=== PATIENT | female | born 1935 | race Caucasian/White ===

== ENCOUNTER 2019-06-03 15:02 | Outpatient (CLI) | payer MEDICARE, SELFPAY ==
--- NOTE | 2019-06-03 15:11 | USCV_ITS ---
Colleen Benitez Age: 84 Gender: F : 1935 Exam Date: 06/03/2019 15:32 Ordering Phys: Sanjana Lopez Technologist: Dinesh Abdullahi Exam Location: [facility] [place]_ Indication: LLE swelling HISTORY: Left lower extremity swelling PROCEDURES: Venous duplex imaging was performed in only the left lower extremity. On the left side, the common femoral, superficial femoral, profunda femoral, popliteal, posterior tibial, greater saphenous veins, and the peroneal trunk were identified and interrogated in the standard fashion. These veins were found to be easily compressible with spontaneous blood flow. FINDINGS: No DVT or superficial thrombus seen in LLE. CONCLUSIONS No evidence of DVT in the above-mentioned identifiable veins. Dr Jonathan Toribio MD [facility] (Electronically Signed) Final Date: 04 June 2019 18:48 S
== END 2019-06-03 15:03 | disposition home or self-care (01) ==
LOC: RAD 15:06
PROVIDERS: Family Provider Registered Nurse; PCP Registered Nurse; Visit Provider Nurse Practitioner Family
DX: M79.89 Other specified soft tissue disorders (principal); M79.605 Pain in left leg
CPT/HCPCS: 93971

== ENCOUNTER 2019-08-29 21:10 | Inpatient (IN) | payer MEDICARE, SELFPAY ==
--- NOTE | 2019-08-29 21:15 | XR_ITS ---
WS: [id number] HIP WITH PELVIS LEFT TECHNIQUE: 3 views of the left hip with pelvis CLINICAL INFORMATION: FALL/INJURY COMPARISON: None. FINDINGS: Left femoral neck fracture with varus angulation. Right hip is normal in appearance. Osteopenia. Norm al visualized pubic rami. Vascular calcification. XR/XR hip LT 2-3V wo/w pel* [id number] IMPRESSION: Transcervical left femoral neck fracture with varus angulation.
--- NOTE | 2019-08-29 21:18 | W.ED.FALL ---
HPI - Fall General: Chief Complaint: Fall Stated Complaint: Hip pain post fall Time Seen by Provider: 08/29/19 21:13 History of Present Illness: HPI Narrative: Ms. Benitez is a nice 84-year-old female who comes in complaining of left hip pain/left groin pain after she fell at home. She stumbled and fell did not hit her head or neck. Her only complaint is that to her left groin and hip area. She was not able to ambulate after the fall but had to call EMS who brought her here. 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 Family History Daughter Pacemaker Father Tetanus from tetanus Denies family history of Anesthesia complication Bleeding disorder Social History Smoking and tobacco status: never smoked Alcohol intake: never Caregiver/support person: No Lives independently: Yes Housing: Apartment Physical Exam Const: COMMON NORMALS: no apparent distress, oriented x3, no limitations, healthy appearing and well nourished EXAM LIMITATIONS: no altered mental status GENERAL APPEARANCE: cooperative, well kempt and well developed ORIENTATION/CONSCIOUSNESS: Yes awake HENMT: COMMON NORMALS: normocephalic, head/scalp atraumatic, hearing grossly normal bilaterally, external ears normal, EAC's normal, external nose normal and moist oral mucous membranes HEAD & SCALP: normal to inspection, normocephalic and atraumatic FACE & SINUS: normal facial exam and face symmetric NOSE: external nose normal and nares normal EXTERNAL EAR: Yes external ears normal EXTERNAL AUDITORY CANAL: EAC's normal MOUTH: oral and palatal mucosa normal and tongue normal Eye: COMMON NORMALS: PERRL, EOMs intact bilaterally, conjunctivae normal and no scleral icterus GENERAL EYE: normal appearance of both eyes and normal light reflex CONJUNCTIVA: Yes conjunctivae normal SCLERA: sclerae normal CORNEA: Yes corneas normal PUPIL: Yes PERRL DIRECT OPHTHALMOSCOPY: Yes normal light reflex Neck/C-Spine: COMMON NORMALS: full ROM, no lymphadenopathy, supple, no meningeal signs and no JVD GENERAL: Yes normal visual inspection and Yes trachea midline CERVICAL SPINE: Yes cervical ROM normal Chest: COMMONS NORMALS: inspection of chest normal and palpation of chest normal Resp: COMMON NORMALS: normal respiratory effort, no retractions, no use of accessory muscles and clear to auscultation bilaterally EFFORT & INSPECTION: Yes able to speak in complete sentences AUSCULTATION: clear to auscultation bilaterally Cardio: COMMON NORMALS: no JVD, regular rate, regular rhythm, S1 normal heart sound, S2 normal heart sound, no gallops, no clicks, no murmurs and no rub JUGULAR VENOUS DISTENTION: no JVD RATE: regular rate RHYTHM: regular rhythm HEART SOUNDS: S1 normal and S2 normal GI: COMMON NORMALS: soft to palpation, non-tender, no hepatosplenomegaly and no masses INSPECTION: Yes normal to inspection PALPATION: Yes soft and Yes no hepatosplenomegaly : COMMON NORMALS: Yes no CVA tenderness BLADDER/KIDNEY EXAM: Yes no CVA tenderness Back/Pelvis: COMMON NORMALS: no CVA tenderness, thoracic and lumbar spine normal to inspection, no thoracic nor lumbar tenderness and thoraco-lumbar ROM normal Extremity: COMMON NORMALS: normal capillary refill, no joint enlargement, no clubbing, cyanosis or edema and no calf tenderness NARRATIVE EXTREMITY EXAM: Left hip and left pubic ramus tender to palpation. Patient's leg not shortened but was externally rotated. Neuro: COMMON NORMALS: oriented x3, CN's II-XII intact bilaterally, moves all extremities, no focal motor deficits and no sensory deficits noted MENINGEAL SIGNS: Yes no meningeal signs Psych: COMMON NORMALS: mental status grossly normal, thought process normal, cooperative, affect normal, speech normal and activity/motor behavior normal APPEARANCE: Yes well kempt SPEECH: Yes normal speech THOUGHT PROCESS: normal thought process Skin: COMMON NORMALS: no rashes or lesions noted, skin turgor normal, no jaundice, no petechiae and no mottling GENERAL SKIN EXAM: no rashes or lesions noted and turgor normal Course Vital Signs: Vital signs: Vital Signs Temperature 98.6 F 08/30/19 01:06 Pulse Rate 94 08/30/19 01:06 Respiratory Rate 18 08/30/19 01:06 Blood Pressure 158/84 08/30/19 01:06 Pulse Oximetry 96 08/30/19 01:06 MDM - Fall MDM Narrative: Medical decision making narrative: Patient has obvious hip fracture on the left. I reviewed the case in full with Dr. Beebe who is agreeable to consult. The case was reviewed with Dr. Dewey and she is agreeable to admission for medical management. Lab Data: Labs: Lab Results 08/29/19 08/29/19 08/29/19 Range/Units 21:55 21:55 21:55 WBC 19.3 H (4.0-10.0) 10^3/ uL RBC 4.22 (4.1-5.3) 10^6/u L Hgb 11.4 L (11.5-15.3) g/dL Hct 37.6 (37.0-47.0) % MCV 89.1 (81-99) fL MCH 27.0 L (28.0-34.0) pg MCHC 30.3 (30.0-36.0) g/dL RDW 14.7 (12.1-15.1) % Plt Count 361 (130-400) 10^3/c mm MPV 9.3 (7.4-10.4) fL Neut % (Auto) 78.3 % Lymph % (Auto) 14.6 % [place] % (Auto) 5.5 % Eos % (Auto) 0.4 % Baso % (Auto) 0.3 % Neut # (Auto) 15.1 H (1.8-7.7) 10^3/u L Lymph # (Auto) 2.8 (0.8-4.8) 10^3/u L [place] # (Auto) 1.1 H (0.2-0.9) 10^3/u L Eos # (Auto) 0.1 (0.0-0.8) 10^3/u L Baso # (Auto) 0.1 (0.0-0.1) 10^3/u L Nucleated RBC % (a uto) 0 % Nucleated RBCs # 0.0 /100WBC PT 12.60 (10.5-13.3) SECO NDS INR 0.92 (0.8-1.2) APTT 26.1 (23.9-36.7) SECO NDS Sodium (136-145) mmol/L Potassium (3.5-5.1) mmol/L Chloride (98-107) mmol/L Carbon Dioxide (22-29) mmol/L Anion Gap (5-19) BUN (8-23) mg/dL Creatinine (0.5-0.9) mg/dL Glucose (65-115) mg/dL Calculated Osmolal ity (285-295) mOsm/k g Calcium (8.5-10.5) mg/dL Magnesium (1.7-2.3) mg/dL Total Bilirubin (0.15-1.2) mg/dL AST (0-32) U/L ALT (0-33) U/L Alkaline Phosphata se (35-105) IU/L Total Protein (6.6-8.7) g/dL Albumin (3.5-5.2) g/dL Globulin (1.3-4.6) g/dL Blood Type A Negative Rho(D) Type Negaive Antibody Screen Negative 08/29/19 Range/Units 21:55 WBC (4.0-10.0) 10^3/ uL RBC (4.1-5.3) 10^6/u L Hgb (11.5-15.3) g/dL Hct (37.0-47.0) % MCV (81-99) fL MCH (28.0-34.0) pg MCHC (30.0-36.0) g/dL RDW (12.1-15.1) % Plt Count (130-400) 10^3/c mm MPV (7.4-10.4) fL Neut % (Auto) % Lymph % (Auto) % [place] % (Auto) % Eos % (Auto) % Baso % (Auto) % Neut # (Auto) (1.8-7.7) 10^3/u L Lymph # (Auto) (0.8-4.8) 10^3/u L [place] # (Auto) (0.2-0.9) 10^3/u L Eos # (Auto) (0.0-0.8) 10^3/u L Baso # (Auto) (0.0-0.1) 10^3/u L Nucleated RBC % (a uto) % Nucleated RBCs # /100WBC PT (10.5-13.3) SECO NDS INR (0.8-1.2) APTT (23.9-36.7) SECO NDS Sodium 136 (136-145) mmol/L Potassium 3.4 L (3.5-5.1) mmol/L Chloride 97 L (98-107) mmol/L Carbon Dioxide 28 (22-29) mmol/L Anion Gap 14.4 (5-19) BUN 21 (8-23) mg/dL Creatinine 0.9 (0.5-0.9) mg/dL Glucose 125 H (65-115) mg/dL Calculated Osmolal ity 280 L (285-295) mOsm/k g Calcium 9.4 (8.5-10.5) mg/dL Magnesium 2.1 (1.7-2.3) mg/dL Total Bilirubin 0.2 (0.15-1.2) mg/dL AST 24 (0-32) U/L ALT 15 (0-33) U/L Alkaline Phosphata se 77 (35-105) IU/L Total Protein 7.4 (6.6-8.7) g/dL Albumin 4.0 (3.5-5.2) g/dL Globulin 3.4 (1.3-4.6) g/dL Blood Type Rho(D) Type Antibody Screen Imaging Data^: Pelvis: My impression: No acute pelvic fractures. Left hip: My impression: Femoral neck fracture with shortening. Discharge Plan Discharge Patient Disposition: Admitted As Inpatient Admit Provider: Maty Mejía Clinical Impression: Closed fracture of left hip Qualifiers: Encounter type: initial encounter Qualified Code(s): S72.002A - Fracture of unspecified part of neck of left femur, initial encounter for closed fracture Condition: Stable Referrals: Radha Lion FNP [Primary Care Provider] - Discharge Date/Time: 08/30/19 00:50 Coding Level of Care Code ED Chief Program Officer for [facility] Fwd Exam Comprehensive
[2019-08-29 21:19] VITALS: BP 160/80; PULSE 96; RESP 18; TEMP 36.5; O2SAT 94; BMI 29.1
--- NOTE | 2019-08-29 21:43 | XR_ITS ---
WS: [id number] CHEST XRAY TECHNIQUE: Portable chest. CLINICAL INFORMATION: cough COMPARISON: February 18, 2019 FINDINGS: Heart: Cardiomegaly. Aortic calcification. Cardiac pacer. Lungs: Moderate chronic emphysematous changes. No acute pulmonary infiltrates. No focal pneumonia. Bones: Normal visualized bony structures. XR/XR chest 1V portable [id number] IMPRESSION: 1. Stable cardiomegaly with cardiac pacer. 2. No acute pulmonary infiltrates.
--- NOTE | 2019-08-29 21:43 | ECG_ITS ---
Measurements Intervals Sandwich Rate: 94 P: 66 MO: 218 QRS: -74 QRSD: 161 T: 35 QT: 414 QTc: 519 SINUS RHYTHM WITH FIRST DEGREE AV BLOCK RIGHT BUNDLE BRANCH BLOCK [120+ ms QRS DURATION, UPRIGHT V1, 40+ ms S IN I I/aVL/V4/V5/V6] LEFT ANTERIOR FASCICULAR BLOCK [QRS AXIS <= -45, QR IN I, RS IN II] Compared to ECG 07/20/2018 04:11:44 Right bundle-branch block now present Left anterior fascicular block now present Left-axis deviation no longer present Left bundle-branch block no longer present Electronically Signed On 08-30-2019 14:59:48 CDT by Anup Batres M.D. [email or web address]
[2019-08-29 22:03] LABS: Basophils # 0.1 10^3/uL (0.0-0.1); Basophils % 0.3 %; Eosinophils # 0.1 10^3/uL (0.0-0.8); Eosinophils % 0.4 %; Hematocrit 37.6 % (37.0-47.0); Hemoglobin 11.4 g/dL (11.5-15.3); Lymphocytes # 2.8 10^3/uL (0.8-4.8); Lymphocytes % 14.6 %; Mean Corpuscular HGB Conc 30.3 g/dL (30.0-36.0); Mean Corpuscular Volume 89.1 fL (81-99); Mean Platelet Volume 9.3 fL (7.4-10.4); Monocytes # 1.1 10^3/uL (0.2-0.9); Monocytes % 5.5 %; Neutrophils # 15.1 10^3/uL (1.8-7.7); Neutrophils % 78.3 %; Nucleated Red Blood Cells % 0 %; Platelet Count 361 10^3/cmm (130-400); Red Blood Count 4.22 10^6/uL (4.1-5.3); Red Cell Distribution Width 14.7 % (12.1-15.1); White Blood Count 19.3 10^3/uL (4.0-10.0)
[2019-08-29 22:11] LABS: INR 0.92 (0.8-1.2)
[2019-08-29 22:12] LABS: Partial Thromboplastin Time 26.1 SECONDS (23.9-36.7)
[2019-08-29 22:16] LABS: Alanine Aminotransferase 15 U/L (0-33); Alkaline Phosphatase 77 IU/L (35-105); Anion Gap 14.4 (5-19); Aspartate Amino Transferase 24 U/L (0-32); Blood Urea Nitrogen 21 mg/dL (8-23); Calcium 9.4 mg/dL (8.5-10.5); Carbon Dioxide 28 mmol/L (22-29); Chloride 97 mmol/L (98-107); Globulin 3.4 g/dL (1.3-4.6); Glucose 125 mg/dL (65-115); Magnesium 2.1 mg/dL (1.7-2.3); Osmolality Calculated 280 mOsm/kg (285-295); Potassium 3.4 mmol/L (3.5-5.1); Sodium 136 mmol/L (136-145); Total Bilirubin 0.2 mg/dL (0.15-1.2); Total Protein 7.4 g/dL (6.6-8.7)
[2019-08-29 22:35] VITALS: BP 155/82; PULSE 95; RESP 16; O2SAT 95
[2019-08-29 22:43] VITALS: RESP 16; O2SAT 95
[2019-08-29] MEDS: ondansetron 2 mg/ML SDV 2 mL 4 MG IVP (22:43)
[2019-08-29] MEDS: morphine 4 mg/mL SDV 1 mL IVP (22:43)
[2019-08-29] MEDS: sodium chloride 0.9% 1,000 ML 100 ML IV (22:44)
[2019-08-29 23:19] VITALS: BP 145/80; PULSE 95; RESP 14; O2SAT 92
--- NOTE | 2019-08-29 23:40 | PM.HP ---
Providers/Chief Complaint Admitting Physician: Maty Mejía Primary Care Provider: MILAGROS Frias Chief Complaint: Hip pain post fall History of Present Illness Colleen Benitez is a 84 year old female who presented to the emergency room after a fall. She lives alone and states that she had gotten up after dinner and was walking across the room when she just simply lost her balance and fell down. She denies any type of preceding symptom. She says similar things have happened before. She has arthritis and has had previous right knee replacement. Sometimes her legs just give out. She denies chest pain, shortness of breath, dizziness, palpitations, focal weakness, mental status changes, nausea, loss of consciousness, fever, sweating and the like. She landed on her left hip on the concrete. At first she thought if she just rested for a minute she would be able to get up but after about 30 minutes she realized that that was not going to happen. She was able to scoot herself across the room to a phone and called her daughter. She was brought in by ambulance. Left lower extremity was externally rotated and shortened and she was found to have a fracture. Case has already been discussed with Dr. Gomes, orthopedics on-call. Patient lives alone. She takes care of her own housekeeping and cooking as well as her own activities of daily living. She still drives. She does not report any recent issues with chest pain, dyspnea on exertion or increasing lower extremity edema. Her legs are always a little bit puffy. No recent increase. Denies orthopnea or PND. She has had previous cataract surgery and right knee replacement without any anesthesia difficulties. No known bleeding disorder, kidney disorder. She has high blood pressure but no history of coronary artery disease. No known infectious symptoms reported. Review of Systems Const: Denies: fever, chills or change in weight Eyes: Denies: change in vision ENMT: Denies: throat pain or nasal congestion Card: Denies: chest pain, palpitations or edema Resp: Denies: shortness of breath or productive cough GI: Denies: abdominal pain, nausea, vomiting, diarrhea, constipation or blood in stool : Denies: difficulty urinating or urinary frequency Musc: Reports: joint pain (Chronically multiple joints, acutely left hip) Skin/Breast: Denies: rash or sores Neuro: Denies: headache, numbness in extremities or weakness in extremities Psych: Denies: anxiety or depression Endo: Denies: excessive sweating Jax/Lymph: Reports: easy bruising (If she takes aspirin); Denies: easy bleeding Medications/Allergies Home Medications Medication Instructions Recorded Confirmed Last Taken Type acetaminophen 500 mg tablet 500 mg PO Q4H PRN 05/23/19 06/03/19 Unknown History calcium citrate-vitamin D3 315 1 tab PO DAILY tab 05/23/19 06/03/19 Unknown History mg-200 unit tablet cholecalciferol (vitamin D3) 50 2,000 unit PO DAILY tab 05/23/19 06/03/19 Unknown History mcg (2,000 unit) tablet hydrochlorothiazide 25 mg tablet 25 mg PO DAILY tab 05/23/19 06/03/19 Unknown History loratadine 10 mg capsule 10 mg PO DAILY cap 05/23/19 06/03/19 Unknown History magnesium 200 mg tablet 400 mg PO DAILY tab 05/23/19 06/03/19 Unknown History vitamin B complex 1 tab PO DAILY tab 05/23/19 06/03/19 Unknown History glucosamine-chondroitin [Osteo 1 tab PO BID 08/29/19 08/29/19 08/29/19 History Bi-Flex] Allergies Allergy/AdvReac Type Severity Reaction Status Date / Time meloxicam Allergy Unknown Unknown Verified 05/23/19 10:57 prednisone Allergy Unknown Unknown Verified 05/23/19 10:57 triamcinolone [From Kenalog] Allergy Unknown Unknown Verified 05/23/19 10:57 PFSH Acute PFSH: Medical History 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 Placed by Duckworth 02/2019 HTN (hypertension) Mobitz type 2 second degree atrioventricular block Osteoarthritis 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) Surgical History History of bilateral cataract extraction S/P knee replacement [facility] Family History Daughter Pacemaker Father Tetanus from tetanus Denies family history of Anesthesia complication Bleeding disorder Social History Smoking and tobacco status: never smoked Alcohol intake: never Caregiver/support person: No Lives independently: Yes Housing: Apartment Vitals/I&O/Wt Last Vital Signs Temp 97.7 F 08/29/19 21:19 Pulse 95 08/29/19 23:19 Resp 14 08/29/19 23:19 BP 145/80 08/29/19 23:19 Pulse Ox 92 08/29/19 23:19 08/29/19 08/29/19 08/30/19 14:59 22:59 06:59 Intake Total 1000 / 1000 Balance 1000 / 1000 Weight last 48 hrs Weight 79.379 kg Physical Exam Const: COMMON NORMALS: oriented x3 and alert HENMT: COMMON NORMALS: normocephalic and head/scalp atraumatic Eye: COMMON NORMALS: PERRL and EOMs intact bilaterally Neck/C-Spine: COMMON NORMALS: supple Lymph: LYMPHATIC: no lymphadenopathy noted Resp: COMMON NORMALS: normal respiratory effort, no use of accessory muscles and clear to auscultation bilaterally Cardio: COMMON NORMALS: regular rate, regular rhythm, no gallops, no murmurs and no rub GI: COMMON NORMALS: soft to palpation and non-tender Extremity: COMMON NORMALS: normal capillary refill, no clubbing, cyanosis or edema and no calf tenderness NARRATIVE EXTREMITY EXAM: Left lower extremity is externally rotated and shortened. Patient can move her toes. Pulses are 2+ at both dorsalis pedis. Bony hypertrophy noted particularly of the hands. No acute joint findings beyond pain in the left hip. Neuro: COMMON NORMALS: moves all extremities and no sensory deficits noted Psych: COMMON NORMALS: thought process normal and cooperative Skin: COMMON NORMALS: no rashes or lesions noted and no mottling Urinary Catheter Management^: Omer: Cath Placed During This Visit: yes Urinary Catheter Date of Insertion: 08/29/19 Urinary Catheter Time of Insertion: 23:15 Data : 08/29/19 21:55 08/29/19 21:55 Xray Ortho: My impression: Subcapital left hip fracture per Dr. Gomes's interpretation A&P Assessment and plan (1) Fall at home: Lost balance. No preceding or associated symptoms reported Status: Acute Qualifiers: Encounter type: initial encounter Qualified Code(s): W19.XXXA - Unspecified fall, initial encounter; Y92.009 - Unspecified place in unspecified non-institutional (private) residence as the place of occurrence of the external cause (2) Closed fracture of left hip: Related to above Status: Acute Qualifiers: Encounter type: initial encounter Qualified Code(s): S72.002A - Fracture of unspecified part of neck of left femur, initial encounter for closed fracture (3) Leukocytosis: No current evidence of infection Status: Acute Qualifiers: Leukocytosis type: leukemoid reaction Qualified Code(s): D72.823 - Leukemoid reaction (4) 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 (5) HTN (hypertension): On HCTZ Status: Chronic Qualifiers: Hypertension type: essential hypertension Qualified Code(s): I10 - Essential (primary) hypertension (6) Osteoarthritis: Takes tylenol and osteobiflex Status: Chronic Qualifiers: Osteoarthritis location: multiple joints Osteoarthritis type: primary Qualified Code(s): M89.49 - Other hypertrophic osteoarthropathy, multiple sites Additional A&P Information Inpatient admission Dr. Gomes has already been consulted by ED Tentative plan is surgery in the morning We will keep n.p.o. Check a baseline troponin and BNP Will currently hold home hydrochlorothiazide and we will see how she does postoperatively Pain control with morphine Laxative therapy scheduled, has a history of constipation perioperatively Intermittent pneumatic compression but hold pharmacological DVT prophylaxis at the moment Continue Omer catheter with plan to remove by the second day postoperative Discussed with patient anticipate disposition to snf facility We will consult case management to begin this process Supportive care otherwise Risk and benefits of surgery were described to the patient and she does wish to proceed. She is aware that Dr. Gomes has been consulted. Of note Dr. Gomse did her knee surgery a few years ago. CODE STATUS was discussed and Mrs. Benitez indicated that she would not want to be resuscitated. She stated that her family was aware of her wishes. She has paperwork indicating such. I initiated the conversation about perioperative event and she said she will think about that. Patient was given an opportunity to ask questions which were answered Attestations Medical Necessity Statement*: Anticipated hospital stay greater than 2 midnights in the patient with acute hip fracture which will require surgical intervention Coding Level of Care Code Acute Wastewater Project Manager for [facility] Fwd Diagnoses Fall at home W19.XXXA; Y92.009 Encounter type: initial encounter Closed fracture of left hip S72.002A Encounter type: initial encounter Leukocytosis D72.823 Leukocytosis type: leukemoid reaction History of pacemaker Z95.0 HTN (hypertension) I10 Hypertension type: essential hypertension Osteoarthritis M89.49 Osteoarthritis location: multiple joints Osteoarthritis type: primary Perioperative Risk Evaluation Type of surgery Procedure risk: elevated risk procedure Status of surgery Priority: urgent (neccessary within 6-24 hours) Sepsis risk Infection criteria present: None SIRS criteria present: WBC < 4k or > 12k or Bands > 10% Sepsis screen: No Definite Risk Risk factors Risk factors: reviewed and none apply Medical history Medical history: reviewed and none apply Cardiac Studies: No Data to Display Implantable device: pacemaker/AICD Implantable Devices Qty Crime Scene Technician Implant Date Expiration Date pacemaker 1 02/18/19 Functional capacity Exercise tolerance: 4-10 METS Medications High priority meds: diuretics Assessment Risk of cardiovascular perioperative events: Elevated At this time, there is an elevated risk for cardiovascular perioperative events associated with this urgent elevated risk procedure. With reported functional level, no cardiopulmonary complaints, and no acute EKG changes compared to prior EKGs, no indication currently for further cardiac evaluation beyond baseline BNP and troponin. Risk of noncardiovascular perioperative events: Low At this time, there is a low risk for noncardiovascular perioperative events associated with this urgent elevated risk procedure. Additional comments: This patient has a pacemaker/AICD. Recommendations Patient medically optimized for surgery: Yes Emily-op med management: Currently, there is one high priority active medication: diuretics. The recommended action is: Hold in immediate periop period with plan to resume in couple days if otherwise stable
[2019-08-29 23:48] LABS: Bacteria Urine TRACE; Bilirubin Urine Neg (NEGATIVE); Blood Urine Neg (Negative); Glucose Urine UA Norm (Normal); Ketones Urine Negative (Negative); Leukocyte Esterase Urine Negative (Negative); Nitrate Urine Negative (Negative); Protein Urine Neg (Negative); RBC Urine RARE /hpf (0-2); Squamous Epithelial Cell Urine RARE (0-5); Urine Appearance Clear (CLEAR); Urine Color Yellow (Yellow); Urobilinogen Urine Norm (Negative); WBC Urine RARE /hpf (0-5); pH Urine 5 (5-7)
--- NOTE | 2019-08-29 23:53 | PC.NURSE ---
care and report given to the charge nurse
[2019-08-30] VITALS (22 sets, daily range): BP systolic 105–167; BP diastolic 60–95; PULSE 78–100; RESP 16–25; TEMP 36.1–37; O2SAT 94–99
[2019-08-30] MEDS: sodium chloride 0.9% 1,000 ML 100 ML IV (01:26)
[2019-08-30 02:08] LABS: Troponin T (5th) Once 13 ng/mL (0-10)
[2019-08-30 02:17] LABS: NT Pro B Type Natriuretic Pept 444 pg/mL (0-450)
[2019-08-30 04:48] LABS: Basophils # 0.1 10^3/uL (0.0-0.1); Basophils % 0.3 %; Eosinophils # 0.1 10^3/uL (0.0-0.8); Eosinophils % 0.3 %; Hematocrit 35.5 % (37.0-47.0); Hemoglobin 10.6 g/dL (11.5-15.3); Lymphocytes # 3.4 10^3/uL (0.8-4.8); Lymphocytes % 22.7 %; Mean Corpuscular HGB Conc 29.9 g/dL (30.0-36.0); Mean Corpuscular Hemoglobin 26.7 pg (28.0-34.0); Mean Corpuscular Volume 89.4 fL (81-99); Mean Platelet Volume 9.3 fL (7.4-10.4); Monocytes % 6.5 %; Neutrophils # 10.5 10^3/uL (1.8-7.7); Neutrophils % 69.8 %; Nucleated Red Blood Cells % 0 %; Platelet Count 321 10^3/cmm (130-400); Red Blood Count 3.97 10^6/uL (4.1-5.3); Red Cell Distribution Width 14.6 % (12.1-15.1)
[2019-08-30 05:10] LABS: Anion Gap 12.7 (5-19); Blood Urea Nitrogen 17 mg/dL (8-23); Carbon Dioxide 29 mmol/L (22-29); Chloride 103 mmol/L (98-107); Creatinine Clr Calc Pharmacy 55.4749; Glucose 95 mg/dL (65-115); Osmolality Calculated 286 mOsm/kg (285-295); Potassium 4.7 mmol/L (3.5-5.1); Sodium 140 mmol/L (136-145)
--- NOTE | 2019-08-30 07:38 | P.CONIM_ITS ---
Providers/Reason For Consult Consulting Physican/Specialty*: Dr. Sarah Gomes - Orthopedics Reason for Consult*: Left subcapital hip fracture Requesting Physcian: Dr. Dutton - Emergency Department Attending Physician: Maty Mejía MD Primary Care Provider: MILAGROS Frias History of Present Illness History of Present Illness Colleen Benitez is a 84 year old female who is known to me following total knee arthroplasty and who was admitted to the hospital following a fall at home. The patient had gotten up following dinner and was walking across the room when she fell down . She denied any sort of syncopal episode or other issue causing her to fall. Does note that sometimes her legs just give out. She landed directly onto concrete. She actually thought she would be able to get up but following about 30 minutes of resting, she was unable to get up. She scooted herself across the room and called her daughter and was brought to the hospital by ambulance. At the time of admission, she had left lower extremity deformity with external rotation and shortening. I was notified by the emergency department regarding her subcapital hip fracture. Review of Systems General: Reports: 10 or more systems reviewed and unremarkable except in HPI and below Narrative: Patient is very functional and independent. She does her own housekeeping and cooking. She drives herself. She has no issues aside from some lower extremity edema which has been stable. She does have high blood pressure. Const: Denies: fever, chills or change in weight Eyes: Denies: change in vision ENMT: Denies: throat pain or nasal congestion Card: Denies: chest pain, palpitations or edema Resp: Denies: shortness of breath or productive cough GI: Denies: abdominal pain, nausea, vomiting, diarrhea, constipation or blood in stool : Denies: difficulty urinating or urinary frequency Musc: Reports: joint pain (Chronically multiple joints, acutely left hip) Skin/Breast: Denies: rash or sores Neuro: Denies: headache, numbness in extremities or weakness in extremities Psych: Denies: anxiety or depression Endo: Denies: excessive sweating Jax/Lymph: Reports: easy bruising (If she takes aspirin); Denies: easy bleeding Meds/Allergies Home Medications and Allergies Home Medications Medication Instructions Recorded Confirmed Last Taken Type acetaminophen 500 mg tablet 500 mg PO Q4H PRN 05/23/19 08/29/19 08/29/19 History calcium citrate-vitamin D3 315 1 tab PO DAILY tab 05/23/19 08/29/19 08/29/19 History mg-200 unit tablet cholecalciferol (vitamin D3) 50 2,000 unit PO DAILY tab 05/23/19 08/29/19 08/29/19 History mcg (2,000 unit) tablet hydrochlorothiazide 25 mg tablet 25 mg PO DAILY tab 05/23/19 08/29/19 08/29/19 History loratadine 10 mg capsule 10 mg PO DAILY cap 05/23/19 08/29/19 08/29/19 History magnesium 200 mg tablet 400 mg PO DAILY tab 05/23/19 08/29/19 08/29/19 History vitamin B complex 1 tab PO DAILY tab 05/23/19 08/29/19 08/29/19 History glucosamine-chondroitin [Osteo 1 tab PO BID 08/29/19 08/29/19 08/29/19 History Bi-Flex] Allergies Allergy/AdvReac Type Severity Reaction Status Date / Time meloxicam Allergy Unknown Unknown Verified 05/23/19 10:57 prednisone Allergy Unknown Unknown Verified 05/23/19 10:57 triamcinolone [From Kenalog] Allergy Unknown Unknown Verified 05/23/19 10:57 Current Medications Current Medications Generic Name Dose Route Start Last Admin Trade Name Freq PRN Reason Stop Dose Admin Sodium Chloride 1,000 mls @ 100 mls/hr 08/29/19 21:45 08/29/19 23:33 Sodium Chloride 0.9% IV Infused .Q10H SHU Infusion Sodium Chloride 1,000 mls @ 100 mls/hr 08/30/19 01:06 08/30/19 01:26 Sodium Chloride 0.9% IV 100 mls/hr .Q10H SHU Administration PFSH Acute PFSH: Medical History 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 Placed by Donita 02/2019 HTN (hypertension) Mobitz type 2 second degree atrioventricular block Osteoarthritis 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 She does her own housekeeping and cooking. She drives herself. She has no issues aside from some lower extremity edema which has been stable. She does have high blood pressure. Vitals/I&O/Wt Last Vital Signs Temp 98.1 F 08/30/19 07:22 Pulse 82 08/30/19 07:22 Resp 16 08/30/19 07:22 BP 152/75 08/30/19 07:22 Pulse Ox 95 08/30/19 07:22 08/29/19 08/30/19 08/30/19 22:59 06:59 14:59 Intake Total 1000 / 1000 Output Total 1100 / 1100 Balance -100 / -100 Weight last 48 hrs Weight 175 lb Physical Exam Const: COMMON NORMALS: no apparent distress, average body habitus, oriented x3 and alert GENERAL APPEARANCE: cooperative and comfortable ORIENTATION/CONSCIOUSNESS: Yes awake HENMT: COMMON NORMALS: normocephalic and head/scalp atraumatic HEAD & SCALP: normocephalic and atraumatic Eye: GENERAL EYE: normal appearance of both eyes Chest: COMMONS NORMALS: inspection of chest normal Resp: COMMON NORMALS: normal respiratory effort EFFORT & INSPECTION: Yes able to speak in complete sentences and Yes symmetric chest movement Extremity: RIGHT LOWER EXTREMITY: Yes knee joint Right knee: Yes inspection (Status post total knee arthroplasty with no swelling or inflammation) and Yes palpation (Nontender) LEFT LOWER EXTREMITY: Yes hip joint Left hip: Yes inspection (No evidence of significant ecchymosis), Yes palpation (Tender), Yes ROM (Painful and not performed) and Yes neurovascular exam (Intact motor and sensory) Neuro: COMMON NORMALS: oriented x3 SENSORIUM/ORIENTATION: Yes alert Psych: COMMON NORMALS: mental status grossly normal APPEARANCE: Yes grossly normal ATTITUDE: Yes calm and Yes engaged ATTENTION/CONCENTRATION: Yes attention grossly intact Skin: COMMON NORMALS: no rashes or lesions noted GENERAL SKIN EXAM: no rashes or lesions noted Urinary Catheter Management^: Omer: Cath Placed During This Visit: yes Urinary Catheter Date of Insertion: 08/29/19 Urinary Catheter Time of Insertion: 23:15 Data Imaging^: Xray Ortho: My impression: AP pelvis and 2 views of the left hip demonstrate a completely displaced left subcapital hip fracture with shortening of the extremity. A&P Assessment and plan (1) Subcapital fracture of left hip: The patient was admitted through the emergency department last evening with a left subcapital hip fracture. She fell at home while walking in her kitchen. She denied any sort of episode causing her to fall. She denies episodes of syncope, but she does note that her leg will occasionally give way. She has diffuse degenerative osteoarthritis. The patient is known to me secondary to prior total knee arthroplasty in approximately 2017. Patient presents today and is admitted to the medical service for evaluation. Her major issues are high blood pressure, and she denies history of coronary artery disease. The patient will require a bipolar hip arthroplasty. Risks and complications are discussed with her. She will be consented for the surgical intervention. Status: Acute Qualifiers: Encounter type: initial encounter Fracture type: closed Qualified Code(s): S72.012A - Unspecified intracapsular fracture of left femur, initial e ncounter for closed fracture (2) Fall at home: Status: Acute Qualifiers: Encounter type: initial encounter Qualified Code(s): W19.XXXA - Unspecified fall, initial encounter; Y92.009 - Unspecified place in unspecified non-institutional (private) residence as the place of occurrence of the external cause Consult Attestations Medical Necessity Statement: Per hospitalist service Coding Level of Care Code Acute Personal Care Attendant for [facility] Fwd Diagnoses Subcapital fracture of left hip S72.012A Encounter type: initial encounter Fracture type: closed Fall at home W19.XXXA; Y92.009 Encounter type: initial encounter
[2019-08-30] MEDS: sodium chloride 0.9% 1,000 ML 30 ML IV (08:12)
--- NOTE | 2019-08-30 08:51 | P.ANESASSM_ITS ---
Pre-Anesthetic Assessment Pre-Anesthetic Assessment: Height/Weight: Height 1.65 m Weight 79.379 kg Temp Pulse Resp BP Pulse Ox 97.9 F 84 18 160/90 94 08/30/19 08:17 08/30/19 08:17 08/30/19 08:17 08/30/19 08:17 08/30/19 08:17 Preop Diagnosis: Left hip fracture Proposed Procedure: Operation Date: 08/30/19 09:30 Proposed Procedures p Hemiarthroplasty Hip Bipolar(Left) - Sarah Gomes MD Last intake: Intake Last Liquid Date 08/29/19 Last Solid Date 08/29/19 Social: Social History: No alcohol and No tobacco Exam: Pre-Anes Outpt Exam: alert, oriented x 3, clear to auscultation bilaterally and regular rate & rhythm Airway: Submandibular: WNL Cervical ROM: Other (limited) MP: 3 Dentition: False (upper and lower) History/ROS: No significant history except as noted Pulmonary: Pulmonary: PICKETT CV/HEM: Comments: PPM : Comments: stones Hepatic: Hepatic: None reported GI: GI: None reported Metabolic: Metabolic: None reported Musc/skel: Musc/skel: OA/DJD Neuropsych: Neuropsych: None reported Anesthetic Plan: ASA status: 2 Anesthesia: Anesthesia Evaluation and General Risk of > 500 ml blood loss (7ml/kg in children): No Meds/Allergies Current Medications: Current Medications Generic Name Dose Route Start Last Admin Trade Name Freq PRN Reason Stop Dose Admin Sodium Chloride 1,000 mls @ 100 m ls/hr 08/29/19 21:45 08/29/19 23:33 Sodium Chloride 0.9% IV Infused .Q10H SHU Infusion Sodium Chloride 1,000 mls @ 100 m ls/hr 08/30/19 01:06 08/30/19 01:26 Sodium Chloride 0.9% IV 100 mls/hr .Q10H SHU Administration Sodium Chloride 1,000 mls @ 30 ml s/hr 08/30/19 08:00 08/30/19 08:12 Sodium Chloride 0.9% IV 30 mls/hr .Q24H SHU Administration PFSH Anesthesia PFSH: Medical History 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 Information: Patient is very functional and independent. She does her own housekeeping and cooking. She drives herself. She has no issues aside from some lower extremity edema which has been stable. She does have high blood pressure. Data Anesthesia CBC & Chem 7: 08/30/19 04:23 08/30/19 04:23 Other Labs: Laboratory Results - last 48 hr 08/29/19 08/29/19 08/29/19 21:55 21:55 21:55 WBC 19.3 H RBC 4.22 Hgb 11.4 L Hct 37.6 MCV 89.1 MCH 27.0 L MCHC 30.3 RDW 14.7 Plt Count 361 MPV 9.3 Neut % (Auto) 78.3 Lymph % (Auto) 14.6 [place] % (Auto) 5.5 Eos % (Auto) 0.4 Baso % (Auto) 0.3 Neut # (Auto) 15.1 H Lymph # (Auto) 2.8 [place] # (Auto) 1.1 H Eos # (Auto) 0.1 Baso # (Auto) 0.1 Nucleated RBC % (auto) 0 Nucleated RBCs # 0.0 PT 12.60 INR 0.92 APTT 26.1 Sodium Potassium Chloride Carbon Dioxide Anion Gap BUN Creatinine Glucose Calculated Osmolality Calcium Magnesium Total Bilirubin AST ALT Alkaline Phosphatase Troponin T Gen 5 ng/L NT-Pro-B Natriuret Pep Total Protein Albumin Globulin Urine Color Urine Appearance Urine pH Ur Specific [place] Urine Protein Urine Glucose (UA) Urine Ketones Urine Blood Urine Nitrate Urine Bilirubin Urine Urobilinogen Ur Leukocyte Esterase Urine RBC Urine WBC Ur Squamous Epith Cells Urine Bacteria Blood Type A Negative Rho(D) Type Negaive Antibody Screen Negative 08/29/19 08/29/19 08/30/19 21:55 23:15 01:40 WBC RBC Hgb Hct MCV MCH MCHC RDW Plt Count MPV Neut % (Auto) Lymph % (Auto) [place] % (Auto) Eos % (Auto) Baso % (Auto) Neut # (Auto) Lymph # (Auto) [place] # (Auto) Eos # (Auto) Baso # (Auto) Nucleated RBC % (auto) Nucleated RBCs # PT INR APTT Sodium 136 Potassium 3.4 L Chloride 97 L Carbon Dioxide 28 Anion Gap 14.4 BUN 21 Creatinine 0.9 Glucose 125 H Calculated Osmolality 280 L Calcium 9.4 Magnesium 2.1 Total Bilirubin 0.2 AST 24 ALT 15 Alkaline Phosphatase 77 Troponin T Gen 5 ng/L 13 H NT-Pro-B Natriuret Pep Total Protein 7.4 Albumin 4.0 Globulin 3.4 Urine Color Yellow Urine Appearance Clear Urine pH 5 Ur Specific [place] 1.020 Urine Protein Neg Urine Glucose (UA) Norm Urine Ketones Negative Urine Blood Neg Urine Nitrate Negative Urine Bilirubin Neg Urine Urobilinogen Norm Ur Leukocyte Esterase Negative Urine RBC Rare Urine WBC Rare Ur Squamous Epith Cells Rare Urine Bacteria Trace Blood Type Rho(D) Type Antibody Screen 08/30/19 08/30/19 08/30/19 01:40 04:23 04:23 WBC 15.0 H RBC 3.97 L Hgb 10.6 L Hct 35.5 L MCV 89.4 MCH 26.7 L MCHC 29.9 L RDW 14.6 Plt Count 321 MPV 9.3 Neut % (Auto) 69.8 Lymph % (Auto) 22.7 [place] % (Auto) 6.5 Eos % (Auto) 0.3 Baso % (Auto) 0.3 Neut # (Auto) 10.5 H Lymph # (Auto) 3.4 [place] # (Auto) 1.0 H Eos # (Auto) 0.1 Baso # (Auto) 0.1 Nucleated RBC % (auto) 0 Nucleated RBCs # 0.0 PT INR APTT Sodium 140 Potassium 4.7 Chloride 103 Carbon Dioxide 29 Anion Gap 12.7 BUN 17 Creatinine 0.8 Glucose 95 Calculated Osmolality 286 Calcium 9.0 Magnesium Total Bilirubin AST ALT Alkaline Phosphatase Troponin T Gen 5 ng/L NT-Pro-B Natriuret Pep 444 Total Protein Albumin Globulin Urine Color Urine Appearance Urine pH Ur Specific [place] Urine Protein Urine Glucose (UA) Urine Ketones Urine Blood Urine Nitrate Urine Bilirubin Urine Urobilinogen Ur Leukocyte Esterase Urine RBC Urine WBC Ur Squamous Epith Cells Urine Bacteria Blood Type Rho(D) Type Antibody Screen Cardiac Studies: No Data to Display
--- NOTE | 2019-08-30 11:05 | PC.CHAP ---
Pastoral Care Encounter/Spiritual Assessment Type of Contact [] Declined construction executive visit [] Patient/Family/Request visit [] Outpatient visit [] Follow-up visit [] Physician referral [] Code/Alert [x] Routine visit [] Staff referral [] Actively dying [] Patient sleeping [] Family support [] [x] Out of room [] Palliative care [] [] Receiving care in room [] Pre-surgical visit [] Trauma [] Long length of stay [] ICU visit [] Other: Relational/Emotional Strength [] Patient feels connected with others/family/visitors/staff [] Distress [] Loneliness/isolation [] Abandonment Spirituality of Patient [] Person of Shweta [] Attends Sabianist of their Shweta [] Believes in Prayer [] Reads Bible or Samaritan materials [] There are Spiritual issues to be addressed Healthcare Insurance Sales Agent Interventions [] Prayer [] Active listening [] Non-anxious presence [] Spiritual/emotional support [] Crisis/trauma care [] Spiritual counseling [] Bereavement support [] Provided bereavement packet [] Provided Bible/devotional materials [] Provided toy/stuffed animal, coloring book to patient or family member [] Provided Communion [] Anointing/[place] [] Salvation [x] Completed spiritual assessment [] Other: Impact on Illness or Injury [] Angry [] Fearful [] Anxious [] Often cries [] Exhaustion [] Unable to work [] Unable to attend pentecostalism [] Unable to walk/stand [] Unable to read [] Unable to drive [] Unable to eat/drink [] Unable to sleep [] Unable to be with family [] Patient intubated [] Other: Summary Time spent with patient
--- NOTE | 2019-08-30 12:25 | XR_ITS ---
WS: [id number] PELVIS TECHNIQUE: 1 view(s) of the pelvis CLINICAL INFORMATION: Status post bipolar hip arthroplasty COMPARISON: August 29, 2019 FINDINGS: Left AUDRA in good position. Osteopenia. Moderate degenerative arthritis right hip. XR/XR pelvis 1-2V* [id number] IMPRESSION: Satisfactory postoperative left AUDRA.
[2019-08-30] MEDS: ceFAZolin 1,000 mg SDV 1000 MG IRRIGATION (12:49)
[2019-08-30] MEDS: vancomycin 1,000 MG SDV 1000 MG XX (12:50)
--- NOTE | 2019-08-30 13:57 | SUR.PHASEI ---
1354 PATIENT TO PACU AT THIS TIME FROM OR. RR EVEN AND UNLABORED. 93% ON 3L NC. PATIENT NOTED TO BE AWAKE, DROWSY, UNABLE TO FOLLOW COMMANDS. DRESSING TO LEFT HIP, CDI. LEFT PEDAL PULSE MARKED. MCADAMS IN PLACE, DRAINING CLEAR, YELLOW URINE. FIRST ICE PLACED TO LEFT HIP.
--- NOTE | 2019-08-30 14:36 | SUR.PHASEI ---
1426 PATIENT TO MED SURG AT THIS TIME. NO DISTRESS. DENIES PAIN. TOLERATING ICE CHIPS. DRESSING TO LEFT HIP, CDI, WITH FIRST ICE IN PLACE.
--- NOTE | 2019-08-30 14:53 | P.OP_ITS ---
Operative Report Date of procedure: August 30, 2019 Pre-op Diagnosis: Left subcapital hip fracture Post-op diagnosis: same Procedure Done: Left bipolar hip arthroplasty utilizing the Moustapha total hip system with a Size 6 Accolade II hip stem with a 127? neck angle. A universal head bipolar component size 46 mm outer diameter by 28 mm inner diameter and an L-FIT V 40 femoral head size 28 mm outer diameter by +0 mm offset Specimens removed/disposition: Femoral Head, disposed of Pathology: none sent Surgeon: Sarah Gomes Oven Worker: [facility] OR technicians Anesthesia: General (General intubated) Estimated blood loss (mL): 250 IV fluids (mL): 700 Urine output (mL): 100 Complications: None Findings: The hip was stable at 90 degrees of flexion with 80 degrees of internal rotation and 30 degrees of adduction. It was stable to toe hang and external rotation Condition: stable Disposition: PACU (Then to floor) Brief History: This 84-year-old woman was in her usual state of health when she fell while transferring from her living room to her kitchen. She suffered a subcapital left hip fracture. She thought perhaps she could rest a bit and get up, but when she was unable to ambulate, she crawled across the floor to call her daughter and was brought to [facility] by ambulance. Patient was admitted with this diagnosis. She underwent medical optimization and was scheduled for operative intervention today. Procedure: The patient was brought to the operating theater, and after undergoing adequate general anesthesia was transferred to the operating room table. The patient was placed in the full lateral position and held in place with the pegboard. Patient's left lower extremity was draped free and was subsequently prepped and further draped free. A surgical pause was performed prior to commencement of the surgical procedure. During the surgical pause, we confirmed the site and side of surgery as well as availability of equipment. Additionally, we confirmed preoperative surgical markings as well as prophylactic IV antibiotics, Ancef, 2 g. X-rays are also reviewed during this time. Following the surgical pause, an incision was made centering over the greater trochanter continuing proximally and distally as necessary to allow access to the hip joint. Dissection continued through skin and soft tissue using scalpel. Hemostasis was obtained using electrocautery. Tensor fascia patrizia was identified and incised longitudinally. Sciatic nerve was identified and protected throughout the surgical procedure. A Charnley U retractor was placed with care being taken to protect the sciatic nerve during placement. The hip was internally rotated. Piriformis muscle was then identified, tagged, and subsequently incised from the posterior aspect of the hip joint. The remaining short external rotators were also incised. These were then elevated off the capsule and the capsule was entered in a T-type fashion. Each side of the capsule was then tagged. The proximal femur was brought into an appropriate position, and the femoral neck osteotomy was accomplished. This was in appropriate position for placement of the prosthetic component. Femoral head was then removed from the acetabulum utilizing a corkscrew. It was subsequently measured. The appropriate size trial was chosen. This was a size 46 mm. Size 46 mm trial fit nicely and was therefore the chosen size for final implantation. Femoral process mold technician was then placed and attention was directed to the proximal femur. Initially, the proximal femur was addressed with a box chisel, and this was followed by a canal finder and subsequently broaches. The hip was broached to a size 6. Size 6 broach was noted to fit nicely and have good fit and fill. Therefore this was to be the chosen component. Trial reduction was accomplished with a 46 mm bipolar cup shell and a +0 mm femoral head. With this, the above- noted stabilities were accomplished. This was felt to be appropriate and ther efore trial components were removed and the hip was irrigated. Acetabulum was evaluated for any loose bodies or other soft tissues requiring resection. We then prepared for implantation. The size 6 Accolade II 127? neck angle femoral stem was impacted into position. This was placed without difficulty. Onto this was placed the construct of the 46 mm universal bipolar head with a +0 mm offset femoral head. This was placed onto the trunnion of the femoral component. It was impacted into position and pulled upon to assure that there was no dissociation. Once again the hip was irrigated, suctioned dry and was reduced. We then irrigated the hip further with 20 mL of Betadine mixed into 500 mL of normal saline. This was allowed to remain in the wound for approximately 3 minutes. It was then suctioned dry and irrigated with normal saline. This was suctioned dry again and closure was accomplished with 0 Vicryl in the capsular tissues followed by reattachment of the piriformis with 0 Vicryl. Additionally, the tensor was closed with 0 Vicryl in an interrupted fashion. Subcutaneous tissues were closed with 2-0 Monocryl. Skin was closed with 3-0 Monocryl. This was followed by Exofin and Steri-Strips. A sterile dressing was placed consisting of Tegaderm. The patient was returned the Recovery Room in satisfactory condition. There were no complications. The patient will be discharged to the floor for postoperative rehabilitation and pain management.
[2019-08-30] MEDS: acetaminophen 500 mg Tablet 1000 MG PO (16:13)
[2019-08-30] MEDS: chlorhexidine gluconate 0.12% Btl 473 mL 30 ML MUCOUS MEM ×3 (16:14→22:51)
[2019-08-30] MEDS: iron polysaccharide complex 150 mg Capsule PO (18:03)
[2019-08-30] MEDS: calcium carbonate 500 mg Chew Tablet 1000 MG PO (18:03)
[2019-08-30] MEDS: docusate sodium 100 mg Capsule PO (18:04)
[2019-08-30] MEDS: sennosides-docusate Tablet 2 TAB PO (18:04)
--- NOTE | 2019-08-30 22:39 | P.PN_ITS ---
Subjective Subjective: Interval history: Seen earlier today after being brought to room after surgery. 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 No preceding or associated symptoms reported Status: Acute Qualifiers: Encounter type: initial encounter Qualified Code(s): W19.XXXA - Unspecified fall, initial encounter; Y92.009 - Unspecified place in unspecified non-institutional (private) residence as the place of occurrence of the external cause (2) Closed fracture of left hip: Related to above Status: Acute Qualifiers: Encounter type: initial encounter Qualified Code(s): S72.002A - Fracture of unspecified part of neck of left femur, initial encounter for closed fracture (3) Leukocytosis: No current evidence of infection Status: Acute Qualifiers: Leukocytosis type: leukemoid reaction Qualified Code(s): D72.823 - Leukemoid reaction (4) 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 (5) HTN (hypertension): On HCTZ Status: Chronic Qualifiers: Hypertension type: essential hypertension Qualified Code(s): I10 - Essential (primary) hypertension (6) Osteoarthritis: Takes tylenol and osteobiflex Status: Chronic Qualifiers: Osteoarthritis location: multiple joints Osteoarthritis type: primary Qualified Code(s): M89.49 - Other hypertrophic osteoarthropathy, multiple sites Additional A&P Information s/p surgical intervention this afternoon Currently pain is well controlled Blood pressure currently SBP 160s, continue with hydralazine for now Pain control with morphine CODE STATUS : DNR/DNI ppx: ASA 325mg qd Attestations Medical Necessity Statement*: s/p surgery today Coding Level of Care Code Acute Concrete Batching Plant Operator for g Fwd Diagnoses Fall at home W19.XXXA; Y92.009 Encounter type: initial encounter Closed fracture of left hip S72.002A Encounter type: initial encounter Leukocytosis D72.823 Leukocytosis type: leukemoid reaction History of pacemaker Z95.0 HTN (hypertension) I10 Hypertension type: essential hypertension Osteoarthritis M89.49 Osteoarthritis location: multiple joints Osteoarthritis type: primary
[2019-08-30] MEDS: sennosides 8.6 mg Tablet 17.2 MG PO (22:54)
[2019-08-31] MEDS: acetaminophen 500 mg Tablet 1000 MG PO ×3 (00:31→15:19)
[2019-08-31 04:00] VITALS: BP 132/64; PULSE 84; RESP 18; TEMP 36.7; O2SAT 95
[2019-08-31 05:31] LABS: Basophils # 0.1 10^3/uL (0.0-0.1); Basophils % 0.5 %; Eosinophils # 0.1 10^3/uL (0.0-0.8); Eosinophils % 0.8 %; Hematocrit 32.2 % (37.0-47.0); Hemoglobin 9.8 g/dL (11.5-15.3); Lymphocytes # 3.2 10^3/uL (0.8-4.8); Lymphocytes % 26.2 %; Mean Corpuscular HGB Conc 30.4 g/dL (30.0-36.0); Mean Corpuscular Hemoglobin 27.1 pg (28.0-34.0); Mean Corpuscular Volume 89.2 fL (81-99); Monocytes # 0.9 10^3/uL (0.2-0.9); Monocytes % 7.5 %; Neutrophils % 64.8 %; Nucleated Red Blood Cells % 0 %; Platelet Count 291 10^3/cmm (130-400); Red Blood Count 3.61 10^6/uL (4.1-5.3); Red Cell Distribution Width 14.6 % (12.1-15.1); White Blood Count 12.3 10^3/uL (4.0-10.0)
[2019-08-31 05:53] LABS: Anion Gap 13.3 (5-19); Blood Urea Nitrogen 16 mg/dL (8-23); Calcium 9.3 mg/dL (8.5-10.5); Carbon Dioxide 28 mmol/L (22-29); Chloride 99 mmol/L (98-107); Creatinine Clr Calc Pharmacy 55.4749; Glucose 114 mg/dL (65-115); Osmolality Calculated 279 mOsm/kg (285-295); Potassium 4.3 mmol/L (3.5-5.1); Sodium 136 mmol/L (136-145)
--- NOTE | 2019-08-31 06:19 | PC.NURSE ---
drained catheter before removal - 450mls. Pt tolerated well.
[2019-08-31] MEDS: iron polysaccharide complex 150 mg Capsule PO ×2 (07:46→17:37)
[2019-08-31 08:00] VITALS: BP 102/65; PULSE 106; RESP 18; TEMP 36.7; O2SAT 97
[2019-08-31] MEDS: multivitamin therapeutic Tablet 1 TAB PO (08:03)
[2019-08-31] MEDS: aspirin 325 mg EC Tablet PO (08:03)
[2019-08-31] MEDS: cholecalciferol (vitamin D3) 1,000 unit Tablet 2000 UNIT PO (08:03)
[2019-08-31] MEDS: docusate sodium 100 mg Capsule PO ×2 (08:03→17:37)
[2019-08-31] MEDS: magnesium oxide 400 mg tablet PO (08:03)
[2019-08-31] MEDS: sennosides-docusate Tablet 2 TAB PO ×2 (08:04→17:37)
[2019-08-31] MEDS: loratadine 10 mg Tablet PO (08:04)
[2019-08-31] MEDS: mupirocin oint 22 gm 1 APPLIC NASAL ×2 (08:04→17:37)
[2019-08-31] MEDS: chlorhexidine gluconate 0.12% Btl 473 mL 30 ML MUCOUS MEM ×4 (08:05→20:40)
--- NOTE | 2019-08-31 08:51 | ANE.PACU2 ---
 Inpatient post-anesthesia follow up: Airway intact: Yes Vital signs: Temperature 98.1 F Pulse Rate [Brachi al] 96 Pulse Rate 106 Respiratory Rate 18 Blood Pressure [Ri ght Arm] 160/80 Blood Pressure 102/65 Pulse Oximetry 97 Oxygen Delivery Me thod Nasal Cannula Oxygen Flow Rate 3 Fraction of Inspir ed Oxygen Hydration adequate: Yes Nausea and vomiting: No Mental status: Baseline Additional Comments: pain well controlled
[2019-08-31] MEDS: calcium carbonate 500 mg Chew Tablet 1000 MG PO ×2 (09:16→17:37)
--- NOTE | 2019-08-31 11:25 | PM.PN ---
Subjective Subjective: Interval history: No new complaints, feels well, sitting in chair, eating lunch. 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 No preceding or associated symptoms reported Status: Acute Qualifiers: Encounter type: initial encounter Qualified Code(s): W19.XXXA - Unspecified fall, initial encounter; Y92.009 - Unspecified place in unspecified non-institutional (private) residence as the place of occurrence of the external cause (2) Closed fracture of left hip: Related to above Status: Acute Qualifiers: Encounter type: initial encounter Qualified Code(s): S72.002A - Fracture of unspecified part of neck of left femur, initial encounter for closed fracture (3) Leukocytosis: No current evidence of infection Status: Acute Qualifiers: Leukocytosis type: leukemoid reaction Qualified Code(s): D72.823 - Leukemoid reaction (4) 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 (5) HTN (hypertension): On HCTZ Status: Chronic Qualifiers: Hypertension type: essential hypertension Qualified Code(s): I10 - Essential (primary) hypertension (6) Osteoarthritis: Takes tylenol and osteobiflex Status: Chronic Qualifiers: Osteoarthritis location: multiple joints Osteoarthritis type: primary Qualified Code(s): M89.49 - Other hypertrophic osteoarthropathy, multiple sites Additional A&P Information # s/p hemiarthroplasty left hip on 08/29 Currently pain is well controlled Post op Hb stable patient participating in PT, ambulating with walker #HTN: currently well controlled CODE STATUS : DNR/DNI ppx: ASA 325mg qd Attestations Medical Necessity Statement*: Post op from hemiarthroplasty, awaiting SNF placement Coding Level of Care Code Acute Hydrogen Cell Tender for Chg Fwd Diagnoses Fall at home W19.XXXA; Y92.009 Encounter type: initial encounter Closed fracture of left hip S72.002A Encounter type: initial encounter Leukocytosis D72.823 Leukocytosis type: leukemoid reaction History of pacemaker Z95.0 HTN (hypertension) I10 Hypertension type: essential hypertension Osteoarthritis M89.49 Osteoarthritis location: multiple joints Osteoarthritis type: primary
[2019-08-31 11:26] VITALS: BP 114/74; PULSE 107; RESP 18; TEMP 36.7; O2SAT 97
--- NOTE | 2019-08-31 14:24 | P.PN_ITS ---
Subjective Subjective: Interval history: Patient is doing well with minimal complaints. She has worked with physical therapy. She is agreeable to detention at this time. Medications: Reviewed: Yes Vitals/I&O/Wt Last Vital Signs Temp 98.1 F 08/31/19 11:26 Pulse 107 H 08/31/19 11:26 Resp 18 08/31/19 11:26 BP 114/74 08/31/19 11:26 Pulse Ox 97 08/31/19 11:26 08/30/19 08/31/19 08/31/19 22:59 06:59 14:59 Intake Total 240 / 390 600 / 990 270 / 270 Output Total 100 / 250 650 / 900 Balance 140 / 140 -50 / 90 270 / 270 Weight last 48 hrs Weight 175 lb Physical Exam Narrative: EXAM NARRATIVE: Patient's wound is benign. It is covered with a Tegaderm and Telfa. There is no evidence of drainage. There is bruising from her fall, but no new ecchymosis. Her calf is soft and nontender. She is neurologically intact. She is awake, alert, and appropriate. Urinary Catheter Management^: Omer: Cath Placed During This Visit: yes Reason for Continuing Indwelling Catheter: Not indwelling catheter Urinary Catheter Date of Insertion: 08/29/19 Urinary Catheter Time of Insertion: 23:15 Data : 08/31/19 04:50 08/31/19 04:50 A&P Assessment and plan (1) History of hemiarthroplasty of left hip: Patient is doing well in her postoperative period following hemiarthroplasty of the left hip. This was accomplished yesterday uneventfully. There have been no significant complications. The patient is awaiting placement for detention care as she lives at home alone and will require cues to maintain her posterior hip precautions. Status: Acute (2) Subcapital fracture of left hip: Status: Acute Qualifiers: Encounter type: initial encounter Fracture type: closed Qualified Code(s): S72.012A - Unspecified intracapsular fracture of left femur, initial encounter for closed fracture Attestations Medical Necessity Statement*: Patient continues to require inpatient status to work with physical therapy and to progress in her postoperative course. Coding Level of Care Code Acute Church Communications Administrator for Derrick Davis Diagnoses History of hemiarthroplasty of left hip Z96.642 Subcapital fracture of left hip S72.012A Encounter type: initial encounter Fracture type: closed
[2019-08-31 15:44] VITALS: BP 138/79; PULSE 100; PULSE 98; RESP 18; TEMP 36.8; O2SAT 96; O2SAT 97
[2019-08-31 20:00] VITALS: BP 149/75; PULSE 100; RESP 22; TEMP 36.6; O2SAT 92
[2019-09-01] VITALS: BP 133/76; PULSE 110; RESP 20; TEMP 36.8; O2SAT 90
[2019-09-01] MEDS: acetaminophen 500 mg Tablet 1000 MG PO ×4 (01:50→23:20)
[2019-09-01 04:00] VITALS: BP 114/66; PULSE 91; RESP 18; TEMP 36.6; O2SAT 90
[2019-09-01 05:24] LABS: Basophils # 0.1 10^3/uL (0.0-0.1); Basophils % 0.4 %; Eosinophils # 0.2 10^3/uL (0.0-0.8); Eosinophils % 1.4 %; Hematocrit 30.5 % (37.0-47.0); Hemoglobin 9.2 g/dL (11.5-15.3); Lymphocytes # 3.1 10^3/uL (0.8-4.8); Lymphocytes % 25.4 %; Mean Corpuscular HGB Conc 30.2 g/dL (30.0-36.0); Mean Corpuscular Hemoglobin 26.7 pg (28.0-34.0); Mean Corpuscular Volume 88.7 fL (81-99); Mean Platelet Volume 9.9 fL (7.4-10.4); Monocytes # 0.9 10^3/uL (0.2-0.9); Monocytes % 7.2 %; Neutrophils % 65.4 %; Nucleated Red Blood Cells % 0 %; Platelet Count 255 10^3/cmm (130-400); Red Blood Count 3.44 10^6/uL (4.1-5.3); Red Cell Distribution Width 14.6 % (12.1-15.1); White Blood Count 12.3 10^3/uL (4.0-10.0)
[2019-09-01] MEDS: iron polysaccharide complex 150 mg Capsule PO ×2 (07:45→17:13)
[2019-09-01 07:48] VITALS: BP 143/76; PULSE 100; RESP 18; TEMP 36.8; O2SAT 92
--- NOTE | 2019-09-01 08:18 | PC.SOCIAL ---
IM follow up explained, intialed with copy provided. Pt has no questions or concerns.
[2019-09-01] MEDS: calcium carbonate 500 mg Chew Tablet 1000 MG PO ×2 (09:01→17:13)
[2019-09-01] MEDS: magnesium oxide 400 mg tablet PO (09:01)
[2019-09-01] MEDS: cholecalciferol (vitamin D3) 1,000 unit Tablet 2000 UNIT PO (09:01)
[2019-09-01] MEDS: aspirin 325 mg EC Tablet PO (09:01)
[2019-09-01] MEDS: cholecalciferol (vitamin D3) 1,000 unit Tablet 1000 UNIT PO (09:02)
[2019-09-01] MEDS: mupirocin oint 22 gm 1 APPLIC NASAL ×2 (09:02→17:13)
[2019-09-01] MEDS: multivitamin therapeutic Tablet 1 TAB PO (09:02)
[2019-09-01] MEDS: chlorhexidine gluconate 0.12% Btl 473 mL 30 ML MUCOUS MEM ×4 (09:02→21:30)
[2019-09-01] MEDS: sennosides-docusate Tablet 2 TAB PO ×2 (09:02→17:13)
[2019-09-01] MEDS: docusate sodium 100 mg Capsule PO ×2 (09:02→17:13)
[2019-09-01] MEDS: loratadine 10 mg Tablet PO (09:02)
[2019-09-01 11:43] VITALS: BP 130/80; PULSE 110; RESP 18; TEMP 36.7; O2SAT 92
--- NOTE | 2019-09-01 12:23 | P.PN_ITS ---
Subjective Subjective: Interval history: Patient continues to do well following her bipolar hip arthroplasty for subcapital displaced hip fracture. She is ready for discharge to [facility] when medically appropriate. Medications: Reviewed: Yes Vitals/I&O/Wt Last Vital Signs Temp 98.1 F 09/01/19 11:43 Pulse 110 H 09/01/19 11:43 Resp 18 09/01/19 11:43 BP 130/80 09/01/19 11:43 Pulse Ox 92 09/01/19 11:43 08/31/19 09/01/19 09/01/19 22:59 06:59 14:59 Intake Total 240 / 510 100 / 610 600 / 600 Output Total 550 / 550 250 / 800 Balance -310 / -40 -150 / -190 600 / 600 Physical Exam Narrative: EXAM NARRATIVE: Patient's wound is benign. Dressing is removed, and the wound is clear of any ecchymosis or erythema. There is no evidence of drainage. There is bruising from her fall. Her calf is soft and nontender. She is neurologically intact. She is awake, alert, and appropriate. Const: COMMON NORMALS: no apparent distress, average body habitus, oriented x3 and alert GENERAL APPEARANCE: cooperative and comfortable ORIENTATION/CONSCIOUSNESS: Yes awake HENMT: COMMON NORMALS: normocephalic and head/scalp atraumatic HEAD & SCALP: normocephalic and atraumatic Eye: GENERAL EYE: normal appearance of both eyes Chest: COMMONS NORMALS: inspection of chest normal Resp: COMMON NORMALS: normal respiratory effort EFFORT & INSPECTION: Yes able to speak in complete sentences and Yes symmetric chest movement Neuro: COMMON NORMALS: oriented x3 SENSORIUM/ORIENTATION: Yes alert Psych: COMMON NORMALS: mental status grossly normal APPEARANCE: Yes grossly normal ATTITUDE: Yes calm and Yes engaged ATTENTION/CONCENTRATION: Yes attention grossly intact Skin: COMMON NORMALS: no rashes or lesions noted GENERAL SKIN EXAM: no rashes or lesions noted Urinary Catheter Management^: Omer: Cath Placed During This Visit: yes, but has since been removed by the nurse Reason for Continuing Indwelling Catheter: Not indwelling catheter Urinary Catheter Date of Insertion: 08/29/19 Urinary Catheter Time of Insertion: 23:15 Date Urinary Catheter Removed: 08/31/19 Time Urinary Catheter Discontinued: 19:00 Data : 09/01/19 05:03 08/31/19 04:50 A&P Assessment and plan (1) History of hemiarthroplasty of left hip: Patient continues to do well. She will require [facility] at the time of discharge, and this is in the works for her. We are awaiting insurance approval. She notes that she would rather go home, but she understa nds reasons why she needs to go to [facility]. Status: Acute (2) Subcapital fracture of left hip: Status: Acute Qualifiers: Encounter type: initial encounter Fracture type: closed Qualified Code(s): S72.012A - Unspecified intracapsular fracture of left femur, initial encounter for closed fracture Attestations Medical Necessity Statement*: Per hospitalist service. Coding Level of Care Code Acute Route Driver Coin Machines for Derrick Davis Diagnoses History of hemiarthroplasty of left hip Z96.642 Subcapital fracture of left hip S72.012A Encounter type: initial encounter Fracture type: closed
--- NOTE | 2019-09-01 13:11 | PM.PN ---
Subjective Subjective: Interval history: Patient is doing well postoperatively, has no acute complaints today. Heart rate is noted to be between 90-1 10. I do not see any prior beta-blockers or calcium channel naresh trial list. Rhythm is sinus. 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 No preceding or associated symptoms reported Status: Acute Qualifiers: Encounter type: initial encounter Qualified Code(s): W19.XXXA - Unspecified fall, initial encounter; Y92.009 - Unspecified place in unspecified non-institutional (private) residence as the place of occurrence of the external cause (2) Closed fracture of left hip: Related to above Status: Acute Qualifiers: Encounter type: initial encounter Qualified Code(s): S72.002A - Fracture of unspecified part of neck of left femur, initial encounter for closed fracture (3) Leukocytosis: No current evidence of infection Status: Acute Qualifiers: Leukocytosis type: leukemoid reaction Qualified Code(s): D72.823 - Leukemoid reaction (4) 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 patient participating in PT, ambulating with walker #HTN: currently well controlled . Holding hydrochlorothiazide #Sinus tachycardia: We will start her on metoprolol 12.5mg daily. CODE STATUS : DNR/DNI ppx: ASA 325mg qd Attestations Medical Necessity Statement*: Awaiting prior authorization for placement at SNF Coding Level of Care Code Acute Software Developer Intern for Chg Fwd Diagnoses Fall at home W19.XXXA; Y92.009 Encounter type: initial encounter Closed fracture of left hip S72.002A Encounter type: initial encounter Leukocytosis D72.823 Leukocytosis type: leukemoid reaction History of pacemaker Z95.0 HTN (hypertension) I10 Hypertension type: essential hypertension Osteoarthritis M89.49 Osteoarthritis location: multiple joints Osteoarthritis type: primary
--- NOTE | 2019-09-01 13:53 | ECG_ITS ---
Measurements Intervals [place] Rate: 99 P: 60 NV: 222 QRS: -73 QRSD: 161 T: 33 QT: 382 QTc: 491 SINUS RHYTHM WITH FIRST DEGREE AV BLOCK WITH OCCASIONAL SUPRAVENTRICULAR PREMATURE COMPLEXES RIGHT BUNDLE BRANCH BLOCK [120+ ms QRS DURATION, UPRIGHT V1, 40+ ms S IN I/aVL/V4/V5/V6] LEFT ANTERIOR FASCICULAR BLOCK [QRS AXIS <= -45, QR IN I, RS IN II] Compared to ECG 08/29/2019 23:34:30 No significant changes Electronically Signed On 09-01-2019 20:26:44 CDT by Jonathan Toribio M.D. [email or web address]
[2019-09-01] MEDS: metoprolol tartrate 25 mg Tablet 12.5 MG PO (15:07)
[2019-09-01 15:51] VITALS: BP 117/73; PULSE 102; RESP 18; TEMP 36.7; O2SAT 94
[2019-09-01 20:00] VITALS: BP 120/72; PULSE 97; RESP 18; TEMP 37.3; O2SAT 90
[2019-09-02] VITALS (7 sets, daily range): BP systolic 128–145; BP diastolic 69–77; PULSE 78–115; RESP 16–20; TEMP 36.3–37.4; O2SAT 90–95
[2019-09-02 05:53] LABS: Basophils # 0.1 10^3/uL (0.0-0.1); Basophils % 0.3 %; Eosinophils # 0.2 10^3/uL (0.0-0.8); Eosinophils % 1.3 %; Hematocrit 31.6 % (37.0-47.0); Hemoglobin 9.7 g/dL (11.5-15.3); Lymphocytes # 2.7 10^3/uL (0.8-4.8); Lymphocytes % 16.2 %; Mean Corpuscular HGB Conc 30.7 g/dL (30.0-36.0); Mean Corpuscular Hemoglobin 27.8 pg (28.0-34.0); Mean Corpuscular Volume 90.5 fL (81-99); Mean Platelet Volume 9.9 fL (7.4-10.4); Monocytes # 1.4 10^3/uL (0.2-0.9); Monocytes % 8.3 %; Neutrophils # 12.2 10^3/uL (1.8-7.7); Neutrophils % 73.5 %; Nucleated Red Blood Cells % 0 %; Platelet Count 286 10^3/cmm (130-400); Red Blood Count 3.49 10^6/uL (4.1-5.3); Red Cell Distribution Width 14.6 % (12.1-15.1); White Blood Count 16.6 10^3/uL (4.0-10.0)
[2019-09-02] MEDS: ondansetron 2 mg/ML SDV 2 mL 4 MG IVP (10:20)
[2019-09-02] MEDS: acetaminophen 500 mg Tablet PO (11:53)
--- NOTE | 2019-09-02 13:21 | P.PN_ITS ---
Subjective Subjective: Interval history: T-max of 99.4. Heart rate up to 115. Leukocytosis with white blood cell count up to 16 today. Hemoglobin stable at 9.7. Reports 6 episodes of diarrhea between last night and this morning. States that this appears to be currently resolving. Denies any cough. Blood pressure remained stable. 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 Wound site appears healthy. Urinary Catheter Management^: Omer: Cath Placed During This Visit: yes, but has since been removed by the nurse Reason for Continuing Indwelling Catheter: Not indwelling catheter Urinary Catheter Date of Insertion: 08/29/19 Urinary Catheter Time of Insertion: 23:15 Date Urinary Catheter Removed: 08/31/19 Time Urinary Catheter Discontinued: 19:00 Data : 09/02/19 05:35 08/31/19 04:50 A&P Assessment and plan (1) History of hemiarthroplasty of left hip: Status: Acute (2) Fall at home: Lost balance. 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 (5) Subcapital fracture of left hip: Status: Acute Qualifiers: Encounter type: initial encounter Fracture type: closed Qualified Code(s): S72.012A - Unspecified intracapsular fracture of left femur, initial encounter for closed fracture (6) Closed fracture of left hip: Related to above Status: Acute Qualifiers: Encounter type: initial encounter Qualified Code(s): S72.002A - Fracture of unspecified part of neck of left femur, initial encounter for closed fracture (7) Leukocytosis: Status: Acute Qualifiers: Leukocytosis type: leukemoid reaction Qualified Code(s): D72.823 - Leuk emoid reaction (8) Osteoarthritis: Takes tylenol and osteobiflex Status: Chronic Qualifiers: Osteoarthritis location: multiple joints Osteoarthritis type: primary Qualified Code(s): M89.49 - Other hypertrophic osteoarthropathy, multiple sites Additional A&P Information # s/p hemiarthroplasty left hip on 08/29 Currently pain is well controlled Post op Hb stable at 9.7. patient participating in PT, ambulating with walker # temp 99.4 with rising leukocytosis, infectious w/up ordered Blood cx, UA, CXR, C diff PCR given diarrhea. #HTN: currently well controlled . Holding hydrochlorothiazide #Sinus tachycardia: We will start her on metoprolol 12.5mg BID. Patient has a PPM in place. CODE STATUS : DNR/DNI ppx: ASA 325mg qd Attestations Medical Necessity Statement*: awaiting placement at SNF, pre auth, leukocytosis today, ongoing infectious w/up Coding Level of Care Code Acute Advertising Associate for [facility] Fwd Diagnoses History of hemiarthroplasty of left hip Z96.642 Fall at home W19.XXXA; Y92.009 Encounter type: initial encounter HTN (hypertension) I10 Hypertension type: essential hypertension History of pacemaker Z95.0 Subcapital fracture of left hip S72.012A Encounter type: initial encounter Fracture type: closed Closed fracture of left hip S72.002A Encounter type: initial encounter Leukocytosis D72.823 Leukocytosis type: leukemoid reaction Osteoarthritis M89.49 Osteoarthritis location: multiple joints Osteoarthritis type: primary
--- NOTE | 2019-09-02 13:27 | XR_ITS ---
WS: [id number] PORTABLE CHEST HISTORY: atelectasis vs pneumonia COMPARISON: 08/29/2019 Prior LEFT subclavian pacer. Lungs are clear and well expanded. No pleural effusion or pneumothorax. Cardiac size: Normal. Mediastinum/Aorta: Mild atherosclerosis aorta. Degenerative changes at the shoulders. XR/XR chest 1V portable [id number] IMPRESSION: Mild atherosclerosis aorta.
[2019-09-02] MEDS: cefTRIAXone 1,000 MG in sodium chloride 0.9% (plus) 50 ML 100 MG IV (14:19)
[2019-09-02 16:13] LABS: Add Urine Microscopic? NO
[2019-09-02] MEDS: acetaminophen 500 mg Tablet 1000 MG PO ×2 (16:24→23:29)
[2019-09-02] MEDS: calcium carbonate 500 mg Chew Tablet 1000 MG PO (17:37)
[2019-09-02] MEDS: iron polysaccharide complex 150 mg Capsule PO (17:37)
[2019-09-02] MEDS: docusate sodium 100 mg Capsule PO (17:38)
[2019-09-02] MEDS: sennosides-docusate Tablet 2 TAB PO (17:38)
[2019-09-02 18:35] LABS: Bilirubin Urine Neg (NEGATIVE); Blood Urine Neg (Negative); Glucose Urine UA Norm (Normal); Ketones Urine Negative (Negative); Protein Urine Neg (Negative); Specific Gravity, Urine 1.005 (1.005-1.030); Urine Appearance Clear (CLEAR); Urine Color Yellow (Yellow); pH Urine 5 (5-7)
[2019-09-02 18:36] LABS: Leukocyte Esterase Urine Negative (Negative); Nitrate Urine Negative (Negative); Urobilinogen Urine Norm (Negative)
[2019-09-03] VITALS (7 sets, daily range): BP systolic 130–161; BP diastolic 67–80; PULSE 93–106; RESP 18–28; TEMP 36.7–37.1; O2SAT 93–95
[2019-09-03 05:17] LABS: Basophils # 0.1 10^3/uL (0.0-0.1); Basophils % 0.5 %; Eosinophils # 0.3 10^3/uL (0.0-0.8); Eosinophils % 2.3 %; Hematocrit 31.2 % (37.0-47.0); Hemoglobin 9.3 g/dL (11.5-15.3); Lymphocytes # 4.4 10^3/uL (0.8-4.8); Lymphocytes % 32.6 %; Mean Corpuscular HGB Conc 29.8 g/dL (30.0-36.0); Mean Corpuscular Hemoglobin 27.1 pg (28.0-34.0); Mean Platelet Volume 9.7 fL (7.4-10.4); Monocytes % 7.5 %; Neutrophils # 7.7 10^3/uL (1.8-7.7); Neutrophils % 56.8 %; Nucleated Red Blood Cells % 0 %; Platelet Count 354 10^3/cmm (130-400); Red Blood Count 3.43 10^6/uL (4.1-5.3); Red Cell Distribution Width 14.7 % (12.1-15.1); White Blood Count 13.6 10^3/uL (4.0-10.0)
[2019-09-03 05:50] LABS: Alanine Aminotransferase 7 U/L (0-33); Albumin Level 3.4 g/dL (3.5-5.2); Alkaline Phosphatase 66 IU/L (35-105); Anion Gap 14.9 (5-19); Aspartate Amino Transferase 18 U/L (0-32); Blood Urea Nitrogen 17 mg/dL (8-23); Calcium 9.2 mg/dL (8.5-10.5); Carbon Dioxide 30 mmol/L (22-29); Chloride 99 mmol/L (98-107); Creatinine Clr Calc Pharmacy 55.4749; Globulin 3.5 g/dL (1.3-4.6); Glucose 121 mg/dL (65-115); Osmolality Calculated 288 mOsm/kg (285-295); Potassium 3.9 mmol/L (3.5-5.1); Sodium 140 mmol/L (136-145); Total Bilirubin 0.4 mg/dL (0.15-1.2); Total Protein 6.9 g/dL (6.6-8.7)
[2019-09-03] MEDS: acetaminophen 500 mg Tablet 1000 MG PO (08:35)
[2019-09-03] MEDS: iron polysaccharide complex 150 mg Capsule PO (08:35)
[2019-09-03] MEDS: aspirin 325 mg EC Tablet PO (08:35)
[2019-09-03] MEDS: cholecalciferol (vitamin D3) 1,000 unit Tablet 1000 UNIT PO (08:36)
[2019-09-03] MEDS: chlorhexidine gluconate 0.12% Btl 473 mL 30 ML MUCOUS MEM ×2 (08:36→14:09)
[2019-09-03] MEDS: calcium carbonate 500 mg Chew Tablet 1000 MG PO (08:36)
[2019-09-03] MEDS: docusate sodium 100 mg Capsule PO (08:37)
[2019-09-03] MEDS: multivitamin therapeutic Tablet 1 TAB PO (08:37)
[2019-09-03] MEDS: magnesium oxide 400 mg tablet PO (08:38)
[2019-09-03] MEDS: loratadine 10 mg Tablet PO (08:38)
[2019-09-03] MEDS: mupirocin oint 22 gm 1 APPLIC NASAL (08:38)
[2019-09-03] MEDS: metoprolol tartrate 25 mg Tablet 12.5 MG PO (11:39)
--- NOTE | 2019-09-03 14:01 | P.DS_ITS ---
Discharge Providers Date of Admission: 08/29/19 23:06 Date of Discharge: September 03, 2019 Attending Provider at Admission: Maty Mejía MD Attending Provider at Discharge: Elisabeth Aiken MD Primary Care Provider: MILAGROS Frias Diagnoses at Discharge Discharge Diagnosis (1) History of hemiarthroplasty of left hip: Status: Acute (2) Fall at home: Status: Acute Qualifiers: Encounter type: initial encounter Qualified Code(s): W19.XXXA - Unspecified fall, initial encounter; Y92.009 - Unspecified place in unspecified non-institutional (private) residence as the place of occurrence of the external cause (3) HTN (hypertension): Status: Chronic Qualifiers: Hypertension type: essential hypertension Qualified Code(s): I10 - Essential (primary) hypertension (4) History of pacemaker: Status: Chronic Problem details: secondary to Mobitz type II AVB Placed by Donita 02/2019 (5) Subcapital fracture of left hip: Status: Acute Qualifiers: Encounter type: initial encounter Fracture type: closed Qualified Code(s): S72.012A - Unspecified intracapsular fracture of left femur, initial encounter for closed fracture (6) Closed fracture of left hip: Status: Acute Qualifiers: Encounter type: initial encounter Qualified Code(s): S72.002A - Fracture of unspecified part of neck of left femur, initial encounter for closed fracture (7) Leukocytosis: Status: Acute Qualifiers: Leukocytosis type: leukemoid reaction Qualified Code(s): D72.823 - Leukemoid reaction (8) Osteoarthritis: Status: Chronic Qualifiers: Osteoarthritis location: multiple joints Osteoarthritis type: primary Qualified Code(s): M89.49 - Other hypertrophic osteoarthropathy, multiple sites Reason for Visit Reason for Visit: Reason For Visit: Hip pain post fall Hospital Course Discharge Summary: Colleen Benitez is a 84 year old female who presented to the emergency room after a fall. She lives alone and states that she had gotten up after dinner and was walking across the room when she just simply lost her balance and fell down. She denied any sort of syncopal episode or other issue causing her to fall. She was found to have a left hip subcapital fracture. She underwent left bipolar hip arthroplasty on August 30, 1999. She tolerated the procedure well. Currently medical some postop anemia. Hemoglobin stable at 9.7. Yesterday she was briefly noted to have leukocytosis to 16, with a baseline of WBC of 12. Infectious work-up was negative with negative chest x-ray, negative UA, no C diff on stool testing and wound site that appears to be healthy and healing well. Given that she has no current localizing signs or symptoms of infection at this present time, antibiotics have not been initiated on discharge. Of note her heart rate has been ranging between 70-100 during the c ourse of admission. This is noted to be sinus rhythm with first-degree AV block. Of note patient has previously a pacemaker placed in February 2019 for type II Mobitz heart block. She is asyptomatic and hemodynamically stable. Metoprolol 12.5 mg twice daily has been initiated as a new medication because of the sinus tachycardia. She is stable to discharge to SNF from medical standpoint. Physical Exam Narrative: EXAM NARRATIVE: GEN: Awake, alert and oriented, no acute distress CVS: S1S2 N RS: CTA B/L Abd: Soft, nt/nd , bs+ CLIENT SERVICE SUPERVISOR: no focal neuro deficits EXT: left hip uppe rthigh surgical site without any signs of cellulitis Urinary Catheter Management^: Omer: Cath Placed During This Visit: yes, but has since been removed by the nurse Reason for Continuing Indwelling Catheter: Not indwelling catheter Urinary Catheter Date of Insertion: 08/29/19 Urinary Catheter Time of Insertion: 23:15 Date Urinary Catheter Removed: 08/31/19 Time Urinary Catheter Discontinued: 19:00 Discharge Data Data Completed and Pending: Completed Studies During Hospitalization Category Date Time Status XR chest 1V hayder ble 10127 Routine Exams 09/02/19 13:27 Completed XR chest 1V hayder ble 32177 Stat Exams 08/29/19 21:43 Completed XR hip LT 2-3V wo /w pel* [id number] Stat Exams 08/29/19 21:15 Completed XR pelvis 1-2V* 7 2170 Routine Exams 08/30/19 12:25 Completed Labs from last 24 hours 09/03/19 09/03/19 09/02/19 04:58 04:58 15:55 WBC 13.6 H RBC 3.43 L Hgb 9.3 L Hct 31.2 L MCV 91.0 MCH 27.1 L MCHC 29.8 L RDW 14.7 Plt Count 354 MPV 9.7 Neut % (Auto) 56.8 Lymph % (Auto) 32.6 [place] % (Auto) 7.5 Eos % (Auto) 2.3 Baso % (Auto) 0.5 Neut # (Auto) 7.7 Lymph # (Auto) 4.4 [place] # (Auto) 1.0 H Eos # (Auto) 0.3 Baso # (Auto) 0.1 Nucleated RBC % (a uto) 0 Nucleated RBCs # 0.0 Sodium 140 Potassium 3.9 Chloride 99 Carbon Dioxide 30 H Anion Gap 14.9 BUN 17 Creatinine 0.8 Glucose 121 H Calculated Osmolal ity 288 Calcium 9.2 Total Bilirubin 0.4 AST 18 ALT 7 Alkaline Phosphata se 66 Total Protein 6.9 Albumin 3.4 L Globulin 3.5 Urine Color Yellow Urine Appearance Clear Urine pH 5 Ur Specific Gravit y 1.005 Urine Protein Neg Urine Glucose (UA) Norm Urine Ketones Negative Urine Blood Neg Urine Nitrate Negative Urine Bilirubin Neg Urine Urobilinogen Norm Ur Leukocyte Kacie ase Negative Vitals: Last Vital Signs Temp 98.1 F 09/03/19 11:15 Pulse 105 H 09/03/19 13:00 Resp 28 H 09/03/19 11:15 BP 130/67 09/03/19 11:15 Pulse Ox 93 09/03/19 13:00 Discharge Plan Discharge Patient Disposition: Xfer SNF Condition: Stable Prescriptions: New aspirin 325 mg Tablet,Delayed Release (Dr/Ec) 325 mg PO DAILY 14 Days Qty: 14 RF: 0 Thera 400 mcg Tablet 1 tab PO DAILY 30 Days Qty: 30 RF: 0 metoprolol tartrate 25 mg Tablet 12.5 mg PO BID 30 Days Qty: 30 RF: 0 polysaccharide iron complex [Ferrex 150] 150 mg iron Capsule 150 mg PO BIDWM 30 Days Qty: 60 RF: 0 Continued loratadine 10 mg capsule 10 mg PO DAILY RF: 0 calcium citrate-vitamin D3 [Calcium Citrate + D] 315-200 mg-unit tablet 1 tab PO DAILY RF: 0 magnesium 200 mg tablet 400 mg PO DAILY RF: 0 vitamin B complex [B Complex-Vitamin B12] Tablet 1 tab PO DAILY RF: 0 cholecalciferol (vitamin D3) 2,000 unit tablet 2,000 unit PO DAILY RF: 0 acetaminophen [Tylenol Extra Strength] 500 mg tablet 500 mg PO Q4H PRN (Reason: Pain) RF: 0 Osteo Bi-Flex 250-200 mg Tablet 1 tab PO BID RF: 0 Discontinued hydrochlorothiazide 25 mg tablet 25 mg PO DAILY RF: 0 Discharge Orders: Discharge Order (Routine); Ordered 09/03/19 Ordered By: Sarah Gomes Referrals: [facility] [Outside] Sarah Gomes MD [Physician] - 2 weeks (Please call for an appointment, , and make this appointment approximately 2 weeks after discharge from jail.) Radha Lion FNP [Primary Care Provider] - Discharge Diet: Usual diet Discharge Activity: Limit activity as instructed and Use walker/crutches as instructed Activity Restrictions/Additional Instructions: Posterior hip precautions. May be weightbearing as tolerated. Please change dressing as needed. Leave Steri-Strips in place until they fall off. Discharge Attestations Time Spent in Discharge Care*: less than 30 min Quality Metrics Clinical Quality Measures During this hospital stay, did patient experience: None Coding Level of Care Code Acute Lacemaker for [facility] Fwd Diagnoses History of hemiarthroplasty of left hip Z96.642 Fall at home W19.XXXA; Y92.009 Encounter type: initial encounter HTN (hypertension) I10 Hypertension type: essential hypertension History of pacemaker Z95.0 Subcapital fracture of left hip S72.012A Encounter type: initial encounter Fracture type: closed Closed fracture of left hip S72.002A Encounter type: initial encounter Leukocytosis D72.823 Leukocytosis type: leukemoid reaction Osteoarthritis M89.49 Osteoarthritis location: multiple joints Osteoarthritis type: primary
--- NOTE | 2019-09-03 14:01 | P.PN_ITS ---
Subjective Subjective: Interval history: The patient is doing well. She has no complaints. She is awaiting approval for discharge to fdc. This is in the works for her. Medications: Reviewed: Yes Vitals/I&O/Wt Last Vital Signs Temp 98.1 F 09/03/19 11:15 Pulse 105 H 09/03/19 13:00 Resp 28 H 09/03/19 11:15 BP 130/67 09/03/19 11:15 Pulse Ox 93 09/03/19 13:00 09/02/19 09/03/19 09/03/19 22:59 06:59 14:59 Intake Total 290 / 1250 240 / 240 Balance 290 / 1250 240 / 240 Physical Exam Narrative: EXAM NARRATIVE: Patient's wound is benign. She has a clear Tegaderm over Steri-Strips. There is no drainage. There is no significant erythema. There is no swelling. There is no evidence of infection. Pulses are 2+. The calf is soft and nontender with no evidence of DVT. Urinary Catheter Management^: Omer: Cath Placed During This Visit: yes, but has since been removed by the nurse Reason for Continuing Indwelling Catheter: Not indwelling catheter Urinary Catheter Date of Insertion: 08/29/19 Urinary Catheter Time of Insertion: 23:15 Date Urinary Catheter Removed: 08/31/19 Time Urinary Catheter Discontinued: 19:00 Data : 09/03/19 04:58 09/03/19 04:58 Micro: Microbiology 09/02/19 19:35 C.difficile Toxin B Gene (PCR) - Final Stool A&P Assessment and plan (1) History of hemiarthroplasty of left hip: Patient continues to do well. She will require fdc at the time of discharge, and this is approved for discharge today. She notes that she would rather go home, but she understands reasons why she needs to go to fdc. Arrangements will be made and she will follow-up with me approximately 2 weeks after her discharge from fdc. She is to remain with posterior hip precautions. Status: Acute (2) Subcapital fracture of left hip: Status: Acute Qualifiers: Encounter type: initial encounter Fracture type: closed Qualified Code(s): S72.012A - Unspecified intracapsular fracture of left femur, initial encounter for closed fracture Attestations Medical Necessity Statement*: Per medical service. The patient is awaiting discharge to fdc which will be required for optimum rehabilitation. Coding Level of Care Code Acute Cardiac Cath Lab Radiology Technologist for g Fwd Diagnoses History of hemiarthroplasty of left hip Z96.642 Subcapital fracture of left hip S72.012A Encounter type: initial encounter Fracture type: closed
[2019-09-03] MEDS: cefTRIAXone 1,000 MG in sodium chloride 0.9% (plus) 50 ML 100 MG IV (14:10)
== END 2019-09-03 16:01 | disposition skilled nursing facility (03) | DRG 470 ==
LOC: ER 22:16 → MEDSURG 08-30 00:20
PROVIDERS: Specialist; Admitting Provider Hospitalist; Emergency Provider Emergency Medicine; Family Provider Registered Nurse; PCP Registered Nurse; Visit Provider Student in an Organized Health Care Education/Training Program
PROC: 0SRB0JA Replacement of Left Hip Joint with Synthetic Substitute, Uncemented, Open Approach (ICD-10-PCS; CPT 27125; principal; 2019-08-30 09:30)
DX: S72.002A Fracture of unspecified part of neck of left femur, initial encounter for closed fracture (principal); I10 Essential (primary) hypertension; D72.823 Leukemoid reaction; M89.49 Other hypertrophic osteoarthropathy, multiple sites; Z95.0 Presence of cardiac pacemaker; W19.XXXA Unspecified fall, initial encounter; Y92.009 Unspecified place in unspecified non-institutional (private) residence as the place of occurrence of the external cause; Z96.642 Presence of left artificial hip joint
CPT/HCPCS: 12345; 36415; 51702; 71045; 72170; 73502; 80048; 80053; 81001; 81003; 83735; 83880; 84484; 85025; 85610; 85730; 86850; 86900; 87493; 93005; 96365; 96374; 96375; 97110; 97116; 97161; 97163; 97165; 97530; 97535; 99284; C1776; J0131; J0690; J0696; J2001; J2270; J2405; J2704; J3010; J3370; J3490; J7030

== ENCOUNTER → 2019-09-25 13:24 | Outpatient (BNVA) | payer MEDICARE, SELFPAY | PROVIDERS: Family Provider Registered Nurse; PCP Registered Nurse; Visit Provider Specialist | DX: Z96.642 Presence of left artificial hip joint (principal); M13.851 Other specified arthritis, right hip | CPT/HCPCS: 73502 ==

== ENCOUNTER → 2019-11-04 16:02 | Outpatient (BNVA) | payer MEDICARE, SELFPAY | PROVIDERS: Family Provider Registered Nurse; PCP Registered Nurse; Visit Provider Specialist | DX: Z96.642 Presence of left artificial hip joint (principal) | CPT/HCPCS: 73502 ==

== ENCOUNTER 2020-05-11 17:37 | Emergency (ER) | payer MEDICARE, SELFPAY ==
[2020-05-11 17:50] VITALS: BP 166/83; PULSE 106; RESP 18; TEMP 35.9; O2SAT 96; BMI 27.1
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
[2020-05-11] MEDS: neomycin-poly-bacitracin oint 0.9 gm Pkt 1 APPLIC TOPICAL (21:19)
[2020-05-11 21:20] VITALS: BP 145/85; PULSE 98; RESP 18; O2SAT 97
== END 2020-05-11 21:22 | disposition home or self-care (01) ==
PROVIDERS: Emergency Provider Family Medicine; PCP Registered Nurse
DX: Z04.1 Encounter for examination and observation following transport accident (principal); Z95.0 Presence of cardiac pacemaker; I10 Essential (primary) hypertension; V89.2XXA Person injured in unspecified motor-vehicle accident, traffic, initial encounter
CPT/HCPCS: 12345; 70450; 73552; 73590; 99281; 99283

== ENCOUNTER → 2020-07-15 15:35 | Outpatient (BNVA) | payer OTHER, MEDICARE, SELFPAY | PROVIDERS: PCP Registered Nurse; Referring Provider Registered Nurse; Visit Provider Orthopaedic Surgery | DX: M25.562 Pain in left knee (principal) | CPT/HCPCS: 73560; 73565 ==

== ENCOUNTER 2020-08-06 13:19 | Outpatient (CLI) | payer OTHER, MEDICARE, SELFPAY | END 2020-08-06 13:20 | disposition home or self-care (01) | LOC: WOUND 13:20 | PROVIDERS: PCP Registered Nurse; Visit Provider Thoracic Surgery (Cardiothoracic Vascular Surgery) | DX: I96 Gangrene, not elsewhere classified (principal); L97.822 Non-pressure chronic ulcer of other part of left lower leg with fat layer exposed | CPT/HCPCS: 11042; G0463 ==

== ENCOUNTER 2020-08-13 14:57 | Outpatient (CLI) | payer MEDICARE, SELFPAY | END 2020-08-13 14:58 | disposition home or self-care (01) | LOC: WOUND 14:58 | PROVIDERS: PCP Registered Nurse; Visit Provider Thoracic Surgery (Cardiothoracic Vascular Surgery) | DX: L97.822 Non-pressure chronic ulcer of other part of left lower leg with fat layer exposed (principal) | CPT/HCPCS: 11042 ==

== ENCOUNTER 2020-08-19 15:10 | Outpatient (CLI) | payer MEDICARE, SELFPAY | END 2020-08-19 15:11 | disposition home or self-care (01) | LOC: WOUND 15:12 | PROVIDERS: PCP Registered Nurse; Visit Provider Nurse Practitioner Family | DX: L97.822 Non-pressure chronic ulcer of other part of left lower leg with fat layer exposed (principal) | CPT/HCPCS: 11042 ==

== ENCOUNTER 2020-08-26 13:20 | Outpatient (CLI) | payer OTHER, MEDICARE, SELFPAY ==
--- NOTE | 2020-08-26 13:31 | USCV_ITS ---
Colleen Benitez Age: 85 Gender: F : 1935 Exam Date: 08/26/2020 13:24 Ordering Phys: Cesar Pride MD (Andy) ([email or web address] [email or web address]) Technologist: Exam Location: [facility] [place] Indication: PAD RIGHT LEFT Brachial 139.00 mmHg Brachial mmHg Pressure (mmHg) Waveform Pressure (mmHg) Waveform 240.00 VAULT ATTENDANT 240.00 240.00 DPA 240.00 Pre-Exercise Toe Pressure 67.00 87.00 0.63 Pre-Exercise Toe/Brachial Index 0.48 FINDINGS Noncompressible arteries at the ankles bilaterally Diminished resting TBI bilaterally PVR waveforms showing some blunting of the dicrotic notch CONCLUSIONS Normal resting TBIs suggestive of mild peripheral artery disease bilaterally. Features of extensive arterial sclerosis Dr Jonathan Toribio MD FACC (Electronically Signed) Final Date: 27 August 2020 23:30 S
== END 2020-08-26 13:21 | disposition home or self-care (01) ==
LOC: US 13:26
PROVIDERS: PCP Registered Nurse; Visit Provider Thoracic Surgery (Cardiothoracic Vascular Surgery)
DX: L97.822 Non-pressure chronic ulcer of other part of left lower leg with fat layer exposed (principal); I73.9 Peripheral vascular disease, unspecified
CPT/HCPCS: 93923

== ENCOUNTER 2020-08-27 14:33 | Outpatient (CLI) | payer MEDICARE, SELFPAY | END 2020-08-27 14:34 | disposition home or self-care (01) | LOC: WOUND 14:36 | PROVIDERS: PCP Registered Nurse; Visit Provider Thoracic Surgery (Cardiothoracic Vascular Surgery) | DX: L97.822 Non-pressure chronic ulcer of other part of left lower leg with fat layer exposed (principal); L98.491 Non-pressure chronic ulcer of skin of other sites limited to breakdown of skin | CPT/HCPCS: 11042 ==

== ENCOUNTER 2020-09-03 13:50 | Outpatient (CLI) | payer MEDICARE, OTHER, SELFPAY | END 2020-09-03 13:51 | disposition home or self-care (01) | LOC: WOUND 13:52 | PROVIDERS: PCP Registered Nurse; Visit Provider Nurse Practitioner Family | DX: L97.822 Non-pressure chronic ulcer of other part of left lower leg with fat layer exposed (principal) | CPT/HCPCS: 11042 ==

== ENCOUNTER 2020-09-10 15:02 | Outpatient (CLI) | payer OTHER, MEDICARE, SELFPAY | END 2020-09-10 15:03 | disposition home or self-care (01) | LOC: WOUND 15:03 | PROVIDERS: PCP Registered Nurse; Visit Provider Thoracic Surgery (Cardiothoracic Vascular Surgery) | DX: L97.822 Non-pressure chronic ulcer of other part of left lower leg with fat layer exposed (principal) | CPT/HCPCS: 11042; 87070; 87075; 87205 ==

== ENCOUNTER 2020-09-14 07:52 | Outpatient (CLI) | payer OTHER, MEDICARE, SELFPAY ==
--- NOTE | 2020-09-14 08:00 | CT_ITS ---
WS: [id number] CTA ABDOMINAL AORTA WITH RUNOFF TECHNIQUE: Contrast enhanced CTA of the abdominal aorta with bilateral lower extremity runoff. Multip lanar reformatted images were obtained. MIP reformats were also reviewed. CLINICAL INFORMATION: NONHEALING CHRONIC ULCER LEFT LEG COMPARISON: None. DLP: 1501.[address] scans at [facility] use at least one of these dose optimization techniques: automat ed exposure control; mA and/or kV adjustment per patient size (includes targeted exams where dose is matched to clinical indication); or iterative reconstruction. FINDINGS: Normal caliber abdominal aorta. Moderate aortic atheromatous disease. No abdominal aortic a neurysm. Celiac and SMA are patent. Right renal artery is patent. Moderate to severe stenosis left re nal artery origin. Normal renal parenchymal enhancement. Lung bases are well aerated. Small esophageal hiatal hernia. Cholelithiasis. Adrenal glands are debi l. Normal spleen. Normal pancreatic parenchymal enhancement. Left AUDRA. Prior chronic right inferior p ubic ramus fracture with callus formation. Fat-containing umbilical hernia. Bilateral inguinal hernia s right greater than left containing bowel. Lumbar scoliosis convex right. Mild diffuse thickening of the sigmoid colon with diverticulosis. Recommend correlation for diverticu litis.Fluid collection measuring 3.7 x 2.7 cm may represent diverticular abscess. This can be further evaluated with CT abdomen pelvis with oral contrast. RIGHT: Right common iliac artery is patent. External and internal iliac arteries are patent. Right co mmon femoral artery and deep femoral arteries are patent. Superficial femoral artery is patent to the popliteal hiatus. Right TKA degrades images at the popliteal fossa. Popliteal artery is patent to th e trifurcation. Dense calcification in the calf arteries with poor three-vessel runoff. LEFT: Left common iliac artery is patent. External and internal iliac arteries are patent. Left commo n femoral artery is patent. Deep femoral artery is patent. Superficial femoral artery is patent to th e popliteal hiatus. Mild calcified narrowing popliteal fossa. Popliteal artery is patent to the trifu rcation. Densely calcified and atretic calf arteries with poor runoff. CT/CT angio abd aorta runof 60430 IMPRESSION: 1. Mild sigmoid colon thickening suspicious for diverticulitis. Nonspecific fl uid collection measuring 3.7 x 2.7 cm may represent diverticular abscess. This can be further evaluated with CT abdomen pelvis with oral contrast. 2. No abdominal aortic aneurysm. 3. Bilateral iliac, femoral and popliteal arteries are patent without flow-macias iting stenosis. 4. Heavily calcified tiny calf arteries bilaterally with poor three-vessel run off.
[2020-09-14 10:04] LABS: Blood Urea Nitrogen 22 mg/dL (8-23)
[2020-09-14] MEDS: iohexol 350 mg/mL 100 mL Btl IV (10:15)
== END 2020-09-14 07:53 | disposition home or self-care (01) ==
LOC: RADWPI 08:16 → RAD 09:23
PROVIDERS: PCP Registered Nurse; Visit Provider Thoracic Surgery (Cardiothoracic Vascular Surgery)
DX: L97.822 Non-pressure chronic ulcer of other part of left lower leg with fat layer exposed (principal); I70.8 Atherosclerosis of other arteries; K57.32 Diverticulitis of large intestine without perforation or abscess without bleeding
CPT/HCPCS: 36415; 75635; 82565; 84520

== ENCOUNTER 2020-09-17 14:37 | Outpatient (CLI) | payer MEDICARE, OTHER, SELFPAY | END 2020-09-17 14:38 | disposition home or self-care (01) | LOC: WOUND 14:38 | PROVIDERS: PCP Registered Nurse; Visit Provider Thoracic Surgery (Cardiothoracic Vascular Surgery) | DX: L97.822 Non-pressure chronic ulcer of other part of left lower leg with fat layer exposed (principal) | CPT/HCPCS: 11042 ==

== ENCOUNTER 2020-09-24 13:24 | Outpatient (CLI) | payer MEDICARE, SELFPAY | END 2020-09-24 13:25 | disposition home or self-care (01) | LOC: WOUND 13:26 | PROVIDERS: PCP Registered Nurse; Visit Provider Thoracic Surgery (Cardiothoracic Vascular Surgery) | DX: L97.822 Non-pressure chronic ulcer of other part of left lower leg with fat layer exposed (principal) | CPT/HCPCS: 11042 ==

== ENCOUNTER 2020-10-01 13:13 | Outpatient (CLI) | payer OTHER, MEDICARE, SELFPAY | END 2020-10-01 13:14 | disposition home or self-care (01) | LOC: WOUND 13:14 | PROVIDERS: PCP Registered Nurse; Visit Provider Thoracic Surgery (Cardiothoracic Vascular Surgery) | DX: L97.822 Non-pressure chronic ulcer of other part of left lower leg with fat layer exposed (principal) | CPT/HCPCS: 11042 ==

== ENCOUNTER 2020-10-08 14:12 | Outpatient (CLI) | payer MEDICARE, SELFPAY | END 2020-10-08 14:13 | disposition home or self-care (01) | LOC: WOUND 14:14 | PROVIDERS: PCP Registered Nurse; Visit Provider Thoracic Surgery (Cardiothoracic Vascular Surgery) | DX: L97.822 Non-pressure chronic ulcer of other part of left lower leg with fat layer exposed (principal) | CPT/HCPCS: 11042 ==

== ENCOUNTER 2020-10-15 14:53 | Outpatient (CLI) | payer OTHER, MEDICARE, SELFPAY | END 2020-10-15 14:54 | disposition home or self-care (01) | LOC: WOUND 14:54 | PROVIDERS: PCP Registered Nurse; Visit Provider Thoracic Surgery (Cardiothoracic Vascular Surgery) | DX: L97.822 Non-pressure chronic ulcer of other part of left lower leg with fat layer exposed (principal) | CPT/HCPCS: 97597 ==

== ENCOUNTER 2020-10-29 12:59 | Outpatient (CLI) | payer MEDICARE, SELFPAY | END 2020-10-29 13:00 | disposition home or self-care (01) | LOC: WOUND 13:00 | PROVIDERS: PCP Registered Nurse; Visit Provider Nurse Practitioner Family | DX: Z09 Encounter for follow-up examination after completed treatment for conditions other than malignant neoplasm (principal) | CPT/HCPCS: 99212 ==

== ENCOUNTER 2020-11-19 13:18 | Emergency (ER) | payer MEDICARE, SELFPAY ==
[2020-11-19 13:25] VITALS: BP 148/80; PULSE 97; RESP 18; TEMP 36.7; O2SAT 93; BMI 25.0
--- NOTE | 2020-11-19 14:05 | XR_ITS ---
NOTE: Report was unsigned for reason: Order was edited. Original Signature date and time was: 11/19/20 @ 1433 WS: [id number] AP pelvis, 2 views of each hip, 11/19/2020 Clinical Data: fall one month ago-pain in both hips Comparison: Left thigh and femur, 05/11/2020. Findings: Left hip: The left hip arthroplasty remains in good position. No loosening is seen. There are vascular calcifications Right hip: There is an acetabular lip. No erosion, sclerosis narrowing or cyst formation of the right hip is seen. There are vascular calcifications. There are old fractures of the inferior right ischiopubic and superior right ischio pubic ramus. Pelvis: The SI joints and pubic symphysis are normal. No recent pelvic fractures are seen. Phleboliths are in the true pelvis. The fractures of the right superior and inferior ischiopubic ramus are probably one month old. MTDD XR/XR hip BI 2V wo/w pel 43087 Impression: 1. No change in left hip arthroplasty. 2. Minimal osteoarthritis of the right hip. 3. Fractures of the right inferior ischiopubic ramus and right superior ischiop ubic ramus, probably old.
--- NOTE | 2020-11-19 14:06 | ED_ITS ---
HPI - Extremity Problem General: Chief complaint: Extremity Injury, Lower Stated complaint: Hip pain Time Seen by Provider: 11/19/20 13:39 History of Present Illness: HPI Narrative: Patient is an 85-year-old female who comes to the ED with bilateral hip pain. Patient had left hip replacement several years ago. She was told that she has some osteoarthritis in right hip as well. She states that about a month ago she had a fall and feels like she is had worsening bilateral hip pain since then. Pain is worse when she ambulates. Patient says she uses a walker for ambulation. When at rest or sitting hip pain improves. Patient saw her primary care physician recently about hip pain and they sent her home with a prescription for tramadol for pain. Patient took a dose of tramadol before coming to the ED. Associated symptoms: Deny chest pain, fever(s) or rash Review of Systems Const: Denies: fever(s), chills or fatigue Eyes: Denies: change in vision or eye discomfort ENMT: Denies: throat pain, odynophagia, nasal discharge or nasal congestion Card: Denies: chest pain, palpitations, edema, swelling of feet/ankles, dyspnea on exertion or orthopnea Resp: Denies: dyspnea, productive cough or non-productive cough GI: Denies: abdominal pain, nausea, vomiting, diarrhea, constipation or hematochezia : Denies: flank pain, dysuria or hematuria Musc: Reports: joint pain (bilateral Hip pain); Denies: neck pain, back pain or extremity swelling Skin/Breast: Denies: rash or new lesions Neuro: Denies: headache(s), numbness in extremities or weakness in extremities PFS ED PFSH: Medical History 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 Placed by Donita 02/2019 HTN (hypertension) Mobitz type 2 second degree atrioventricular block Osteoarthritis 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) Subcapital fracture of left hip Surgical History History of bilateral cataract extraction History of hemiarthroplasty of left hip S/P knee replacement righ Family History Daughter Pacemaker Father Tetanus from tetanus Denies family history of Anesthesia complication Bleeding disorder Social History Smoking and tobacco status: never smoked Alcohol intake: never Caregiver/support person: No Lives independently: Yes Housing: Apartment Physical Exam Const: COMMON NORMALS: no acute distress, patient oriented x3 and alert GENERAL APPEARANCE: cooperative and comfortable HENMT: COMMON NORMALS: normocephalic HEAD & SCALP: normocephalic MOUTH: Normal oral and palatal mucosa present THROAT: posterior oropharynx normal and uvula midline Neck/C-Spine: COMMON NORMALS: supple GENERAL: Yes normal visual inspection Resp: COMMON NORMALS: normal respiratory effort, No retractions, No use of accessory muscles and clear to auscultation bilaterally AUSCULTATION: clear to auscultation bilaterally Cardio: COMMON NORMALS: regular rate, regular rhythm, S1 normal heart sound present, S2 normal heart sound present, No gallops present (Cardio), No clicks present (Cardio), No murmurs present (Cardio) and Peripheral pulses 2+ throughout RATE: regular rate RHYTHM: regular rhythm HEART SOUNDS: S1 normal heart sound present and S2 normal heart sound present PERIPHERAL PULSES: Peripheral pulses 2+ throughout GI: COMMON NORMALS: Normal to inspection, nondistended, normoactive bowel sounds present, Soft to palpation, non-tender and no masses PALPATION: Yes Soft to palpation : COMMON NORMALS: Yes no CVA tenderness BLADDER/KIDNEY EXAM: Yes no CVA tenderness Back/Pelvis: COMMON NORMALS: no CVA tenderness Extremity: COMMON NORMALS: normal to inspection NARRATIVE EXTREMITY EXAM: No deformities noted. Patient's right and left foot is not shortened or externally rotated. Neuro: COMMON NORMALS: patient oriented x3 and moves all extremities SENSORIUM/ORIENTATION: Yes alert Skin: GENERAL SKIN EXAM: dry skin Course Vital Signs: Vital signs: Vital Signs Temperature 98.0 F 11/19/20 13:25 Pulse Rate 97 11/19/20 13:25 Respiratory Rate 18 11/19/20 13:25 Blood Pressure 148/80 11/19/20 13:25 Pulse Oximetry 93 11/19/20 13:25 MDM - Extremity (Nontraumatic) MDM Narrative: Medical decision making narrative: Patient is an 85-year-old female comes to the ED with hip pain. Patient says about a month ago she did have a fall and that is when her hip pain got worse. She has had her left hip replaced and has been told her right hip has some osteoarthritis. X-ray of patient's right left hip showed some mild right osteoarthritis and an old right inferior and superior ischipubic ramus fracture that is possibly a month old. I placed an order with director of casework department for patient to be referred to orthopedic doctor for further evaluation. Patient was diagnosed with osteoarthritis of right hip and fracture of ramus right pubis with routine healing. Patient was discharged home with a prescription of hydrocodone for pain. Return to ED prec autions given. I told patient the case management will be contacting him in next several days set up an appointment with orthopedic doctor. Patient understood agree with plan. Imaging Data^: Xray Ortho: Attestation: I personally reviewed and interpreted this imaging study as follows: Radiologist's impression: [address] [place] [address] XRay Report Signed Patient: Colleen Benitez Unit #: [id number] : 1935 Age/Sex: 85 / F ADM Date: 11/19/20 Loc: ER Room/Bed: Attending Dr: Ordering Provider/Ordering MD: Darryl Walker Date of Service: 11/19/20 Procedure(s): XR hip BI 2V wo/w pel [id number] Accession Number(s): [id number] Report Number: [id number] WS: [id number] AP pelvis, 2 views of each hip, 11/19/2020 Clinical Data: fall one month ago-pain in both hips Comparison: Left thigh and femur, 05/11/2020. Findings: Left hip: The left hip arthroplasty remains in good position. No loosening is seen. There are vascular calcifications Right hip: There is an acetabular lip. No erosion, sclerosis narrowing or cyst formation of the right hip is seen. There are vascular calcifications. There are old fractures of the inferior right ischiopubic and superior right ischio pubic ramus. Pelvis: The SI joints and pubic symphysis are normal. No recent pelvic fractures are seen. Phleboliths are in the true pelvis. The fractures of the right superior and inferior ischiopubic ramus are probably one month old. XR/XR hip BI 2V wo/w pel 12656 Impression: 1. No change in left hip arthroplasty. 2. Minimal osteoarthritis of the right hip. 3. Fractures of the right inferior ischiopubic ramus and right superior ischiopubic ramus, probably old. Dictated By: Kimberly Woodruff MD Signed By: Kimberly Woodruff MD Signed Date/Time: 11/19/201442 DD/ 32 Discharge Plan Discharge Patient Disposition: Home Clinical Impression: Osteoarthritis of right hip Qualifiers: Osteoarthritis type: primary Qualified Code(s): M16.11 - Unilateral primary osteoarthritis, right hip Fracture of ramus of right pubis with routine healing Qualifiers: Fracture type: closed Qualified Code(s): S32.591D - Other specified fracture of right pubis, subsequent encounter for fracture with routine healing Condition: Stable Prescriptions: No Action ketoconazole 2 % cream 1 applic topical BID Qty: 30 RF: 2 loratadine 10 mg capsule 10 mg PO DAILY@0800 RF: 0 calcium citrate-vitamin D3 [Calcium Citrate + D] 315-200 mg-unit tablet 1 tab PO DAILY@0800 RF: 0 magnesium 200 mg tablet 400 mg PO DAILY@0800 RF: 0 vitamin B complex [B Complex-Vitamin B12] Tablet 1 tab PO DAILY@0800 RF: 0 cholecalciferol (vitamin D3) 2,000 unit tablet 2,000 unit PO DAILY@0800 RF: 0 acetaminophen [Tylenol Extra Strength] 500 mg tablet 500 mg PO Q4H PRN (Reason: Pain) RF: 0 levofloxacin 500 mg tablet 500 mg PO DAILY Qty: 7 RF: 0 metoprolol tartrate 25 mg tablet 12.5 mg PO Q12H RF: 0 Discharge Orders: Discharge ED (Routine); Ordered 11/19/20 Ordered By: Darryl Walker Referrals: Radha Lion FNP [Primary Care Provider] - Discharge Diet: Regular Discharge Activity: Increase activity as tolerated Patient Instructions: Osteoarthritis (ED) Activity Restrictions/Additional Instructions: Follow-up with medical provider as directed. Case management should be contacting you in the next several days set up an appointment with orthopedic doctor. Continue taking all home medications as prescribed. Return to the ER or your medical provider if condition worsens. Please read and understand discharge instructions. Thank you for choosing [facility] for your healthcare needs today. Please realize this is an emergency room and that we are providing you with a medical screening exam and this may not be complete and all inclusive of all the testing and or work up that you may need to determine your ailment or severity of your illness. It is very important that you follow up as instructed or that you return to the Emergency Department should you have concerns or if your condition changes or worsens in any way. Coding Level of Care Code ED Cook Room Supervisor for Derrick Fwd Exam Comprehensive
[2020-11-19] MEDS: HYDROcodone-acetaminophen 5-325 mg Tablet 1 TAB PO (16:00)
--- NOTE | 2020-11-20 08:31 | DCPLANNER ---
clinical services manager had message to schedule a follow up appointment for patient with ortho for right hip pain, and 1 month old ramus fracture. clinical services manager called the ortho clinic, spoke with Katia, gave clinic patients information. clinical services manager was told that patients information would be printed and reviewed.
--- NOTE | 2020-11-25 11:09 | DCPLANNER ---
Patient has a follow up appointment scheduled for 11.26.[address] Gomes at [facility] - patient did attend appointment.
== END 2020-11-19 16:17 | disposition home or self-care (01) ==
PROVIDERS: Emergency Provider Physician Assistant; PCP Registered Nurse
DX: M16.11 Unilateral primary osteoarthritis, right hip (principal); S32.591A Other specified fracture of right pubis, initial encounter for closed fracture; Z95.0 Presence of cardiac pacemaker; I10 Essential (primary) hypertension; Z96.642 Presence of left artificial hip joint; W19.XXXA Unspecified fall, initial encounter
CPT/HCPCS: 73521; 73523; 99283

== ENCOUNTER → 2020-11-26 11:18 | Outpatient (BNVA) | payer MEDICARE, SELFPAY | PROVIDERS: PCP Registered Nurse; Referring Provider Physician Assistant; Visit Provider Specialist | DX: M25.551 Pain in right hip (principal); M25.552 Pain in left hip; Z47.1 Aftercare following joint replacement surgery; Z96.641 Presence of right artificial hip joint | CPT/HCPCS: 73522 ==

== ENCOUNTER → 2021-01-28 13:47 | Outpatient (BNVA) | payer MEDICARE, SELFPAY | PROVIDERS: PCP Registered Nurse; Visit Provider Orthopaedic Surgery | DX: M54.5 Low back pain (principal); M81.0 Age-related osteoporosis without current pathological fracture | CPT/HCPCS: 72110 ==

== ENCOUNTER 2021-02-17 08:44 | Outpatient (CLI) | payer MEDICARE, SELFPAY ==
--- NOTE | 2021-02-17 08:52 | NM_ITS ---
WS: [id number] NUCLEAR MEDICINE WHOLE BODY BONE SCAN HISTORY: M54.9 - Dorsalgia, unspecified COMPARISON: Lumbar spine radiograph 01/28/2021 TECHNIQUE: The patient was injected with 24.7 mCi of Technetium 99m HDP and serial whole-body scintig jefferson have been performed with anterior and posterior images. Mild rotary scoliosis of the thoracic and lumbar spines. Focal increased uptake is moderate involving the posterior LEFT L1 and L2 pedicles. Mild increased signal along the entire superior endplate of L1 probably from a mild compression deformity. Severe bilateral degenerative changes at the humeral heads bilaterally. Prior RIGHT knee arthroplasty . Moderate arthritis at the LEFT knee. Degenerative changes at the wrists and hands. Normal soft tiss ue and renal uptake. NM/NM bone scan whole body* 62245 IMPRESSION: 1. Focal area of increased uptake involving L1 and L2. Likely representing acu te compression fractures from the recent fall. Superimposed on prior fractures and degenerative arthritis. 2. The L1 compression fracture seen on the recent lumbar spine is new since 02/2021. Mild progression of the L2 fracture but no change at L3. 3. Severe bilateral arthropathy at the humeral heads and moderate at the LEFT knee.
== END 2021-02-17 08:45 | disposition home or self-care (01) ==
LOC: RAD 08:49
PROVIDERS: PCP Registered Nurse; Visit Provider Orthopaedic Surgery
DX: M54.9 Dorsalgia, unspecified (principal); M41.9 Scoliosis, unspecified; S32.009A Unspecified fracture of unspecified lumbar vertebra, initial encounter for closed fracture; M19.90 Unspecified osteoarthritis, unspecified site; M12.9 Arthropathy, unspecified
CPT/HCPCS: 78306; A9561

== ENCOUNTER → 2021-03-09 09:40 | Outpatient (BNVA) | payer MEDICARE, SELFPAY | PROVIDERS: PCP Registered Nurse; Visit Provider Orthopaedic Surgery | DX: Z20.822 Contact with and (suspected) exposure to COVID-19 (principal) | CPT/HCPCS: 87635 ==

== ENCOUNTER 2021-03-12 09:43 | Day surgery (SDC) | payer MEDICARE, SELFPAY ==
[2021-03-11 12:49] VITALS: BMI 23.3
--- NOTE | 2021-03-11 12:55 | ECG_ITS ---
[facility] Test Date: 2021-03-11 Pat Name: Colleen Benitez Department: Room: Gender: Female Sausage Smoker: : 1935 Requested By: Gemini Horner Order Number: [id number] Nona MD: Brayan Velasco M.D. Measurements Intervals [place] Rate: 77 P: 51 MI: 186 QRS: 253 QRSD: 182 T: 60 QT: 434 QTc: 491 Interpretive Statements ELECTRONIC VENTRICULAR PACEMAKER Compared to ECG 09/01/2019 14:16:24 Sinus rhythm no longer present First degree AV block no longer present Right bundle-branch block no longer present Left anterior fascicular block no longer present Electronically Signed On 03-11-2021 17:13:49 CDT by Brayan Velasco M.D. [id number]
--- NOTE | 2021-03-11 13:32 | P.ANESASSM_ITS ---
Pre-Anesthetic Assessment Pre-Anesthetic Assessment: Height/Weight: Height 1.68 m Weight 65.771 kg Preop Diagnosis: Left subcapital hip fracture Proposed Procedure: Operation Date: 03/12/21 11:15 Proposed Procedures p Kyphoplasty L1/2 49276(x2) S32.000A(Not Applicable) - Denver Alvarenga, DO Was Beta Yobany taken within 24 hours: Yes Was Clonidine taken within 24 hours: N/A Social: Social History: No alcohol and No tobacco Exam: Pre-Anes Outpt Exam: alert, oriented x 3 and clear to auscultation bilaterally Airway: Submandibular: WNL Cervical ROM: WNL MP: 1 Dentition: False History/ROS: No significant complaints Pulmonary: Pulmonary: None reported CV/HEM: CV/HEM: Arrythmia and HTN Comments: mobitz type 2 av block now w v paced pacemaker : : None reported Hepatic: Hepatic: None reported GI: GI: None reported Metabolic: Metabolic: None reported Musc/skel: Musc/skel: Lower Back Pain Neuropsych: Neuropsych: None reported Anesthetic Plan: ASA status: 2 Anesthesia: General Risk of > 500 ml blood loss (7ml/kg in children): No PFSH Anesthesia PFSH: Medical History 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 Placed by Donita 02/2019 HTN (hypertension) Mobitz type 2 second degree atrioventricular block Osteoarthritis 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
--- NOTE | 2021-03-12 | SCC_ITS ---
Procedure Done: 1. L1 Kyphoplasty 2. L2 Kyphoplasty 173.9 seconds of fluoroscopic guidance, for a cumulative dose of 71.28 mGy, was provided to Dr. Alvarenga by the radiology department. C-arm images of the lumbar spine were saved for the patient's permanent record. [facility]
[2021-03-12] MEDS: sodium chloride 0.9% 1,000 ML 30 ML IV (09:20)
--- NOTE | 2021-03-12 09:57 | SC_ITS ---
WS: [id number] C-ARM RADIOGRAPHS ; 4 IMAGES HISTORY: Kyphoplasty L1 AND L2 COMPARISON: None available. Intraoperative imaging during kyphoplasty placement. Kyphoplasty material is noted within 2 vertebral bodies. The exact levels cannot be determined on this intraoperative exam. SC/C-arm FL for Kyphoplasty IMPRESSION: Intraoperative imaging during kyphoplasty.
[2021-03-12 10:12] VITALS: BP 151/79; RESP 16; TEMP 36.1; O2SAT 94
--- NOTE | 2021-03-12 11:07 | P.ANESUD_ITS ---
Pre-Anesthetic Update Pre-Anesthetic Assessment: Date of Surgery/Procedure: 03/12/21 Preop Moraima gnosis: L1 and L2 compression fractures Proposed Procedure: Operation Date: 03/12/21 11:15 Proposed Procedures p Kyphoplasty L1/2 42770(x2) S32.000A(Not Applicable) - Denver Alvarenga, DO Any changes to Pre-Anesthetic Assessment?: No Last Intake: Intake Last Liquid Date 03/11/21 Last Liquid Time 22:00 Last Solid Date 03/11/21 Last Solid Time 18:00 Vitals: Temperature 97 F L 03/12/21 10:12 Temperature Source Temporal Artery S can 03/12/21 10:12 Pulse Rhythm 03/12/21 10:08 Pulse Strength 3+ Normal 03/12/21 10:08 Respiratory Rate 16 03/12/21 10:12 Blood Pressure 151/79 03/12/21 10:12 Blood Pressure Felicia n 103 03/12/21 10:12 Pulse Oximetry 94 03/12/21 10:12 Oxygen Delivery Me thod 03/12/21 10:12 Exam: Pre-Anes Outpt Exam: alert, oriented x 3, clear to auscultation bilaterally and regular rate & rhythm Cardiac Studies: No Data to Display
--- NOTE | 2021-03-12 11:22 | P.HP_ITS ---
Providers/Chief Complaint Primary Care Provider: MILAGROS Frias Chief Complaint: Wedge compression fracture History of Present Illness lower back pain. Patient states that pain has been present for 4 months after having had a fall in the shower in September. Patient rates pain at 10 out of 10. Pain is progressively intensified which sharp stabbing constant nature. Pain is slowly intensified following the fall in September. Localizes it through her lower thoracic and lumbar region. Denies any leg pain. Activities seem to make it much worse. Rest gives her some temporary relief. She has a pacemaker she is unable to have an MRI scan. Denies any loss of bowel or bladder control. She is attempted conservative management with reducing bending lifting activities but has difficult time with activities of daily living due to her level of back pain. Onset: chronic Duration: 4 month Characteristics: sharp, achy Severity: 10 Location: Lower back Radiating symptoms: none Aggravating factors: walking, bending, twisting, stooping Alleviating factors: pain patch (lidocaine) Neuro deficits denies numbness, tingling, weakness, incontinence of bowel/bladder, saddle anesthesia. Prior tx: noneMarmaira Benitez is a 86 year old female Review of Systems Narrative: General ROS: negative for weight changes, fever ENT ROS: negative for nasal congestion, drainage or bleeding, sore throat, dysphagia or ear pain Eyes: PERRL Hematological and Lymphatic ROS: negative for swollen glands or abnormal bleeding Endocrine ROS: negative for polyuria/polydpsia or new changes in weight Respiratory ROS: negative for cough, shortness of breath, or wheezing Cardiovascular ROS: negative for chest pain or dyspnea on exertion Gastrointestinal ROS: negative for reflux, abdominal pain, change in bowel habits, or black or bloody stools Musculoskeletal ROS: negative for back pain, neck pain, or joint pain or swelling except for current problem Neurological ROS: negative for TIA or stoke symptoms Skin: no rashes Medications/Allergies Home Medications Medication Instructions Recorded Confirmed Last Taken Type acetaminophen 500 mg tablet 500 mg PO Q4H PRN 05/23/19 03/12/21 1 Day Ago History ~03/11/21 calcium citrate 315 mg-vitamin D3 1 tab PO DAILY@0800 tab 05/23/19 03/12/21 1 Day Ago History 5 mcg (200 unit) tablet ~03/11/21 cholecalciferol (vitamin D3) 50 2,000 unit PO DAILY@0800 tab 05/23/19 03/12/21 1 Day Ago History mcg (2,000 unit) tablet ~03/11/21 loratadine 10 mg capsule 10 mg PO DAILY@0800 cap 05/23/19 03/12/21 1 Day Ago History ~03/11/21 magnesium 200 mg tablet 400 mg PO DAILY@0800 tab 05/23/19 03/12/21 1 Day Ago History ~03/11/21 vitamin B complex 1 tab PO DAILY@0800 tab 05/23/19 03/12/21 1 Day Ago History ~03/11/21 metoprolol tartrate 12.5 mg PO Q12H 05/11/20 03/12/21 03/12/21 08:00 History tramadol 50 mg PO BID 03/11/21 03/12/21 03/12/21 08:00 History Allergies Allergy/AdvReac Type Severity Reaction Status Date / Time meloxicam Allergy Unknown Unknown Verified 03/11/21 12:43 prednisone Allergy Unknown Unknown Verified 03/11/21 12:43 triamcinolone [From Kenalog] Allergy Unknown Unknown Verified 03/11/21 12:43 PFSH Acute PFSH: Medical History (Updated 03/12/21 @ 11:23 by Denver Alvarenga DO) 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 Placed by Doniat 02/2019 HTN (hypertension) Mobitz type 2 second degree atrioventricular block Osteoarthritis 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) Subcapital fracture of left hip Surgical History History of bilateral cataract extraction History of hemiarthroplasty of left hip S/P knee replacement [facility] Family History Daughter Pacemaker Father Tetanus from tetanus Denies family history of Anesthesia complication Bleeding disorder Social History Smoking and tobacco status: never smoked Alcohol intake: never Caregiver/support person: No Lives independently: Yes Housing: Apartment Vitals/I&O/Wt Last Vital Signs Temp 97 F L 03/12/21 10:12 Resp 16 03/12/21 10:12 BP 151/79 03/12/21 10:12 Pulse Ox 94 03/12/21 10:12 Weight last 48 hrs Weight 145 lb Physical Exam Narrative: EXAM NARRATIVE: CONSTITUTIONAL: The patient is a normal appearing [] in no apparent distress. GENERAL: Patient in no acute distress. CARDIAC: Regular rate and rhythm. CHEST: Normal inspiratory effort, normal respiratory rate. ABDOMEN: Soft and nontender. SKIN: Clear, warm and intact. NEURO?PSYCH: The patient is alert and oriented to person, place and time. Sensorv /SILT Motor StrengthShoulder abduction C5 5/5Wrist extension C6 5/5Elbow extension C7 5/5Hand Guitar Technician C8 5/5Finger abduction T15/5 Radial/ Ulnar/ Median n intact LowerSensory (SILT)Motor StrengthHin flexion L2/3Ant/inner thigh 5/5Hip adduction L2/3 5/5Knee extension L4 Lat thigh, 5/5Toe dorsiflexion L5 5/5Ankle dorsiflexion L5/ E65Cugdlnx flexion S1 5/5 DTRBleeps 2+Triceps 2+Brachioradialis 2+Patellar 2+Achilles 2+ MUSCULOSKELETAL: [] UPPEREXTREMITIES: The patient had full active ROM in fingers, wrist, elbow, and shoulder. The patient demonstrated ability to fully flex/extend/abduct/adduct fingers, make ok sign, cross 2nd/3rd digits, extend 1st digit fully.. Radial pulse 2+, CR<2 seconds. LOWER EXTREMITIES: Pt has full, active ROM of toes, ankle, knee, and hip. Dorsalis pedis/posterior tibialis pulses 2+, CR<2 seconds. SPINE: Skin warm, dry, intact. 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
[2021-03-12] MEDS: iohexol 240 mg/mL 50 mL Btl 10 ML INTRATHECA (12:10)
--- NOTE | 2021-03-12 12:23 | PM.OP ---
Operative Report Date of procedure: March 12, 2021 Pre-op Diagnosis: L1 and L2 compression fractures Post-op diagnosis: same Procedure Done: 1. L1 Kyphoplasty 2. L2 Kyphoplasty Surgeon: Denver Alvarenga Anesthesia: General Estimated blood loss (mL): 5 Condition: stable Disposition: PACU Procedure: Patient is brought to the operative suite placed in the prone position all areas impingement well-padded. C-arm was brought in both AP and lateral fluoroscopy to get the correct position of the L1-2 vertebrae. Once is identified the patient was then prepped and draped in normal sterile fashion. Attention was brought to the L2 vertebrae first. The pedicle was identified. The superior lateral portion of the pedicle was identified and then the probe was inserted the drill was then inserted and then the balloon was inserted and inflated. The balloon had good fill. And then the L to artery was filled with cement. Attention was then brought to the L1 level. The superolateral position again was found the starting awl was inserted the drill was inserted balloon was inserted and inflated deflated and then the cement was injected had good fill across the vertebrae. AP and lateral fluoroscopy were used to ensure that the cement was in preposition wounds were then irrigated closed with nylon sterile dressings were applied patient was transferred to the PACU in stable condition.
[2021-03-12 12:25] VITALS: BP 150/73; PULSE 62; RESP 18; TEMP 36.5; O2SAT 92
[2021-03-12] MEDS: ondansetron 2 mg/ML SDV 2 mL 4 MG IVP (12:26)
[2021-03-12 12:30] VITALS: BP 137/59; PULSE 69; RESP 16; O2SAT 93
[2021-03-12 12:35] VITALS: BP 138/49; PULSE 60; RESP 17; TEMP 36.5; O2SAT 92
[2021-03-12 12:53] VITALS: BP 130/53; PULSE 61; RESP 16; TEMP 36.1; O2SAT 92
[2021-03-12 13:26] VITALS: BP 118/69; PULSE 62; RESP 16; O2SAT 94
--- NOTE | 2021-03-12 17:24 | ANE.PACU2 ---
Inpatient post-anesthesia follow up: Airway intact: Yes Vital signs: Temperature 97 F Pulse Rate 62 Respiratory Rate 16 Blood Pressure 118/69 Pulse Oximetry 94 Oxygen Delivery Me thod Room Air Oxygen Flow Rate Fraction of Inspir ed Oxygen Hydration adequate: Yes Nausea and vomiting: No Pain level: 2 Mental status: Baseline
== END 2021-03-12 13:50 | disposition home or self-care (01) ==
PROVIDERS: PCP Registered Nurse; Visit Provider Orthopaedic Surgery
PROC: (CPT 22514; principal; 2021-03-12 11:15)
DX: S32.010A Wedge compression fracture of first lumbar vertebra, initial encounter for closed fracture (principal); S32.020A Wedge compression fracture of second lumbar vertebra, initial encounter for closed fracture; W19.XXXA Unspecified fall, initial encounter; Z95.0 Presence of cardiac pacemaker; I10 Essential (primary) hypertension; M19.90 Unspecified osteoarthritis, unspecified site
CPT/HCPCS: 22514; 22515; 76000; 93005; J0690; J2405; J2704; J3010; J3490; J7030; Q9966

== ENCOUNTER 2021-04-08 15:02 | Outpatient (CLI) | payer MEDICARE, SELFPAY ==
--- NOTE | 2021-04-08 15:20 | XR_ITS ---
WS: [id number] CHEST 2 VIEWS HISTORY: NIGHT SWEATS, ABNORMAL WEIGHT LOSS COMPARISON: 09/02/2019 Lungs: Clear with no abnormality. No pleural effusion or pneumothorax. Cardiac size: Normal. Mediastinum/Aorta: Mild atherosclerosis aorta. Bones: Thoracolumbar scoliosis. Several vertebroplasties are noted near the thoracolumbar junction. Dual lead LEFT subclavian pacer is unchanged in its position. XR/XR chest 2V* [id number] IMPRESSION: 1. No pneumonia. 2. Mild atherosclerosis aorta. 3. LEFT subclavian pacer.
== END 2021-04-08 15:03 | disposition home or self-care (01) ==
PROVIDERS: PCP Registered Nurse; Visit Provider Nurse Practitioner Family
DX: R61 Generalized hyperhidrosis (principal); R63.4 Abnormal weight loss; I70.0 Atherosclerosis of aorta; Z95.0 Presence of cardiac pacemaker
CPT/HCPCS: 71046

== ENCOUNTER → 2021-05-04 14:47 | Outpatient (BNVA) | payer MEDICARE, SELFPAY | PROVIDERS: PCP Registered Nurse; Visit Provider Orthopaedic Surgery | DX: Z48.89 Encounter for other specified surgical aftercare (principal); M85.9 Disorder of bone density and structure, unspecified; M47.816 Spondylosis without myelopathy or radiculopathy, lumbar region | CPT/HCPCS: 72100 ==

== ENCOUNTER → 2021-09-10 09:07 | Outpatient (BNVA) | payer MEDICARE, SELFPAY | PROVIDERS: PCP Registered Nurse; Visit Provider Internal Medicine Cardiovascular Disease | DX: I10 Essential (primary) hypertension (principal); Z45.010 Encounter for checking and testing of cardiac pacemaker pulse generator [battery] | CPT/HCPCS: 93280; 99213 ==

== ENCOUNTER 2021-09-20 12:02 | Emergency (ER) | payer MEDICARE, SELFPAY ==
[2021-09-20 12:18] VITALS: BP 145/7; PULSE 73; RESP 18; TEMP 37.1; O2SAT 95; BMI 23.7
[2021-09-20 14:33] LABS: Glucose Urine UA Norm (Normal); Protein Urine Trace (Negative); Urine Appearance Hazy (CLEAR); Urine Color Dark Yellow (Yellow); pH Urine 5 (5-7)
[2021-09-20 14:34] LABS: Add Urine Microscopic? YES; Bilirubin Urine Neg (Negative); Blood Urine 2+ (Negative); Ketones Urine Negative (Negative); Leukocyte Esterase Urine 2+ (Negative); Nitrate Urine Positive (Negative); Urobilinogen Urine 1 mg/dL (Negative)
[2021-09-20 14:36] LABS: Add Urine Culture? Yes; Bacteria Urine 3+ /hpf; Mucus Urine TRACE /hpf; Squamous Epithelial Cell Urine 0-4 /hpf (0-5); Uric Acid Crystals Urine 0-4 /hpf
[2021-09-20 15:34] LABS: Basophils # 0.1 10^3/uL (0.0-0.1); Basophils % 0.4 %; Eosinophils # 0.1 10^3/uL (0.0-0.8); Eosinophils % 0.6 %; Hematocrit 37.9 % (37.0-47.0); Hemoglobin 11.6 g/dL (11.5-15.3); Lymphocytes # 4.1 10^3/uL (0.8-4.8); Lymphocytes % 32.4 %; Mean Corpuscular HGB Conc 30.6 g/dL (30.0-36.0); Mean Corpuscular Hemoglobin 28.4 pg (28.0-34.0); Mean Corpuscular Volume 92.7 fl (81-99); Mean Platelet Volume 9.1 fL (7.4-10.4); Monocytes # 0.8 10^3/uL (0.2-0.9); Monocytes % 6.2 %; Neutrophils % 60.1 %; Nucleated Red Blood Cells % 0 %; Platelet Count 371 10^3/cmm (130-400); Red Blood Count 4.09 10^6/uL (4.1-5.3); Red Cell Distribution Width 13.4 % (12.1-15.1); White Blood Count 12.7 10^3/uL (4.0-10.0)
[2021-09-20 15:54] LABS: Alanine Aminotransferase 8 U/L (0-33); Albumin Level 4.1 g/dL (3.5-5.2); Alkaline Phosphatase 79 IU/L (35-105); Anion Gap 14.8 (5-19); Aspartate Amino Transferase 12 U/L (0-32); Blood Urea Nitrogen 23 mg/dL (8-23); Calcium 8.5 mg/dL (8.5-10.5); Carbon Dioxide 25 mmol/L (22-29); Chloride 100 mmol/L (98-107); Glucose 97 mg/dL (65-115); Lipase 26 U/L (13-60); Osmolality Calculated 284 mOsm/kg (285-295); Potassium 4.8 mmol/L (3.5-5.1); Sodium 135 mmol/L (136-145); Total Bilirubin 0.2 mg/dL (0.15-1.2); Total Protein 7.1 g/dL (6.6-8.7)
--- NOTE | 2021-09-20 16:17 | CTR_ITS ---
PROCEDURE INFORMATION: Exam: CT Abdomen And Pelvis With Contrast Exam date and time: 09/20/2021 4:50 PM Age: 86 years old Clinical indication: Abdominal pain; Prior surgery; Surgery type: Pacemaker; Patient HX: Diarrhea x4 days PT states is coming from vagina and anus. abdominal swelling and discomfort; Additional info: Abd pain/pelvic pain - new rectovaginal fistula TECHNIQUE: Imaging protocol: Computed tomography of the abdomen and pelvis with contrast. Radiation optimization: All CT scans at this facility use at least one of these dose optimization techniques: automated exposure control; mA and/or kV adjustment per patient size (includes targeted exams where dose is matched to clinical indication); or iterative reconstruction. Contrast material: OMNI 300; Contrast volume: 50 ml; Contrast route: INTRAVENOUS (IV); COMPARISON: [place] bone scan whole body* [id number] 02/17/2021 8:52 AM RADIATION DOSE METRICS: Total DLP (mGy-cm): 1338.52 FINDINGS: Tubes, catheters and devices: Pacemaker. Heart: Coronary artery atherosclerotic calcifications. Liver: Normal. No mass. Gallbladder and bile ducts: Cholelithiasis. Pancreas: Normal. No ductal dilation. Spleen: Normal. No splenomegaly. Adrenal glands: Normal. No mass. Kidneys and ureters: Normal. No hydronephrosis. Stomach and bowel: Mid sigmoid colon wall thickening in the area of several diverticula perhaps reflecting a diverticulitis, an underlying mass lesion is a also consideration, consider further evaluation with endoscopy. Constipation. Appendix: No evidence of appendicitis. Intraperitoneal space: Unremarkable. No free air. No significant fluid collection. Vasculature: Unremarkable. No abdominal aortic aneurysm. Lymph nodes: Unremarkable. No enlarged lymph nodes. Urinary bladder: Unremarkable as visualized. Reproductive: Air is seen in the vaginal vault with a possible fistulous connection between the vaginal vault and: Seen on the sagittal views series 601, image 36. Bones/joints: Left hip arthroplasty changes. Vertebroplasty changes seen in the spine with several chronic compression fractures without retropulsion of bony fragments or spinal canal narrowing. Soft tissues: Bilateral bowel containing inguinal hernias without inflammation. CT/CT abdomen pelvis w con* [id number] IMPRESSION: 1. Mid sigmoid colon wall thickening in the area of several diverticula perhaps reflecting a diverticulitis, an underlying mass lesion is also a consideration, consider further evaluation with endoscopy. 2. Air is seen in the vaginal vault with a possible fistulous connection between the vaginal vault and: Seen on the sagittal views series 601, image 36. A CT with enteric contrast could further characterize this. 3. Bilateral bowel containing inguinal hernias without inflammation. 4. Left hip arthroplasty changes. 5. Coronary artery atherosclerotic calcifications. 6. Cholelithiasis. 7. Constipation. 8. Vertebroplasty changes seen in the spine with several chronic compression fractures without retropulsion of bony fragments or spinal canal narrowing.
--- NOTE | 2021-09-20 16:50 | W.ED.GENADLT ---
HPI - General Adult General: Chief complaint: Nausea/Vomiting/Diarrhea Stated complaint: Diarrhea coming from both anus and vagina Time Seen by Provider: 09/20/21 15:55 Source: patient Mode of arrival: ambulatory Limitations: no limitations History of Present Illness: 86-year-old female presents emergency room complaining of diarrhea and abdominal pain and cramping. She states she has fecal leakage vaginally and from the anus. This got suddenly worse 4 days ago but in a comment to the nurse mentioned that this is been going on for a long time. When I talked to her she made it sound as if this suddenly began 4 days ago. She has never had any previous gynecologic or pelvic surgeries. She denies any fever sweats or chills she does have some left-sided pelvic pain in the left lower quadrant. No shortness of breath no chest pain. She has not had any new sudden dysuria urgency or frequency. Onset (ago): day(s) (4) Location: abdomen Severity: moderate Quality: aching Pain Consistency: intermittent Relieving factors: none Exacerbating factors: none Associated symptoms: Deny chest pain, confusion, cough, diaphoresis, decreased appetite, dyspnea, fevers/chills, headache(s), malaise, nausea, rash, palpitations, seizures, short of breath, syncope, vomiting or weakness Treatments prior to arrival: none Review of Systems Const: Denies: fever(s), chills, body aches, change in appetite, malaise or diaphoresis ENMT: Denies: throat pain, ear or mastoid pain, nasal discharge or nasal congestion Card: Denies: chest pain, palpitations or syncope Resp: Denies: dyspnea, productive cough, non-productive cough or wheezing GI: Reports: abdominal pain; Denies: nausea, vomiting or hematemesis : Denies: flank pain, difficulty voiding, dysuria, urinary frequency or urinary urgency Skin/Breast: Denies: rash Neuro: Denies: headache(s) or confusion PFS ED PFSH: Medical History (Updated 09/20/21 @ 17:43 by Eugenio Ceja DO) 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 Placed by Donita 02/2019 HTN (hypertension) Mobitz type 2 second degree atrioventricular block Osteoarthritis 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) Subcapital fracture of left hip Surgical History History of bilateral cataract extraction History of hemiarthroplasty of left hip S/P knee replacement [facility] Family History Daughter Pacemaker Father Tetanus from tetanus Denies family history of Anesthesia complication Bleeding disorder Social History Smoking and tobacco status: never smoked Alcohol intake: never Caregiver/support person: No Lives independently: Yes Housing: Apartment Physical Exam Const: GENERAL APPEARANCE: cooperative and comfortable ORIENTATION/CONSCIOUSNESS: Yes awake, Yes oriented to person, Yes oriented to place and Yes oriented to time HENMT: COMMON NORMALS: normocephalic, atraumatic and hearing grossly normal bilaterally HEAD & SCALP: normocephalic and atraumatic Neck/C-Spine: COMMON NORMALS: no JVD Resp: COMMON NORMALS: normal respiratory effort, No retractions, No use of accessory muscles and clear to auscultation bilaterally AUSCULTATION: clear to auscultation bilaterally Cardio: COMMON NORMALS: no JVD, regular rate, regular rhythm and No murmurs present (Cardio) RATE: regular rate RHYTHM: regular rhythm GI: COMMON NORMALS: No hepatosplenomegaly present AUSCULTATION: Yes normoactive bowel sounds PALPATION: No Tenderness to palpation present (GI), No Guarding due to palpation present (GI) and Yes No hepatosplenomegaly present : COMMON NORMALS: No no CVA tenderness BLADDER/KIDNEY EXAM: No no CVA tenderness Back/Pelvis: COMMON NORMALS: negative for no CVA tenderness Extremity: COMMON NORMALS: normal to inspection, capillary refill normal, no clubbing, cyanosis or edema, no calf tenderness and no pedal edema Neuro: SENSORIUM/ORIENTATION: Yes oriented to person, Yes oriented to place and Yes oriented to time Skin: COMMON NORMALS: no rashes or lesions noted GENERAL SKIN EXAM: no rashes or lesions noted Course Vital Signs: Vital signs: Vital Signs Temperature 98.8 F 09/20/21 18:18 Pulse Rate 73 09/20/21 18:18 Respiratory Rate 18 09/20/21 18:18 Blood Pressure 145/7 09/20/21 18:18 Pulse Oximetry 95 09/20/21 18:18 MDM - General Adult Medical Decision Making Patient has a sigmoid diverticulitis and has developed a rectal foot vaginal fistula. There is no evidence of perforation on the CT. Initially we will treat her first with Cipro and Flagyl for the diverticulitis she will need follow-up there is a questionable mass in that area but it may be inflammatory. She will need general surgical follow-up for colonoscopy after this is issue is cleared then she can see gynecology for the rectovaginal fistula. Additionally she has a mild cystitis Cipro and Flagyl should cover that if she has worsening or change or problems return to the emergency room if any pain worsens return. Medical Records I reviewed the patient's medical records. Lab Data I reviewed the patient's lab results. : 09/20/21 15:24 09/20/21 15:24 Radiology Impressions Abdomen/Pelvis CT 09/20/21 16:17 IMPRESSION: 1. Mid sigmoid colon wall thickening in the area of several diverticula perhaps reflecting a diverticulitis, an underlying mass lesion is also a consideration, consider further evaluation with endoscopy. 2. Air is seen in the vaginal vault with a possible fistulous connection between the vaginal vault and: Seen on the sagittal views series 601, image 36. A CT with enteric contrast could further characterize this. 3. Bilateral bowel containing inguinal hernias without inflammation. 4. Left hip arthroplasty changes. 5. Coronary artery atherosclerotic calcifications. 6. Cholelithiasis. 7. Constipation. 8. Vertebroplasty changes seen in the spine with several chronic compression fractures without retropulsion of bony fragments or spinal canal narrowing. Laboratory Results WBC 12.7 10^3/uL (4.0-10.0) H 09/20/21 15:24 RBC 4.09 10^6/uL (4.1-5.3) L 09/20/21 15:24 Hgb 11.6 g/dL (11.5-15.3) 09/20/21 15:24 Hct 37.9 % (37.0-47.0) 09/20/21 15:24 MCV 92.7 fl (81-99) 09/20/21 15:24 MCH 28.4 pg (28.0-34.0) 09/20/21 15:24 MCHC 30.6 g/dL (30.0-36.0) 09/20/21: RDW 13.4 % (12.1-15.1) 09/20/21: Plt Count 371 10^3/cmm (130-400) 09/20/21 15: MPV 9.1 fL (7.4-10.4) 09/20/21 15: Neut % (Auto) 60.1 % 09/20/21: Lymph % (Auto) 32.4 % 09/20/21: [place] % (Auto) 6.2 % 09/20/21: Eos % (Auto) 0.6 % 09/20/21: Baso % (Auto) 0.4 % 09/20/21 Neut # (Auto) 7.60 10^3/uL (1.8-7.7) 09/20/21: Lymph # (Auto) 4.1 10^3/uL (0.8-4.8) 09/20/21: [place] # (Auto) 0.8 10^3/uL (0.2-0.9) 09/20/21: Eos # (Auto) 0.1 10^3/uL (0.0-0.8) 09/20/21 Baso # (Auto) 0.1 10^3/uL (0.0-0.1) 09/20/21: Nucleated RBC % (auto) 0 % 09/20/21 Nucleated RBCs # 0.0 /100WBC 09/20/21: PT 13.60 SECONDS (12.1-14.9) 09/20/21: INR 1.01 (0.8-1.2) 09/20/21: APTT 30.7 SECONDS (23.9-36.7) 09/20/21 16: Sodium 135 mmol/L (136-145) L 09/20/21 15: Potassium 4.8 mmol/L (3.5-5.1) 09/20/21: Chloride 100 mmol/L (98-107) 09/20/21: Carbon Dioxide 25 mmol/L (22-29) 05/16/22 15:24 Anion Gap 14.8 (5-19) 09/20/21 15:24 BUN 23 mg/dL (8-23) 09/20/21 15:24 Creatinine 0.8 mg/dL (0.5-0.9) 09/20/21 15:24 GFR Calculation Not Reportable 09/20/21 15:24 Glucose 97 mg/dL (65-115) 09/20/21 15:24 Calculated Osmolality 284 mOsm/kg (285-295) L 09/20/21 15:24 Calcium 8.5 mg/dL (8.5-10.5) 09/20/21 15:24 Total Bilirubin 0.2 mg/dL (0.15-1.2) 09/20/21 15:24 AST 12 U/L (0-32) 09/20/21 15:24 ALT 8 U/L (0-33) 09/20/21 15:24 Alkaline Phosphatase 79 IU/L (35-105) 09/20/21 15:24 Total Protein 7.1 g/dL (6.6-8.7) 09/20/21 15:24 Albumin 4.1 g/dL (3.5-5.2) 09/20/21 15:24 Globulin 3.0 g/dL (1.3-4.6) 09/20/21 15:24 Lipase 26 U/L (13-60) 09/20/21 15:24 Urine Color Yellow (Yellow) 09/20/21 16:36 Urine Appearance Clear (CLEAR) 09/20/21 16:36 Urine pH 5 (5-7) 09/20/21 16:36 Ur Specific [place] 1.020 (1.005-1.030) 09/20/21 16:36 Urine Protein Neg (Negative) 09/20/21 16:36 Urine Glucose (UA) Norm (Normal) 09/20/21 16:36 Urine Ketones Negative (Negative) 09/20/21 16:36 Urine Blood Neg (Negative) 09/20/21 16:36 Urine Nitrate Negative (Negative) 09/20/21 16:36 Urine Bilirubin Neg (Negative) 09/20/21 16:36 Urine Urobilinogen Norm mg/dL (Negative) 09/20/21 16:36 Ur Leukocyte Esterase Trace (Negative) H 09/20/21 16:36 Urine RBC None /hpf (0-2) 09/20/21 16:36 Urine WBC 15-25 /hpf (0-5) H 09/20/21 16:36 Ur Squamous Epith Cells None /hpf (0-5) 09/20/21 16:36 Uric Acid Crystals 0-4 /hpf 09/20/21 14:00 Amorphous Sediment Not Reportable 09/20/21 16:36 Urine Bacteria 3+ /hpf (NONE) H 09/20/21 16:36 Urine Mucus Trace /hpf 09/20/21 14:00 Discharge Plan Discharge Patient Disposition: Home Clinical Impression: Diverticulitis, Recto-vaginal fistula, Cystitis Condition: Stable Prescriptions: New hydrocodone-acetaminophen 5-325 mg tablet 1 tab PO Q6H PRN (Reason: pain) Qty: 20 0RF ondansetron HCl 4 mg tablet 4 mg PO Q6H PRN (Reason: nausea and vomiting) Qty: 20 0RF ciprofloxacin HCl 500 mg tablet 500 mg PO BID Qty: 20 0RF metronidazole 500 mg tablet 500 mg PO BID 10 Days Qty: 20 0RF No Action loratadine 10 mg capsule 10 mg PO DAILY@0800 0RF calcium citrate-vitamin D3 [Calcium Citrate + D] 315-200 mg-unit tablet 1 tab PO DAILY@0800 0RF magnesium 200 mg tablet 400 mg PO DAILY@0800 0RF vitamin B complex [B Complex-Vitamin B12] Tablet 1 tab PO DAILY@0800 0RF cholecalciferol (vitamin D3) 2,000 unit tablet 2,000 unit PO DAILY@0800 0RF acetaminophen [Tylenol Extra Strength] 500 mg tablet 500 mg PO Q4H PRN (Reason: Pain) 0RF tramadol 50 mg tablet 50 mg PO BID 0RF metoprolol tartrate 25 mg tablet 12.5 mg PO Q12H 0RF Rx Instructions: take at 0800 and 2000 neomycin-polymyxin B-dexameth 3.5mg/mL-10,000 unit/mL-0.1 % drops,suspension 1 drp ophthalmic (eye) BID PRN (Reason: Eye Irritation) 0RF diclofenac sodium 25 mg tablet,delayed release (DR/EC) 25 mg PO BID 0RF Discharge Orders: Discharge ED (Routine); Ordered 09/20/21 Ordered By: Eugenio Ceja Referrals: Lion,Radha, SCHOOL LUNCH MANAGER [Primary Care Provider] - Discharge Diet: Clear Liquid Discharge Activity: Increase activity as tolerated Patient Instructions: Opioid Safety Activity Restrictions/Additional Instructions: Clear liquid diet for 24 to 48 hours and advance as tolerated. Case management will make arrangements for follow-up with general surgery and with gynecology. Coding Level of Care Code ED Regional Production Manager for [facility] Exam Comprehensive
[2021-09-20 17:02] LABS: INR 1.01 (0.8-1.2); Partial Thromboplastin Time 30.7 SECONDS (23.9-36.7)
[2021-09-20 18:05] LABS: Urine Appearance Clear (CLEAR); Urine Color Yellow (Yellow)
[2021-09-20 18:06] LABS: Add Urine Microscopic? YES; Bilirubin Urine Neg (Negative); Blood Urine Neg (Negative); Glucose Urine UA Norm (Normal); Ketones Urine Negative (Negative); Leukocyte Esterase Urine Trace (Negative); Nitrate Urine Negative (Negative); Protein Urine Neg (Negative); Urobilinogen Urine Norm (Negative); pH Urine 5 (5-7)
[2021-09-20 18:09] LABS: Add Urine Culture? Yes; Bacteria Urine 3+ /hpf; WBC Urine 15-25 /hpf (0-5)
[2021-09-20 18:18] VITALS: BP 145/7; PULSE 73; RESP 18; TEMP 37.1; O2SAT 95
--- NOTE | 2021-09-22 16:24 | DCPLANNER ---
Addendum entered by Gena Tadeo 12/09/21 10:10: Patient had a follow up appointment scheduled with [facility] - appointment cancelled Addendum entered by Gena Tadeo 10/15/21 10:35: Patient has a follow up appointment scheduled for Friday, November 19, 2021 at 1:[address] Silveira at [facility]. Clinic will call patient with appointment information. Addendum entered by Gena Tadeo 10/01/21 16:19: Patient had a follow up appointment scheduled for 09.29.21 with general surgery - patient did attend appointment. Original Note: demand planning manager had message to schedule a follow up appointment for patient with both [facility] and General Surgery. demand planning manager sent patients information to the front office staffs at both [facility] and General Surgery. Patients information will be printed and reviewed. Clinics will call patient with appointment information.
== END 2021-09-20 18:19 | disposition home or self-care (01) ==
PROVIDERS: Emergency Medicine; Emergency Provider Family Medicine; PCP Registered Nurse
DX: K57.32 Diverticulitis of large intestine without perforation or abscess without bleeding (principal); N82.3 Fistula of vagina to large intestine; N30.90 Cystitis, unspecified without hematuria; R11.2 Nausea with vomiting, unspecified
CPT/HCPCS: 51701; 74177; 80053; 81001; 83690; 85025; 85610; 85730; 87077; 87086; 87186; 99283; Q9967

== ENCOUNTER → 2021-09-29 09:18 | Outpatient (BNVA) | payer MEDICARE, SELFPAY | PROVIDERS: PCP Registered Nurse; Visit Provider Surgery | DX: K57.32 Diverticulitis of large intestine without perforation or abscess without bleeding (principal) | CPT/HCPCS: 99203 ==

== ENCOUNTER 2021-10-02 12:28 | Emergency (ER) | payer MEDICARE, SELFPAY ==
--- NOTE | 2021-10-02 12:40 | XRR_ITS ---
PROCEDURE INFORMATION: Exam: XR Chest Exam date and time: 10/02/2021 12:49 PM Age: 86 years old Clinical indication: Other: Rapid heart rate; Additional info: [place] TECHNIQUE: Imaging protocol: XR of the chest. Views: 1 view. COMPARISON: CR XR chest 2V* [id number] 04/08/2021 3:25 PM FINDINGS: Tubes, catheters and devices: A cardiac pacing device is again seen projecting over the left chest. Lungs: Low lung volumes. No consolidation. Pleural spaces: Unremarkable. No pleural effusion. No pneumothorax. Heart/Mediastinum: Stable cardiomediastinal silhouette. Bones/joints: Degenerative changes of the lumbar spine and shoulder joints seen. Vertebral augmentation cement noted in the upper lumbar spine. XR/XR chest 1V portable [id number] IMPRESSION: No evidence of active cardiopulmonary disease.
--- NOTE | 2021-10-02 12:41 | ECG_ITS ---
[facility] Test Date: 2021-10-02 Pat Name: Colleen Benitez Department: Room: Gender: Female Chief Recordist: : 1935 Requested By: Miguel Dumont Order Number: [id number] Nona MD: Brayan Velasco M.D. Measurements Intervals [place] Rate: 80 P: 44 MA: 200 QRS: -70 QRSD: 169 T: 7 QT: 449 QTc: 519 Interpretive Statements ELECTRONIC VENTRICULAR PACEMAKER ABNORMAL RHYTHM ECG Compared to ECG 03/11/2021 13:00:56 No significant changes Electronically Signed On 10-03-2021 20:31:29 CDT by Brayan Velasco M.D. [email or web address].W[employer] Angel Culture CommunicationWilshire [facility].Captalis/store/NU/[id number] f
[2021-10-02 12:45] VITALS: BP 143/77; PULSE 84; RESP 15; TEMP 37.1; O2SAT 93; BMI 24.2
--- NOTE | 2021-10-02 12:58 | W.ED.WEAKNES ---
HPI - Weakness General: Chief complaint: Weakness Stated complaint: FAST HEART RATE Time Seen by Provider: 10/02/21 12:31 History of Present Illness: 86-year-old female presents because she feels like her heart is beating fast. Patient reports that she got tangled up in her chair this morning, got caught between 2 chairs. EMS was called initially because she had a little bit of pain on her backside but declined being brought in. She called again and came in this time because she felt that her heart was beating a little fast and felt fluttery patient does report that she has been having some issues with diarrhea recently with frequent stooling. She has some just generalized weakness. She denies any actual chest pain, no nausea no vomiting no shortness of breath. Associated symptoms: Denies chest pain, chills, fever(s), headache(s), nausea or vomiting Review of Systems Const: Denies: fever(s) or chills Eyes: Denies: change in vision or blurry vision ENMT: Denies: throat pain Card: Reports: palpitations and irregular heart rhythm; Denies: chest pain Resp: Denies: dyspnea, productive cough or wheezing GI: Reports: diarrhea; Denies: abdominal pain, nausea or vomiting : Denies: flank pain or difficulty voiding Musc: Denies: neck pain or back pain Skin/Breast: Denies: rash Neuro: Reports: other (Generalized weakness); Denies: headache(s) [facility] ED PFSH: Medical History 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 Placed by [place] 02/2019 HTN (hypertension) Mobitz type 2 second degree atrioventricular block Osteoarthritis 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) Subcapital fracture of left hip Surgical History History of bilateral cataract extraction History of hemiarthroplasty of left hip S/P knee replacement [facility] Family History Daughter Pacemaker Father Tetanus from tetanus Denies family history of Anesthesia complication Bleeding disorder Social History Smoking and tobacco status: never smoked Alcohol intake: never Caregiver/support person: No Lives independently: Yes Housing: Apartment Physical Exam Const: COMMON NORMALS: no acute distress, patient oriented x3, alert and well nourished Chest: OTHER: Pacemaker visible in left chest Resp: EFFORT & INSPECTION: Yes able to speak in complete sentences, No tachypneic and No respiratory distress Cardio: COMMON NORMALS: regular rate and regular rhythm RATE: regular rate RHYTHM: regular rhythm GI: COMMON NORMALS: negative for Soft to palpation and negative for non-tender INSPECTION: Yes normal to inspection PALPATION: No Soft to palpation Extremity: COMMON NORMALS: full ROM and capillary refill normal Neuro: COMMON NORMALS: patient oriented x3, no focal motor deficits and no sensory deficits noted SENSORIUM/ORIENTATION: Yes alert Course Vital Signs: Vital signs: Vital Signs Temperature 98.8 F 10/02/21 12:45 Pulse Rate 84 10/02/21 12:45 Respiratory Rate 15 10/02/21 12:45 Blood Pressure 143/77 10/02/21 12:45 Pulse Oximetry 93 10/02/21 12:45 MDM - Weakness Medical Decision Making Patient feeling a lot better following a little bit of IV fluids. Patient family reports that she has been having the diarrhea for some time and that is why she been on amoxicillin was recently on Cipro and Flagyl. Patient was likely a little bit dehydrated which is why she felt maybe her heart was little bit fast. Patient heart rate remained stable throughout the stay, she had to troponins that were stable and is likely her baseline patient is EKG showed no acute changes. Patient is ready be discharged home. She is discharged home in stable condition Lab Data : 10/02/21 13:17 10/02/21 13:17 Radiology Impressions Chest X-Ray 10/02/21 12:40 IMPRESSION: No evidence of active cardiopulmonary disease. Laboratory Results WBC 14.1 10^3/uL (4.0-10.0) H 10/02/21 13:17 RBC 4.22 10^6/uL (4.1-5.3) 10/02/21 13:17 Hgb 11.9 g/dL (11.5-15.3) 10/02/21 13:17 Hct 39.2 % (37.0-47.0) 10/02/21 13:17 MCV 92.9 fl (81-99) 10/02/21 13:17 MCH 28.2 pg (28.0-34.0) 10/02/21 13:17 MCHC 30.4 g/dL (30.0-36.0) 10/02/21 13:17 RDW 13.3 % (12.1-15.1) 10/02/21 13:17 Plt Count 336 10^3/cmm (130-400) 10/02/21 13:17 MPV 9.5 fL (7.4-10.4) 10/02/21 13:17 Neut % (Auto) 78.8 % 10/02/21 13:17 Lymph % (Auto) 16.4 % 10/02/21 13:17 [place] % (Auto) 4.3 % 10/02/21 13:17 Eos % (Auto) 0.0 % 10/02/21 13:17 Baso % (Auto) 0.1 % 10/02/21 13:17 Neut # (Auto) 11.11 10^3/uL (1.8-7.7) H 10/02/21 13:17 Lymph # (Auto) 2.3 10^3/uL (0.8-4.8) 10/02/21 13:17 [place] # (Auto) 0.6 10^3/uL (0.2-0.9) 10/02/21 13:17 Eos # (Auto) 0.0 10^3/uL (0.0-0.8) 10/02/21 13:17 Baso # (Auto) 0.0 10^3/uL (0.0-0.1) 10/02/21 13:17 Nucleated RBC % (auto) 0 % 10/02/21 13:17 Nucleated RBCs # 0.0 /100WBC 10/02/21 13:17 Sodium 133 mmol/L (136-145) L 10/02/21 13:17 Potassium 4.4 mmol/L (3.5-5.1) 10/02/21 13:17 Chloride 99 mmol/L (98-107) 10/02/21 13:17 Carbon Dioxide 25 mmol/L (22-29) 10/02/21 13:17 Anion Gap 13.4 (5-19) 10/02/21 13:17 BUN 20 mg/dL (8-23) 10/02/21 13:17 Creatinine 0.9 mg/dL (0.5-0.9) 10/02/21 13:17 GFR Calculation Not Reportable 10/02/21 13:17 Glucose 113 mg/dL (65-115) 10/02/21 13:17 Calculated Osmolality 279 mOsm/kg (285-295) L 10/02/21 13:17 Calcium 9.2 mg/dL (8.5-10.5) 10/02/21 13:17 Magnesium 2.2 mg/dL (1.7-2.3) 10/02/21 13:17 Total Bilirubin 0.2 mg/dL (0.15-1.2) 10/02/21 13:17 AST 28 U/L (0-32) 10/02/21 13:17 ALT 13 U/L (0-33) 10/02/21 13:17 Alkaline Phosphatase 72 IU/L (35-105) 10/02/21 13:17 Troponin T Baseline 35 ng/L (0-10) H 10/02/21 13:17 Troponin T 120 Minute 32.73 ng/L (0-10) H 10/02/21 15:18 Delta Troponin T -2.27 ABS# (0-10) L 10/02/21 15:18 Total Protein 7.4 g/dL (6.6-8.7) 10/02/21 13:17 Albumin 3.9 g/dL (3.5-5.2) 10/02/21 13:17 Globulin 3.5 g/dL (1.3-4.6) 10/02/21 13:17 Imaging Data CXR: My impression: No acute changes Radiologist's impression: Negative chest x-ray EKG Data EKG 1: EKG interpretation date: 10/02/21 EKG interpretation time: 12:39 Interpretation: Ventricular paced rate [address] changes Computer generated interpretation: ventricular pacemaker EKG 2: EKG interpretation date: 10/02/21 EKG interpretation time: 14:52 Interpretation: Rate 75, ventricular paced, similar to previous with no acute changes Computer generated interpretation: Ventricular rate 75, ventricular paced, NH 195. Discharge Plan Discharge Patient Disposition: Home Clinical Impression: Chronic diarrhea, Dehydration, mild Condition: Stable Prescriptions: No Action loratadine 10 mg capsule 10 mg PO DAILY@0800 0RF calcium citrate-vitamin D3 [Calcium Citrate + D] 315-200 mg-unit tablet 1 tab PO DAILY@0800 0RF magnesium 200 mg tablet 400 mg PO DAILY@0800 0RF vitamin B complex [B Complex-Vitamin B12] Tablet 1 tab PO DAILY@0800 0RF cholecalciferol (vitamin D3) 2,000 unit tablet 2,000 unit PO DAILY@0800 0RF acetaminophen [Tylenol Extra Strength] 500 mg tablet 500 mg PO Q4H PRN (Reason: Pain) 0RF amoxicillin-pot clavulanate 875-125 mg tablet 1 tab PO Q12H Qty: 8 0RF tramadol 50 mg tablet 50 mg PO BID 0RF metoprolol tartrate 25 mg tablet 12.5 mg PO Q12H 0RF Rx Instructions: take at 0800 and 2000 neomycin-polymyxin B-dexameth 3.5mg/mL-10,000 unit/mL-0.1 % drops,suspension 1 drp ophthalmic (eye) BID PRN (Reason: Eye Irritation) 0RF diclofenac sodium 25 mg tablet,delayed release (DR/EC) 25 mg PO BID 0RF ondansetron HCl 4 mg tablet 4 mg PO Q6H PRN (Reason: nausea and vomiting) Qty: 20 0RF ciprofloxacin HCl 500 mg tablet 500 mg PO BID Qty: 20 0RF Discharge Orders: Discharge ED (Routine); Ordered 10/02/21 Ordered By: Miguel Dumont Referrals: Radha Lion FNP [Primary Care Provider] - Discharge Diet: Usual diet Discharge Activity: Resume usual activity and Increase activity as tolerated Patient Instructions: Dehydration (DC), Chronic Diarrhea (DC), Opioid Safety Activity Restrictions/Additional Instructions: Please follow-up with your primary care provider next week, drink plenty of fluids especially electrolyte containing fluids Coding Level of Care Code ED Computer Game Programmer for Chg Fwd Exam Detailed
[2021-10-02 13:23] LABS: Basophils % 0.1 %; Hematocrit 39.2 % (37.0-47.0); Hemoglobin 11.9 g/dL (11.5-15.3); Lymphocytes # 2.3 10^3/uL (0.8-4.8); Lymphocytes % 16.4 %; Mean Corpuscular HGB Conc 30.4 g/dL (30.0-36.0); Mean Corpuscular Hemoglobin 28.2 pg (28.0-34.0); Mean Corpuscular Volume 92.9 fl (81-99); Mean Platelet Volume 9.5 fL (7.4-10.4); Monocytes # 0.6 10^3/uL (0.2-0.9); Monocytes % 4.3 %; Neutrophils # 11.11 10^3/uL (1.8-7.7); Neutrophils % 78.8 %; Nucleated Red Blood Cells % 0 %; Platelet Count 336 10^3/cmm (130-400); Red Blood Count 4.22 10^6/uL (4.1-5.3); Red Cell Distribution Width 13.3 % (12.1-15.1); White Blood Count 14.1 10^3/uL (4.0-10.0)
[2021-10-02 13:50] LABS: Alanine Aminotransferase 13 U/L (0-33); Albumin Level 3.9 g/dL (3.5-5.2); Alkaline Phosphatase 72 IU/L (35-105); Anion Gap 13.4 (5-19); Aspartate Amino Transferase 28 U/L (0-32); Blood Urea Nitrogen 20 mg/dL (8-23); Calcium 9.2 mg/dL (8.5-10.5); Carbon Dioxide 25 mmol/L (22-29); Chloride 99 mmol/L (98-107); Creatinine Clr Calc Pharmacy 45.3039; Globulin 3.5 g/dL (1.3-4.6); Glucose 113 mg/dL (65-115); Magnesium 2.2 mg/dL (1.7-2.3); Osmolality Calculated 279 mOsm/kg (285-295); Potassium 4.4 mmol/L (3.5-5.1); Sodium 133 mmol/L (136-145); Total Bilirubin 0.2 mg/dL (0.15-1.2); Total Protein 7.4 g/dL (6.6-8.7)
[2021-10-02 13:51] LABS: Troponin(5th) Baseline 35 ng/L (0-10)
--- NOTE | 2021-10-02 14:41 | ECG_ITS ---
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 Measurements Intervals [place] Rate: 75 P: 43 [place]: 195 QRS: 269 QRSD: 177 T: 73 QT: 473 QTc: 529 Interpretive Statements ELECTRONIC VENTRICULAR PACEMAKER Compared to ECG 10/02/2021 12:39:05 No significant changes Electronically Signed On 10-03-2021 20:38:36 CDT by Brayan Velasco M.D. [email or web address]/store/OM/[id number]
[2021-10-02] MEDS: sodium chloride 0.9% 500 ML IV (14:42)
[2021-10-02 15:39] LABS: Troponin 5 2HR 32.73 ng/L (0-10)
[2021-10-02 15:45] LABS: Troponin 5 2HR Delta -2.27 ABS# (0-10)
[2021-10-02 19:01] VITALS: BP 130/64; PULSE 83; RESP 18; O2SAT 94
== END 2021-10-02 17:30 | disposition home or self-care (01) ==
PROVIDERS: Emergency Provider Student in an Organized Health Care Education/Training Program; PCP Registered Nurse
DX: K52.9 Noninfective gastroenteritis and colitis, unspecified (principal); E86.0 Dehydration
CPT/HCPCS: 71045; 80053; 83735; 84484; 85025; 93005; 96360; 99284; J7040

== ENCOUNTER 2021-10-23 00:20 | Emergency (ER) | payer MEDICARE, SELFPAY ==
[2021-10-23 00:26] VITALS: BP 139/70; RESP 17; TEMP 36.5; BMI 34.7
--- NOTE | 2021-10-23 00:52 | XRR_ITS ---
PROCEDURE INFORMATION: Exam: XR Left Tibia and Fibula Exam date and time: 10/23/2021 12:54 AM Age: 86 years old Clinical indication: Injury or trauma; Fall; Laceration; Lower leg; Left; Without foreign body; Patient HX: Patient fell out of bed tonight onto the floor. Patient has skin tear to lateral side of leg. ; Additional info: Fall leg pain TECHNIQUE: Imaging protocol: Radiologic exam of the Left tibia and fibula. Views: 2 views. COMPARISON: NM bone scan whole body* [id number] 02/17/2021 8:52 AM FINDINGS: Bones/joints: The tibia is unremarkable. The fibula is unremarkable. No fracture identified. No abnormal osseous lesions. Osteoarthritic changes in the knee joint. Soft tissues: Unremarkable. Arterial calcifications noted. XR/XR tibia fibula LT 2V [id number] IMPRESSION: No evidence of fracture.
[2021-10-23 01:11] VITALS: RESP 20
[2021-10-23] MEDS: oxyCODONE-APAP 5-325 mg Tablet 1 TAB PO (01:11)
[2021-10-23] MEDS: dexamethasone 4 mg Tablet 8 MG PO (02:05)
[2021-10-23 02:35] VITALS: BP 135/74; PULSE 71; RESP 19; TEMP 36.6; O2SAT 96
--- NOTE | 2021-10-23 04:19 | W.ED.FALL ---
HPI - Fall General: Chief Complaint: Fall Stated Complaint: FALL Time Seen by Provider: 10/23/21 00:34 Source: patient and family History of Present Illness: 86-year-old female who complains of left leg pain. She evidently became dizzy after using the restroom this morning, sat on the edge of the bed, and then slid off the edge of the bed striking her left leg. She has pain and swelling to the area with a skin tear. Family notes that the patient has had a rash she has been dealing with for a couple of weeks. Her skin feels warm. She has been on a couple of different antibiotics for urinary tract infections due to a history of rectovaginal fistula, but they are not sure if this is the cause of her rash or not. MD complaint: fall Onset (ago): minute(s) Fall from: other Fall witnessed: no Place fall occurred: home Loss of consciousness: None Prolonged down time: no Symptoms prior to fall: lightheadedness Context: tripped/slipped, alcohol use, new medication, recent illness and history of frequent falls Location of injury - extremities: Left: lower leg Associated symptoms-after fall: Reports difficulty walking; Denies abdominal pain, chest pain, confusion, headache(s), lightheadedness, neck pain, numbness or short of breath Review of Systems Const: Denies: fever(s) Eyes: Denies: change in vision ENMT: Denies: throat pain Card: Denies: chest pain or lightheadedness Resp: Denies: dyspnea GI: Denies: abdominal pain Musc: Denies: neck pain or back pain Skin/Breast: Reports: rash Neuro: Reports: difficulty walking; Denies: headache(s) or confusion PFS ED PFSH: Medical History 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 Family History Daughter Pacemaker Father Tetanus from tetanus Denies family history of Anesthesia complication Bleeding disorder Social History Smoking and tobacco status: never smoked Alcohol intake: never Caregiver/support person: No Lives independently: Yes Housing: Apartment Physical Exam Const: COMMON NORMALS: no acute distress GENERAL APPEARANCE: cooperative and frail appearing HENMT: COMMON NORMALS: normocephalic, atraumatic and Normal external nose present HEAD & SCALP: normocephalic and atraumatic NOSE: Normal external nose present Eye: COMMON NORMALS: Equal, round and reactive pupils present and EOMs intact bilaterally PUPIL: Yes Equal, round and reactive pupils present Neck/C-Spine: GENERAL: Yes trachea midline CERVICAL SPINE: Yes cervical ROM normal and No Cervical spine tenderness Chest: CHEST: Yes Symmetrical chest wall rise Resp: COMMON NORMALS: normal respiratory effort, No use of accessory muscles and clear to auscultation bilaterally AUSCULTATION: clear to auscultation bilaterally Cardio: COMMON NORMALS: regular rhythm RATE: tachycardic RHYTHM: regular rhythm GI: COMMON NORMALS: Normal to inspection, nondistended, normoactive bowel sounds present, Soft to palpation and non-tender PALPATION: Yes Soft to palpation Back/Pelvis: COMMON NORMALS: thoracic and lumbar spine normal to inspection Extremity: NARRATIVE EXTREMITY EXAM: Exam the left lower extremity reveals a 3 cm skin avulsion over the anterior lateral left leg. There are some mild ecchymosis surrounding. There is redness. There are some swelling. Minimal tenderness. No deformity. Neuro: LONA COMA SCALE: document GCS findings Lona coma scale eye opening: Spontaneous Bern coma scale verbal response: Orientated Bern coma scale motor response: Obey commands Lona coma scale total score: 15 Skin: NARRATIVE SKIN EXAM: Widespread red/erythematous macular coalescing rash that is warm to the touch. Course Vital Signs: Vital signs: Vital Signs Temperature 97.9 F 10/23/21 02:35 Pulse Rate 71 10/23/21 02:35 Respiratory Rate 19 H 10/23/21 02:35 Blood Pressure 135/74 10/23/21 02:35 Pulse Oximetry 96 10/23/21 02:35 MDM - Fall Medical Decision Making Skin avulsion is repaired with skin adhesive. Nonstick bandage and Kerlix placed over the area. Instructions given. Family raises concern about the rash which is not the patient's reason for visit, and the patient has not seen her PCP for this prior. She complains of widespread muscle pain. Given the rash, there is a chance she could have dermatomyositis. She will be treated with steroids, at least a single dose. She carries a prednisone allergy, so we will use 1 dose of dexamethasone. Close outpatient follow-up next week for wound check, and to follow-up on rash. Lab Data Radiology Impressions Tibia/Fibula X-Ray 10/23/21 00:52 IMPRESSION: No evidence of fracture. Discharge Plan Discharge Patient Disposition: Home Clinical Impression: Contusion of left leg, Avulsion of skin, Rash and nonspecific skin eruption Condition: Stable Prescriptions: No Action loratadine 10 mg capsule 10 mg PO DAILY@0800 0RF calcium citrate-vitamin D3 [Calcium Citrate + D] 315-200 mg-unit tablet 1 tab PO DAILY@0800 0RF magnesium 200 mg tablet 400 mg PO DAILY@0800 0RF vitamin B complex [B Complex-Vitamin B12] Tablet 1 tab PO DAILY@0800 0RF cholecalciferol (vitamin D3) 2,000 unit tablet 2,000 unit PO DAILY@0800 0RF acetaminophen [Tylenol Extra Strength] 500 mg tablet 500 mg PO Q4H PRN (Reason: Pain) 0RF amoxicillin-pot clavulanate 875-125 mg tablet 1 tab PO Q12H Qty: 8 0RF tramadol 50 mg tablet 50 mg PO BID 0RF metoprolol tartrate 25 mg tablet 12.5 mg PO Q12H 0RF Rx Instructions: take at 0800 and 2000 neomycin-polymyxin B-dexameth 3.5mg/mL-10,000 unit/mL-0.1 % drops,suspension 1 drp ophthalmic (eye) BID PRN (Reason: Eye Irritation) 0RF diclofenac sodium 25 mg tablet,delayed release (DR/EC) 25 mg PO BID 0RF ondansetron HCl 4 mg tablet 4 mg PO Q6H PRN (Reason: nausea and vomiting) Qty: 20 0RF ciprofloxacin HCl 500 mg tablet 500 mg PO BID Qty: 20 0RF Discharge Orders: Discharge ED (Routine); Ordered 10/23/21 Ordered By: Armani Valle Referrals: Radha Lion FNP [Primary Care Provider] - 1-3 days Patient Instructions: Dermatomyositis (ED), Contusion in Adults (ED), Skin Avulsion (ED) Activity Restrictions/Additional Instructions: Return for fever greater than 100, worsening rash despite treatment, other concerning symptoms. Call your doctor on Monday, as further treatment of the rash may be needed. Keep wound dry for 24 hours, then may wash with soap and running water. Do not soak. Elevate the leg for swelling. Ice will help with swelling as well. Coding Level of Care Code ED Senior Accounting Specialist for Derrick Davis
== END 2021-10-23 02:40 | disposition home or self-care (01) ==
PROVIDERS: Emergency Provider Emergency Medicine; PCP Registered Nurse
DX: S80.12XA Contusion of left lower leg, initial encounter (principal); R21 Rash and other nonspecific skin eruption; S81.812A Laceration without foreign body, left lower leg, initial encounter; W06.XXXA Fall from bed, initial encounter
CPT/HCPCS: 73590; 99283; J8540

== ENCOUNTER 2021-10-23 09:31 | Observation (INO) | payer MEDICARE, SELFPAY ==
[2021-10-23 09:37] VITALS: BP 148/88; PULSE 96; RESP 16; TEMP 36.6; O2SAT 95; BMI 23.7
--- NOTE | 2021-10-23 09:44 | ECG_ITS ---
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 Measurements Intervals [place] Rate: 99 P: 50 IA: 176 QRS: 261 QRSD: 165 T: 75 QT: 402 QTc: 516 Interpretive Statements A sense V paced rhythm Compared to ECG 10/02/2021 14:52:30 No significant changes Electronically Signed On 10-24-2021 13:04:31 CDT by Martha Hayes M.D. [email or web address] DevelopmentMoodMeupper valley medical centerRightCare Solutions/store/OM/[id number]
--- NOTE | 2021-10-23 09:44 | XRR_ITS ---
PROCEDURE INFORMATION: Exam: XR Chest Exam date and time: 10/23/2021 9:58 AM Age: 86 years old Clinical indication: Cough and dyspnea; Prior surgery; Surgery type: Pacemaker; Additional info: Dyspnea/cough TECHNIQUE: Imaging protocol: Radiologic exam of the chest. Views: 1 view. COMPARISON: CR (CHEST, ) 10/02/2021 12:49 PM FINDINGS: Tubes, catheters and devices: Cardiac device noted overlying the left chest. Lungs: The lung parenchyma is clear. Pleural spaces: No pneumothorax. No pleural effusion. Heart/Mediastinum: The cardiomediastinal silhouette is within normal limits. Bones/joints: Degenerative changes in the shoulder joints. Post vertebroplasty changes noted in the lower thoracic spine. XR/XR chest 1V portable [id number] IMPRESSION: No acute cardiopulmonary abnormality identified.
[2021-10-23 11:05] LABS: Basophils % 0.3 %; Eosinophils % 0.2 %; Hematocrit 35.5 % (37.0-47.0); Hemoglobin 11.7 g/dL (11.5-15.3); Mean Corpuscular Hemoglobin 27.5 pg (28.0-34.0); Mean Corpuscular Volume 83.5 fl (81-99); Mean Platelet Volume 9.6 fL (7.4-10.4); Monocytes # 0.1 10^3/uL (0.2-0.9); Monocytes % 1.2 %; Nucleated Red Blood Cells % 0 %; Platelet Count 276 10^3/cmm (130-400); Red Blood Count 4.25 10^6/uL (4.1-5.3); Red Cell Distribution Width 13.6 % (12.1-15.1); White Blood Count 5.9 10^3/uL (4.0-10.0)
[2021-10-23] MEDS: sodium chloride 0.9% 1,000 ML 999 ML IV (11:15)
[2021-10-23] MEDS: ondansetron 2 mg/ML SDV 2 mL 4 MG IVP (11:15)
[2021-10-23 11:27] LABS: Troponin(5th) Baseline 20 ng/L (0-10)
[2021-10-23 11:30] LABS: Alanine Aminotransferase 14 U/L (0-33); Albumin Level 3.6 g/dL (3.5-5.2); Alkaline Phosphatase 64 IU/L (35-105); Aspartate Amino Transferase 19 U/L (0-32); Blood Urea Nitrogen 25 mg/dL (8-23); Calcium 8.5 mg/dL (8.5-10.5); Carbon Dioxide 20 mmol/L (22-29); Chloride 98 mmol/L (98-107); Globulin 2.8 g/dL (1.3-4.6); Glucose 131 mg/dL (65-115); Lipase 65 U/L (13-60); Osmolality Calculated 276 mOsm/kg (285-295); Sodium 130 mmol/L (136-145); Total Bilirubin 0.2 mg/dL (0.15-1.2); Total Protein 6.4 g/dL (6.6-8.7)
--- NOTE | 2021-10-23 11:30 | CTR_ITS ---
PROCEDURE INFORMATION: Exam: CT Abdomen And Pelvis With Contrast Exam date and time: 10/23/2021 12:00 PM Age: 86 years old Clinical indication: Abdominal pain; Localized; Lower; Patient HX: Recto-vaginal fistula; Additional info: Abd pain/sigmoid diverticulitis failed outpt antibiotics x2 TECHNIQUE: Imaging protocol: Computed tomography of the abdomen and pelvis with contrast. Radiation optimization: All CT scans at this facility use at least one of these dose optimization techniques: automated exposure control; mA and/or kV adjustment per patient size (includes targeted exams where dose is matched to clinical indication); or iterative reconstruction. Contrast material: VISI 320; Contrast volume: 95 ml; Contrast route: INTRAVENOUS (IV); COMPARISON: CT abdomen pelvis w con* [id number] 09/20/2021 4:50 PM RADIATION DOSE METRICS: Total DLP (mGy-cm): 1338.09 FINDINGS: Tubes, catheters and devices: Partially visualized pacemaker leads. Heart: Multivessel atherosclerotic disease which involves the coronary arteries. Liver: Normal. No mass. Gallbladder and bile ducts: Cholelithiasis. Pancreas: Normal. No ductal dilation. Spleen: Normal. No splenomegaly. Adrenal glands: Normal. No mass. Kidneys and ureters: Mild bilateral hydronephrosis/hydroureter. Both kidneys perfuse homogeneous Dali after contrast administration. Stomach and bowel: There is gastric mucosal thickening versus under distention. Multiple colonic diverticula. Distal large bowel is partially obscured by artifact from the left total hip replacement. A loop of sigmoid colon cannot be differentiated from the lower uterine segment, cervix, and vagina and may be adhered to it. There is air in the lower uterine segment and vaginal canal. A tract of air extends from the adjacent sigmoid colon to the lower uterine segment seen best on series 2, image 60, consistent with fistula. There is mild adjacent inflammatory stranding. Colonic constipation is present. There is mucosal thickening of the sigmoid colon in the region of fistulous connection. There is mucosal thickening of the rectum. Bilateral inguinal hernias containing short segments of bowel loops with no evidence for strangulation at the sites. Appendix: No evidence of appendicitis. Intraperitoneal space: Unremarkable. No free air. No significant fluid collection. Vasculature: Unremarkable. No abdominal aortic aneurysm. Lymph nodes: Unremarkable. No enlarged lymph nodes. Urinary bladder: The bladder is distended. Reproductive: See Stomach and bowel finding. Bones/joints: Chronic/healed right inferior pubic ramus fracture. Generalized osteopenia. There are chronic compression fractures of the T12, L1, L2, and L3 vertebra with vertebroplasty changes at T12 and L1. Soft tissues: See Stomach and bowel finding. CT/CT abdomen pelvis w con* [id number] IMPRESSION: 1. A fistulous tract is seen extending from the lower uterine segment into the adjacent sigmoid colon consistent with the patient's history. There is air in the lower uterine segment and vagina. There is adjacent sigmoid mucosal thickening consistent with nonspecific colitis. Follow-up to exclude neoplasm as clinically warranted. 2. Bilateral inguinal hernias containing short segment of bowel loops with no evidence for strangulation. 3. There is gastric mucosal thickening versus under distention raising concern for gastritis. Please correlate clinically. 4. Mild bilateral hydronephrosis/hydroureter. 5. Mucosal thickening of the rectum. Differential includes neoplasm and nonspecific proctitis. 6. Colonic constipation is present.
[2021-10-23 11:33] LABS: Anion Gap 17.7 (5-19); Potassium 5.7 mmol/L (3.5-5.1)
--- NOTE | 2021-10-23 11:44 | ECG_ITS ---
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 Measurements Intervals [place] Rate: 86 P: 66 AL: 210 QRS: 265 QRSD: 175 T: 76 QT: 445 QTc: 534 Interpretive Statements A sense V paced rhythm Compared to ECG 10/23/2021 09:31:10 No significant changes Electronically Signed On 10-24-2021 13:08:14 CDT by Martha Hayes M.D. [email or web address] mississippi state hospitalEnerkemwilson healthPrimeSense/store/NU/[id number]
[2021-10-23] MEDS: iodixanol 320 mg/mL 100mL Btl IV (12:03)
--- NOTE | 2021-10-23 12:22 | ED_ITS ---
HPI - Weakness General: Chief complaint: Weakness Stated complaint: WEAKNESS Time Seen by Provider: 10/23/21 09:38 Source: patient Mode of arrival: EMS History of Present Illness: 86-year-old female has been in the ER several times in the last few weeks. Initially seen her few weeks ago she had developed a sigmoid vaginal fistula and had diverticulitis we will treat her for diverticulitis set her up for surgery they are anticipating going to the OR for this however she has had 2 course antibiotics and still is having diarrhea and still having some left lower quadrant pain. She fell earlier this evening and had a skin tear on the left lower leg she was in the ER and seen Dr. Valle had x- rays done that were negative skin tear was reapproximated with skin adhesive. This morning she gone to go to the bathroom and slid to the ground from the bed was unable to get herself back up again no other injuries from that episode but did have to call family to get her assistance off the floor. Estimates she was unable to get up and on the floor for about 1 hour. MD Complaint: generalized weakness Onset (ago): day(s) Duration: constant Location: generalized Severity: moderate Quality: aching Relieving factors: none Exacerbating factors: none Associated symptoms: Reports nausea; Denies chest pain, chills, confusion, melena, decreased appetite, diaphoresis, dysuria, easy bruising, fever(s), headache(s), myalgias, rash, short of breath, syncope or vomiting Review of Systems Const: Denies: fever(s), chills or diaphoresis Card: Denies: chest pain or syncope GI: Reports: abdominal pain, nausea and diarrhea; Denies: vomiting or melena : Denies: dysuria Neuro: Denies: headache(s) or confusion Jax/Lymph: Denies: easy bruising PFSH ED PFSH: Medical History 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 Placed by Donita 02/2019 HTN (hypertension) Mobitz type 2 second degree atrioventricular block Osteoarthritis 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) Subcapital fracture of left hip Surgical History History of bilateral cataract extraction History of hemiarthroplasty of left hip S/P knee replacement [facility] Family History Daughter Pacemaker Father Tetanus from tetanus Denies family history of Anesthesia complication Bleeding disorder Social History Smoking and tobacco status: never smoked Alcohol intake: never Caregiver/support person: No Lives independently: Yes Housing: Apartment Physical Exam Const: GENERAL APPEARANCE: cooperative ORIENTATION/CONSCIOUSNESS: Yes awake, Yes oriented to person, Yes oriented to place and Yes oriented to time HENMT: COMMON NORMALS: normocephalic, atraumatic and hearing grossly normal bilaterally HEAD & SCALP: normocephalic and atraumatic Neck/C-Spine: COMMON NORMALS: full ROM, no lymphadenopathy, supple and no JVD Resp: COMMON NORMALS: normal respiratory effort, No retractions, No use of accessory muscles and clear to auscultation bilaterally AUSCULTATION: clear to auscultation bilaterally Cardio: COMMON NORMALS: no JVD, regular rate, regular rhythm and No murmurs present (Cardio) RATE: regular rate RHYTHM: regular rhythm GI: COMMON NORMALS: No hepatosplenomegaly present AUSCULTATION: Yes normoactive bowel sounds PALPATION: Yes Tenderness to palpation present (GI) Details: LLQ, No Guarding due to palpation present (GI) and Yes No hepatosplenomegaly present : COMMON NORMALS: Yes no CVA tenderness BLADDER/KIDNEY EXAM: Yes no CVA tenderness Back/Pelvis: COMMON NORMALS: no CVA tenderness Extremity: COMMON NORMALS: normal to inspection, capillary refill normal, no clubbing, cyanosis or edema, no calf tenderness and no pedal edema Neuro: SENSORIUM/ORIENTATION: Yes oriented to person, Yes oriented to place and Yes oriented to time Skin: COMMON NORMALS: no rashes or lesions noted GENERAL SKIN EXAM: no rashes or lesions noted Course Vital Signs: Vital signs: Vital Signs Temperature 97.9 F 10/23/21 09:37 Pulse Rate 96 10/23/21 09:37 Respiratory Rate 16 10/23/21 09:37 Blood Pressure 148/88 10/23/21 09:37 Pulse Oximetry 95 10/23/21 09:37 MDM - Weakness Medical Decision Making Will admit there is some concern whether or not there is continued infection despite 2 rounds of antibiotics for inflammatory process in the region of the utero colonic fistula. We will cover with antibiotics we will treat her hyperalemia and hyponatremia. Discussed with Topher and with hospitalist orders written Medical Records I reviewed the patient's medical records. Lab Data I reviewed the patient's lab results. : 10/23/21 10:50 10/23/21 10:50 Radiology Impressions Chest X-Ray 10/23/21 09:44 IMPRESSION: No acute cardiopulmonary abnormality identified. Abdomen/Pelvis CT 10/23/21 11:30 IMPRESSION: 1. A fistulous tract is seen extending from the lower uterine segment into the adjacent sigmoid colon consistent with the patient's history. There is air in the lower uterine segment and vagina. There is adjacent sigmoid mucosal thickening consistent with nonspecific colitis. Follow-up to exclude neoplasm as clinically warranted. 2. Bilateral inguinal hernias containing short segment of bowel loops with no evidence for strangulation. 3. There is gastric mucosal thickening versus under distention raising concern for gastritis. Please correlate clinically. 4. Mild bilateral hydronephrosis/hydroureter. 5. Mucosal thickening of the rectum. Differential includes neoplasm and nonspecific proctitis. 6. Colonic constipation is present. Laboratory Results WBC 5.9 10^3/uL (4.0-10.0) 10/23/21 10:50 RBC 4.25 10^6/uL (4.1-5.3) 10/23/21 10:50 Hgb 11.7 g/dL (11.5-15.3) 10/23/21 10:50 Hct 35.5 % (37.0-47.0) L 10/23/21 10:50 MCV 83.5 fl (81-99) 10/23/21 10:50 MCH 27.5 pg (28.0-34.0) L 10/23/21 10:50 MCHC 33.0 g/dL (30.0-36.0) 10/23/21 10:50 RDW 13.6 % (12.1-15.1) 10/23/21 10:50 Plt Count 276 10^3/cmm (130-400) 10/23/21 10:50 MPV 9.6 fL (7.4-10.4) 10/23/21 10:50 Neut % (Auto) 81.0 % 10/23/21 10:50 Lymph % (Auto) 17.0 % 10/23/21 10:50 [place] % (Auto) 1.2 % 10/23/21 10:50 Eos % (Auto) 0.2 % 10/23/21 10:50 Baso % (Auto) 0.3 % 10/23/21 10:50 Neut # (Auto) 4.80 10^3/uL (1.8-7.7) 10/23/21 10:50 Lymph # (Auto) 1.0 10^3/uL (0.8-4.8) 10/23/21 10:50 [place] # (Auto) 0.1 10^3/uL (0.2-0.9) L 10/23/21 10:50 Eos # (Auto) 0.0 10^3/uL (0.0-0.8) 10/23/21 10:50 Baso # (Auto) 0.0 10^3/uL (0.0-0.1) 10/23/21 10:50 Nucleated RBC % (auto) 0 % 10/23/21 10:50 Nucleated RBCs # 0.0 /100WBC 10/23/21 10:50 Sodium 130 mmol/L (136-145) L 10/23/21 10:50 Potassium 5.7 mmol/L (3.5-5.1) H 10/23/21 10:50 Chloride 98 mmol/L (98-107) 10/23/21 10:50 Carbon Dioxide 20 mmol/L (22-29) L 10/23/21 10:50 Anion Gap 17.7 (5-19) 10/23/21 10:50 BUN 25 mg/dL (8-23) H 10/23/21 10:50 Creatinine 1.0 mg/dL (0.5-0.9) H 10/23/21 10:50 GFR Calculation Not Reportable 10/23/21 10:50 Glucose 131 mg/dL (65-115) H 10/23/21 10:50 Calculated Osmolality 276 mOsm/kg (285-295) L 10/23/21 10:50 Calcium 8.5 mg/dL (8.5-10.5) 10/23/21 10:50 Total Bilirubin 0.2 mg/dL (0.15-1.2) 10/23/21 10:50 AST 19 U/L (0-32) 10/23/21 10:50 ALT 14 U/L (0-33) 10/23/21 10:50 Alkaline Phosphatase 64 IU/L (35-105) 10/23/21 10:50 Troponin T Baseline 20 ng/L (0-10) H 10/23/21 10:50 Total Protein 6.4 g/dL (6.6-8.7) L 10/23/21 10:50 Albumin 3.6 g/dL (3.5-5.2) 10/23/21 10:50 Globulin 2.8 g/dL (1.3-4.6) 10/23/21 10:50 Lipase 65 U/L (13-60) H 10/23/21 10:50 Discharge Plan Discharge Condition: Stable Prescriptions: No Action loratadine 10 mg capsule 10 mg PO DAILY@0800 0RF calcium citrate-vitamin D3 [Calcium Citrate + D] 315-200 mg-unit tablet 1 tab PO DAILY@0800 0RF magnesium 200 mg tablet 400 mg PO DAILY@0800 0RF vitamin B complex [B Complex-Vitamin B12] Tablet 1 tab PO DAILY@0800 0RF cholecalciferol (vitamin D3) 2,000 unit tablet 2,000 unit PO DAILY@0800 0RF acetaminophen [Tylenol Extra Strength] 500 mg tablet 500 mg PO Q4H PRN (Reason: Pain) 0RF tramadol 50 mg tablet 50 mg PO BID 0RF metoprolol tartrate 25 mg tablet 12.5 mg PO Q12H 0RF Rx Instructions: take at 0800 and 1999 diclofenac sodium 25 mg tablet,delayed release (DR/EC) 25 mg PO BID 0RF Referrals: Radha Lion FNP [Primary Care Provider] - Coding Level of Care Code ED 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
[2021-10-23] MEDS: sodium polystyrene sulfonate 15 gm/60 mL Btl PO (12:42)
[2021-10-23] MEDS: piperacillin-tazobactam 3.375 GM in sodium chloride 0.9% (plus) 50 ML IV (12:52)
[2021-10-23 14:27] LABS: Troponin 5 2HR 20.22 ng/L (0-10)
[2021-10-23 14:31] LABS: Troponin 5 2HR Delta 0.22 ABS# (0-10)
--- NOTE | 2021-10-23 15:44 | ECG_ITS ---
[facility] Test Date: 2021-10-23 Pat Name: Colleen Benitez Department: Room: 251 Gender: Female Integrity Manager: : 1935 Requested By: Eugenio Broderick Order Number: [id number] Nona MD: Martha Hayes M.D. Measurements Intervals [place] Rate: 86 P: 66 TN: 210 QRS: 265 QRSD: 175 T: 76 QT: 445 QTc: 534 Interpretive Statements A sense V paced rhythm Compared to ECG 10/23/2021 09:31:10 No significant changes Electronically Signed On 10-24-2021 13:08:30 CDT by Martha Hayes M.D. [id number]
--- NOTE | 2021-10-23 15:53 | P.HP_ITS ---
Providers/Chief Complaint Admitting Physician: Martin Monaco MD Primary Care Provider: MILAGROS Frias Chief Complaint: WEAKNESS History of Present Illness Colleen Benitez is a 86 year old female with past medical history of pacemaker implantation, hypertension, intermittent atrial fibrillation who is being worked up as an outpatient for ureteral colic fistula with a scheduled for colonoscopy and OR at [facility] on November 18 who presented to the hospital with family today because generalized weakness and fall last night. Post fall patient was found to have a laceration on left leg. As per the patient patient was feeling weak after coming from bathroom last night so she sat at the edge of the bed and slipped down. As per the family members patient has had at least 4-5 falls in last 1 week. 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 Since then patient has been on antibiotics for 3 different courses with last course around a week ago. Most recent antibiotic as per the family members has been Flagyl and Bactrim. Since the completion of course of last antibiotic 7 days ago patient started developing generalized rash all over her body which has been progressing down from head to toe. Associated with mild itching on and off. Rash is purpuric in nature not raised. Patient currently complaining of weakness, decreased appetite for last 2 days. Blood work in the ER showed a white count of 5.9, hemoglobin of 11.7, sodium 130, potassium of 5.7, creatinine of 1, BUN of 25, baseline troponin of 2, normal AST/ALT. UA not done. Review of Systems General: Reports: 10 or more systems reviewed and unremarkable except in HPI and below Const: Denies: fever(s), chills, body aches, change in appetite, change in w eight, malaise, night sweats, diaphoresis, change in sleep pattern, daytime sleepiness or snoring Eyes: Denies: change in vision, blurry vision, photophobia, eye discomfort or eye discharge ENMT: Denies: throat pain, enlarged tonsils, hoarseness, mouth pain, oral sores, dry mouth, tinnitus, nasal congestion or post nasal drip Card: Denies: chest pain, palpitations, irregular heart rhythm, edema, swelling of feet/ankles, lightheadedness, syncope, pre-syncope, dyspnea on exertion, orthopnea, leg pain with exertion or acrocyanosis Resp: Denies: dyspnea, productive cough, non-productive cough, wheezing, stridor, pain on inspiration, change in phlegm color, hemoptysis or chest congestion GI: Denies: abdominal pain, nausea, vomiting, hematemesis, coffee ground emesis, dysphagia, heartburn, diarrhea, constipation, bloating, GI cramping, change in bowel habits, pain on defecation, hematochezia or melena : Denies: flank pain, dysuria, urinary frequency, urinary urgency, urinary hesitancy, nocturia or hematuria Musc: Denies: neck pain, back pain, extremity pain, joint pain, joint s welling, joint redness, joint stiffness or limited range of motion Neuro: Denies: headache(s), numbness in extremities, weakness in extremities, sensory changes, lack of coordination, difficulty walking, frequent falls, dizziness, vertigo, confusion, Slurred speech present, difficulty communicating thoughts or seizure-like activity Psych: Denies: anxiety, depression, mood swings, panic attacks, hopelessness or irritability Endo: Denies: polyuria, polydipsia, tired all the time, cold intolerance, excessive sweating, flushing or heat intolerance Jax/Lymph: Denies: easy bruising or easy bleeding All/Imm: Denies: tongue swelling, facial swelling or acute wheezing Medications/Allergies Home Medications Medication Instructions Recorded Confirmed Last Taken Type acetaminophen 500 mg tablet 500 mg PO Q4H PRN 05/23/19 10/23/21 1 Day Ago History (Tylenol Extra Strength) ~03/11/21 calcium citrate 315 mg-vitamin D3 1 tab PO DAILY@0800 tab 05/23/19 10/23/21 10/23/21 History 5 mcg (200 unit) tablet (Calcium Citrate + D) cholecalciferol (vitamin D3) 50 2,000 unit PO DAILY@0800 tab 05/23/19 10/23/21 10/23/21 History mcg (2,000 unit) tablet loratadine 10 mg capsule 10 mg PO DAILY@0800 cap 05/23/19 10/23/21 10/23/21 History magnesium 200 mg tablet 400 mg PO DAILY@0800 tab 05/23/19 10/23/21 10/23/21 History vitamin B complex (B 1 tab PO DAILY@0800 tab 05/23/19 10/23/21 10/23/21 History Complex-Vitamin B12) metoprolol tartrate 25 mg tablet 12.5 mg PO Q12H 05/11/20 10/23/21 10/23/21 History tramadol 50 mg tablet 50 mg PO BID 03/11/21 10/23/21 10/23/21 History diclofenac sodium 25 mg 25 mg PO BID 09/20/21 10/23/21 10/23/21 History tablet,delayed release Allergies Allergy/AdvReac Type Severity Reaction Status Date / Time meloxicam Allergy Unknown Unknown Verified 10/23/21 11:07 prednisone Allergy Unknown Unknown Verified 10/23/21 11:07 triamcinolone [From Kenalog] Allergy Unknown Unknown Verified 10/23/21 11:07 PFSH Acute PFSH: Medical History (Updated 10/23/21 @ 15:57 by Martin Monaco MD) 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 Placed by Donita 02/2019 History of pacemaker HTN (hypertension) Lumbar compression fracture Mobitz type 2 second degree atrioventricular block Osteoarthritis 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) Subcapital fracture of left hip Thoracic compression fracture 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 Surgical History History of bilateral cataract extraction History of hemiarthroplasty of left hip S/P knee replacement [facility] Family History Daughter Pacemaker Father Tetanus from tetanus Denies family history of Anesthesia complication Bleeding disorder Social History Smoking and tobacco status: never smoked Alcohol intake: never Caregiver/support person: No Lives independently: Yes Housing: Apartment Vitals/I&O/Wt Last Vital Signs Temp 97.9 F 10/23/21 09:37 Pulse 96 10/23/21 09:37 Resp 16 10/23/21 09:37 BP 148/88 10/23/21 09:37 Pulse Ox 95 10/23/21 09:37 10/23/21 10/23/21 10/23/21 06:59 14:59 22:59 Intake Total 1000 / 1000 Balance 1000 / 1000 Weight last 48 hrs Weight 66.678 kg Physical Exam Narrative: General: No acute distress, AO x3, flat affect, not anxious HEENT: PERRLA, pupils bilaterally equal and reactive Chest: Normal vesicular breath sounds, no added sounds, equal good air entry bilaterally CVS: S1-S2 regular, no murmurs, no tachycardia, no gallops, no rubs Abdomen: Soft, generalized mild tenderness all over the abdomen, no organomegaly, bowel sounds present Neuro: No focal deficits, no facial deformity, AO x3, power 5/5 in all limbs Extremity: Open superficial gash present on left encinas Data : 10/23/21 10:50 10/23/21 10:50 A&P Assessment and plan (1) Generalized weakness: Status: Acute (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 IV fluid normal saline at 50 cc/h. Check iron panel, vitamin B12, folate level, random cortisol level, ACTH stimulation test, TSH. Will start on steroids as per the result of cortisol level and ACTH stimulation test. Diverticulitis with complication of ureteric fistula to colon: No active signs of infection currently. CT scan consistent with mild inflammation which is most likely secondary to persistent fistula. Patient does not have any fever, no leukocytosis. Check blood culture, procalcitonin, MRSA swab, CRP. For now hold off on antibiotics. If patient spikes fever or has worsening white count will start on antibiotics. Patient most likely needs colonoscopy and possible correction. Surgery has been consulted from the ER. Hyponatremia/hyperkalemia: Hyponatremia most likely secondary from dehydration. Given hyponatremia and hyperkalemia cannot rule out adrenal insufficiency. Cortisol levels as above. Will monitor BMP in evening for now. Get Kayexalate given in the ER. History of pacemaker History of hypertension Analgesia: Tramadol, Tylenol Glycemic control: Not needed Nutrition: Regular diet CODE STATUS: Discussed in detail with patient and family at bedside. DNR/DNI PUD prophylaxis: Protonix DVT prophylaxis: Heparin 5000 every 12 hourly Discharge planning: Given recurrent falls discussed in detail with patient. Patient lives by herself. Given steady decline over the last 2 months both patient and patient's family would want to look into possible placement to SNF for short-term. Case management alerted. [facility] 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
--- NOTE | 2021-10-23 16:08 | PM.CONSULT ---
Providers/Reason For Consult Consulting Physician/Specialty*: Dr. Chadwick Obando, DO Reason for Consult*: History of complicated diverticulitis Attending Physician: Martin Monaco MD Primary Care Provider: MILAGROS Frias History of Present Illness History of Present Illness Colleen Benitez is a 86 year old female, who is well-known to me for complicated diverticulitis. She has had diverticulitis in the past which is complicated by a colovaginal fistula. She has had stool coming out of her vagina for several weeks. She has scheduled a colonoscopy on November 17 and partial colectomy with primary anastomosis and ileostomy formation on November 18 with a surgeon in [place]. She has fallen several times in the last week including twice today. For this reason she comes to the hospital. She recently completed a course of antibiotics and then 2 days later, yesterday, developed this diffuse macular papular rash across her entire body. She denies any fevers or chills. Denies any nausea or vomiting. She has persistent left lower quadrant abdominal pain which is severe at times, sharp to dull and does not radiate. Palpation makes pain worse. Nothing makes pain better. She is still having stool coming out of her vagina. Review of Systems General: Reports: 10 or more systems reviewed and unremarkable except in HPI and below Medications/Allergies Home Medications Medication Instructions Recorded Confirmed Last Taken Type acetaminophen 500 mg tablet 500 mg PO Q4H PRN 05/23/19 10/23/21 1 Day Ago History (Tylenol Extra Strength) ~03/11/21 calcium citrate 315 mg-vitamin D3 1 tab PO DAILY@0800 tab 05/23/19 10/23/21 10/23/21 History 5 mcg (200 unit) tablet (Calcium Citrate + D) cholecalciferol (vitamin D3) 50 2,000 unit PO DAILY@0800 tab 05/23/19 10/23/21 10/23/21 History mcg (2,000 unit) tablet loratadine 10 mg capsule 10 mg PO DAILY@0800 cap 05/23/19 10/23/21 10/23/21 History magnesium 200 mg tablet 400 mg PO DAILY@0800 tab 05/23/19 10/23/21 10/23/21 History vitamin B complex (B 1 tab PO DAILY@0800 tab 05/23/19 10/23/21 10/23/21 History Complex-Vitamin B12) metoprolol tartrate 25 mg tablet 12.5 mg PO Q12H 05/11/20 10/23/21 10/23/21 History tramadol 50 mg tablet 50 mg PO BID 03/11/21 10/23/21 10/23/21 History diclofenac sodium 25 mg 25 mg PO BID 09/20/21 10/23/21 10/23/21 History tablet,delayed release Allergies Allergy/AdvReac Type Severity Reaction Status Date / Time meloxicam Allergy Unknown Unknown Verified 10/23/21 11:07 prednisone Allergy Unknown Unknown Verified 10/23/21 11:07 triamcinolone [From Kenalog] Allergy Unknown Unknown Verified 10/23/21 11:07 PFSH Acute PFSH: Medical History 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 Placed by Donita 02/2019 History of pacemaker HTN (hypertension) Lumbar compression fracture Mobitz type 2 second degree atrioventricular block Osteoarthritis 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) Subcapital fracture of left hip Thoracic compression fracture 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 Surgical History History of bilateral cataract extraction History of hemiarthroplasty of left hip S/P knee replacement [facility] Family History Daughter Pacemaker Father Tetanus from tetanus Denies family history of Anesthesia complication Bleeding disorder Social History Smoking and tobacco status: never smoked Alcohol intake: never Caregiver/support person: No Lives independently: Yes Housing: Apartment Vitals/I&O/Wt Last Vital Signs Temp 97.9 F 10/23/21 09:37 Pulse 96 10/23/21 09:37 Resp 16 10/23/21 09:37 BP 148/88 10/23/21 09:37 Pulse Ox 95 10/23/21 09:37 10/23/21 10/23/21 10/23/21 06:59 14:59 22:59 Intake Total 1000 / 1000 Balance 1000 / 1000 Weight last 48 hrs Weight 147 lb Physical Exam Narrative: General : Patient is well developed , no acute distress, oriented x3 Head : Normal cephalic, a-traumatic. Ears : Pinnae and external canal are normal. Hearing is normal. Eyes : PERRLA, Sclera and injection are normal. No conjunctival discharge. Nose : Mucous membranes are without erythema. Throat : buccal mucosa is normal, gums are without significant recession or hypertrophy. Lungs : Equal chest rise bilaterally, no use of accessory muscles, trachea is midline. Cor : Rate and rhythm are normal. Abdomen : Soft, mild distention, tender to palpation suprapubically and left lower quadrant, no g/r/m Extremities : No edema, no cyanosis or clubbing, dorsalis pedis pulses are present bilaterally, non-tender to palpation of calves. Upper extremities are normal bilaterally. Back : non-tender to palpation, no CVA tenderness. Skin: There is a diffuse erythematous macular papular rash across her entire body Neuro : CN II - XII intact, Upper and lower extremities have equal and full strength Data : 10/23/21 10:50 10/23/21 10:50 A&P Assessment and plan (1) Rash and nonspecific skin eruption: Status: Acute (2) Diverticulitis of large intestine with complication: Status: Acute Plan No acute surgical intervention She should follow-up with her surgeon in [place] for colonoscopy on November 17 followed by surgery on November 18. No strong evidence for acute diverticulitis at this time Medical management per primary Thank you for this consultation Coding Level of Care Code Acute Silica Dry Press Helper for Derrick Davis Diagnoses Rash and nonspecific skin eruption R21 Diverticulitis of large intestine with complication K57.32
[2021-10-23 16:11] LABS: Iron 25 ug/dL (37-145); Percent Saturation 15.5 % (20-50); Total Iron Binding Capacity 161 mcg/dl; Unsaturated Iron Binding 136 ug/dL (112-347)
[2021-10-23 16:18] LABS: Procalcitonin 0.15 ng/mL (0-0.5)
[2021-10-23 16:47] VITALS: BP 149/79; PULSE 91; RESP 17; O2SAT 95
[2021-10-23 16:48] LABS: C Reactive Protein 55.1 mg/L (0.0-4.9); Thyroid Stimulating Hormone 0.79 uIU/mL (0.27-4.20)
[2021-10-23 16:52] VITALS: BMI 23.7
[2021-10-23] MEDS: heparin 5,000 unit/mL INJ 1 mL 5000 UNIT SUBCUT (17:51)
[2021-10-23] MEDS: TRAMadol 50 mg Tablet PO (17:52)
[2021-10-23] MEDS: ferrous gluconate 324 mg Tablet PO (17:52)
[2021-10-23] MEDS: metoprolol tartrate 25 mg Tablet 12.5 MG PO (17:52)
[2021-10-23] MEDS: sodium chloride 0.9% 1,000 ML 50 ML IV (17:53)
[2021-10-23 18:18] LABS: Troponin 5 6HR 21.43 ng/L (0-10)
[2021-10-23] MEDS: cosyntropin 0.25 mg SDV IVP (18:23)
[2021-10-23 18:27] LABS: Troponin 5 6HR Delta 1.43 ng/L (0-12)
[2021-10-23 18:28] LABS: Cosyntropin Baseline 2.55 mcg/dL
[2021-10-23 18:46] LABS: Vitamin B12 983 pg/mL (232-1245)
[2021-10-23 18:48] LABS: Folate Level 13.5 ng/mL (4.8-37.3)
[2021-10-23 19:26] VITALS: BP 173/67; PULSE 80; RESP 20; TEMP 37.3; O2SAT 94
[2021-10-23 20:22] LABS: Anion Gap 17.9 (5-19); Blood Urea Nitrogen 20 mg/dL (8-23); Calcium 8.5 mg/dL (8.5-10.5); Carbon Dioxide 21 mmol/L (22-29); Chloride 97 mmol/L (98-107); Glucose 119 mg/dL (65-115); Osmolality Calculated 276 mOsm/kg (285-295); Potassium 4.9 mmol/L (3.5-5.1); Sodium 131 mmol/L (136-145)
[2021-10-23 20:38] VITALS: O2SAT 94
[2021-10-23 22:00] VITALS: PULSE 80
[2021-10-23 22:17] LABS: Cosyntropin 30 Minute 25.87 mcg/dL
[2021-10-23 22:18] LABS: Cosyntropin 1 Hour 28.55 mcg/dL
[2021-10-23 23:42] VITALS: BP 121/64; PULSE 78; RESP 20; TEMP 36.8; O2SAT 95
[2021-10-24] VITALS (9 sets, daily range): BP systolic 121–149; BP diastolic 65–77; PULSE 69–90; RESP 16–20; TEMP 36.6–37.2; O2SAT 94–98; BMI 24.0
[2021-10-24] MEDS: metoprolol tartrate 25 mg Tablet 12.5 MG PO ×2 (04:19→16:20)
[2021-10-24] MEDS: heparin 5,000 unit/mL INJ 1 mL 5000 UNIT SUBCUT ×2 (04:21→16:20)
[2021-10-24 05:16] LABS: Basophils # 0.1 10^3/uL (0.0-0.1); Basophils % 0.6 %; Eosinophils % 0.3 %; Hematocrit 34.1 % (37.0-47.0); Hemoglobin 10.8 g/dL (11.5-15.3); Lymphocytes % 20.1 %; Mean Corpuscular HGB Conc 31.7 g/dL (30.0-36.0); Mean Corpuscular Hemoglobin 26.9 pg (28.0-34.0); Mean Platelet Volume 9.9 fL (7.4-10.4); Monocytes # 0.4 10^3/uL (0.2-0.9); Monocytes % 4.2 %; Neutrophils % 74.5 %; Nucleated Red Blood Cells % 0 %; Platelet Count 257 10^3/cmm (130-400); Red Blood Count 4.01 10^6/uL (4.1-5.3); Red Cell Distribution Width 13.7 % (12.1-15.1); White Blood Count 9.8 10^3/uL (4.0-10.0)
[2021-10-24 05:39] LABS: Alanine Aminotransferase 12 U/L (0-33); Albumin Level 3.1 g/dL (3.5-5.2); Alkaline Phosphatase 55 IU/L (35-105); Anion Gap 12.8 (5-19); Aspartate Amino Transferase 16 U/L (0-32); Blood Urea Nitrogen 22 mg/dL (8-23); Calcium 8.2 mg/dL (8.5-10.5); Carbon Dioxide 23 mmol/L (22-29); Chloride 102 mmol/L (98-107); Chol HDL Ratio 5.24 mg/dL (0.0-4.40); Cholesterol 152 mg/dL (0-200); Glucose 92 mg/dL (65-115); HDL Cholesterol 29 mg/dL (60-100); LDL Cholesterol Calculated 74 mg/dL (50-129); Magnesium 1.9 mg/dL (1.7-2.3); Osmolality Calculated 279 mOsm/kg (285-295); Phosphorus 2.7 mg/dL (2.5-4.5); Potassium 4.8 mmol/L (3.5-5.1); Sodium 133 mmol/L (136-145); Total Bilirubin 0.2 mg/dL (0.15-1.2); Total Protein 6.1 g/dL (6.6-8.7); Triglycerides 243 mg/dL (0-150); VLDL Cholestrol Calculation 49 mg/dL (0-30)
[2021-10-24 05:56] LABS: Estmated Average Glucose 117; Hemoglobin A1C 5.7 % (4.0-6.0)
[2021-10-24] MEDS: TRAMadol 50 mg Tablet PO ×2 (08:33→18:11)
[2021-10-24] MEDS: pantoprazole DR 40 mg Tablet PO (08:34)
[2021-10-24] MEDS: ferrous gluconate 324 mg Tablet PO ×2 (08:34→18:11)
[2021-10-24] MEDS: sodium chloride 0.9% 1,000 ML 50 ML IV (12:39)
--- NOTE | 2021-10-24 12:43 | PM.PN ---
Subjective Subjective: No acute events overnight. Today morning patient seen with daughter at bedside. Patient denies any new complaint. States he is feeling better. Denies any nausea, vomiting, headache. Vitals/I&O/Wt Last Vital Signs Temp 98.6 F 10/24/21 10:52 Pulse 86 10/24/21 10:52 Resp 18 10/24/21 10:52 BP 124/72 10/24/21 10:52 Pulse Ox 97 10/24/21 10:52 10/23/21 10/24/21 10/24/21 22:59 06:59 14:59 Intake Total 150 / 1150 120 / 1270 1058.333 / 1058.333 Output Total 300 / 300 450 / 750 Balance -150 / 850 -330 / 520 1058.333 / 1058.333 Weight last 48 hrs Weight 67.755 kg Weight 66.678 kg Weight 66.678 kg Physical Exam Narrative: General: No acute distress, AO x3, flat affect, not anxious HEENT: PERRLA, pupils bilaterally equal and reactive Chest: Normal vesicular breath sounds, no added sounds, equal good air entry bilaterally CVS: S1-S2 regular, no murmurs, no tachycardia, no gallops, no rubs Abdomen: Soft, generalized mild tenderness all over the abdomen, no organomegaly, bowel sounds present Neuro: No focal deficits, no facial deformity, AO x3, power 5/5 in all limbs Extremity: Open superficial gash present on left encinas Data : 10/24/21 04:25 10/24/21 04:25 Micro: Microbiology 10/23/21 20:20 Parasite Antigen Panel - Final Stool Routine Collection 10/23/21 20:20 Enteric Pathogens (PCR) - Final Stool Routine Collection 10/23/21 17:30 MRSA Culture - Final Nose 10/23/21 20:20 Occult Blood (FIT) - Final Stool Routine Collection 10/23/21 20:20 Stool Lactoferrin - Final Stool 10/23/21 16:58 Blood Culture - Preliminary Blood SPECIMEN COLLECTED 10/23/21 16:50 Blood Culture - Preliminary Blood SPECIMEN COLLECTED A&P Assessment and plan (1) Generalized weakness: Status: Acute (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 IV fluid normal saline at 50 cc/h. Negative for adrenal insufficiency. Electrolytes abnormality has been resolved. Iron panel consistent with mild iron deficiency anemia, vitamin B12, folate, TSH levels appropriate. Diverticulitis with complication of ureteric fistula to colon: No active signs of infection currently. CT scan consistent with mild inflammation which is most likely secondary to persistent fistula. Patient does not have any fever, no leukocytosis. Continue follow-up blood cultures. For now hold off on antibiotics. If patient spikes fever or has worsening white count will start on antibiotics. Patient most likely needs colonoscopy and possible correction. Patient seen by surgery/Dr. Obando. Recommend for patient to follow-up with her outpatient surgeon at [facility] for colonoscopy and possible colostomy onset date of November 18. Hyponatremia/hyperkalemia: Resolved. Hyponatremia most likely secondary from dehydration. Will monitor BMP in daily for now. History of pacemaker History of hypertension Analgesia: Tramadol, Tylenol Glycemic control: Not needed Nutrition: Regular diet CODE STATUS: Discussed in detail with patient and family at bedside. DNR/DNI PUD prophylaxis: Protonix DVT prophylaxis: Heparin 5000 every 12 hourly Discharge planning: Given recurrent falls discussed in detail with patient. Patient lives by herself. Given steady decline over the last 2 months both patient and patient's family would want to look into possible placement to SNF for short-term. Case management alerted. PT evaluation. Continue care at [facility] floor. Attestations Medical Necessity Statement*: Requires further hospitalization for management of generalized weakness in setting of diverticulitis with complication of fistula between the uterus and colon while safe discharge planning is sought. 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
[2021-10-24] MEDS: docusate sodium 100 mg Capsule PO (18:10)
[2021-10-25] VITALS (7 sets, daily range): BP systolic 119–133; BP diastolic 64–75; PULSE 68–83; RESP 13–18; TEMP 36.6; O2SAT 92–95
[2021-10-25] MEDS: metoprolol tartrate 25 mg Tablet 12.5 MG PO ×2 (04:27→16:46)
[2021-10-25] MEDS: heparin 5,000 unit/mL INJ 1 mL 5000 UNIT SUBCUT ×2 (04:27→16:48)
[2021-10-25] MEDS: TRAMadol 50 mg Tablet PO ×2 (08:53→18:06)
[2021-10-25] MEDS: pantoprazole DR 40 mg Tablet PO (08:53)
[2021-10-25] MEDS: docusate sodium 100 mg Capsule PO ×2 (08:53→18:06)
[2021-10-25] MEDS: ferrous gluconate 324 mg Tablet PO ×2 (08:53→18:06)
[2021-10-25] MEDS: magnesium oxide 400 mg tablet PO (08:53)
[2021-10-25] MEDS: magnesium hydroxide 30 mL UDC PO (08:54)
--- NOTE | 2021-10-25 12:26 | P.PN_ITS ---
Subjective Subjective: Seen this morning. No acute events overnight. Daughter at bedside. States she is feeling better denies any nausea or vomiting. Afebrile overnight. Blood cultures negative to date. Vitals/I&O/Wt Last Vital Signs Temp 97.8 F 10/25/21 12:00 Pulse 83 10/25/21 12:00 Resp 13 10/25/21 12:00 BP 119/64 10/25/21 12:00 Pulse Ox 92 10/25/21 12:00 10/24/21 10/25/21 10/25/21 22:59 06:59 14:59 Intake Total 200 / 1498.333 120 / 1618.333 240 / 240 Output Total 650 / 650 Balance 200 / 1498.333 -530 / 968.333 240 / 240 Weight last 48 hrs Weight 68.22 kg Weight 67.755 kg Weight 66.678 kg Physical Exam Narrative: General: No acute distress, AO x3, HEENT: Normocephalic, atraumatic Chest: Lear to auscultation bilaterally no wheezes no rhonchi CVS: S1-S2 regular, no murmurs, no tachycardia, no gallops, no rubs Abdomen: Soft, generalized mild tenderness all over the abdomen, bowel sounds present Neuro: No focal deficits, no facial deformity, AO x3, Extremity: Open superficial gash present on left encinas Data : 10/24/21 04:25 10/24/21 04:25 Micro: Microbiology 10/23/21 16:58 Blood Culture - Preliminary Blood NEGATIVE TO DATE 10/23/21 16:50 Blood Culture - Preliminary Blood NEGATIVE TO DATE 10/23/21 20:20 Parasite Antigen Panel - Final Stool Routine Collection 10/23/21 20:20 Enteric Pathogens (PCR) - Final Stool Routine Collection 10/23/21 17:30 MRSA Culture - Final Nose A&P Assessment and plan (1) Hyperkalemia: Status: Acute (2) Hyponatremia: Status: Acute (3) Generalized weakness: Status: Acute (4) 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 (5) Contusion of left leg: Status: Acute (6) Avulsion of skin: Status: Acute (7) Rash and nonspecific skin eruption: Status: Acute (8) Diverticulitis of large intestine with complication: Status: Acute (9) Fracture, lumbar vertebra, compression: Status: Acute (10) Chronic SI joint pain: Status: Acute (11) Contusion of left leg: Status: Acute (12) Leukocytosis: Status: Acute Qualifiers: Leukocytosis type: leukemoid reaction Qualified Code(s): D72.823 - Leukemoid reaction (13) Fall at home: Status: Acute Qualifiers: Encounter type: initial encounter Qualified Code(s): W19.XXXA - Unspecified fall, initial encounter; Y92.009 - Unspecified place in unspecified non-institutional (private) residence as the place of occurrence of the external cause (14) Osteoarthritis: Status: Chronic Qualifiers: 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 IV fluid normal saline at 50 cc/h. Negative for adrenal insufficiency. Electrolytes abnormality has been resolved. Iron panel consistent with mild iron deficiency anemia, vitamin B12, folate, TSH levels appropriate. Diverticulitis with complication of ureteric fistula to colon: No active signs of infection currently. CT scan consistent with mild inflammation which is most likely secondary to persistent fistula.? Patient does not have any fever, no leukocytosis. Continue follow-up blood cultures. For now hold off on antibiotics. If patient spikes fever or has worsening white count will start on antibiotics. Patient most likely needs colonoscopy and possible correction. Patient seen by surgery/Dr. Obando.? Recommend for patient to follow-up with her outpatient surgeon at [facility] for colonoscopy and possible colostomy onset date of November 18. Hyponatremia/hyperkalemia: Resolved. Hyponatremia most likely secondary from dehydration. Will monitor BMP in daily for now. History of pacemaker History of hypertension Analgesia: Tramadol, Tylenol Glycemic control: Not needed Nutrition: Regular diet CODE STATUS: Discussed in detail with patient and family at bedside.? DNR/DNI PUD prophylaxis: Protonix DVT prophylaxis: Heparin 5000 every 12 hourly Discharge planning: Given recurrent falls discussed in detail with patient.? Patient lives by herself.? Given steady decline over the last 2 months both patient and patient's family would want to look into possible placement to SNF for short-term.? Pending placement to [facility]. Continue care at [facility] floor. 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
[2021-10-25] MEDS: sodium chloride 0.9% 1,000 ML 50 ML IV (13:36)
[2021-10-26] VITALS (8 sets, daily range): BP systolic 113–156; BP diastolic 64–93; PULSE 55–93; RESP 16–18; TEMP 36.6–37.1; O2SAT 92–97
[2021-10-26] MEDS: metoprolol tartrate 25 mg Tablet 12.5 MG PO ×2 (04:10→17:15)
[2021-10-26] MEDS: heparin 5,000 unit/mL INJ 1 mL 5000 UNIT SUBCUT ×2 (04:11→17:15)
[2021-10-26 05:24] LABS: Blood Urea Nitrogen 18 mg/dL (8-23); Calcium 7.7 mg/dL (8.5-10.5); Carbon Dioxide 23 mmol/L (22-29); Chloride 102 mmol/L (98-107); Glucose 84 mg/dL (65-115); Magnesium 1.8 mg/dL (1.7-2.3); Osmolality Calculated 275 mOsm/kg (285-295); Phosphorus 2.9 mg/dL (2.5-4.5); Sodium 132 mmol/L (136-145)
[2021-10-26 05:36] LABS: Anion Gap 12.3 (5-19); Potassium 5.3 mmol/L (3.5-5.1)
--- NOTE | 2021-10-26 07:00 | PC.NURSE ---
Bedside report received from AUGUST Perera.
[2021-10-26] MEDS: docusate sodium 100 mg Capsule PO ×2 (08:19→17:15)
[2021-10-26] MEDS: ferrous gluconate 324 mg Tablet PO ×2 (08:19→17:15)
[2021-10-26] MEDS: magnesium oxide 400 mg tablet PO (08:19)
[2021-10-26] MEDS: TRAMadol 50 mg Tablet PO ×2 (08:19→17:15)
[2021-10-26] MEDS: magnesium hydroxide 30 mL UDC PO (08:20)
[2021-10-26] MEDS: sodium chloride 0.9% 1,000 ML 50 ML IV (08:20)
[2021-10-26] MEDS: pantoprazole DR 40 mg Tablet PO (08:20)
--- NOTE | 2021-10-26 08:54 | PC.SOCIAL ---
IMM UPDATED IMM dated and initialed, copy given to patient and copy placed in chart
--- NOTE | 2021-10-26 14:49 | P.PN_ITS ---
Subjective Subjective: Seen this morning. Pending placement. She feels well and has no complaints at this time. Rash on left lower extremity has also resolved. Potassium 5.3 this AM. Sample was however hemolyzed. Vitals/I&O/Wt Last Vital Signs Temp 98.7 F 10/26/21 11:48 Pulse 68 10/26/21 11:48 Resp 18 10/26/21 11:48 BP 113/65 10/26/21 11:48 Pulse Ox 97 10/26/21 11:48 10/25/21 10/26/21 10/26/21 22:59 06:59 14:59 Intake Total 100 / 1340 1776.667 / 1776.667 Output Total 650 / 650 Balance -650 / 590 100 / 690 1776.667 / 1776.667 Weight last 48 hrs Weight 68.22 kg Physical Exam Narrative: General: No acute distress, AO x3, HEENT: Normocephalic, atraumatic Chest: Lear to auscultation bilaterally no wheezes no rhonchi CVS: S1-S2 regular, no murmurs, no tachycardia, no gallops, no rubs Abdomen: Soft, generalized mild tenderness all over the abdomen, bowel sounds present Neuro: No focal deficits, no facial deformity, AO x3, Extremity: Open superficial gash present on left encinas Data : 10/24/21 04:25 10/26/21 04:30 A&P Assessment and plan (1) Hyperkalemia: Status: Acute (2) Hyponatremia: Status: Acute (3) Generalized weakness: Status: Acute (4) 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 (5) Contusion of left leg: Status: Acute (6) Avulsion of skin: Status: Acute (7) Rash and nonspecific skin eruption: Status: Acute (8) Diverticulitis of large intestine with complication: Status: Acute (9) Fracture, lumbar vertebra, compression: Status: Acute (10) HTN (hypertension): Status: Chronic Qualifiers: Hypertension type: essential hypertension Qualified Code(s): I10 - Essential (primary) hypertension (11) History of pacemaker: Status: Chronic Plan Generalized weakness: Most likely secondary to dehydration, hyponatremia given poor oral intake while 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 IV fluid normal saline at 50 cc/h. Negative for adrenal insufficiency. Electrolytes abnormality has been resolved. Iron panel consistent with mild iron deficiency anemia, vitamin B12, folate, TSH levels appropriate. Diverticulitis with complication of ureteric fistula to colon: No active signs of infection currently. CT scan consistent with mild inflammation which is most likely secondary to persistent fistula.? Patient does not have any fever, no leukocytosis. Continue follow-up blood cultures. For now hold off on antibiotics. If patient spikes fever or has worsening white count will start on antibiotics. Patient most likely needs colonoscopy and possible correction. Patient seen by surgery/Dr. Obando.??Recommend for patient to follow-up with her outpatient surgeon at [facility] for colonoscopy and possible colostomy onset date of November 18. Hyponatremia/hyperkalemia: Resolved. Hyponatremia most likely secondary from dehydration. Will monitor BMP in daily for now. History of pacemaker History of hypertension Analgesia: Tramadol, Tylenol Glycemic control: Not needed Nutrition: Regular diet CODE STATUS: Discussed in detail with patient and family at bedside.? DNR/DNI PUD prophylaxis: Protonix DVT prophylaxis: Heparin 5000 every 12 hourly Discharge planning: Given recurrent falls discussed in detail with patient.? Patient lives by herself.? Given steady decline over the last 2 months both patient and patient's family would want to look into possible placement to SNF for short-term.? Pending placement to halfway. Continue care at [facility]. 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
[2021-10-26] MEDS: sennosides 8.6 mg Tablet 17.2 MG PO (20:30)
[2021-10-27] VITALS: BP 168/78; PULSE 79; RESP 17; O2SAT 94
[2021-10-27] MEDS: sodium chloride 0.9% 1,000 ML 50 ML IV (03:40)
[2021-10-27 04:00] VITALS: BP 159/76; PULSE 70; RESP 17; TEMP 36.7; O2SAT 92
[2021-10-27] MEDS: metoprolol tartrate 25 mg Tablet 12.5 MG PO (04:38)
[2021-10-27] MEDS: heparin 5,000 unit/mL INJ 1 mL 5000 UNIT SUBCUT (04:38)
[2021-10-27 07:42] VITALS: BP 169/75; PULSE 67; RESP 16; TEMP 36.6; O2SAT 91
[2021-10-27] MEDS: ferrous gluconate 324 mg Tablet PO (08:41)
[2021-10-27] MEDS: TRAMadol 50 mg Tablet PO (08:42)
[2021-10-27] MEDS: magnesium oxide 400 mg tablet PO (08:42)
[2021-10-27] MEDS: pantoprazole DR 40 mg Tablet PO (08:42)
[2021-10-27] MEDS: docusate sodium 100 mg Capsule PO (08:42)
[2021-10-27] MEDS: magnesium hydroxide 30 mL UDC PO (08:43)
[2021-10-27 10:54] LABS: SARS Covid-2 Antigen Negative (Negative)
--- NOTE | 2021-10-27 11:07 | P.DS_ITS ---
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 (5) Contusion of left leg: Status: Acute (6) Avulsion of skin: Status: Resolved (7) Rash and nonspecific skin eruption: Status: Resolved (8) Diverticulitis of large intestine with complication: Status: Resolved (9) Fracture, lumbar vertebra, compression: Status: Acute (10) HTN (hypertension): Status: Chronic Qualifiers: Hypertension type: essential hypertension Qualified Code(s): I10 - Essential (primary) hypertension (11) History of pacemaker: Status: Chronic 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 Post fall patient was found to have a laceration on left leg.? As per the patient patient was feeling weak after coming from bathroom last night so she sat at the edge of the bed and slipped down.? As per the family members patient has had at least 4-5 falls in last 1 week. 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 Since then patient has been on antibiotics for 3 different courses with last course around a week ago.? Most recent antibiotic as per the family members has been Flagyl and Bactrim.? Since the completion of course of last antibiotic 7 days ago patient started developing generalized rash all over her body which has been progressing down from head to toe.? Associated with mild itching on and off.? Rash is purpuric in nature not raised. Patient currently complaining of weakness, decreased appetite for last 2 days.? Blood work in the ER showed a white count of 5.9, hemoglobin of 11.7, sodium 130, potassium of 5.7, creatinine of 1, BUN of 25, baseline troponin of 2, normal AST/ALT.? UA not done. 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 Obando from our hospital sooner. Admitted on Monday because of generalized weakness found to be secondary to hyponatremia and hyperkalemia. Dr. Obando has been consulted from the ER who does not want to take her to the OR as patient will be high risk and wants her to follow-up with her outpatient surgeon at [facility] on schedule surgery for November 18. CT scan showed diverticulitis but patient does not have any signs of infection and has been treated with oral antibiotics 3 times over last 3 weeks hence I did not start her on antibiotics for now until she spikes a fever or disconfirm then she is going to the OR. Patient remained stable during her hospital stay. She did remain afebrile and WBC count did not elevate. Patient felt better than when she first presented and was in very good spirits currently of discharge. Patient was accepted for further care rehab and will be sent there for pl acement. She will follow-up with her surgeon in [place] as previously scheduled. All questions answered. Physical Exam Narrative: General: No acute distress, AO x3, HEENT: Normocephalic, atraumatic Chest: Lear to auscultation bilaterally no wheezes no rhonchi CVS: S1-S2 regular, no murmurs, no tachycardia, no gallops, no rubs Abdomen: Soft, generalized mild tenderness all over the abdomen, bowel sounds present Neuro: No focal deficits, no facial deformity, AO x3, Extremity: Open superficial gash present on left encinas Discharge Data Studies Completed and Pending Completed Studies During Hospitalization Category Date Time Status CT abdomen pelvis w con* [id number] Stat Cat Scan 10/23/21 11:30 Completed XR chest 1V portable [id number] Stat Exams 10/23/21 09:44 Completed Pending at discharge Category Date Time Status Bacterial Antigen Stat Lab 10/23/21 15:50 Ordered Blood Culture Stat Lab 10/23/21 16:58 Results Urinalysis Stat Lab 10/23/21 13:00 Ordered Urine Random Lytes Stat Lab 10/23/21 15:50 Ordered Radiology Impressions Chest X-Ray 10/23/21 09:44 IMPRESSION: No acute cardiopulmonary abnormality identified. Abdomen/Pelvis CT 10/23/21 11:30 IMPRESSION: 1. A fistulous tract is seen extending from the lower uterine segment into the adjacent sigmoid colon consistent with the patient's history. There is air in the lower uterine segment and vagina. There is adjacent sigmoid mucosal thickening consistent with nonspecific colitis. Follow-up to exclude neoplasm as clinically warranted. 2. Bilateral inguinal hernias containing short segment of bowel loops with no evidence for strangulation. 3. There is gastric mucosal thickening versus under distention raising concern for gastritis. Please correlate clinically. 4. Mild bilateral hydronephrosis/hydroureter. 5. Mucosal thickening of the rectum. Differential includes neoplasm and nonspecific proctitis. 6. Colonic constipation is present. Laboratory Results WBC 9.8 10^3/uL (4.0-10.0) 10/24/21 04:25 RBC 4.01 10^6/uL (4.1-5.3) L 10/24/21 04:25 Hgb 10.8 g/dL (11.5-15.3) L 10/24/21 04:25 Hct 34.1 % (37.0-47.0) L 10/24/21 04:25 MCV 85.0 fl (81-99) 10/24/21 04:25 MCH 26.9 pg (28.0-34.0) L 10/24/21 04:25 MCHC 31.7 g/dL (30.0-36.0) 10/24/21 04:25 RDW 13.7 % (12.1-15.1) 10/24/21 04:25 Plt Count 257 10^3/cmm (130-400) 10/24/21 04:25 MPV 9.9 fL (7.4-10.4) 10/24/21 04:25 Neut % (Auto) 74.5 % 10/24/21 04:25 Lymph % (Auto) 20.1 % 10/24/21 04:25 Gray % (Auto) 4.2 % 10/24/21 04:25 Eos % (Auto) 0.3 % 10/24/21 04:25 Baso % (Auto) 0.6 % 10/24/21 04:25 Neut # (Auto) 7.30 10^3/uL (1.8-7.7) 10/24/21 04:25 Lymph # (Auto) 2.0 10^3/uL (0.8-4.8) 10/24/21 04:25 Gray # (Auto) 0.4 10^3/uL (0.2-0.9) 10/24/21 04:25 Eos # (Auto) 0.0 10^3/uL (0.0-0.8) 10/24/21 04:25 Baso # (Auto) 0.1 10^3/uL (0.0-0.1) 10/24/21 04:25 Nucleated RBC % (auto) 0 % 10/24/21 04:25 Nucleated RBCs # 0.0 /100WBC 10/24/21 04:25 Sodium 132 mmol/L (136-145) L 10/26/21 04:30 Potassium 5.3 mmol/L (3.5-5.1) H 10/26/21 04:30 Chloride 102 mmol/L (98-107) 10/26/21 04:30 Carbon Dioxide 23 mmol/L (22-29) 10/26/21 04:30 Anion Gap 12.3 (5-19) 10/26/21 04:30 BUN 18 mg/dL (8-23) 10/26/21 04:30 Creatinine 0.5 mg/dL (0.5-0.9) 10/26/21 04:30 GFR Calculation Not Reportable 10/26/21 04:30 Glucose 84 mg/dL (65-115) 10/26/21 04:30 Estimat Average Glucose 117 10/24/21 04:25 Hemoglobin A1c 5.7 % (4.0-6.0) 10/24/21 04:25 Calculated Osmolality 275 mOsm/kg (285-295) L 10/26/21 04:30 Calcium 7.7 mg/dL (8.5-10.5) L 10/26/21 04:30 Phosphorus 2.9 mg/dL (2.5-4.5) 10/26/21 04:30 Magnesium 1.8 mg/dL (1.7-2.3) 10/26/21 04:30 Iron 25 ug/dL (37-145) L 10/23/21 14:03 TIBC 161 mcg/dl 10/23/21 14:03 % Saturation 15.5 % (20-50) L 10/23/21 14:03 Unsat Iron Binding 136 ug/dL (112-347) 10/23/21 14:03 Total Bilirubin 0.2 mg/dL (0.15-1.2) 10/24/21 04:25 AST 16 U/L (0-32) 10/24/21 04:25 ALT 12 U/L (0-33) 10/24/21 04:25 Alkaline Phosphatase 55 IU/L (35-105) 10/24/21 04:25 Troponin T Baseline 20 ng/L (0-10) H 10/23/21 10:50 Troponin T 120 Minute 20.22 ng/L (0-10) H 10/23/21 14:03 Delta Troponin T 0.22 ABS# (0-10) 10/23/21 14:03 Troponin T Hi Sens 6Hr 21.43 ng/L (0-10) H 10/23/21 16:50 Troponin T Hi Sens 6Hr Delta 1.43 ng/L (0-12) 10/23/21 16:50 C-Reactive Protein 55.1 mg/L (0.0-4.9) H 10/23/21 14:03 Total Protein 6.1 g/dL (6.6-8.7) L 10/24/21 04:25 Albumin 3.1 g/dL (3.5-5.2) L 10/24/21 04:25 Globulin 3.0 g/dL (1.3-4.6) 10/24/21 04:25 Triglycerides 243 mg/dL (0-150) H 10/24/21 04:25 Cholesterol 152 mg/dL (0-200) 10/24/21 04:25 LDL Cholesterol, Calc 74 mg/dL (50-129) 10/24/21 04:25 Total VLDL Cholesterol 49 mg/dL (0-30) H 10/24/21 04:25 HDL Cholesterol 29 mg/dL (60-100) L 10/24/21 04:25 Cholesterol/HDL Ratio 5.24 mg/dL (0.0-4.40) H 10/24/21 04:25 Lipase 65 U/L (13-60) H 10/23/21 10:50 Vitamin B12 983 pg/mL (232-1245) 10/23/21 16:50 Folate 13.5 ng/mL (4.8-37.3) 10/23/21 16:50 Procalcitonin 0.15 ng/mL (0-0.5) 10/23/21 14:03 TSH 0.79 uIU/mL (0.27-4.20) 10/23/21 14:03 Random Cortisol 10.50 ug/dL (2.47-19.5) 10/24/21 04:25 Cortisol Response 10/23/21 16:50 Rotavirus Antigen See note 10/23/21 20:20 Stool H. pylori Ag See note 10/23/21 20:20 SARS-CoV-2 Ag (Rapid) Negative (Negative) 10/27/21 09:00 Vitals Last Vital Signs Temp 97.8 F 10/27/21 07:42 Pulse 67 10/27/21 07:42 Resp 16 10/27/21 07:42 BP 169/75 10/27/21 07:42 Pulse Ox 91 10/27/21 07:42 Discharge Plan Discharge Patient Disposition: Xfer SNF Condition: Stable Prescriptions: New docusate sodium 100 mg Capsule 100 mg PO BID PRN (Reason: constipation) 14 Days Qty: 15 0RF ferrous gluconate 324 mg (37.5 mg iron) Tablet 324 mg PO BIDWM 30 Days Qty: 30 0RF Continued loratadine 10 mg capsule 10 mg PO DAILY@0800 0RF calcium citrate-vitamin D3 [Calcium Citrate + D] 315-200 mg-unit tablet 1 tab PO DAILY@0800 0RF magnesium 200 mg tablet 400 mg PO DAILY@0800 0RF vitamin B complex [B Complex-Vitamin B12] Tablet 1 tab PO DAILY@0800 0RF cholecalciferol (vitamin D3) 2,000 unit tablet 2,000 unit PO DAILY@0800 0RF acetaminophen [Tylenol Extra Strength] 500 mg tablet 500 mg PO Q4H PRN (Reason: Pain) 0RF tramadol 50 mg tablet 50 mg PO BID 0RF metoprolol tartrate 25 mg tablet 12.5 mg PO Q12H 0RF Rx Instructions: take at 0800 and 2000 diclofenac sodium 25 mg tablet,delayed release (DR/EC) 25 mg PO BID 0RF Discharge Orders: Discharge Order (Routine); Ordered 10/27/21 Ordered By: Ana Morocho Other Ambulatory Orders: Basic Metabolic Panel (Routine) Timeframe: 3 Days Facility: [facility] - Location: Lab - Main Lab Ordered By: Ana Morocho Complete Blood Count w/Auto (Routine) Timeframe: 3 Days Location: Determined by Patient Ordered By: Ana Morocho Referrals: [facility] [Outside] Radha Lion FNP [Primary Care Provider] - 4-7 days Discharge Diet: Cardiac Discharge Activity: Increase activity as tolerated and As per PT/OT instructions Activity Restrictions/Additional Instructions: Please follow up in [place] with general surgery as discussed previously on the scheduled appointments that you have. Daughter confirmed they have address, phone numbers and appointment information already for follow ups. If you develop a fever, chest pain, shortness of breath, worsening abdominal pain, blood in stool, please come back to ER. 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
== END 2021-10-27 13:35 | disposition skilled nursing facility (03) ==
LOC: ER 12:27 → MEDSURG 17:05
PROVIDERS: Admitting Provider Student in an Organized Health Care Education/Training Program; Emergency Provider Family Medicine; PCP Registered Nurse; Visit Provider Internal Medicine
DX: E87.5 Hyperkalemia (principal); E87.1 Hypo-osmolality and hyponatremia; R53.1 Weakness; N28.89 Other specified disorders of kidney and ureter; R21 Rash and other nonspecific skin eruption; S80.12XA Contusion of left lower leg, initial encounter; S32.000A Wedge compression fracture of unspecified lumbar vertebra, initial encounter for closed fracture; W19.XXXA Unspecified fall, initial encounter; Y92.009 Unspecified place in unspecified non-institutional (private) residence as the place of occurrence of the external cause; K57.32 Diverticulitis of large intestine without perforation or abscess without bleeding; I10 Essential (primary) hypertension; Z95.0 Presence of cardiac pacemaker; I48.91 Unspecified atrial fibrillation; D72.829 Elevated white blood cell count, unspecified
CPT/HCPCS: 36415; 71045; 73590; 74177; 80048; 80053; 80061; 82274; 82533; 82607; 82746; 83036; 83540; 83550; 83630; 83690; 83735; 84100; 84145; 84443; 84484; 85025; 86140; 87040; 87338; 87425; 87426; 87506; 87641; 93005; 94664; 96365; 96372; 96375; 97116; 97161; 97530; 99285; G0378; J0834; J1644; J2405; J2543; J7030; J8540; Q9967

== ENCOUNTER 2021-12-10 00:32 | Inpatient (IN) | payer MEDICARE, SELFPAY ==
[2021-12-10] VITALS (188 sets, daily range): BP systolic 77–186; BP diastolic 33–85; PULSE 52–110; RESP 15–32; TEMP 36.4–37.1; O2SAT 80–100; BMI 20.9
--- NOTE | 2021-12-10 00:48 | PC.NURSE ---
patient is pacemaker dependent
--- NOTE | 2021-12-10 00:48 | PC.NURSE ---
dr brennan notified of patient urine appearance, hypotension, presentation, history of events, and other vital signs in relation to sepsis and trauma concerns.
--- NOTE | 2021-12-10 01:15 | ECG_ITS ---
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 Measurements Intervals [place] Rate: 60 P: 51 UT: 182 QRS: -87 QRSD: 183 T: 6 QT: 450 QTc: 452 Interpretive Statements ELECTRONIC ATRIAL PACEMAKER ELECTRONIC VENTRICULAR PACEMAKER ABNORMAL RHYTHM ECG Compared to ECG 10/23/2021 12:12:41 No significant changes Electronically Signed On 12-10-2021 12:51:39 CDT by Martha Hayes M.D. [email or web address]
--- NOTE | 2021-12-10 01:26 | ED_ITS ---
HPI - Fall General: Chief Complaint: Fall Stated Complaint: FALL Time Seen by Provider: 12/10/21 00:44 History of Present Illness: 86-year-old female presenting today with ground- level fall. Patient has been noted to be weaker today than normal. Patient was up training to the restroom. When she fell down. Striking the back of her head as well as her back on the ground. She notes significant pain in her head as well as in her back. Notes that she is significantly weaker than baseline. She denies chest pain or shortness of breath. She denies abdominal pain. She denies dysuria or polyuria. 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 Surgical History History of bilateral cataract extraction History of hemiarthroplasty of left hip S/P knee replacement [facility] Family History Daughter Pacemaker Father Tetanus from tetanus Denies family history of Anesthesia complication Bleeding disorder Social History Smoking and tobacco status: never smoked Alcohol intake: never Caregiver/support person: No Lives independently: Yes Housing: Apartment Physical Exam Const: COMMON NORMALS: no acute distress, patient oriented x3 and alert GENERAL APPEARANCE: cooperative ORIENTATION/CONSCIOUSNESS: Yes awake, Yes oriented to person, Yes oriented to place and Yes oriented to time HENMT: COMMON NORMALS: normocephalic, atraumatic, external ears normal, Normal external nose present and moist oral mucous membranes HEAD & SCALP: normal to inspection, normocephalic and atraumatic NOSE: Normal external nose present GENERAL EAR: hearing grossly impaired EXTERNAL EAR: Yes external ears normal Eye: COMMON NORMALS: Equal, round and reactive pupils present, EOMs intact bilaterally, conjunctivae normal and no scleral icterus GENERAL EYE: appearance normal, both eyes and all related structures EYELID: eyelids normal CONJUNCTIVA: Yes conjunctivae normal SCLERA: sclerae normal PUPIL: Yes Equal, round and reactive pupils present Neck/C-Spine: COMMON NORMALS: full ROM, supple and no JVD GENERAL: Yes normal visual inspection Lymph: LYMPHATIC: no lymphadenopathy noted and no lymphedema noted Chest: COMMONS NORMALS: normal inspection of the chest Resp: COMMON NORMALS: normal respiratory effort, No retractions and No use of accessory muscles Cardio: COMMON NORMALS: no JVD, regular rate and regular rhythm RATE: regular rate RHYTHM: regular rhythm GI: COMMON NORMALS: Normal to inspection, nondistended, normoactive bowel sounds present : COMMON NORMALS: Yes no CVA tenderness BLADDER/KIDNEY EXAM: Yes no CVA tenderness Back/Pelvis: COMMON NORMALS: no CVA tenderness and thoracic and lumbar spine normal to inspection Extremity: COMMON NORMALS: normal to inspection, full ROM and capillary refill normal GENERAL: Yes normal exam except as noted Neuro: COMMON NORMALS: patient oriented x3, CN's II-XII intact bilaterally, moves all extremities, no focal motor deficits, no sensory deficits noted and gait normal SENSORIUM/ORIENTATION: Yes alert, Yes oriented to person, Yes oriented to place and Yes oriented to time Psych: COMMON NORMALS: mental status grossly normal, Normal thought process present, cooperative and normal affect THOUGHT PROCESS: Normal thought process present Skin: COMMON NORMALS: no rashes or lesions noted and no wounds GENERAL SKIN EXAM: no rashes or lesions noted Course Vital Signs: Vital signs: Vital Signs Temperature 98.5 F 12/10/21 04:32 Pulse Rate 68 12/10/21 04:32 Respiratory Rate 31 H 12/10/21 04:32 Blood Pressure 104/38 12/10/21 04:32 Pulse Oximetry 91 12/10/21 04:32 Oxygen Delivery Me thod 12/10/21 04:32 MDM - Fall Medical Decision Making Patient is an 86-year-old female presenting today with a ground-level fall. Diffuse tenderness to palpation along her spine. We will obtain a CT of head to L-spine. In addition patient with a significant urinary tract infection. Significant leukocytosis. We will start patient on ceftriaxone for the same. Lab Data : 12/10/21 01:00 12/10/21 01:00 Laboratory Results WBC 22.4 10^3/uL (4.0-10.0) H 12/10/21 01:00 RBC 3.53 10^6/uL (4.1-5.3) L 12/10/21 01:00 Hgb 9.6 g/dL (11.5-15.3) L 12/10/21 01:00 Hct 30.3 % (37.0-47.0) L 12/10/21 01:00 MCV 85.8 fl (81-99) 12/10/21 01:00 MCH 27.2 pg (28.0-34.0) L 12/10/21 01:00 MCHC 31.7 g/dL (30.0-36.0) 12/10/21 01:00 RDW 15.0 % (12.1-15.1) 12/10/21 01:00 Plt Count 470 10^3/cmm (130-400) H 12/10/21 01:00 MPV 10.0 fL (7.4-10.4) 12/10/21 01:00 Neut % (Auto) 95.2 % 12/10/21 01:00 Lymph % (Auto) 2.1 % 12/10/21 01:00 [place] % (Auto) 0.8 % 12/10/21 01:00 Eos % (Auto) 0.1 % 12/10/21 01:00 Baso % (Auto) 0.3 % 12/10/21 01:00 Neut # (Auto) 21.33 10^3/uL (1.8-7.7) H 12/10/21 01:00 Lymph # (Auto) 0.5 10^3/uL (0.8-4.8) L 12/10/21 01:00 [place] # (Auto) 0.2 10^3/uL (0.2-0.9) 12/10/21 01:00 Eos # (Auto) 0.0 10^3/uL (0.0-0.8) 12/10/21 01:00 Baso # (Auto) 0.1 10^3/uL (0.0-0.1) 12/10/21 01:00 Nucleated RBC % (auto) 0.1 % 12/10/21 01:00 Nucleated RBCs # 0.0 /100WBC 12/10/21 01:00 Sodium 134 mmol/L (136-145) L 12/10/21 01:00 Potassium 3.3 mmol/L (3.5-5.1) L 12/10/21 01:00 Chloride 95 mmol/L (98-107) L 12/10/21 01:00 Carbon Dioxide 21 mmol/L (22-29) L 12/10/21 01:00 Anion Gap 21.3 (5-19) H 12/10/21 01:00 BUN 47 mg/dL (8-23) H 12/10/21 01:00 Creatinine 2.0 mg/dL (0.5-0.9) H 12/10/21 01:00 GFR Calculation Not Reportable 12/10/21 01:00 Glucose 80 mg/dL (65-115) 12/10/21 01:00 Calculated Osmolality 289 mOsm/kg (285-295) 12/10/21 01:00 Calcium 8.7 mg/dL (8.5-10.5) 12/10/21 01:00 Total Bilirubin 0.3 mg/dL (0.15-1.2) 12/10/21 01:00 AST 14 U/L (0-32) 12/10/21 01:00 ALT 8 U/L (0-33) 12/10/21 01:00 Alkaline Phosphatase 90 IU/L (35-105) 12/10/21 01:00 Total Protein 6.3 g/dL (6.6-8.7) L 12/10/21 01:00 Albumin 2.9 g/dL (3.5-5.2) L 12/10/21 01:00 Globulin 3.4 g/dL (1.3-4.6) 12/10/21 01:00 Urine Color Yellow (Yellow) 12/10/21 01:00 Urine Appearance Cloudy (CLEAR) 12/10/21 01:00 Urine pH 5 (5-7) 12/10/21 01:00 Ur Specific [place] 1.010 (1.005-1.030) 12/10/21 01:00 Urine Protein 3+ (Negative) H 12/10/21 01:00 Urine Glucose (UA) Norm (Normal) 12/10/21 01:00 Urine Ketones Negative (Negative) 12/10/21 01:00 Urine Blood 3+ (Negative) H 12/10/21 01:00 Urine Nitrate Negative (Negative) 12/10/21 01:00 Urine Bilirubin Neg (Negative) 12/10/21 01:00 Urine Urobilinogen Norm mg/dL (Negative) 12/10/21 01:00 Ur Leukocyte Esterase 2+ (Negative) H 12/10/21 01:00 Urine RBC 5-10 /hpf (0-2) H 12/10/21 01:00 Urine WBC Too numerous to cnt /hpf (0-5) H 12/10/21 01:00 Ur Squamous Epith Cells 25-40 /hpf (0-5) H 12/10/21 01:00 Amorphous Sediment Not Reportable 12/10/21 01:00 Urine Bacteria 4+ /hpf (NONE) H 12/10/21 01:00 Urine Mucus 1+ /hpf 12/10/21 01:00 Discharge Plan Discharge Patient Disposition: Admitted As Inpatient Clinical Impression: Acute UTI, Sepsis, Closed head injury, Fall at home Condition: Stable Prescriptions: No Action loratadine 10 mg capsule 10 mg PO DAILY@0800 calcium citrate-vitamin D3 [Calcium Citrate + D] 315-200 mg-unit tablet 1 tab PO DAILY@0800 magnesium 200 mg tablet 400 mg PO DAILY@0800 vitamin B complex [B Complex-Vitamin B12] Tablet 1 tab PO DAILY@0800 cholecalciferol (vitamin D3) 2,000 unit tablet 2,000 unit PO DAILY@0800 acetaminophen [Tylenol Extra Strength] 500 mg tablet 500 mg PO Q4H PRN (Reason: Pain) tramadol 50 mg tablet 50 mg PO BID metoprolol tartrate 25 mg tablet 12.5 mg PO Q12H Rx Instructions: take at 0800 and 1999 diclofenac sodium 25 mg tablet,delayed release (DR/EC) 25 mg PO BID Referrals: Radha Lion FNP [Primary Care Provider] - Coding Level of Care Code ED Swing Manager for Derrick Fwd Exam Comprehensive
--- NOTE | 2021-12-10 01:27 | CTR_ITS ---
PROCEDURE INFORMATION: Exam: CT Head Without Contrast Exam date and time: 12/10/2021 2:47 AM Age: 86 years old Clinical indication: Injury or trauma; Fall; Blunt trauma (contusions or hematomas); Patient HX: Patient slipped and fell in the shower. No loc. C/O of focal pain to neck and low back. Not on anticoagulants. ; Additional info: Chi TECHNIQUE: Imaging protocol: Computed tomography of the head without contrast. Radiation optimization: All CT scans at this facility use at least one of these dose optimization techniques: automated exposure control; mA and/or kV adjustment per patient size (includes targeted exams where dose is matched to clinical indication); or iterative reconstruction. COMPARISON: CT head wo con* [id number] 05/11/2020 6:16 PM RADIATION DOSE METRICS: Total DLP (mGy-cm): 1035.38 FINDINGS: Brain: There is diffuse cerebral atrophy. Edwards-white matter differentiation is preserved. No edema, mass effect or midline shift. Periventricular and deep white matter hypodensities compatible with chronic microvascular ischemic changes. No acute intracranial hemorrhage. Cerebral ventricles: No ventriculomegaly. Paranasal sinuses: Visualized sinuses are unremarkable. No fluid levels. Mastoid air cells: No mastoid effusion. Bones/joints: No acute fracture. Soft tissues: Unremarkable. CT/CT head wo con* [id number] IMPRESSION: No acute intracranial abnormality.
--- NOTE | 2021-12-10 01:27 | CTR_ITS ---
PROCEDURE INFORMATION: Exam: CT Chest Without Contrast; Diagnostic Exam date and time: 12/10/2021 2:55 AM Age: 86 years old Clinical indication: Injury or trauma; Fall; Generalized; Blunt trauma (contusions or hematomas); Prior surgery; Surgery type: Pacemaker. Thr. Patient HX: Patient slipped and fell in the shower. No loc. C/O of focal pain to neck and low back. Not on anticoagulants. ; Additional info: Glf diffuse abdominal, and back tenderness from t1-l5 TECHNIQUE: Imaging protocol: Diagnostic computed tomography of the chest without contrast. Radiation optimization: All CT scans at this facility use at least one of these dose optimization techniques: automated exposure control; mA and/or kV adjustment per patient size (includes targeted exams where dose is matched to clinical indication); or iterative reconstruction. COMPARISON: CR (CHEST, ) 10/23/2021 9:58 AM RADIATION DOSE METRICS: Total DLP (mGy-cm): 755.98 FINDINGS: Tubes, catheters and devices: A left pacemaker device is present and its leads are in appropriate position. Lungs: There are mild bilateral dependent atelectatic changes of the lower lobes. There is no evidence of focal pulmonary consolidation. Pleural spaces: Unremarkable. No pneumothorax. No pleural effusion. Heart: There is severe atherosclerotic calcification of the coronary arteries. There are there are probable stents in the LAD and circumflex arteries. Esophagus: No focal wall thickening. Mediastinal space: There are no enlarged mediastinal lymph nodes or masses. Lymph nodes: No enlarged hilar lymph nodes. Vasculature: There is no thoracic aortic aneurysm. Liver: Normal in size and homogeneous density. Bones/joints: There is a mildly displaced fracture of the right clavicular head. There is superior subluxation of the right humeral head to a subacromial position as seen in rotator cuff tear. There is a right glenohumeral synovial effusion. There is degenerative changes of both shoulders. There is segmental ossification of the anterior longitudinal ligament consistent with benign diffuse idiopathic skeletal hyperostosis (DISH). There is diffuse osseous demineralization. There are mild chronic appearing superior endplate compression fractures at T3, T6 and T7. There is a moderate superior endplate compression fracture of T11. There has been and augmentation procedure at T12 for treatment of a moderate compression fracture. There is minimal retropulsion at this level. There is orthopedic cement in the intervertebral disc spaces at T8-T9 and T9-T10. Soft tissues: Unremarkable. PROCEDURE INFORMATION: Exam: CT Abdomen And Pelvis Without Contrast Exam date and time: 12/10/2021 2:55 AM Age: 86 years old Clinical indication: Injury or trauma; Fall; Generalized; Blunt trauma (contusions or hematomas); Prior surgery; Surgery type: Pacemaker. Thr. Patient HX: Patient slipped and fell in the shower. No loc. C/O of focal pain to neck and low back. Not on anticoagulants. ; Additional info: Glf diffuse abdominal, and back tenderness from t1-l5 TECHNIQUE: Imaging protocol: Computed tomography of the abdomen and pelvis without contrast. Radiation optimization: All CT scans at this facility use at least one of these dose optimization techniques: automated exposure control; mA and/or kV adjustment per patient size (includes targeted exams where dose is matched to clinical indication); or iterative reconstruction. COMPARISON: CT abdomen pelvis w con* [id number] 10/23/2021 12:00 PM RADIATION DOSE METRICS: Total DLP (mGy-cm): 755.98 FINDINGS: Lungs: The visualized lung ambrocio show mild bibasilar atelectasis. Liver: Normal size and homogeneous density. No liver mass is seen. There is no evidence of liver laceration or hematoma. Gallbladder and bile ducts: There is a large 17 mm laminated gallstone. No pericholecystic fluid. Pancreas: Normal size and homogeneous density. No ductal dilation. Spleen: Normal. No splenomegaly. There is no evidence of splenic laceration or hematoma. Adrenal glands: Normal. No mass. Kidneys and ureters: No evidence of hydronephrosis. No renal or obstructive ureteral calculi. There is no renal laceration or hematoma. No perirenal fluid collection is identified. Stomach and bowel: There is no evidence of small bowel or colonic obstruction. There is a surgical anastomosis in the rectosigmoid without significant stenosis or mass. There is moderate to large fecal burden in the rectosigmoid associated with wall thickening that may be secondary to stercoral proctocolitis Appendix: No evidence of appendicitis. Intraperitoneal space: No free air. No significant fluid collection. Vasculature: There is moderate atherosclerotic calcification of the abdominal aorta and its branches without aneurysm. There are no para-aortic fluid collections to suggest aortic injury or leakage. Lymph nodes: No enlarged retroperitoneal or mesenteric lymph nodes. Urinary bladder: The bladder shows a normal contour and is free of calcific opacities. Reproductive: Unremarkable as visualized. Bones/joints: Multiple chronic appearing compression fractures are noted at T12, L1, L2 and L3. The L2 and L3 fractures are severe. There has been augmentation procedure at T12 and L1. There is minimal retropulsion at T12, L1 and L2. At L3-L4, there is degenerative disc disease with vacuum disc, facet arthrosis and mild grade 1 anterolisthesis of L3 on L4. There has been a left hip arthroplasty that appears in near anatomic alignment. There is an old healed fracture of the right inferior pubic ramus. Soft tissues: There are bilateral inguinal hernias containing bowel without obstruction. Other findings: Evaluation is limited by the lack of intravenous contrast. CT/[place] [id number] IMPRESSION: 1. Severe atherosclerotic calcification of the coronary arteries with probable stents in the LAD and circumflex. 2. Acute or subacute, mildly displaced fracture of the right clavicular head. 3. No consolidation. 4. Multiple chronic appearing fractures of the thoracic spine and augmentation procedure at T12. IMPRESSION: 1. No evidence of acute injury to abdominopelvic organs. 2. Cholelithiasis. 3. Bilateral inguinal hernias containing bowel without obstruction. 4. Moderate to large fecal burden in the rectosigmoid and stercoral proctocolitis. 5. Multiple lumbar compression fractures and augmentation procedures at T12 and L1. 6. Mild grade 1 anterolisthesis of L3 on L4. 7. Discogenic and hypertrophic degenerative changes of the lumbar spine.
--- NOTE | 2021-12-10 01:27 | CTR_ITS ---
PROCEDURE INFORMATION: Exam: CT Cervical Spine Without Contrast Exam date and time: 12/10/2021 2:51 AM Age: 86 years old Clinical indication: Injury or trauma; Fall; Blunt trauma; Patient HX: Patient slipped and fell in the shower. No loc. C/O of focal pain to neck and low back. Not on anticoagulants. ; Additional info: Glf, tenderness ot palpation along c spine. TECHNIQUE: Imaging protocol: Computed tomography of the cervical spine without contrast. Radiation optimization: All CT scans at this facility use at least one of these dose optimization techniques: automated exposure control; mA and/or kV adjustment per patient size (includes targeted exams where dose is matched to clinical indication); or iterative reconstruction. COMPARISON: AK bone scan whole body* [id number] 02/17/2021 8:52 AM RADIATION DOSE METRICS: Total DLP (mGy-cm): 144.37 FINDINGS: Bones/joints: No acute cervical fracture. There is mild anterolisthesis of C2 on 3, likely degenerative. There is mild retrolisthesis of C3 on 4, likely degenerative. Discs/Spinal canal/Neural foramina: Multilevel degenerative discogenic changes including disc space narrowing, endplate spurring, osteophytes and facet hypertrophy. There is multilevel varying degrees neural foraminal and canal stenosis. Lungs: No pneumothorax. Soft tissues: Unremarkable. CT/CT cervical spin wo con* [id number] IMPRESSION: No acute cervical fracture.
[2021-12-10 01:34] LABS: Basophils # 0.1 10^3/uL (0.0-0.1); Basophils % 0.3 %; Eosinophils % 0.1 %; Hematocrit 30.3 % (37.0-47.0); Hemoglobin 9.6 g/dL (11.5-15.3); Lymphocytes # 0.5 10^3/uL (0.8-4.8); Lymphocytes % 2.1 %; Mean Corpuscular HGB Conc 31.7 g/dL (30.0-36.0); Mean Corpuscular Hemoglobin 27.2 pg (28.0-34.0); Mean Corpuscular Volume 85.8 fl (81-99); Monocytes # 0.2 10^3/uL (0.2-0.9); Monocytes % 0.8 %; Neutrophils # 21.33 10^3/uL (1.8-7.7); Neutrophils % 95.2 %; Nucleated Red Blood Cells % 0.1 %; Platelet Count 470 10^3/cmm (130-400); Red Blood Count 3.53 10^6/uL (4.1-5.3); White Blood Count 22.4 10^3/uL (4.0-10.0)
[2021-12-10 01:48] LABS: Alanine Aminotransferase 8 U/L (0-33); Albumin Level 2.9 g/dL (3.5-5.2); Alkaline Phosphatase 90 IU/L (35-105); Anion Gap 21.3 (5-19); Aspartate Amino Transferase 14 U/L (0-32); Blood Urea Nitrogen 47 mg/dL (8-23); Calcium 8.7 mg/dL (8.5-10.5); Carbon Dioxide 21 mmol/L (22-29); Chloride 95 mmol/L (98-107); Globulin 3.4 g/dL (1.3-4.6); Glucose 80 mg/dL (65-115); Osmolality Calculated 289 mOsm/kg (285-295); Potassium 3.3 mmol/L (3.5-5.1); Sodium 134 mmol/L (136-145); Total Bilirubin 0.3 mg/dL (0.15-1.2); Total Protein 6.3 g/dL (6.6-8.7)
[2021-12-10 02:13] LABS: Add Urine Culture? No; Add Urine Microscopic? YES; Bacteria Urine 4+ /hpf; Bilirubin Urine Neg (Negative); Blood Urine 3+ (Negative); Glucose Urine UA Norm (Normal); Ketones Urine Negative (Negative); Leukocyte Esterase Urine 2+ (Negative); Mucus Urine 1+ /hpf; Nitrate Urine Negative (Negative); Protein Urine 3+ (Negative); Squamous Epithelial Cell Urine 25-40 /hpf (0-5); Urine Appearance Cloudy (CLEAR); Urine Color Yellow (Yellow); Urobilinogen Urine Norm (Negative); WBC Urine TOO NUMEROUS TO CNT /hpf (0-5); pH Urine 5 (5-7)
[2021-12-10] MEDS: cefTRIAXone 2,000 MG in sodium chloride 0.9% (plus) 50 ML 100 MG IV (03:14)
--- NOTE | 2021-12-10 04:00 | PC.NURSE ---
patient incontinent of brown liquid stool. total bed linen change with gown change completed, partial bed bath with master care given. tolerated well. daughter in law and patient given update on plan of care.
--- NOTE | 2021-12-10 04:26 | PC.NURSE ---
dr brennan notified that patient meets several sepsis/urosepsis criteria, no new orders received.
--- NOTE | 2021-12-10 04:37 | PC.NURSE ---
dr brennan aware of patient status and vital signs, no new orders received.
--- NOTE | 2021-12-10 04:45 | PC.NURSE ---
warehouse distribution manager notified of patient status, vss, and lab results.
--- NOTE | 2021-12-10 05:05 | PC.NURSE ---
loud child like noises coming from patient room. entered to check on patient. patient in bed picking at air, visually hallucinating, repeating noises, mumbling incoherent noises, daughter in law at bedside states man all the sudden she just went looney toons . MD aware of patient changes.
--- NOTE | 2021-12-10 05:45 | ECG_ITS ---
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 Measurements Intervals Odin Rate: 101 P: 63 SD: 132 QRS: 258 QRSD: 183 T: 78 QT: 433 QTc: 562 Interpretive Statements A sensed V paced rhythm. Compared to ECG 12/10/2021 01:20:10 Atrial-paced complex(es) or rhythm no longer present Electronically Signed On 12-10-2021 12:51:34 CDT by Martha Hayes M.D. [id number]
[2021-12-10] MEDS: sodium chloride 0.9% 1,000 ML 999 ML IV ×2 (05:54→06:49)
[2021-12-10 06:07] LABS: Lactate (Lactic Acid level) 1.5 mmol/L (0.5-2.2)
--- NOTE | 2021-12-10 06:41 | PC.NURSE ---
lactic acid redrawn via venipuncture to confirm results and taken to lab on ice.
--- NOTE | 2021-12-10 06:45 | PC.NURSE ---
spoke with dr mustafa about patient status, labs, vital signs, deterioration in health, and concerns for severe sepsis and septic shock. new orders recieved.
--- NOTE | 2021-12-10 06:56 | PC.NURSE ---
lab at bedside to collect blood cultures.
[2021-12-10 07:01] LABS: Lactic Sepsis W/Reflex 1.1 mmol/L (0.5-2.2)
--- NOTE | 2021-12-10 07:20 | PC.NURSE ---
report given to oncoming nurse.
--- NOTE | 2021-12-10 08:00 | PC.NURSE ---
Patient resting quietly with eyes closed, daughter in law at bedside.
--- NOTE | 2021-12-10 08:37 | PC.PHAR ---
pts family verified the pts medications-pts family states the pt hasnt taken her vitamins and otc medications since sat 12/04/21
--- NOTE | 2021-12-10 09:01 | PM.HP ---
Providers/Chief Complaint Admitting Physician: Sherif Steen MD Primary Care Provider: MILAGROS Frias Chief Complaint: FALL History of Present Illness Colleen Benitez is a 86 year old female who presents to the emergency department with history of fall. [id number]-[id number] is present and supplements her history. Patient currently is confused, but realizes she fell at some point. Jzhhdjbx-[id number] reports she was found in the bathroom. It appeared she had gone to the bathroom, went back in and may be been confused with the toilet was. Her depends was down and there was a lot of diarrheal stool. She reports the last Several days she had had some chills at night. She had visited her primary care provider at 1 point and got some Bactrim for a sore on her leg. She had only taken 1 dose of that prior to presentation. Confusion was not evident until this morning. No documented fevers. She had not been eating and drinking as well lately. She had recently been at the hospital in November 18 for sigmoid colectomy secondary to diverticulitis and primary anastomosis. She had had issues with a colorectal fistula which was solved with the surgery as well. She had been discharged to a [facility] but going home within 7 days of this presentation. She had some vomiting the day prior to illness. History is difficult as patient is currently confused with encephalopathy. Review of Systems General: Reports: ROS unobtainable due to mental status (Patient with encephalopathy. Some history reviewed with [id number] as) Medications/Allergies Home Medications Medication Instructions Recorded Confirmed Last Taken Type acetaminophen 500 mg tablet 500 mg PO Q4H PRN Pain 05/23/19 12/10/21 1 Day Ago History (Tylenol Extra Strength) ~03/11/21 calcium citrate 315 mg-vitamin D3 1 tab PO DAILY 05/23/19 12/10/21 12/04/21 History 5 mcg (200 unit) tablet (Calcium Citrate + D) cholecalciferol (vitamin D3) 50 2,000 unit PO DAILY 05/23/19 12/10/21 12/04/21 History mcg (2,000 unit) tablet vitamin B complex (B 1 tab PO DAILY 05/23/19 12/10/21 12/04/21 History Complex-Vitamin B12) metoprolol tartrate 25 mg tablet 12.5 mg PO Q12H 05/11/20 12/10/21 12/09/21 History tramadol 50 mg tablet 50 mg PO Q6H PRN Pain 03/11/21 12/10/21 10/23/21 History diclofenac sodium 25 mg 25 mg PO BID 09/20/21 12/10/21 12/09/21 History tablet,delayed release hydrochlorothiazide 12.5 mg tablet 12.5 mg PO QAM 12/10/21 12/10/21 12/09/21 History loratadine 10 mg tablet (Claritin) 10 mg PO DAILY 12/10/21 12/10/21 12/04/21 History magnesium oxide 400 mg PO DAILY 12/10/21 12/10/21 12/04/21 History omeprazole 10 mg capsule,delayed 10 mg PO QAM 12/10/21 12/10/21 12/09/21 History release ondansetron HCl 4 mg tablet 4 mg PO TID PRN Nausea And Vomiting 12/10/21 12/10/21 Unknown History sulfamethoxazole 800 1 tab PO BID 12/10/21 12/10/21 12/09/21 History mg-trimethoprim 160 mg tablet Allergies Allergy/AdvReac Type Severity Reaction Status Date / Time meloxicam Allergy Unknown Unknown Verified 12/10/21 08:24 prednisone Allergy Unknown Unknown Verified 12/10/21 08:24 triamcinolone [From Kenalog] Allergy Unknown Unknown Verified 12/10/21 08:24 PFSH Acute PFSH: Medical History 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 Placed by Donita 02/2019 HTN (hypertension) Lumbar compression fracture Mobitz type 2 second degree atrioventricular block Osteoarthritis 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) Subcapital fracture of left hip Thoracic compression fracture 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 Surgical History (Updated 12/10/21 @ 09:04 by Sherif Steen MD) History of bilateral cataract extraction History of colectomy History of hemiarthroplasty of left hip History of pacemaker S/P knee replacement rig Family History Daughter Pacemaker Father Tetanus from tetanus Denies family history of Anesthesia complication Bleeding disorder Social History Smoking and tobacco status: never smoked Alcohol intake: never Caregiver/support person: No Lives independently: Yes Housing: Apartment Vitals/I&O/Wt Last Vital Signs Temp 98.5 F 12/10/21 04:32 Pulse 94 12/10/21 08:45 Resp 32 H 12/10/21 05:55 BP 100/48 12/10/21 08:45 Pulse Ox 93 12/10/21 08:45 O2 Del Method 12/10/21 08:05 O2 Flow Rate 2 12/10/21 08:05 12/09/21 12/10/21 12/10/21 22:59 06:59 14:59 Intake Total 1050 / 1050 Balance 1050 / 1050 Weight last 48 hrs Weight 58.967 kg Physical Exam Narrative: General exam is a confused white female, who can answer a few limited questions but quickly falls asleep. She was hypotensive in the emergency department. HEENT: Pupils equally round. Oropharynx clear. Neck is supple no lymphadenopathy thyromegaly Cardiovascular regular rate and rhythm, no murmur Lungs clear no wheezing or crackles. She does not appear tachypneic currently. Abdomen is soft with positive bowel sounds. No obvious organomegaly. Scar lower abdomen with no evidence of drainage, or erythema exam is deferred Extremities show no cyanosis clubbing. Trace edema bilaterally. Small skin ulcer left lateral leg without evidence of infection Skin see findings above Neuro no obvious focal deficits Sepsis: Is patient septic: Yes Focused sepsis exam performed: Yes Date exam was performed: 12/10/21 Time exam was performed: 09:14 Data : 12/10/21 01:00 12/10/21 01:00 Other Labs: EKG demonstrates a ventricularly paced rhythm CT head, CT chest abdomen and pelvis demonstrated no acute findings other than a right clavicle fracture. Constipation is also noted. There was no evidence of urinary obstruction C-spine CT is negative Patient had iron studies, TSH previous hospital stay Albumin 2.9 LFTs normal Calcium 8.7 Urinalysis 5-10 reds, too numerous to count whites Blood cultures were obtained but after Rocephin In the emergency department a sepsis bolus was initiated for the patient of fluids, a C. difficile ordered, Rocephin given Micro: Microbiology 12/10/21 06:58 Blood Culture - Preliminary Blood SPECIMEN COLLECTED 12/10/21 06:53 Blood Culture - Preliminary Blood SPECIMEN COLLECTED A&P Assessment and plan (1) Sepsis: Patient with sepsis, upon presentation to the emergency department with hypotension Cultures were obtained after antibiotics started Continue Rocephin 1 g IV every 12 hours. No history of ESBL Urine culture, blood culture has not been obtained Patient has received orders for fluid bolus for sepsis from the emergency department. Continue maintenance fluids afterwards, monitoring for any fluid overload. Status: Acute (2) Hypotension: See above Hopefully hypotension will correct with fluid bolus. If not norepinephrine will be initiated. Status: Acute (3) Acute UTI: Rocephin is noted Urine culture obtained but after Rocephin was given No evidence of obstruction on CT Status: Acute (4) Acute kidney injury: Evidence of endorgan dysfunction with sepsis with acute kidney injury. Avoid anti-inflammatories, renal toxic medication Increase blood pressure Status: Acute (5) Hypokalemia: Supplement IV Status: Acute (6) Acute metabolic encephalopathy: Monitor closely for improvement. Note that patient CT head demonstrates no acute changes. Status: Acute (7) Anemia: Previously worked up. Mild iron deficiency anemia. Appears chronic. I did not repeat her iron B12 and folate studies. Status: Acute (8) Fall: Fall noted this morning. As she has pacemaker we will do pacemaker investigation. I suspect this was related to her sepsis however. Had CTs of multiple areas of her body. Appears to have a new right clavicle fracture. Status: Acute Plan History of pacemaker Multiple other medical problems as outlined in past medical history Allow natural Heparin subcu for DVT prophylaxis Attestations Medical Necessity Statement*: Will need greater than 2 midnight stay for evaluation and treatment of sepsis. Critical Care Time: 62The high probability of a clinically significant, sudden or life threatening deterioration of the patient's [renal, neurologic, infectious disease, cardiovascular] system(s) required my full and direct attention, intervention and personal management. The critical care time is as shown. This time is in addition to time spent performing any reported procedures but includes the following: [x] Data and vital sign review and interpretation [x] Patient assessment, examination and intervention [x] Documentation [x] Medication orders and management Coding Level of Care Code Acute Director Of Direct Marketing for [facility] Geovani Diagnoses Sepsis A41.9 Hypotension I95.9 Acute UTI N39.0 Acute kidney injury N17.9 Hypokalemia E87.6 Acute metabolic encephalopathy G93.41 Anemia D64.9 Fall W19.XXXA
--- NOTE | 2021-12-10 09:20 | PC.NURSE ---
Patient resting quietly daughter in law at bedside. Attempted to give report, nurse unavailable.
[2021-12-10 09:35] LABS: Magnesium 1.5 mg/dL (1.7-2.3)
--- NOTE | 2021-12-10 09:54 | PC.NURSE ---
Attempted to call report to ICU, nurse unavailable will call back
--- NOTE | 2021-12-10 10:33 | PC.NURSE ---
Report called AUGUST Rodríguez
[2021-12-10] MEDS: sodium chloride 0.9% 1,000 ML 150 ML IV (11:38)
[2021-12-10] MEDS: famotidine 20 mg/2 mL INJ IVP ×2 (11:38→22:40)
[2021-12-10] MEDS: heparin 5,000 unit/mL INJ 1 mL 5000 UNIT SUBCUT ×2 (11:38→22:40)
[2021-12-10] MEDS: dextrose 5%-sod chloride 0.9% 1,000 ML 75 ML IV (12:45)
[2021-12-10] MEDS: TRAMadol 50 mg Tablet PO ×2 (13:38→21:55)
[2021-12-10] MEDS: magnesium sulfate premix 2 GM/50 ML PIGGYBACK IV (14:41)
[2021-12-10] MEDS: sodium chloride 0.9% 1,000 ML 100 ML IV ×2 (15:14→23:53)
[2021-12-10] MEDS: cefTRIAXone 1,000 MG in sodium chloride 0.9% (plus) 50 ML 100 MG IV (15:14)
[2021-12-10] MEDS: mupirocin oint 22 gm 1 APPLIC TOPICAL (17:28)
[2021-12-10] MEDS: acetaminophen 325 mg Tablet 650 MG PO (17:41)
--- NOTE | 2021-12-10 18:46 | PC.NURSE ---
Bedside report completed with AUGUST Smith. Patient and patient family had no questions.
[2021-12-10] MEDS: lidocaine 5% Patch 1 PATCH TOPICAL (19:25)
[2021-12-10] MEDS: morphine 4 mg/mL SDV 1 mL 1 MG IVP ×2 (19:25→20:56)
[2021-12-10] MEDS: HYDROcodone-acetaminophen 5-325 mg Tablet 1 TAB PO (23:18)
[2021-12-11] VITALS (79 sets, daily range): BP systolic 83–152; BP diastolic 39–84; PULSE 88–152; RESP 13–33; TEMP 36.6–36.7; O2SAT 95–100; BMI 24.8
[2021-12-11] MEDS: morphine 4 mg/mL SDV 1 mL 1 MG IVP ×3 (00:01→06:17)
[2021-12-11] MEDS: morphine 4 mg/mL SDV 1 mL 2 MG IVP (01:33)
[2021-12-11] MEDS: cefTRIAXone 1,000 MG in sodium chloride 0.9% (plus) 50 ML 100 MG IV ×2 (02:39→14:04)
[2021-12-11 06:24] LABS: Basophils # 0.2 10^3/uL (0.0-0.1); Basophils % 0.6 %; Eosinophils # 1.1 10^3/uL (0.0-0.8); Eosinophils % 4.1 %; Hematocrit 24.9 % (37.0-47.0); Hemoglobin 8.2 g/dL (11.5-15.3); Lymphocytes # 1.5 10^3/uL (0.8-4.8); Lymphocytes % 5.3 %; Mean Corpuscular HGB Conc 32.9 g/dL (30.0-36.0); Mean Corpuscular Hemoglobin 26.5 pg (28.0-34.0); Mean Corpuscular Volume 80.3 fl (81-99); Mean Platelet Volume 9.6 fL (7.4-10.4); Monocytes # 0.4 10^3/uL (0.2-0.9); Monocytes % 1.3 %; Neutrophils # 24.15 10^3/uL (1.8-7.7); Neutrophils % 87.6 %; Nucleated Red Blood Cells % 0 %; Platelet Count 362 10^3/cmm (130-400); Red Cell Distribution Width 14.8 % (12.1-15.1); White Blood Count 27.6 10^3/uL (4.0-10.0)
[2021-12-11 06:58] LABS: Alanine Aminotransferase 22 U/L (0-33); Alkaline Phosphatase 85 IU/L (35-105); Anion Gap 17.2 (5-19); Aspartate Amino Transferase 43 U/L (0-32); Blood Urea Nitrogen 53 mg/dL (8-23); Calcium 7.6 mg/dL (8.5-10.5); Carbon Dioxide 18 mmol/L (22-29); Chloride 104 mmol/L (98-107); Glucose 122 mg/dL (65-115); Magnesium 1.9 mg/dL (1.7-2.3); Osmolality Calculated 296 mOsm/kg (285-295); Potassium 4.2 mmol/L (3.5-5.1); Sodium 135 mmol/L (136-145); Total Bilirubin 0.2 mg/dL (0.15-1.2)
[2021-12-11] MEDS: TRAMadol 50 mg Tablet PO ×2 (07:21→21:41)
--- NOTE | 2021-12-11 07:26 | PC.NURSE ---
Bedside report completed with AUGUST Smith. Patient had no questions.
[2021-12-11] MEDS: mupirocin oint 22 gm 1 APPLIC TOPICAL ×2 (09:40→18:15)
[2021-12-11] MEDS: sodium chloride 0.9% 500 ML IV ×2 (09:46→11:15)
--- NOTE | 2021-12-11 10:02 | PC.NURSE ---
Patient confused and not easily redirected. Patient family, Shirin, at bedside and is helping to calm and redirect patient. Bed alarm set and staff notified. Dr. Milner aware of patient confusion. Verbal orders for 500 bolus of NS over 1 hour received and followed.
[2021-12-11] MEDS: heparin 5,000 unit/mL INJ 1 mL 5000 UNIT SUBCUT ×2 (11:16→22:37)
[2021-12-11] MEDS: famotidine 20 mg/2 mL INJ IVP ×2 (11:16→22:44)
[2021-12-11] MEDS: sodium chloride 0.9% 1,000 ML 100 ML IV (12:21)
--- NOTE | 2021-12-11 13:47 | PM.PN ---
Subjective Subjective: Patient was seen and examined this morning, BUN/SCR has gone up, on minimum of levophed, has been afebrile. Medications: Medication Review Details: Generic Name Dose Route Start Last Admin Trade Name Frerosemarie PRN Reason Stop Dose Admin Acetaminophen 650 mg 12/10/21 11:02 12/10/21 17:41 Acetaminophen 32 5 Mg Tablet PO 650 mg Q6H PRN Administration MILD PAIN Famotidine 20 mg 12/10/21 11:02 12/11/21 11:16 Famotidine 20 Mg /2 Ml Inj IVP 20 mg Q12H SHU Administration Heparin Sodium (Po rcine) 5,000 unit 12/10/21 11:02 12/11/21 11:16 Heparin 5,000 Un it/Ml Inj 1 Ml SUBCUT 5,000 unit Q12H SHU Administration Ceftriaxone Sodium 1,000 mg/ 50 mls @ 100 mls/ hr 12/10/21 15:00 12/11/21 02:59 Sodium Chloride IV Infused Q12H SHU Infusion Protocol Norepinephrine Bit artrate 4 mg 254 mls @ 0 mls/h r 12/10/21 11:30 12/11/21 10:55 / Dextrose IV 0 mcg/min .Q0M SHU 0 mls/hr Titration Protocol Per Protocol Sodium Chloride 1,000 mls @ 100 m ls/hr 12/10/21 14:45 12/11/21 12:21 Sodium Chloride 0.9% IV 100 mls/hr .Q10H SHU Administration Morphine Sulfate 1 mg 12/10/21 20:45 12/11/21 06:17 Morphine 4 Mg/Ml Sdv 1 Ml IVP 1 mg Q4H PRN Administration SEVERE PAIN Mupirocin 1 applic 12/10/21 18:00 12/11/21 09:40 Mupirocin Oint 2 2 Gm TOPICAL 1 applic BID SHU Administration Tramadol HCl 50 mg 12/10/21 13:06 12/11/21 07:21 Tramadol 50 Mg T ablet PO 50 mg Q6H PRN Administration MODERATE PAIN Vitals/I&O/Wt Last Vital Signs Temp 98.0 F 12/11/21 10:00 Pulse 100 12/11/21 12:30 Resp 15 12/11/21 12:30 BP 131/78 12/11/21 12:30 Pulse Ox 100 12/11/21 12:30 O2 Del Method 12/11/21 12:30 O2 Flow Rate 2 12/10/21 17:47 12/10/21 12/11/21 12/11/21 22:59 06:59 14:59 Intake Total 414.710 / 2095.592 1024.537 / 3120.129 2400.674 / 2400.674 Output Total 200 / 200 200 / 400 1000 / 1000 Balance 214.710 / 1895.592 824.537 / 2720.129 1400.674 / 1400.674 Weight last 48 hrs Weight 69.853 kg Weight 58.967 kg Weight 58.967 kg Physical Exam Resp: COMMON NORMALS: normal respiratory effort, No retractions, No use of accessory muscles and clear to auscultation bilaterally EFFORT & INSPECTION: Yes symmetric chest movement AUSCULTATION: clear to auscultation bilaterally Cardio: COMMON NORMALS: regular rate, regular rhythm, S1 normal heart sound present, S2 normal heart sound present, No gallops present (Cardio), No murmurs present (Cardio), No rub (Cardio) and Peripheral pulses 2+ throughout RATE: regular rate RHYTHM: regular rhythm HEART SOUNDS: S1 normal heart sound present and S2 normal heart sound present PERIPHERAL PULSES: Peripheral pulses 2+ throughout GI: COMMON NORMALS: Normal to inspection, nondistended, normoactive bowel sounds present, Soft to palpation, non-tender, No hepatosplenomegaly present and no masses AUSCULTATION: Yes normoactive bowel sounds PALPATION: Yes Soft to palpation and Yes No hepatosplenomegaly present RECTAL EXAM: deferred Extremity: COMMON NORMALS: no clubbing, cyanosis or edema and no pedal edema Urinary Catheter Management: Omer: Cath Placed During This Visit: yes Reason for Continuing Indwelling Catheter: Accurate Measurement of Urinary Output in Critically Ill Patients Urinary Catheter Date of Insertion: 12/10/21 Urinary Catheter Time of Insertion: 15:01 Data : 12/12/21 08:40 12/12/21 08:40 Micro: Microbiology 12/10/21 01:00 Urine Culture - Preliminary Urine Catheterized Gram Negative Rods 12/10/21 06:58 Blood Culture - Preliminary Blood NEGATIVE TO DATE 12/10/21 06:53 Blood Culture - Preliminary Blood NEGATIVE TO DATE A&P Assessment and plan (1) Sepsis: Patient with sepsis, upon presentation to the emergency department with hypotension Cultures were obtained after antibiotics started Continue Rocephin 1 g IV every 12 hours. No history of ESBL Urine culture, blood culture has not been obtained Patient has received orders for fluid bolus for sepsis from the emergency department. Continue maintenance fluids afterwards, monitoring for any fluid overload. Status: Acute (2) Hypotension: See above Hopefully hypotension will correct with fluid bolus. If not norepinephrine will be initiated. Status: Acute (3) Acute UTI: Rocephin is noted Urine culture obtained but after Rocephin was given No evidence of obstruction on CT Status: Acute (4) Acute kidney injury: Evidence of endorgan dysfunction with sepsis with acute kidney injury. Avoid anti-inflammatories, renal toxic medication Increase blood pressure Status: Acute (5) Hypokalemia: Supplement IV Status: Acute (6) Acute metabolic encephalopathy: Monitor closely for improvement. Note that patient CT head demonstrates no acute changes. Status: Acute (7) Anemia: Previously worked up. Mild iron deficiency anemia. Appears chronic. I did not repeat her iron B12 and folate studies. Status: Acute (8) Fall: Fall noted this morning. As she has pacemaker we will do pacemaker investigation. I suspect this was related to her sepsis however. Had CTs of multiple areas of her body. Appears to have a new right clavicle fracture. Status: Acute Plan History of pacemaker Multiple other medical problems as outlined in past medical history Allow natural Heparin subcu for DVT prophylaxis Attestations Medical Necessity Statement*: Patient needs to be in hospital for the management of sepsis. Time Spent in Patient Care: Greater than 35 minutes (>than 50% of time spent in counselling and/or direct pt care on unit). Critical Care Time: The high probability of a clinically significant, sudden or life threatening deterioration of the patient's [] system(s) required my full and direct attention, intervention and personal management. The critical care time is as shown. This time is in addition to time spent performing any reported procedures but includes the following: [x] Data and vital sign review and interpretation [x] Patient assessment, examination and intervention [x] Documentation [x] Medication orders and management Critical Care Time (min): 30 Coding Level of Care Code Acute Business Analysis Analyst for Chg Fwd Exam Expanded Problem Focused Diagnoses Sepsis A41.9 Hypotension I95.9 Acute UTI N39.0 Acute kidney injury N17.9 Hypokalemia E87.6 Acute metabolic encephalopathy G93.41 Anemia D64.9 Fall W19.XXXA
[2021-12-12] VITALS (46 sets, daily range): BP systolic 100–173; BP diastolic 64–104; PULSE 59–128; RESP 13–29; TEMP 36.7–37.1; O2SAT 88–99; BMI 24.8
[2021-12-12] MEDS: morphine 4 mg/mL SDV 1 mL 1 MG IVP (00:21)
[2021-12-12] MEDS: sodium chloride 0.9% 1,000 ML 100 ML IV (01:21)
[2021-12-12] MEDS: cefTRIAXone 1,000 MG in sodium chloride 0.9% (plus) 50 ML 100 MG IV ×2 (02:23→14:16)
--- NOTE | 2021-12-12 06:04 | ECG_ITS ---
[facility] Test Date: 2021-12-12 Pat Name: Colleen Benitez Department: Room: 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 Measurements Intervals [place] Rate: 117 P: 64 TN: 242 QRS: 251 QRSD: 177 T: 64 QT: 386 QTc: 539 Interpretive Statements ELECTRONIC VENTRICULAR PACEMAKER-A sensed V pacing ABNORMAL RHYTHM ECG Compared to ECG 12/10/2021 05:51:54 No significant changes Electronically Signed On 12-12-2021 19:04:04 CDT by Jonathan Toribio M.D. [id number]
[2021-12-12 08:51] LABS: Basophils % 0.2 %; Eosinophils # 0.4 10^3/uL (0.0-0.8); Eosinophils % 3.6 %; Hematocrit 29.9 % (37.0-47.0); Hemoglobin 9.4 g/dL (11.5-15.3); Lymphocytes # 2.2 10^3/uL (0.8-4.8); Lymphocytes % 18.1 %; Mean Corpuscular HGB Conc 31.4 g/dL (30.0-36.0); Mean Corpuscular Hemoglobin 26.6 pg (28.0-34.0); Mean Corpuscular Volume 84.5 fl (81-99); Mean Platelet Volume 9.5 fL (7.4-10.4); Monocytes # 0.5 10^3/uL (0.2-0.9); Monocytes % 3.9 %; Neutrophils # 8.84 10^3/uL (1.8-7.7); Neutrophils % 73.2 %; Nucleated Red Blood Cells % 0 %; Platelet Count 345 10^3/cmm (130-400); Red Blood Count 3.54 10^6/uL (4.1-5.3); White Blood Count 12.1 10^3/uL (4.0-10.0)
[2021-12-12 09:21] LABS: Alanine Aminotransferase 25 U/L (0-33); Albumin Level 2.6 g/dL (3.5-5.2); Alkaline Phosphatase 69 IU/L (35-105); Anion Gap 15.1 (5-19); Aspartate Amino Transferase 28 U/L (0-32); Blood Urea Nitrogen 37 mg/dL (8-23); Calcium 8.4 mg/dL (8.5-10.5); Carbon Dioxide 21 mmol/L (22-29); Chloride 105 mmol/L (98-107); Globulin 3.4 g/dL (1.3-4.6); Glucose 99 mg/dL (65-115); Osmolality Calculated 293 mOsm/kg (285-295); Potassium 4.1 mmol/L (3.5-5.1); Sodium 137 mmol/L (136-145); Total Bilirubin 0.2 mg/dL (0.15-1.2)
--- NOTE | 2021-12-12 09:42 | PC.NURSE ---
very restless and agitated with confusion noted wanting to go home but we are holding her in long term . family here and she angry with them also.
--- NOTE | 2021-12-12 10:39 | PC.NURSE ---
up to [facility] with assist of 2 staff very weak and unstable on feet
[2021-12-12] MEDS: famotidine 20 mg/2 mL INJ IVP (11:15)
[2021-12-12] MEDS: heparin 5,000 unit/mL INJ 1 mL 5000 UNIT SUBCUT ×2 (11:15→22:13)
[2021-12-12] MEDS: sodium chloride 0.9% 1,000 ML 75 ML IV (12:45)
[2021-12-12] MEDS: LORazepam 1 mg Tablet PO (14:41)
--- NOTE | 2021-12-12 14:42 | PC.NURSE ---
pt restless and agitated daughter at bedside doctor called
--- NOTE | 2021-12-12 15:13 | PM.PN ---
Subjective Subjective: Patient was seen and examined this morning has significant confusion as well as sinus tachycardia. EKG has shown A-Sensed and V-Paced, BUN/SCR has improved, good urine output. Afebrile has manintained a decent MAP. Medications: Medication Review Details: Generic Name Dose Route Start Last Admin Trade Name Freq PRN Reason Stop Dose Admin Acetaminophen 650 mg 12/10/21 11:02 12/10/21 17:41 Acetaminophen 32 5 Mg Tablet PO 650 mg Q6H PRN Administration MILD PAIN Heparin Sodium (Po rcine) 5,000 unit 12/10/21 11:02 12/12/21 11:15 Heparin 5,000 Un it/Ml Inj 1 Ml SUBCUT 5,000 unit Q12H SHU Administration Ceftriaxone Sodium 1,000 mg/ 50 mls @ 100 mls/ hr 12/10/21 15:00 12/12/21 14:55 Sodium Chloride IV Infused Q12H SHU Infusion Protocol Sodium Chloride 1,000 mls @ 75 ml s/hr 12/12/21 12:15 12/12/21 12:45 Sodium Chloride 0.9% IV 75 mls/hr .[id number] SHU Administration Morphine Sulfate 1 mg 12/10/21 20:45 12/12/21 00:21 Morphine 4 Mg/Ml Sdv 1 Ml IVP 1 mg Q4H PRN Administration SEVERE PAIN Mupirocin 1 applic 12/10/21 18:00 12/12/21 09:26 Mupirocin Oint 2 2 Gm TOPICAL Not Given BID SHU Tramadol HCl 50 mg 12/10/21 13:06 12/11/21 21:41 Tramadol 50 Mg T ablet PO 50 mg Q6H PRN Administration MODERATE PAIN Vitals/I&O/Wt Last Vital Signs Temp 98.7 F 12/12/21 14:00 Pulse 106 H 12/12/21 14:00 Resp 22 H 12/12/21 14:00 BP 137/82 12/12/21 14:00 Pulse Ox 88 L 12/12/21 14:00 O2 Del Method 12/11/21 15:17 O2 Flow Rate 2 12/11/21 20:00 12/12/21 12/12/21 12/12/21 06:59 14:59 22:59 Intake Total 1050 / 3700.674 450 / 450 Output Total 1100 / 2880 Balance -50 / 820.674 450 / 450 Weight last 48 hrs Weight 69.853 kg Weight 69.853 kg Physical Exam Resp: COMMON NORMALS: normal respiratory effort, No retractions, No use of accessory muscles and clear to auscultation bilaterally EFFORT & INSPECTION: Yes symmetric chest movement AUSCULTATION: clear to auscultation bilaterally Cardio: COMMON NORMALS: regular rate, regular rhythm, S1 normal heart sound present, S2 normal heart sound present, No gallops present (Cardio), No murmurs present (Cardio), No rub (Cardio) and Peripheral pulses 2+ throughout RATE: regular rate RHYTHM: regular rhythm HEART SOUNDS: S1 normal heart sound present and S2 normal heart sound present PERIPHERAL PULSES: Peripheral pulses 2+ throughout GI: COMMON NORMALS: Normal to inspection, nondistended, normoactive bowel sounds present, Soft to palpation, non-tender, No hepatosplenomegaly present and no masses AUSCULTATION: Yes normoactive bowel sounds PALPATION: Yes Soft to palpation and Yes No hepatosplenomegaly present RECTAL EXAM: deferred Extremity: COMMON NORMALS: no clubbing, cyanosis or edema and no pedal edema Urinary Catheter Management: Omer: Cath Placed During This Visit: yes Reason for Continuing Indwelling Catheter: Accurate Measurement of Urinary Output in Critically Ill Patients Urinary Catheter Date of Insertion: 12/10/21 Urinary Catheter Time of Insertion: 15:01 Data : 12/12/21 08:40 12/12/21 08:40 Micro: Microbiology 12/10/21 01:00 Urine Culture - Final Urine Catheterized Escherichia coli esbl 12/10/21 18:00 C.difficile Toxin B Gene (PCR) - Final Stool - Stool Aspirate A&P Assessment and plan (1) Sepsis: Patient with sepsis, upon presentation to the emergency department with hypotension Cultures were obtained after antibiotics started Continue Rocephin 1 g IV every 12 hours. No history of ESBL Urine culture, blood culture has not been obtained Patient has received orders for fluid bolus for sepsis from the emergency department. Continue maintenance fluids afterwards, monitoring for any fluid overload. Status: Acute (2) Hypotension: See above Hopefully hypotension will correct with fluid bolus. If not norepinephrine will be initiated. Status: Acute (3) Acute UTI: Rocephin is noted Urine culture obtained but after Rocephin was given No evidence of obstruction on CT Status: Acute (4) Acute kidney injury: Evidence of endorgan dysfunction with sepsis with acute kidney injury. Avoid anti-inflammatories, renal toxic medication Increase blood pressure Status: Acute (5) Hypokalemia: Supplement IV Status: Acute (6) Acute metabolic encephalopathy: Monitor closely for improvement. Note that patient CT head demonstrates no acute changes. Status: Acute (7) Anemia: Previously worked up. Mild iron deficiency anemia. Appears chronic. I did not repeat her iron B12 and folate studies. Status: Acute (8) Fall: Fall noted this morning. As she has pacemaker we will do pacemaker investigation. I suspect this was related to her sepsis however. Had CTs of multiple areas of her body. Appears to have a new right clavicle fracture. 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 Currently she is being managed for Assessment : Sepsis 2/2 UTI Ac Metabolic Encephalopathy UTI NIDA HTN S/P pacemaker DISH # Rt Clavicle Plan : CT head wo con: No acute intracranial abnormality. CT chest abdpel wo : No evidence of acute injury to abdominopelvic organs. CT cervical spin wo con: No acute cervical fracture. Blood Culture :NTD Urine Culture : ESBL E.Coli C.Diff:PCR : Negative Pacemaker Interrogation : Initially on Rocephin has been Swtiched to Primaxin,Patient will need 2 weeks I.V Abxs on discharge. Continue I.V Hydration. Monitor BMP Monitor Intake /output Avoid Nephrotoxics. Sling in place Allow natural Heparin subcu for DVT prophylaxis Attestations Medical Necessity Statement*: Patient needs to be in hospital for the management of sepsis. Time Spent in Patient Care: Greater than 35 minutes (>than 50% of time spent in counselling and/or direct pt care on unit). Critical Care Time: The high probability of a clinically significant, sudden or life threatening deterioration of the patient's [] system(s) required my full and direct attention, intervention and personal management. The critical care time is as shown. This time is in addition to time spent performing any reported procedures but includes the following: [x] Data and vital sign review and interpretation [x] Patient assessment, examination and intervention [x] Documentation [x] Medication orders and management Critical Care Time (min): 30 Coding Level of Care Code Acute Squeak Rattle And Leak Repairer for Derrick Davis Exam Expanded Problem Focused Diagnoses Sepsis A41.9 Hypotension I95.9 Acute UTI N39.0 Acute kidney injury N17.9 Hypokalemia E87.6 Acute metabolic encephalopathy G93.41 Anemia D64.9 Fall W19.XXXA
[2021-12-12] MEDS: famotidine 20 mg Tablet PO (17:16)
--- NOTE | 2021-12-12 18:08 | PC.NURSE ---
blood pressure cuff not reading correctly in room check is kinked family at bedside aware not to wake at this time
[2021-12-12] MEDS: haloperidol inj 5 mg/mL INJ 1 mL 2 MG IM (22:13)
[2021-12-13] VITALS (22 sets, daily range): BP systolic 111–164; BP diastolic 55–109; PULSE 82–136; RESP 15–44; TEMP 36.4–36.8; O2SAT 88–92
[2021-12-13] MEDS: sodium chloride 0.9% 1,000 ML 75 ML IV ×2 (03:30→20:54)
[2021-12-13 06:28] LABS: Basophils % 0.2 %; Eosinophils # 0.2 10^3/uL (0.0-0.8); Eosinophils % 1.6 %; Hematocrit 32.3 % (37.0-47.0); Hemoglobin 9.3 g/dL (11.5-15.3); Lymphocytes # 2.4 10^3/uL (0.8-4.8); Lymphocytes % 25.5 %; Mean Corpuscular HGB Conc 28.8 g/dL (30.0-36.0); Mean Corpuscular Hemoglobin 26.6 pg (28.0-34.0); Mean Corpuscular Volume 92.6 fl (81-99); Mean Platelet Volume 9.7 fL (7.4-10.4); Monocytes # 0.4 10^3/uL (0.2-0.9); Monocytes % 4.2 %; Neutrophils % 67.2 %; Nucleated Red Blood Cells % 0 %; Platelet Count 320 10^3/cmm (130-400); Red Blood Count 3.49 10^6/uL (4.1-5.3); Red Cell Distribution Width 15.6 % (12.1-15.1); White Blood Count 9.5 10^3/uL (4.0-10.0)
[2021-12-13 07:32] LABS: Alanine Aminotransferase 21 U/L (0-33); Albumin Level 2.3 g/dL (3.5-5.2); Alkaline Phosphatase 64 IU/L (35-105); Anion Gap 16.8 (5-19); Aspartate Amino Transferase 22 U/L (0-32); Blood Urea Nitrogen 24 mg/dL (8-23); Calcium 8.3 mg/dL (8.5-10.5); Carbon Dioxide 21 mmol/L (22-29); Chloride 106 mmol/L (98-107); Globulin 3.2 g/dL (1.3-4.6); Glucose 73 mg/dL (65-115); Osmolality Calculated 293 mOsm/kg (285-295); Potassium 3.8 mmol/L (3.5-5.1); Sodium 140 mmol/L (136-145); Total Bilirubin 0.2 mg/dL (0.15-1.2); Total Protein 5.5 g/dL (6.6-8.7)
[2021-12-13 07:38] LABS: Creatinine Clr Calc Pharmacy 41.2447
--- NOTE | 2021-12-13 08:30 | USCV_ITS ---
Colleen Benitez Age: 86 Gender: F : 1935 Exam Date: 12/13/2021 16:01 Ordering Phys: Martin Monaco MD Technologist: Timothy Hoover Exam Location: [facility] [place] Indication: htn, chf BP: 135 / 89 HR: 87 Rhythm: Other Technical Quality: Adequate MEASUREMENTS (Male / Female) Normal Values 2D ECHO LV Diastolic Diameter PLAX 2.9 cm 4.2 - 5.9 / 3.9 - 5.3 cm LV Systolic Diameter PLAX 2.2 cm IVS Diastolic Thickness 1.1 cm 0.6 - 1.0 / 0.6 - 0.9 cm IVS Systolic Thickness 1.1 cm LVPW Diastolic Thickness 1.5 cm 0.6 - 1.0 / 0.6 - 0.9 cm LVPW Systolic Thickness 1.4 cm LVOT Diameter 2.0 cm LV Ejection Fraction 2D Teich 48.9 % LV Ejection Fraction MOD 2C 48.4 % LV Ejection Fraction 2C AL 48.3 % LA Diameter 3.2 cm LA Width 2.8 cm LA Height 3.9 cm RA Width 3.0 cm RA Height 4.0 cm Aorta at Sinotubular Diameter 2.6 cm IVC Diameter 1.5 cm M-MODE Aortic Annulus Diameter 3.1 cm LA Ao Ratio MM 1.0 MV E Point Septal Separation 0.7 cm DOPPLER AV Peak Velocity 137.0 cm/s LVOT Peak Velocity 113.0 cm/s AV Area Cont Eq vti 2.3 cm squared AV Area Cont Eq pk 2.6 cm squared TR Peak Velocity 276.2 cm/s TR Peak Gradient 30.5 mmHg TR Mean Velocity 194.5 cm/s TR Mean Gradient 16.5 mmHg TR Velocity Time Integral 73.8 cm Right Atrial Pressure 3.0 mmHg Pulmonary Artery Systolic Pressu 33.5 mmHg FINDINGS Left Ventricle Left ventricle is normal in size. LV systolic function is moderately reduced with EF of 40-45 %. Mid to apical anterolateral, apical and mid to apical inferoseptal renae are moderately hypokinetic. Right Ventricle Right ventricle is normal in size and function. Right Atrium Normal in size Left Atrium Normal in size Mitral Valve Moderate to severe mitral annular calcification is seen. Mild mitral regurgitation is seen Aortic Valve Aortic valve is thickened. Mild to moderate aortic regurgitation is seen. No significant stenosis is noted. Tricuspid Valve Mild tricuspid regurgitation is seen. Insufficient TR jet to calculate RVSP Pulmonic Valve Not well-visualized Pericardium Grossly normal Aorta Normal in size IVC CONCLUSIONS Technically limited quality echocardiogram because of poor ultrasonic windows. LV systolic function is moderately reduced with EF of 40-45%. Above-mentioned regional wall motion abnormalities. Moderate to severe mitral annular calcification is noted. Mild mitral regurgitation is seen. Aortic valve is thickened. Mild to moderate aortic regurgitation. Mild tricuspid regurgitation. Compared to prior echocardiogram from 2019, LV systolic function has decreased and now is 40 to 45%. Brayan Velasco MD (Electronically Signed) Final Date: 13 December 2021 19:27 S
[2021-12-13] MEDS: magnesium hydroxide 30 mL UDC PO (09:42)
[2021-12-13] MEDS: famotidine 20 mg Tablet PO ×2 (09:43→17:28)
[2021-12-13] MEDS: metoprolol tartrate 25 mg Tablet 12.5 MG PO ×2 (09:43→21:09)
[2021-12-13] MEDS: sennosides-docusate Tablet 1 TAB PO ×2 (09:43→17:28)
[2021-12-13] MEDS: mupirocin oint 22 gm 1 APPLIC TOPICAL ×2 (09:45→17:30)
[2021-12-13 09:52] LABS: Folate Level 11.1 ng/mL (4.8-37.3)
[2021-12-13 09:58] LABS: Thyroid Stimulating Hormone 1.52 uIU/mL (0.27-4.20)
[2021-12-13] MEDS: heparin 5,000 unit/mL INJ 1 mL 5000 UNIT SUBCUT (09:58)
[2021-12-13 10:19] LABS: Iron 19 ug/dL (37-145); Percent Saturation 14.9 % (20-50); Total Iron Binding Capacity 127 mcg/dl; Unsaturated Iron Binding 108 ug/dL (112-347)
[2021-12-13 10:34] LABS: Vitamin B12 1661 pg/mL (232-1245)
--- NOTE | 2021-12-13 10:45 | PC.SOCIAL ---
IMM update IMM updated with patient. Verbalized an understanding. Copy Pg 2 provided. Initialled, dated, timed, and placed in chart
--- NOTE | 2021-12-13 16:26 | PM.PN ---
Subjective Subjective: Hospital course, labs appreciated. On examination sitting up in bedside with family at bedside. States she is feeling better. Able to complete conversation. Denies any nausea, vomiting, headache. On review of chart patient has had only 1 bowel movement since admission. Vitals/I&O/Wt Last Vital Signs Temp 98.3 F 12/13/21 11:00 Pulse 90 12/13/21 16:00 Resp 21 H 12/13/21 16:00 BP 148/97 12/13/21 16:00 Pulse Ox 88 L 12/13/21 06:00 O2 Del Method 12/11/21 15:17 O2 Flow Rate 2 12/11/21 20:00 12/13/21 12/13/21 12/13/21 06:59 14:59 22:59 Intake Total 1200 / 1900 465 / 465 Output Total 1300 / 4630 850 / 850 Balance -100 / -2730 465 / 465 -850 / -385 Weight last 48 hrs Weight 69.853 kg Physical Exam Narrative: General exam: AOx3, sitting up in chair, chronically sick appearing, pallor present HEENT: Pupils equally round. Oropharynx clear. Neck is supple no lymphadenopathy thyromegaly Cardiovascular regular rate and rhythm, no murmur Lungs clear no wheezing or crackles. She does not appear tachypneic currently. Abdomen is soft with positive bowel sounds. No obvious organomegaly. Scar lower abdomen with no evidence of drainage, or erythema Neuro no obvious focal deficits Urinary Catheter Management: Omer: Cath Placed During This Visit: yes Reason for Continuing Indwelling Catheter: Accurate Measurement of Urinary Output in Critically Ill Patients Urinary Catheter Date of Insertion: 12/10/21 Urinary Catheter Time of Insertion: 15:01 Data : 12/13/21 04:50 12/13/21 04:50 A&P Assessment and plan (1) Sepsis: Present on admission with hypotension. Blood cultures so far negative. Urine culture consistent with E. coli ESBL. Keep mean artery pressure over 65. Continue with Primaxin to finish a 5-day course. Status: Acute (2) Acute UTI: Present on admission. No obstructive nephropathy. Treatment as above. Status: Acute (3) Stercoral colitis: Seen on CT scan admission. Aggressive bowel regimen. Milk of magnesia, senna Colace Status: Acute (4) Acute kidney injury: Evidence of endorgan dysfunction with sepsis with acute kidney injury. Medical reconciliation done for nephrotoxic drugs. Creatinine back to baseline. Status: Acute (5) Acute metabolic encephalopathy: Secondary sepsis on admission. Improving. Monitor closely for improvement. Note that patient CT head demonstrates no acute changes. Status: Acute (6) Anemia: Oral iron supplementation. Monitor hemoglobin daily. Transfuse if less than 8. Has been worked up extensively in the past. Status: Acute (7) Fall: Fall noted on the day of admission. Physical therapy. Appears to have a new right clavicle fracture. Status: Acute (8) Clavicle fracture: Status: Acute Plan Analgesia: Tramadol, Morphine Glycemic control: Not needed. Nutrition: Regular diet. CODE STATUS: DNR/DNI. PUD prophylaxis: Protonix DVT prophylaxis: Heparin 5000 every 12 hourly Discharge planning: Given severe physical deconditioning, recent discharge from [facility] post OR patient would need further rehabitation. Discharge to SNF. Family and patient agreeable. Case management alerted. Transfer OUT of ICU to med/surg. This documentation was created by [employer] hr administrative assistant software. Every effort was made to ensure accuracy of hr administrative assistant. Any obvious errors or omissions should be clarified with the author of the document. Attestations Medical Necessity Statement*: Requires further hospitalisation for ESBL E.choli UTI, sepsis while safe discharge planning is sought. Time Spent in Patient Care: Greater than 35 minutes Coding Level of Care Code Acute Video Software Engineer for g Fwd Diagnoses Sepsis A41.9 Acute UTI N39.0 Stercoral colitis K52.89 Acute kidney injury N17.9 Acute metabolic encephalopathy G93.41 Anemia D64.9 Fall W19.XXXA Clavicle fracture S42.009A
[2021-12-13] MEDS: ferrous gluconate 324 mg Tablet PO (17:28)
--- NOTE | 2021-12-13 18:33 | PC.NURSE ---
Report called to [facility] nurse, Fabiola KOCH. Patient to be transferred by bed to room 270 by mold shifter RNGlenn.
--- NOTE | 2021-12-13 19:58 | PC.NURSE ---
Pt transferred to med surg room 270.
[2021-12-13] MEDS: TRAMadol 50 mg Tablet PO (21:09)
[2021-12-14] VITALS (13 sets, daily range): BP systolic 116–161; BP diastolic 65–98; PULSE 72–101; RESP 14–22; TEMP 36.6–37.1; O2SAT 90–100
[2021-12-14] MEDS: heparin 5,000 unit/mL INJ 1 mL 5000 UNIT SUBCUT ×3 (00:41→22:56)
[2021-12-14] MEDS: sodium chloride 0.9% 1,000 ML 75 ML IV (05:33)
[2021-12-14 05:49] LABS: Basophils % 0.3 %; Eosinophils # 0.3 10^3/uL (0.0-0.8); Eosinophils % 3.4 %; Hematocrit 23.7 % (37.0-47.0); Hemoglobin 7.6 g/dL (11.5-15.3); Lymphocytes # 3.1 10^3/uL (0.8-4.8); Lymphocytes % 41.7 %; Mean Corpuscular HGB Conc 32.1 g/dL (30.0-36.0); Mean Corpuscular Hemoglobin 25.9 pg (28.0-34.0); Mean Corpuscular Volume 80.6 fl (81-99); Mean Platelet Volume 9.8 fL (7.4-10.4); Monocytes # 0.5 10^3/uL (0.2-0.9); Neutrophils % 46.8 %; Nucleated Red Blood Cells % 0 %; Platelet Count 302 10^3/cmm (130-400); Red Blood Count 2.94 10^6/uL (4.1-5.3); White Blood Count 7.5 10^3/uL (4.0-10.0)
[2021-12-14 06:11] LABS: Alanine Aminotransferase 15 U/L (0-33); Albumin Level 2.1 g/dL (3.5-5.2); Alkaline Phosphatase 47 IU/L (35-105); Blood Urea Nitrogen 16 mg/dL (8-23); Calcium 7.8 mg/dL (8.5-10.5); Carbon Dioxide 23 mmol/L (22-29); Chloride 107 mmol/L (98-107); Cholesterol 87 mg/dL (0-200); Estmated Average Glucose 100; Globulin 2.8 g/dL (1.3-4.6); Glucose 84 mg/dL (65-115); HDL Cholesterol 30 mg/dL (60-100); Hemoglobin A1C 5.1 % (4.0-6.0); LDL Cholesterol Calculated 36 mg/dL (50-129); Osmolality Calculated 288 mOsm/kg (285-295); Sodium 139 mmol/L (136-145); Total Bilirubin 0.2 mg/dL (0.15-1.2); Total Protein 4.9 g/dL (6.6-8.7); Triglycerides 103 mg/dL (0-150); VLDL Cholestrol Calculation 21 mg/dL (0-30)
[2021-12-14 06:13] LABS: Aspartate Amino Transferase 18 U/L (0-32)
[2021-12-14] MEDS: ferrous gluconate 324 mg Tablet PO ×2 (08:17→17:28)
[2021-12-14] MEDS: sennosides-docusate Tablet 1 TAB PO (08:17)
[2021-12-14] MEDS: famotidine 20 mg Tablet PO (08:17)
[2021-12-14] MEDS: metoprolol tartrate 25 mg Tablet PO ×2 (08:22→21:16)
[2021-12-14] MEDS: mupirocin oint 22 gm 1 APPLIC TOPICAL (08:22)
[2021-12-14] MEDS: sodium chloride 0.9% (100 ml) 100 ML 10 ML (11:25)
--- NOTE | 2021-12-14 12:20 | P.PN_ITS ---
Subjective Subjective: No acute events overnight. [facility] with family at bedside. Patient states she is feeling better. Denies any nausea, vomiting, headache. Denies any melena. Had multiple bowel movements after bowel regimen yesterday. Vitals/I&O/Wt Last Vital Signs Temp 98.7 F 12/14/21 11:47 Pulse 74 12/14/21 11:47 Resp 18 12/14/21 11:47 BP 116/65 12/14/21 11:47 Pulse Ox 96 12/14/21 11:47 O2 Del Method 12/14/21 11:10 O2 Flow Rate 2 12/14/21 08:00 12/13/21 12/14/21 12/14/21 22:59 06:59 14:59 Intake Total 1580 / 2045 1303.75 / 3348.75 100 / 100 Output Total 1450 / 1450 2450 / 3900 Balance 130 / 595 -1146.25 / -551.25 100 / 100 Weight last 48 hrs Weight 69.536 kg Physical Exam Narrative: General exam: AOx3, sitting up in chair, chronically sick appearing, pallor present HEENT: Pupils equally round. Oropharynx clear. Neck is supple no lymphadenopathy thyromegaly Cardiovascular regular rate and rhythm, no murmur Lungs clear no wheezing or crackles. She does not appear tachypneic currently. Abdomen is soft with positive bowel sounds. No obvious organomegaly. Scar lower abdomen with no evidence of drainage, or erythema Neuro no obvious focal deficits Urinary Catheter Management: Omer: Cath Placed During This Visit: yes Reason for Continuing Indwelling Catheter: Accurate Measurement of Urinary Output in Critically Ill Patients Urinary Catheter Date of Insertion: 12/10/21 Urinary Catheter Time of Insertion: 15:01 Data : 12/14/21 05:40 12/14/21 05:40 Micro: Microbiology 12/14/21 10:40 Occult Blood (FIT) - Final Stool - Stool Aspirate A&P Assessment and plan (1) Sepsis: Present on admission with hypotension. Blood cultures so far negative. Urine culture consistent with E. coli ESBL. Keep mean artery pressure over 65. Continue with Primaxin to finish a 5-day course. Day 3/5 of appropriate antibiotics. Status: Acute (2) Acute UTI: Present on admission. No obstructive nephropathy. Treatment as above. Status: Acute (3) Stercoral colitis: Seen on CT scan admission. Aggressive bowel regimen with appropriate response. Milk of magnesia, senna Colace Status: Acute (4) Anemia: Hemoglobin below. Transfuse 1 unit of PRBC. Could be new baseline post recent laparotomy 1 month ago at [facility]. Could be secondary to slow ooze from anastomosis. For now plan is to transfuse 1 unit. Repeat hemoglobin in 1 week. If hemoglobin trending down we will plan for colonoscopy as an outpatient. IV iron supplementation. Switch to Protonix twice daily. Start on Carafate before meals and at bedtime. Status: Acute (5) Acute kidney injury: Evidence of endorgan dysfunction with sepsis with acute kidney injury. Medical reconciliation done for nephrotoxic drugs. Creatinine back to baseline. Status: Acute (6) Acute metabolic encephalopathy: Secondary sepsis on admission. Improving. Monitor closely for improvement. Note that patient CT head demonstrates no acute changes. Status: Acute (7) Fall: Fall noted on the day of admission. Physical therapy. Appears to have a new right clavicle fracture. Status: Acute (8) Clavicle fracture: Status: Acute (9) Systolic heart failure: New diagnosis. Patient is not aware of any ACS in the past. Echocardiogram done shows an EF of 40 to 45% with regional wall motion abnormality in mid to apical anterolateral, apical, mid to apical inferior septal renae. Mild MR. Plan for cardiac stress test in a.m. tomorrow. N.p.o. after midnight. Currently patient is chest pain-free. Appreciate lipid panel and A1c. Status: Acute Plan Analgesia: Tramadol, Morphine Glycemic control: Not needed. Nutrition: Regular diet. CODE STATUS: DNR/DNI. PUD prophylaxis: Protonix DVT prophylaxis: Heparin 5000 every 12 hourly Discharge planning: Given severe physical deconditioning, recent discharge from custodial post OR patient would need further rehabitation. Discharge to SNF. Family and patient agreeable. Case management alerted. Continue care at [facility]. This documentation was created by [employer] flying squad worker software. Every effort was made to ensure accuracy of flying squad worker. Any obvious errors or omissions should be clarified with the author of the document. Attestations Medical Necessity Statement*: Requires further hospitalization for management of ESBL E. coli UTI, stercoral colitis, systolic heart failure while ischemic etiology is ruled out, anemia requiring blood transfusion while safe discharge planning is sought. Time Spent in Patient Care: Greater than 35 minutes Coding Level of Care Code Acute [employer] Ascp Consultant for Chg Fwd Diagnoses Sepsis A41.9 Acute UTI N39.0 Stercoral colitis K52.89 Anemia D64.9 Acute kidney injury N17.9 Acute metabolic encephalopathy G93.41 Fall W19.XXXA Clavicle fracture S42.009A Systolic heart failure I50.20
[2021-12-14] MEDS: iron sucrose 200 MG in sodium chloride 0.9% (100 ml) 100 ML 220 MG IV (17:28)
[2021-12-14] MEDS: pantoprazole DR 40 mg Tablet PO (17:28)
[2021-12-14] MEDS: sucralfate 1 gm/10 mL Oral Liq UDC PO ×2 (17:35→21:16)
[2021-12-14] MEDS: magnesium hydroxide 30 mL UDC PO (21:16)
[2021-12-14] MEDS: TRAMadol 50 mg Tablet PO (22:55)
[2021-12-15] VITALS (7 sets, daily range): BP systolic 115–162; BP diastolic 69–92; PULSE 68–97; RESP 16–20; TEMP 36.6–37.1; O2SAT 91–96
--- NOTE | 2021-12-15 | ECG_ITS ---
[facility] Test Date: 2021-12-15 Pat Name: Colleen Benitez Department: Room: 270 Gender: Female [place] [employer] [place]: : 1935 Requested By: Dylon Wong Order Number: [id number] Castellano MD: Martha Hayes M.D. Interpretive Statements NAME OF STUDY: LEXISCAN SESTAMIBI STRESS TEST INDICATION: Systolic heart failure PROCEDURE: At the baseline, the blood pressure was 139/81 mmHg with a heart rate of 79 bpm. The electrocardiogram showed a sensed V paced rhythm. The Lexiscan was infused over a period of 20 seconds. A total of 0.4 milligrams of Lexiscan was infused. The stress phase was continued for a total of 5 minutes. Heart rate at the end of the stress phase was 95 bpm with a blood pressure of 110/76 mmHg. The EKG at the peak infusion revealed no significant ST-T wave changes. The study was terminated due to protocol completion. Sestamibi was injected 20 seconds after the Lexiscan infusion. Blood pressure at the end of the recovery phase was 115/92 mmHg with a heart rate of 97 beats per minute. CONCLUSION: 1. Nondiagnostic EKG with the LexiScan infusion due to baseline paced rhythm. 2. No LexiScan induced chest pain or cardiac arrhythmia. 3. Normal blood pressure and heart rate response. 4. Sestamibi/sestamibi perfusion scan pending; see separate report. Electronically Signed On 12-22-2021 17:25:52 CDT by Martha Hayes M.D. [id number]
[2021-12-15] MEDS: sucralfate 1 gm/10 mL Oral Liq UDC PO ×3 (05:41→20:38)
[2021-12-15 05:52] LABS: Basophils % 0.3 %; Eosinophils # 0.2 10^3/uL (0.0-0.8); Hematocrit 30.9 % (37.0-47.0); Hemoglobin 9.9 g/dL (11.5-15.3); Lymphocytes # 3.2 10^3/uL (0.8-4.8); Mean Corpuscular Hemoglobin 27.1 pg (28.0-34.0); Mean Corpuscular Volume 84.7 fl (81-99); Mean Platelet Volume 9.5 fL (7.4-10.4); Monocytes # 0.7 10^3/uL (0.2-0.9); Neutrophils # 3.72 10^3/uL (1.8-7.7); Neutrophils % 46.7 %; Nucleated Red Blood Cells % 0 %; Platelet Count 271 10^3/cmm (130-400); Red Blood Count 3.65 10^6/uL (4.1-5.3); Red Cell Distribution Width 15.1 % (12.1-15.1)
[2021-12-15 06:11] LABS: Alanine Aminotransferase 15 U/L (0-33); Albumin Level 2.2 g/dL (3.5-5.2); Alkaline Phosphatase 53 IU/L (35-105); Aspartate Amino Transferase 15 U/L (0-32); Blood Urea Nitrogen 11 mg/dL (8-23); Calcium 8.1 mg/dL (8.5-10.5); Carbon Dioxide 25 mmol/L (22-29); Chloride 102 mmol/L (98-107); Globulin 2.9 g/dL (1.3-4.6); Glucose 86 mg/dL (65-115); Osmolality Calculated 281 mOsm/kg (285-295); Sodium 136 mmol/L (136-145); Total Bilirubin 0.2 mg/dL (0.15-1.2); Total Protein 5.1 g/dL (6.6-8.7)
[2021-12-15 06:18] LABS: Anion Gap 12.7 (5-19); Potassium 3.7 mmol/L (3.5-5.1)
[2021-12-15] MEDS: ferrous gluconate 324 mg Tablet PO ×2 (08:56→17:43)
[2021-12-15] MEDS: pantoprazole DR 40 mg Tablet PO ×2 (08:56→17:43)
[2021-12-15] MEDS: metoprolol tartrate 25 mg Tablet PO ×2 (08:58→20:38)
[2021-12-15] MEDS: mupirocin oint 22 gm 1 APPLIC TOPICAL (08:58)
--- NOTE | 2021-12-15 11:40 | PM.PN ---
Subjective Subjective: No acute events. Has remained hemodynamically stable and afebrile. Seen with family at bedside. Undergoing Lexiscan stress test today. Received 1 unit of blood transfusion yesterday. Denies any melena. Denies any chest pain Vitals/I&O/Wt Last Vital Signs Temp 98.1 F 12/15/21 08:00 Pulse 77 12/15/21 08:00 Resp 16 12/15/21 08:00 BP 162/73 12/15/21 08:00 Pulse Ox 96 12/15/21 08:00 O2 Del Method 12/15/21 08:00 O2 Flow Rate 2 12/14/21 08:00 12/14/21 12/15/21 12/15/21 22:59 06:59 14:59 Intake Total 810 / 1460 680 / 2140 Output Total 800 / 800 400 / 1200 Balance 10 / 660 280 / 940 Weight last 48 hrs Weight 67.404 kg Weight 69.536 kg Physical Exam Narrative: General exam: AOx3, sitting up in chair, chronically sick appearing, pallor present HEENT: Pupils equally round. Oropharynx clear. Neck is supple no lymphadenopathy thyromegaly Cardiovascular regular rate and rhythm, no murmur Lungs clear no wheezing or crackles. She does not appear tachypneic currently. Abdomen is soft with positive bowel sounds. No obvious organomegaly. Scar lower abdomen with no evidence of drainage, or erythema Neuro no obvious focal deficits Urinary Catheter Management: Omer: Cath Placed During This Visit: yes Reason for Continuing Indwelling Catheter: Accurate Measurement of Urinary Output in Critically Ill Patients Urinary Catheter Date of Insertion: 12/10/21 Urinary Catheter Time of Insertion: 15:01 Data : 12/15/21 05:26 12/15/21 05:26 Micro: Microbiology 12/10/21 06:58 Blood Culture - Final Blood NO GROWTH AFTER 5 DAYS 12/10/21 06:53 Blood Culture - Final Blood NO GROWTH AFTER 5 DAYS 12/14/21 10:40 Occult Blood (FIT) - Final Stool - Stool Aspirate A&P Assessment and plan (1) Sepsis: Present on admission with hypotension. Blood cultures so far negative. Urine culture consistent with E. coli ESBL. Keep mean artery pressure over 65. Continue with Primaxin to finish a 5-day course. Day 4/5 of appropriate antibiotics. Status: Acute (2) Acute UTI: Present on admission. No obstructive nephropathy. Treatment as above. Status: Acute (3) Stercoral colitis: Seen on CT scan admission. Aggressive bowel regimen with appropriate response. Milk of magnesia, senna Colace Status: Acute (4) Anemia: Hemoglobin below. Transfuse 1 unit of PRBC. Could be new baseline post recent laparotomy 1 month ago at [facility]. Could be secondary to slow ooze from anastomosis. For now plan is to transfuse 1 unit. Repeat hemoglobin in 1 week. If hemoglobin trending down we will plan for colonoscopy as an outpatient. IV iron supplementation. Switch to Protonix twice daily. Start on Carafate before meals and at bedtime. Status: Acute (5) Acute kidney injury: Evidence of endorgan dysfunction with sepsis with acute kidney injury. Medical reconciliation done for nephrotoxic drugs. Creatinine back to baseline. Status: Acute (6) Acute metabolic encephalopathy: Secondary sepsis on admission. Improving. Monitor closely for improvement. Note that patient CT head demonstrates no acute changes. Status: Acute (7) Fall: Fall noted on the day of admission. Physical therapy. Appears to have a new right clavicle fracture. Status: Acute (8) Clavicle fracture: Status: Acute (9) Systolic heart failure: New diagnosis. Patient is not aware of any ACS in the past. Echocardiogram done shows an EF of 40 to 45% with regional wall motion abnormality in mid to apical anterolateral, apical, mid to apical inferior septal renae. Mild MR. Plan for cardiac stress test in a.m. tomorrow. N.p.o. after midnight. Currently patient is chest pain-free. Appreciate lipid panel and A1c. Status: Acute Plan Analgesia: Tramadol, Morphine Glycemic control: Not needed. Nutrition: Regular diet. CODE STATUS: DNR/DNI. PUD prophylaxis: Protonix DVT prophylaxis: Heparin 5000 every 12 hourly Discharge planning: Given severe physical deconditioning, recent discharge from senior care post OR patient would need further rehabitation. Discharge to SNF. Family and patient agreeable. Case management alerted. Continue care at [facility]. This documentation was created by [employer] sound truck operator software. Every effort was made to ensure accuracy of sound truck operator. Any obvious errors or omissions should be clarified with the author of the document. Plan for the day: Continue with Primaxin to finish a 5-day course. Last day of antibiotic on 12/16. Monitor hemoglobin daily. Lexiscan stress test today to rule out ischemic need for low EF. Awaiting placement for further rehabitation. Attestations Medical Necessity Statement*: Requires further hospitalization for management of E. coli UTI, new low EF while ischemic work-up was done and safe discharge planning Time Spent in Patient Care: Greater than 35 minutes Coding Level of Care Code Acute Professor Of Geography for g Fwd Diagnoses Sepsis A41.9 Acute UTI N39.0 Stercoral colitis K52.89 Anemia D64.9 Acute kidney injury N17.9 Acute metabolic encephalopathy G93.41 Fall W19.XXXA Clavicle fracture S42.009A Systolic heart failure I50.20
--- NOTE | 2021-12-15 11:43 | PC.SOCIAL ---
IMM update IMM updated with patient and DIL. Verbalized an understanding. Copy Pg 2 provided. Initialled, dated, timed, and placed in chart.
--- NOTE | 2021-12-15 12:33 | NMCV_ITS ---
NM lorenzo perf SPECT r/s* [id number] Colleen Benitez Age: 86 Gender: F : 1935 Exam Date: 12/15/2021 13:11 Ordering Phys: Martin Monaco MD Technologist: HORTENCIA Mejia Exam Location: [facility] Indications: CHEST PAIN; POST FALL STRESS TEST Please see separate stress test report in [facility] for full findings IMAGE PROTOCOL Rest/Stress 1 Lexiscan Day Radiopharmaceutical Dose (mCi) Administration Site Administered by Rest: Tc-99m 10.2 IV HORTENCIA Cook Sestamibi Stress:Tc-99m 32.6 IV HORTENCIA Cook Sestamibi Rest: 15-Dec-2021 60 Discovery 630 Stress: 15-Dec-2021 30 Discovery 630 0.4mg Lexiscan. Supine position only as patient was unable to lay prone. SPECT RESULTS Technical Quality: Good Raw Data Analysis: Subdiaphragmatic attenuation artifact noted on rest images. Image Corrections: No attenuation or motion correction applied Summed Stress Score: 21 Summed Rest Score: 17 Summed Difference Score: 5 PERFUSION FINDINGS Large sized perfusion abnormality of moderate to severe severity of basal to apical inferior, basal to mid inferolateral, apical lateral, apical anterior, apical septal and apical renae on rest images with subtle reversibility noted in basal to mid inferior wall on supine stress images. FUNCTIONAL RESULTS (calculated via Gated SPECT) Stress Image LV EF (%): 57 Stress EDV (mL):94 TID: 0.72 Stress ESV (mL):40 FUNCTIONAL FINDINGS: The left ventricle is normal in size. Transient Ischemia Dilatation of 0.72. The left ventricular ejection fraction is normal with a value of 57%. There seems to be hypokinesis of apical segments. IMPRESSIONS 1. Large sized predominantly fixed perfusion abnormality of basal to apical inferior, basal to mid inferolateral, apical lateral, apical anterior, apical septal and apical renae. 2. Subtle reversibility in basal to mid inferior segments likely secondary to sub diaphragmatic attenuation artifact. 3. The left ventricular ejection fraction is normal with a value of 57%. There seems to be hypokinesis of apical segments. 4. No significant coronary ischemia based on the study. 5. EKG portion of the study will be reported separately. Martha Hayes MD (Electronically Signed) Final Date: 15 December 2021 18:29 S
[2021-12-15] MEDS: iron sucrose 200 MG in sodium chloride 0.9% (100 ml) 100 ML 220 MG IV (12:59)
[2021-12-15] MEDS: regadenoson 0.4 Mg/5 ml Syringe IVP (14:09)
[2021-12-15] MEDS: amlodipine 10 mg Tablet PO (15:12)
--- NOTE | 2021-12-15 17:58 | PC.NURSE ---
Patient resting in bed, OOBTC and wheelchair today, less loose stools than yesterday. Good UOP, [place] patent and [place] care perfomed during shift. Elevated BP with physician notified and orders placed per MD, remaining VSS. No c/o pain or new events. No needs at this time. Family at bedside, turned frequently throughout shift. Patient remains edemitis to all 4 extremities with improvement from previous shift, extremities all elevated. Room clean and clutter free with call light in reach. Report to be given bedside at shift change to oncoming nurse.
[2021-12-15] MEDS: heparin 5,000 unit/mL INJ 1 mL 5000 UNIT SUBCUT (23:34)
[2021-12-16] VITALS: BP 145/70; PULSE 73; RESP 18; TEMP 37.1; O2SAT 92
[2021-12-16 04:00] VITALS: BP 132/73; PULSE 82; RESP 18; TEMP 36.8; O2SAT 94
[2021-12-16 05:12] LABS: Basophils % 0.4 %; Eosinophils # 0.2 10^3/uL (0.0-0.8); Eosinophils % 1.9 %; Hematocrit 32.6 % (37.0-47.0); Hemoglobin 10.4 g/dL (11.5-15.3); Lymphocytes # 2.8 10^3/uL (0.8-4.8); Lymphocytes % 36.7 %; Mean Corpuscular HGB Conc 31.9 g/dL (30.0-36.0); Mean Corpuscular Hemoglobin 26.7 pg (28.0-34.0); Mean Corpuscular Volume 83.8 fl (81-99); Mean Platelet Volume 9.3 fL (7.4-10.4); Monocytes # 0.9 10^3/uL (0.2-0.9); Monocytes % 11.4 %; Neutrophils # 3.76 10^3/uL (1.8-7.7); Neutrophils % 48.8 %; Nucleated Red Blood Cells % 0 %; Platelet Count 309 10^3/cmm (130-400); Red Blood Count 3.89 10^6/uL (4.1-5.3); White Blood Count 7.7 10^3/uL (4.0-10.0)
[2021-12-16] MEDS: sucralfate 1 gm/10 mL Oral Liq UDC PO ×2 (06:09→11:12)
[2021-12-16 07:57] VITALS: BP 132/74; PULSE 88; RESP 15; TEMP 36.7; O2SAT 96
[2021-12-16] MEDS: ferrous gluconate 324 mg Tablet PO (09:33)
[2021-12-16] MEDS: amlodipine 10 mg Tablet PO (09:34)
[2021-12-16] MEDS: pantoprazole DR 40 mg Tablet PO (09:34)
[2021-12-16] MEDS: metoprolol tartrate 25 mg Tablet PO (09:34)
[2021-12-16] MEDS: mupirocin oint 22 gm 1 APPLIC TOPICAL (11:09)
[2021-12-16] MEDS: heparin 5,000 unit/mL INJ 1 mL 5000 UNIT SUBCUT (11:18)
[2021-12-16 11:42] VITALS: BP 136/73; PULSE 74; RESP 17; TEMP 36.8; O2SAT 94
--- NOTE | 2021-12-16 12:33 | PM.DCS ---
Discharge Providers Date of Admission: 12/10/21 11:02 Date of Discharge: December 16, 2021 Attending Provider at Admission: Sherif Steen MD Attending Provider at Discharge: Martin Monaco MD Primary Care Provider: MILAGROS Frias Diagnoses at Discharge Discharge Diagnosis (1) Sepsis: Status: Acute (2) Acute UTI: Status: Acute (3) Stercoral colitis: Status: Acute (4) Anemia: Status: Acute (5) Acute kidney injury: Status: Acute (6) Acute metabolic encephalopathy: Status: Acute (7) Fall: Status: Acute (8) Clavicle fracture: Status: Acute (9) Systolic heart failure: Status: Acute Reason for Visit Reason for Visit: FALL Brief History: History as per HPI: Colleen Benitez is a 86 year old female who presents to the emergency department with history of fall.? [id number] is present and supplements her history.? Patient currently is confused, but realizes she fell at some point.? [id number]-[id number] reports she was found in the bathroom.? It appeared she had gone to the bathroom, went back in and may be been confused with the toilet was.? Her depends was down and there was a lot of diarrheal stool.? She reports the last Several days she had had some chills at night.? She had visited her primary care provider at 1 point and got some Bactrim for a sore on her leg.? She had only taken 1 dose of that prior to presentation.? Confusion was not evident until this morning.? No documented fevers.? She had not been eating and drinking as well lately.? She had recently been at the hospital in November 18 for sigmoid colectomy secondary to diverticulitis and primary anastomosis.? 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 She had been [place] to [place] [facility] but going home within 7 days of this presentation.? She had some vomiting the day prior to illness.? History is difficult as patient is currently confused with encephalopathy. Hospital Course Hospital Course Patient was admitted to the hospital for further evaluation and management. On admission she was found to be hypotensive which did not respond to IV fluid boluses and she required vasopressors for short while. Her blood cultures came back negative but urine cultures were positive for ESBL E. coli. Her antibiotics were changed as per culture sensitivities. Patient has finished a course of 5 days of antibiotics for ESBL E. coli UTI. As the sepsis and UTI resolved her mentation also improved and she is back to her baseline mentation for last [address] scan admission was also concerning for stercoral colitis for which she received aggressive bowel regiment with good results. On admission patient was also having acute kidney injury which was thought secondary to dehydration and sepsis which resolved with IV fluids. Kidney functions are back to baseline for last 3 to 4 days. During hospitalization echocardiogram was done which showed a new EF of 40 to 45% with regional wall motion abnormality as described below. Patient underwent ischemic work-up with Lexiscan stress test on 12/15 which ruled out any acute ischemia but was consistent with old infarction. Patient also had low hemoglobin on admission which trended down to less than 8 for which she received monitor blood transfusion with good results. Her hemoglobin has remained stable for last 2 days. It is believed her hemoglobin is low postoperatively since her recent surgery at [facility]. For safe discharge planning patient is being discharged to SNF for further rehabitation. She is advised to have repeat hemoglobin checked in 1 week. If hemoglobin is trending down she is advised to have a colonoscopy and follow-up with her outpatient surgeon. She has been discharged hemodynamically stable condition. Physical Exam Narrative: General exam: AOx3, sitting up in chair, chronically sick appearing, pallor present HEENT: Pupils equally round. Oropharynx clear. Neck is supple no lymphadenopathy thyromegaly Cardiovascular regular rate and rhythm, no murmur Lungs clear no wheezing or crackles. She does not appear tachypneic currently. Abdomen is soft with positive bowel sounds. No obvious organomegaly. Scar lower abdomen with no evidence of drainage, or erythema Neuro no obvious focal deficits Urinary Catheter Management: Omer: Cath Placed During This Visit: yes Reason for Continuing Indwelling Catheter: Acute Urinary Retention or Obstruction Urinary Catheter Date of Insertion: 12/10/21 Urinary Catheter Time of Insertion: 15:01 Discharge Data Studies Completed and Pending Completed Studies During Hospitalization Category Date Time Status CT cervical spin wo con* [id number] Stat Cat Scan 12/10/21 01:[address] [place] [id number] Stat Cat Scan 12/10/21 01:[address] head wo con* [id number] Stat Cat Scan 12/10/21 01:27 Completed Sestamibi Stress Test Request Routine Exams 12/15/21 06:35 Draft NM lorenzo perf SPECT r/s* [id number] Routine Nuc Med 12/15/21 12:33 Completed CV. echo complete* [id number] Routine Ultrasound 12/13/21 08:30 Completed Pending at discharge Category Date Time Status Sestamibi Stress Test Request Routine Exams 12/14/21 12:32 Stop Req Complete Blood Count w/Auto AM LABS Lab 12/17/21 04:00 Ordered Complete Blood Count w/Auto AM LABS Lab 12/18/21 04:00 Ordered SARS Covid-2 Antigen Routine Lab 12/16/21 12:27 Ordered Radiology Impressions Cervical Spine CT 12/10/21 01:27 IMPRESSION: No acute cervical fracture. Chest/Abdomen/Pelvis CT 12/10/21 01:27 IMPRESSION: 1. Severe atherosclerotic calcification of the coronary arteries with probable stents in the LAD and circumflex. 2. Acute or subacute, mildly displaced fracture of the right clavicular head. 3. No consolidation. 4. Multiple chronic appearing fractures of the thoracic spine and augmentation procedure at T12. IMPRESSION: 1. No evidence of acute injury to abdominopelvic organs. 2. Cholelithiasis. 3. Bilateral inguinal hernias containing bowel without obstruction. 4. Moderate to large fecal burden in the rectosigmoid and stercoral proctocolitis. 5. Multiple lumbar compression fractures and augmentation procedures at T12 and L1. 6. Mild grade 1 anterolisthesis of L3 on L4. 7. Discogenic and hypertrophic degenerative changes of the lumbar spine. ADDENDUM: 12/10/21 0717 Findings were discussed with Dr. Milligan at 12/10/2021 7:[address] 12/10/21 01:27 IMPRESSION: No acute intracranial abnormality. Lexiscan stress test: PERFUSION FINDINGS ?Large sized perfusion abnormality of moderate to severe severity of? basal to?apical inferior, basal to mid inferolateral, apical lateral, apical anterior,?apical septal and apical renae on rest images with subtle reversibility noted?in basal to mid inferior wall on supine stress images. ?FUNCTIONAL RESULTS ? ? (calculated via Gated SPECT) ? Stress Image LV EF (%):? ? 57 ? Stress EDV (mL):94 ? TID:? 0.72 ? Stress ESV (mL):40 ?FUNCTIONAL FINDINGS: ?The left ventricle is normal in size. Transient Ischemia Dilatation of 0.72. ?The left ventricular ejection fraction is normal with a value of 57%. ?There seems to be hypokinesis of apical segments. ?IMPRESSIONS ?1. Large sized predominantly fixed perfusion abnormality of? basal to apical?inferior, basal to mid inferolateral, apical lateral, apical anterior, apical?septal and apical renae. ?2. Subtle reversibility in basal to mid inferior segments likely secondary to?sub diaphragmatic attenuation artifact. ?3. The left ventricular ejection fraction is normal with a value of 57%. There?seems to be hypokinesis of apical segments. ?4. No significant coronary ischemia based on the study. ?5. EKG portion of the study will be reported separately. ?Martha Hayes MD ?(Electronically Signed) ?Final Date:? ? ? 15 December 2021 ? 18:29 Echocardiogram: CONCLUSIONS ?Technically limited quality echocardiogram because of poor ?ultrasonic windows. ?LV systolic function is moderately reduced with EF of 40-45%.? ?Above-mentioned regional wall motion abnormalities. ?Moderate to severe mitral annular calcification is noted.? Mild ?mitral regurgitation is seen. ?Aortic valve is thickened.? Mild to moderate aortic ?regurgitation. ?Mild tricuspid regurgitation. ?Compared to prior echocardiogram from 2019, LV systolic function ?has decreased and now is 40 to 45%. ?Brayan Velasco MD ?(Electronically Signed) ?Final Date:? ? ? 13 December 2021 ? 19:27 Laboratory Results WBC 7.7 10^3/uL (4.0-10.0) 12/16/21 05:01 RBC 3.89 10^6/uL (4.1-5.3) L 12/16/21 05:01 Hgb 10.4 g/dL (11.5-15.3) L 12/16/21 05:01 Hct 32.6 % (37.0-47.0) L 12/16/21 05:01 MCV 83.8 fl (81-99) 12/16/21 05:01 MCH 26.7 pg (28.0-34.0) L 12/16/21 05:01 MCHC 31.9 g/dL (30.0-36.0) 12/16/21 05:01 RDW 15.0 % (12.1-15.1) 12/16/21 05:01 Plt Count 309 10^3/cmm (130-400) 12/16/21 05:01 MPV 9.3 fL (7.4-10.4) 12/16/21 05:01 Neut % (Auto) 48.8 % 12/16/21 05:01 Lymph % (Auto) 36.7 % 12/16/21 05:01 Page % (Auto) 11.4 % 12/16/21 05:01 Eos % (Auto) 1.9 % 12/16/21 05:01 Baso % (Auto) 0.4 % 12/16/21 05:01 Neut # (Auto) 3.76 10^3/uL (1.8-7.7) 12/16/21 05:01 Lymph # (Auto) 2.8 10^3/uL (0.8-4.8) 12/16/21 05:01 Page # (Auto) 0.9 10^3/uL (0.2-0.9) 12/16/21 05:01 Eos # (Auto) 0.2 10^3/uL (0.0-0.8) 12/16/21 05:01 Baso # (Auto) 0.0 10^3/uL (0.0-0.1) 12/16/21 05:01 Nucleated RBC % (auto) 0 % 12/16/21 05:01 Nucleated RBCs # 0.0 /100WBC 12/16/21 05:01 Sodium 136 mmol/L (136-145) 12/15/21 05:26 Potassium 3.7 mmol/L (3.5-5.1) 12/15/21 05:26 Chloride 102 mmol/L (98-107) 12/15/21 05:26 Carbon Dioxide 25 mmol/L (22-29) 12/15/21 05:26 Anion Gap 12.7 (5-19) 12/15/21 05:26 BUN 11 mg/dL (8-23) 12/15/21 05:26 Creatinine 0.7 mg/dL (0.5-0.9) 12/15/21 05:26 GFR Calculation Not Reportable 12/15/21 05:26 Glucose 86 mg/dL (65-115) 12/15/21 05:26 Estimat Average Glucose 100 12/14/21 05:40 Hemoglobin A1c 5.1 % (4.0-6.0) 12/14/21 05:40 Calculated Osmolality 281 mOsm/kg (285-295) L 12/15/21 05:26 Lactic Acid 1.1 mmol/L (0.5-2.2) 12/10/21 06:38 Lactate 1.5 mmol/L (0.5-2.2) 12/10/21 05:45 Calcium 8.1 mg/dL (8.5-10.5) L 12/15/21 05:26 Magnesium 1.9 mg/dL (1.7-2.3) 12/11/21 05:45 Iron 19 ug/dL (37-145) L 12/13/21 04:50 TIBC 127 mcg/dl 12/13/21 04:50 % Saturation 14.9 % (20-50) L 12/13/21 04:50 Unsat Iron Binding 108 ug/dL (112-347) L 12/13/21 04:50 Total Bilirubin 0.2 mg/dL (0.15-1.2) 12/15/21 05:26 AST 15 U/L (0-32) 12/15/21 05:26 ALT 15 U/L (0-33) 12/15/21 05:26 Alkaline Phosphatase 53 IU/L (35-105) 12/15/21 05:26 Total Protein 5.1 g/dL (6.6-8.7) L 12/15/21 05:26 Albumin 2.2 g/dL (3.5-5.2) L 12/15/21 05:26 Globulin 2.9 g/dL (1.3-4.6) 12/15/21 05:26 Triglycerides 103 mg/dL (0-150) 12/14/21 05:40 Cholesterol 87 mg/dL (0-200) 12/14/21 05:40 LDL Cholesterol, Calc 36 mg/dL (50-129) L 12/14/21 05:40 Total VLDL Cholesterol 21 mg/dL (0-30) 12/14/21 05:40 HDL Cholesterol 30 mg/dL (60-100) L 12/14/21 05:40 Cholesterol/HDL Ratio 2.90 mg/dL (0.0-4.40) 12/14/21 05:40 Vitamin B12 1661 pg/mL (232-1245) H 12/13/21 04:50 Folate 11.1 ng/mL (4.8-37.3) 12/13/21 08:40 TSH 1.52 uIU/mL (0.27-4.20) 12/13/21 04:50 Urine Color Yellow (Yellow) 12/10/21 01:00 Urine Appearance Cloudy (CLEAR) 12/10/21 01:00 Urine pH 5 (5-7) 12/10/21 01:00 Ur Specific [place] 1.010 (1.005-1.030) 12/10/21 01:00 Urine Protein 3+ (Negative) H 12/10/21 01:00 Urine Glucose (UA) Norm (Normal) 12/10/21 01:00 Urine Ketones Negative (Negative) 12/10/21 01:00 Urine Blood 3+ (Negative) H 12/10/21 01:00 Urine Nitrate Negative (Negative) 12/10/21 01:00 Urine Bilirubin Neg (Negative) 12/10/21 01:00 Urine Urobilinogen Norm mg/dL (Negative) 12/10/21 01:00 Ur Leukocyte Esterase 2+ (Negative) H 12/10/21 01:00 Urine RBC 5-10 /hpf (0-2) H 12/10/21 01:00 Urine WBC Too numerous to cnt /hpf (0-5) H 12/10/21 01:00 Ur Squamous Epith Cells 25-40 /hpf (0-5) H 12/10/21 01:00 Amorphous Sediment Not Reportable 12/10/21 01:00 Urine Bacteria 4+ /hpf (NONE) H 12/10/21 01:00 Urine Mucus 1+ /hpf 12/10/21 01:00 Blood Type A Negative 12/14/21 07:57 Rho(D) Type Negative 12/14/21 07:57 Antibody Screen Negative 12/14/21 07:57 Crossmatch See Detail 12/14/21 07:57 Vitals Last Vital Signs Temp 98.2 F 12/16/21 11:42 Pulse 74 12/16/21 11:42 Resp 17 12/16/21 11:42 BP 136/73 12/16/21 11:42 Pulse Ox 94 12/16/21 11:42 O2 Del Method 12/15/21 16:00 O2 Flow Rate 2 12/14/21 08:00 Discharge Plan Discharge Patient Disposition: Xfer SNF Condition: Stable Prescriptions: New sennosides-docusate sodium [Stool Softener-Laxative] 8.6-50 mg Tablet 1 tab PO BID Qty: 60 0RF pantoprazole 40 mg Tablet,Delayed Release (Dr/Ec) 40 mg PO BID Qty: 60 0RF ferrous gluconate 324 mg (37.5 mg iron) Tablet 324 mg PO BIDWM Qty: 60 0RF metoprolol tartrate 25 mg Tablet 25 mg PO BID@0900,2100 30 Days Qty: 60 0RF sucralfate 100 mg/mL Suspension 1 g PO AC&BEDTIME Qty: 100 0RF amlodipine 10 mg Tablet 10 mg PO DAILY Qty: 30 0RF Continued calcium citrate-vitamin D3 [Calcium Citrate + D] 315-200 mg-unit tablet 1 tab PO DAILY vitamin B complex [B Complex-Vitamin B12] Tablet 1 tab PO DAILY cholecalciferol (vitamin D3) 2,000 unit tablet 2,000 unit PO DAILY acetaminophen [Tylenol Extra Strength] 500 mg tablet 500 mg PO Q4H PRN (Reason: Pain) tramadol 50 mg tablet 50 mg PO Q6H PRN (Reason: Pain) ondansetron HCl 4 mg tablet 4 mg PO TID PRN (Reason: Nausea And Vomiting) omeprazole 10 mg capsule,delayed release(DR/EC) 10 mg PO QAM Claritin 10 mg Tablet 10 mg PO DAILY magnesium oxide 400 mg magnesium Tablet 400 mg PO DAILY Discontinued metoprolol tartrate 25 mg tablet 12.5 mg PO Q12H diclofenac sodium 25 mg tablet,delayed release (DR/EC) 25 mg PO BID sulfamethoxazole-trimethoprim 800-160 mg tablet 1 tab PO BID hydrochlorothiazide 12.5 mg tablet 12.5 mg PO QAM Discharge Orders: Discharge Order (Routine); Ordered 12/16/21 Ordered By: Martin Monaco Referrals: [facility], [Staff Physician] - Radha Lion FNP [Primary Care Provider] - 2 weeks Discharge Diet: Regular Discharge Activity: Resume usual activity and Increase activity as tolerated Patient Instructions: Opioid Safety Activity Restrictions/Additional Instructions: Please continue physical therapy. Hydrochlorothiazide has been discontinued. Dose of metoprolol has been increased to 25 mg daily. Amlodipine 10 mg has been added for blood pressures. Please follow-up with your outpatient surgeon within next 1 week. Please recheck CBC in 1 week. Discharge Attestations Time Spent in Discharge Care*: greater than 30 min Specific Discharge Activities: educating patient, educating and/or supporting family/caregiver, discussing with showcase trimmer/social workers/dc planners, documenting/other paperwork and evaluating patient/reviewing data Status at Discharge: Cognitive status at discharge: cognitively intact, Behavioral status at discharge: cooperative, Functional status at discharge: independent ambulation, Overall status at discharge: patient is back to baseline Quality Metrics Clinical Quality Measures [ No reported AMI, CVA or VTE this stay] Coding Level of Care Code Acute Chg FW DC note History Comprehensive Exam Comprehensive Medical Decision Making High Complexity Diagnoses Sepsis A41.9 Acute UTI N39.0 Stercoral colitis K52.89 Anemia D64.9 Acute kidney injury N17.9 Acute metabolic encephalopathy G93.41 Fall W19.XXXA Clavicle fracture S42.009A Systolic heart failure I50.20
[2021-12-16 13:22] LABS: SARS Covid-2 Antigen Negative (Negative)
== END 2021-12-16 15:00 | disposition skilled nursing facility (03) | DRG 871 ==
LOC: ER 06:29 → ICU 10:35 → MEDSURG 12-13 20:05
PROVIDERS: Emergency Medicine; Internal Medicine; Admitting Provider Internal Medicine; Emergency Provider Family Medicine; PCP Registered Nurse; Visit Provider Student in an Organized Health Care Education/Training Program
DX: A41.51 Sepsis due to Escherichia coli [E. coli] (principal); G93.41 Metabolic encephalopathy; I50.21 Acute systolic (congestive) heart failure; N39.0 Urinary tract infection, site not specified; N17.9 Acute kidney failure, unspecified; B96.20 Unspecified Escherichia coli [E. coli] as the cause of diseases classified elsewhere; K52.89 Other specified noninfective gastroenteritis and colitis; I95.9 Hypotension, unspecified; E86.0 Dehydration; I25.2 Old myocardial infarction; M54.50 Low back pain, unspecified; R51.9 Headache, unspecified; S42.001A Fracture of unspecified part of right clavicle, initial encounter for closed fracture; W18.30XA Fall on same level, unspecified, initial encounter; Y92.019 Unspecified place in single-family (private) house as the place of occurrence of the external cause; E87.6 Hypokalemia; D50.9 Iron deficiency anemia, unspecified; I44.30 Unspecified atrioventricular block; Z90.49 Acquired absence of other specified parts of digestive tract; Z96.642 Presence of left artificial hip joint; Z96.651 Presence of right artificial knee joint; Z95.0 Presence of cardiac pacemaker; Z66 Do not resuscitate; Z93.6 Other artificial openings of urinary tract status
CPT/HCPCS: 36415; 36430; 51701; 51702; 70450; 71250; 72125; 74176; 78452; 80053; 80061; 81001; 82274; 82607; 82746; 83036; 83540; 83550; 83605; 83735; 84443; 85025; 86850; 86900; 86920; 87040; 87077; 87086; 87186; 87426; 87493; 93005; 93017; 93306; 94760; 96365; 96366; 96367; 96372; 99285; A9500; J0696; J0743; J1630; J1644; J1756; J2270; J2785; J3475; J3480; J3490; J7030; J7040; P9016

== ENCOUNTER 2022-02-15 03:03 | Emergency (ER) | payer MEDICARE, SELFPAY ==
[2022-02-15 03:04] VITALS: BP 134/74; PULSE 89; RESP 16; TEMP 36.6; O2SAT 94; BMI 24.1
--- NOTE | 2022-02-15 03:05 | ED_ITS ---
Documented by User: Talha Arreola MD 02/23/22 21:13 HPI - Fall General: Chief Complaint: Fall Stated Complaint: Fall Time Seen by Provider: 02/15/22 03:04 History of Present Illness: Ms. Benitez is an 87-year-old lady who presents to the emergency department due to pain secondary to fall when attempting to get up. She reports being at her baseline health past few days and thought she can get up from a chair however was too weak and subsequently had a somewhat controlled fall to the ground with hitting objects on her right side of the body as well as on her head. Denies loss of consciousness. Currently endorses mostly moderate intensity aching in the right side of her body specifically shoulder, hip, ankle. No other specific changes in health, exacerbating, or alleviating factors identified. 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 Surgical History History of bilateral cataract extraction History of colectomy History of hemiarthroplasty of left hip History of pacemaker S/P knee replacement [facility] Family History Daughter Pacemaker Father Tetanus from tetanus Denies family history of Anesthesia complication Bleeding disorder Social History Smoking and tobacco status: never smoked Alcohol intake: never Caregiver/support person: No Lives independently: Yes Housing: Apartment Physical Exam Const: COMMON NORMALS: alert GENERAL APPEARANCE: cooperative and well developed HENMT: COMMON NORMALS: normocephalic HEAD & SCALP: normocephalic OTHER: Contusion present. No ovalle signs or raccoon eyes. No hemotympanum. No otorrhea or rhinorrhea. Jaw alignment normal. Dentition baseline. No obvious bony step-offs. No septal hematoma. No evidence of ocular entrapment. Eye: COMMON NORMALS: conjunctivae normal CONJUNCTIVA: Yes conjunctivae normal SCLERA: sclerae normal Neck/C-Spine: COMMON NORMALS: supple GENERAL: Yes trachea midline Resp: COMMON NORMALS: normal respiratory effort and clear to auscultation bilaterally EFFORT & INSPECTION: Yes able to speak in complete sentences AUSCULTATION: clear to auscultation bilaterally Cardio: COMMON NORMALS: regular rate and regular rhythm RATE: regular rate RHYTHM: regular rhythm GI: COMMON NORMALS: Soft to palpation PALPATION: Yes Soft to palpation and No Tenderness to palpation present (GI) Extremity: NARRATIVE EXTREMITY EXAM: Tenderness to palpation with abrasion noted over the right shoulder and humerus. Skin tear about the dorsal third digit at the PIP. Tenderness palpation of right ankle without overlying skin lesion. CMS intact. GENERAL: Yes normal exam except as noted and No edema Neuro: COMMON NORMALS: moves all extremities SENSORIUM/ORIENTATION: Yes alert and No Orientation impaired Psych: COMMON NORMALS: mental status grossly normal and Normal thought process present THOUGHT PROCESS: Normal thought process present Course Vital Signs: Vital signs: Vital Signs Temperature 98 F 02/15/22 03:04 Pulse Rate 83 02/15/22 07:27 Respiratory Rate 17 02/15/22 08:38 Blood Pressure 111/64 02/15/22 08:38 Pulse Oximetry 95 02/15/22 07:27 Oxygen Delivery Me thod 02/15/22 07:27 MDM - Fall Medical Decision Making 87-year-old lady presenting with fall. Head to toe exam performed. Based on clinical history provided there are no indication for laboratory studies at this time. CT head imaging negative for acute intracranial hemorrhage. Negative cervical spine CT. Patient care handed off pending completion of x-rays with likely plan for discharge. Care assumed at change of shift. X-rays unremarkable discharge back to the detention routine cares. Lab Data Radiology Impressions Ankle X-Ray 02/15/22 03:22 IMPRESSION: No fractures or dislocation of the right ankle. Degenerative changes, as noted above. Moderate ankle region soft tissue swelling. Cervical Spine CT 02/15/22 03:22 IMPRESSION: 1. Diffuse degenerative disc disease throughout the cervical spine. 2. No fracture. Hand X-Ray 02/15/22 03:22 IMPRESSION: 1. No fracture or dislocation of the right hand. Mild index and middle finger region and dorsal hand region soft tissue swelling. No radiopaque foreign bodies. 2. Degenerative changes of the right hand, as noted above. Head CT 02/15/22 03:22 IMPRESSION: No radiographic evidence of acute intracranial pathology. Hip/Pelvis X-Ray 02/15/22 03:22 IMPRESSION: 1. No fracture or dislocation of the right hip. Degenerative changes, as noted above. 2. Deformity of the right superior and inferior pubic rami regions, related to old fractures. Humerus X-Ray 02/15/22 03:22 IMPRESSION: No fracture or dislocation of the right humerus. Shoulder X-Ray 02/15/22 03:22 IMPRESSION: No fractures or dislocations of right shoulder. Degenerative changes, as noted above. Discharge Plan Discharge Patient Disposition: [facility] Clinical Impression: Fall, Skin tear, Contusion Condition: Stable Referrals: Radha Lion FNP [Primary Care Provider] - Discharge Diet: Usual diet Discharge Activity: Increase activity as tolerated Patient Instructions: Fall Prevention for Older Adults (ED), Contusion in Adults (ED), Skin Tear (ED) Activity Restrictions/Additional Instructions: Thank you for visiting the emergency department. You were seen and evaluated for fall. No acute bony injury was identified on CT imaging. The most likely cause of your symptoms is abrasions and contusions. The treatment for this is supportive with symptom control. Please follow-up with your primary care provider. Return to the emergency department for recurrent falls, uncontrolled symptoms, or anything else that you are concerned about a feel needs emergency department evaluation. Sign Out Sign Out Data: Patient Sign Out occurred on 02/15/22 at 06:06. Patient's care was discussed, and care was transferred from to Eugenio Ceja DO. 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 Surgical History History of bilateral cataract extraction History of colectomy History of hemiarthroplasty of left hip History of pacemaker S/P knee replacement [facility] Family History Daughter Pacemaker Father Tetanus from tetanus Denies family history of Anesthesia complication Bleeding disorder Social History Smoking and tobacco status: never smoked Alcohol intake: never Caregiver/support person: No Lives independently: Yes Housing: Apartment Course Vital Signs: Vital signs: Vital Signs Temperature 98 F 02/15/22 03:04 Pulse Rate 83 02/15/22 07:27 Respiratory Rate 17 02/15/22 08:38 Blood Pressure 111/64 02/15/22 08:38 Pulse Oximetry 95 02/15/22 07:27 Oxygen Delivery Me thod 02/15/22 07:27 MDM - Fall Medical Decision Making Care assumed at change of shift. X-rays unremarkable discharge back to the detention routine cares. Medical Records I reviewed the patient's medical records. Lab Data I reviewed the patient's lab results. Radiology Impressions Ankle X-Ray 02/15/22 03:22 IMPRESSION: No fractures or dislocation of the right ankle. Degenerative changes, as noted above. Moderate ankle region soft tissue swelling. Cervical Spine CT 02/15/22 03:22 IMPRESSION: 1. Diffuse degenerative disc disease throughout the cervical spine. 2. No fracture. Hand X-Ray 02/15/22 03:22 IMPRESSION: 1. No fracture or dislocation of the right hand. Mild index and middle finger region and dorsal hand region soft tissue swelling. No radiopaque foreign bodies. 2. Degenerative changes of the right hand, as noted above. Head CT 02/15/22 03:22 IMPRESSION: No radiographic evidence of acute intracranial pathology. Hip/Pelvis X-Ray 02/15/22 03:22 IMPRESSION: 1. No fracture or dislocation of the right hip. Degenerative changes, as noted above. 2. Deformity of the right superior and inferior pubic rami regions, related to old fractures. Humerus X-Ray 02/15/22 03:22 IMPRESSION: No fracture or dislocation of the right humerus. Shoulder X-Ray 02/15/22 03:22 IMPRESSION: No fractures or dislocations of right shoulder. Degenerative changes, as noted above. Discharge Plan Discharge Patient Disposition: [facility] Clinical Impression: Fall, Skin tear, Contusion Condition: Stable Referrals: Radha Lion FNP [Primary Care Provider] - Discharge Diet: Usual diet Discharge Activity: Increase activity as tolerated Patient Instructions: Fall Prevention for Older Adults (ED), Contusion in Adults (ED), Skin Tear (ED) Activity Restrictions/Additional Instructions: Thank you for visiting the emergency department. You were seen and evaluated for fall. No acute bony injury was identified on CT imaging. The most likely cause of your symptoms is abrasions and contusions. The treatment for this is supportive with symptom control. Please follow-up with your primary care provider. Return to the emergency department for recurrent falls, uncontrolled symptoms, or anything else that you are concerned about a feel needs emergency department evaluation. Sign Out Sign Out Data: Patient Sign Out occurred on 02/15/22 at 06:06. Patient's care was discussed, and care was transferred from to Eugenio Ceja DO. 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
--- NOTE | 2022-02-15 03:22 | XRR_ITS ---
PROCEDURE INFORMATION: Exam: XR Right Ankle Exam date and time: 02/15/2022 3:40 AM Age: 87 years old Clinical indication: Injury or trauma; Fall; Blunt trauma; Right; Patient HX: Fell out of chair at long-term. Struck head on wall radiator heater trying to get back up. Abrasion to RT shoulder, RT hand, and RT ankle. C/O primarily of head and RT hip pain. ; Additional info: Fall, ankle pain TECHNIQUE: Imaging protocol: Radiologic exam of the Right ankle. Views: 3 or more views. AP Oblique Lateral COMPARISON: NM bone scan whole body* [id number] 02/17/2021 8:52 AM FINDINGS: Bones/joints: There is normal alignment without fractures or dislocations. Tiny medial and lateral malleolar degenerative osteophytes are seen. There is generalized osteopenia. Small degenerative osteophytes are seen. Rata-eh-seofedis tibiotalar and moderate to severe subtalar and visualized mid tarsal osteoarthritic changes are seen. Small to medium-sized plantar calcaneal spur is seen. There is no ankle joint effusion. The mortise is normal. The distal tibia-fibular alignment is unremarkable. Soft tissues: There is moderate ankle region soft tissue swelling. There are no radiopaque foreign bodies. Severe atherosclerotic vascular calcifications are seen. Notes: If there is further concern, recommend follow-up radiographs or MRI for complete assessment. XR/XR ankle RT min 3V* [id number] IMPRESSION: No fractures or dislocation of the right ankle. Degenerative changes, as noted above. Moderate ankle region soft tissue swelling.
--- NOTE | 2022-02-15 03:22 | CTR_ITS ---
PROCEDURE INFORMATION: Exam: CT Head Without Contrast Exam date and time: 02/15/2022 3:53 AM Age: 87 years old Clinical indication: Injury or trauma; Fall; Blunt trauma (contusions or hematomas); Patient HX: Fell out of chair at long term. Struck head on wall radiator heater trying to get back up. Abrasion to RT shoulder, RT hand, and RT ankle. C/O primarily of head and RT hip pain. ; Additional info: Fall, head strike TECHNIQUE: Imaging protocol: Computed tomography of the head without contrast. Radiation optimization: All CT scans at this facility use at least one of these dose optimization techniques: automated exposure control; mA and/or kV adjustment per patient size (includes targeted exams where dose is matched to clinical indication); or iterative reconstruction. COMPARISON: CT head wo con* [id number] 12/10/2021 2:47 AM RADIATION DOSE METRICS: Total DLP (mGy-cm): 1075.18 FINDINGS: Brain: Hypodensity is seen in the periventricular cerebral white matter. This change is nonspecific but is most likely secondary to chronic ischemia within microvascular distributions. No intra or extra-axial masses, lesions or collections. Edwards white matter distinction is maintained throughout the brain. No radiographic evidence of intracranial hemorrhage. Cerebral ventricles: Ventricles are enlarged on the basis of mild diffuse cerebral volume loss. Paranasal sinuses: Visualized sinuses are unremarkable. No fluid levels. Mastoid air cells: Visualized mastoid air cells are well aerated. Bones/joints: Unremarkable. No acute fracture. Soft tissues: Unremarkable. CT/CT head wo con* [id number] IMPRESSION: No radiographic evidence of acute intracranial pathology.
--- NOTE | 2022-02-15 03:22 | XRR_ITS ---
PROCEDURE INFORMATION: Exam: XR Right Humerus Exam date and time: 02/15/2022 3:33 AM Age: 87 years old Clinical indication: Injury or trauma; Fall; Blunt trauma (contusions or hematomas); Arm, upper; Right; Patient HX: Fell out of chair at group home. Struck head on wall radiator heater trying to get back up. Abrasion to RT shoulder, RT hand, and RT ankle. C/O primarily of head and RT hip pain. ; Additional info: Fall, pain TECHNIQUE: Imaging protocol: Radiologic exam of the Right humerus. Views: 2 or more views. AP and Lateral COMPARISON: CR (CHEST, ) 02/15/2022 3:29 AM FINDINGS: Bones/joints: There is normal alignment without fractures or dislocations. There is generalized osteopenia. Moderate to severe right shoulder and mild elbow region degenerative changes are seen. There is osteopenia. Soft tissues: There is no radiographic soft tissue swelling or radiopaque foreign bodies. Notes: If there is further concern, recommend follow-up radiographs or bone scan for complete assessment. XR/[place] [id number] IMPRESSION: No fracture or dislocation of the right humerus.
--- NOTE | 2022-02-15 03:22 | XRR_ITS ---
PROCEDURE INFORMATION: Exam: XR Right Hip Exam date and time: 02/15/2022 3:43 AM Age: 87 years old Clinical indication: Injury or trauma; Fall; Blunt trauma (contusions or hematomas); Right; Prior surgery; Surgery type: Left hip arthoplasty; Patient HX: Fell out of chair at senior living. Struck head on wall radiator heater trying to get back up. Abrasion to RT shoulder, RT hand, and RT ankle. C/O primarily of head and RT hip pain. ; Additional info: Fall, R hip pain, w pelvis 1 v please TECHNIQUE: Imaging protocol: Radiologic exam of the Right hip. Views: 1 view hip with pelvis when performed. COMPARISON: [place] [id number] 12/10/2021 2:55 AM FINDINGS: Bones/joints: There is normal alignment of the right hip without fractures or dislocations. Unchanged deformity of the right superior and inferior pubic rami regions is seen, related to old fractures. There is generalized osteopenia. [id number] right hip joint space narrowing is seen, suggestive of osteoarthritic change. Moderate bilateral sacroiliac joint and mild symphysis pubis degenerative changes are seen. The visualized left hip shows postsurgical changes status post non cemented bipolar hip arthroplasty. Soft tissues: There is no radiographic soft tissue swelling. There are no radiopaque foreign bodies. Moderate to severe atherosclerotic vascular calcifications are seen. Notes: If there is further concern, recommend follow-up radiographs or MRI for complete assessment. XR/XR hip RT 2-3V wo/w pel* [id number] IMPRESSION: 1. No fracture or dislocation of the right hip. Degenerative changes, as noted above. 2. Deformity of the right superior and inferior pubic rami regions, related to old fractures.
--- NOTE | 2022-02-15 03:22 | CTR_ITS ---
PROCEDURE INFORMATION: Exam: CT Cervical Spine Without Contrast Exam date and time: 02/15/2022 3:56 AM Age: 87 years old Clinical indication: Injury or trauma; Fall; Blunt trauma; Patient HX: Fell out of chair at group home. Struck head on wall radiator heater trying to get back up. Abrasion to RT shoulder, RT hand, and RT ankle. C/O primarily of head and RT hip pain. ; Additional info: Fall, R sided neck pain TECHNIQUE: Imaging protocol: Computed tomography of the cervical spine without contrast. Radiation optimization: All CT scans at this facility use at least one of these dose optimization techniques: automated exposure control; mA and/or kV adjustment per patient size (includes targeted exams where dose is matched to clinical indication); or iterative reconstruction. COMPARISON: CT cervical spin wo con* [id number] 12/10/2021 2:51 AM RADIATION DOSE METRICS: Total DLP (mGy-cm): 270.87 FINDINGS: Bones/joints: alignment is normal. posterior vertebral line and the spinal laminar line normal. odontoid process normal. no fracture. Diffuse degenerative disc disease throughout the cervical spine. Lungs: The lung apices are normal. Soft tissues: Unremarkable. CT/CT cervical spin wo con* [id number] IMPRESSION: 1. Diffuse degenerative disc disease throughout the cervical spine. 2. No fracture.
--- NOTE | 2022-02-15 03:22 | XRR_ITS ---
PROCEDURE INFORMATION: Exam: XR Right Shoulder Exam date and time: 02/15/2022 3:29 AM Age: 87 years old Clinical indication: Injury or trauma; Fall; Blunt trauma (contusions or hematomas); Right; Prior surgery; Surgery type: Pacemaker; Patient HX: Fell out of chair at long-term. Struck head on wall radiator heater trying to get back up. Abrasion to RT shoulder, RT hand, and RT ankle. C/O primarily of head and RT hip pain. ; Additional info: Fall, pain TECHNIQUE: Imaging protocol: Radiologic exam of the Right shoulder. Views: 2 or more views. AP INT/ EXT ROTATION, SCAPULAR Y COMPARISON: NM bone scan whole body* [id number] 02/17/2021 8:52 AM FINDINGS: Bones/joints: Moderate to severe glenohumeral joint space narrowing is seen with small osteophytes, consistent with degenerative change. There are no fractures or dislocations. Severe subacromial space narrowing is seen with superior positioning of the humeral head, suggestive of rotator cuff tear. Moderate acromioclavicular degenerative changes are seen. Distal subclavicular 4-8 mm osseous bodies are seen, which may represent joint bodies. There is generalized osteopenia. The visualized scapula and clavicle are unremarkable. Soft tissues: There are no radiopaque foreign bodies. Notes: If there is further concern, follow-up radiographs or MRI of the shoulder may be performed for complete assessment. XR/XR shoulder RT min 2V* [id number] IMPRESSION: No fractures or dislocations of right shoulder. Degenerative changes, as noted above.
--- NOTE | 2022-02-15 03:22 | XRR_ITS ---
PROCEDURE INFORMATION: Exam: XR Right Hand Exam date and time: 02/15/2022 3:36 AM Age: 87 years old Clinical indication: Injury or trauma; Fall; Blunt trauma (contusions or hematomas); Right; Patient HX: Fell out of chair at retirement. Struck head on wall radiator heater trying to get back up. Abrasion to RT shoulder, RT hand, and RT ankle. C/O primarily of head and RT hip pain. ; Additional info: Fall, 3rd digit pain/laceration TECHNIQUE: Imaging protocol: Radiologic exam of the Right hand. Views: 3 or more views. Frontal Oblique Lateral COMPARISON: NM bone scan whole body* [id number] 02/17/2021 8:52 AM FINDINGS: Bones/joints: There is mild flexion of the digits on the exam, which limits assessment. Moderate to severe digit proximal and distal interphalangeal joint, moderate thumb interphalangeal joint, severe 1st through 3rd metacarpophalangeal joint and moderate 4th and 5th metacarpophalangeal joint space narrowing is seen with associated small osteophytes, consistent with osteoarthritic change. Moderate carpometacarpal joint, midcarpal and radiocarpal joint space narrowing is seen, suggestive of osteoarthritic change. There is osteopenia. There are no fractures or dislocations seen. Soft tissues: There is mild dorsal hand region soft tissue swelling. Mild index and middle finger region soft tissue swelling. No radiopaque foreign bodies. Severe atherosclerotic vascular calcifications. Notes: If there is further concern, recommend follow-up radiographs or MRI for complete assessment. XR/XR hand RT min 3V* [id number] IMPRESSION: 1. No fracture or dislocation of the right hand. Mild index and middle finger region and dorsal hand region soft tissue swelling. No radiopaque foreign bodies. 2. Degenerative changes of the right hand, as noted above.
[2022-02-15 03:35] VITALS: RESP 15; O2SAT 96
[2022-02-15] MEDS: morphine 4 mg/mL SDV 1 mL IM (03:35)
[2022-02-15] MEDS: tetanus-dipt-pertussis 0.5 mL SDV IM (03:48)
[2022-02-15 05:40] VITALS: BP 162/82; PULSE 80; RESP 18; O2SAT 94
[2022-02-15 07:27] VITALS: BP 121/65; PULSE 83; RESP 24; O2SAT 95
--- NOTE | 2022-02-15 07:28 | PC.NURSE ---
Report from AUGUST Ritchie. Patient cleaned of urinary incontinence, and repositioned. No other needs at this time.
[2022-02-15 08:38] VITALS: BP 111/64; RESP 17
== END 2022-02-15 08:54 ==
PROVIDERS: Emergency Provider Family Medicine; PCP Registered Nurse
DX: S61.212A Laceration without foreign body of right middle finger without damage to nail, initial encounter (principal); S40.211A Abrasion of right shoulder, initial encounter; Z95.0 Presence of cardiac pacemaker; I10 Essential (primary) hypertension; W18.30XA Fall on same level, unspecified, initial encounter; Z23 Encounter for immunization
CPT/HCPCS: 70450; 72125; 73030; 73060; 73130; 73502; 73610; 90471; 90715; 96372; 99285; J2270

== ENCOUNTER 2022-04-04 13:11 | Emergency (ER) | payer MEDICARE, MEDICAID, SELFPAY ==
[2022-04-04 13:14] VITALS: BP 158/82; PULSE 115; RESP 18; TEMP 36.8; O2SAT 96
--- NOTE | 2022-04-04 13:23 | XR_ITS ---
WS: [id number] XR hip LT 2-3V wo/w pel* [id number] REASON FOR EXAM: fall pain FINDINGS: Previous total left hip arthroplasty. The prosthesis is not dislocated. There is a thin area of lucency with sclerosis along the medial aspect of the femoral component, manufacturing design engineer mary mild loosening. The total hip arthroplasty appears essentially unchanged in position and configur ation compared to 02/15/2022. No acute fracture is identified. Superior and inferior pubic ramus are intact with no acute fracture identified. XR/XR hip LT 2-3V wo/w pel* [id number] IMPRESSION: Total left hip arthroplasty with no acute abnormality identified.
--- NOTE | 2022-04-04 13:23 | XR_ITS ---
WS: [id number] XR elbow LT min 3V* [id number] REASON FOR EXAM: fall/pain FINDINGS: No fracture identified. Radial head, coronoid, and olecranon intact. Distal humerus intact. Mild narrowing with significant osteophytosis of the ulnar side of the ulnotrochlear articulation. There is an expansion of the radial tuberosity with a a lucency extending from the medullary cavity w ith decreased trabeculae, a thin sclerotic rim, and thinning of the overlying cortex. XR/XR elbow LT min 3V* [id number] IMPRESSION: No fracture or dislocation is identified. No joint effusion is seen. Osteoarthritis in the elbow joint as above. Incidental focal lesion in the radius, most likely benign, either lipoma or enc hondroma. If the patient has a history of previous malignancy this lesion would be of more concern.
--- NOTE | 2022-04-04 13:31 | CT_ITS ---
WS: [id number] CT CERVICAL TRAUMA TECHNIQUE: Noncontrast CT of the cervical spine with coronal and sagittal reformatted images. CLINICAL INFORMATION: trauma COMPARISON: February 15, 2022 DLP: [address] scans at [facility] use at least one of these dose optimization techniques: automated e xposure control; mA and/or kV adjustment per patient size (includes targeted exams where dose is matc hed to clinical indication); or iterative reconstruction. FINDINGS: Straightening of the normal cervical lordosis. Moderate spondylitic changes. Anterior hypertrophic ch anges. Slight anterolisthesis C7 on T1. Normal craniocervical junction. Normal C1-C2 articulation. De ns is normal in appearance. Normal occipital condyles. Normal C1 ring. No evidence of acute fracture or dislocation. Normal prevertebral soft tissues. Mastoids air cells are well aerated. CT/CT cervical spin wo con* [id number] IMPRESSION: No evidence of acute fracture or dislocation.
--- NOTE | 2022-04-04 13:31 | CT_ITS ---
WS: [id number] CT HEAD TECHNIQUE: Noncontrast CT of the head obtained from the skullbase to the vertex. CLINICAL INFORMATION: trauma COMPARISON: CT head February 15, 2022 DLP: 1300.[address] scans at [facility] use at least one of these dose optimization techniques: automated e xposure control; mA and/or kV adjustment per patient size (includes targeted exams where dose is matc hed to clinical indication); or iterative reconstruction. FINDINGS: No evidence of intracranial hemorrhage or mass effect. Ventricular system and basal cisterns are felton nt. Mild small vessel changes with moderate parenchymal volume loss. Intracranial vascular calcificat ions. No extra-axial fluid collections. No evidence of mass or mass effect. Paranasal sinuses and mastoid air cells are well aerated. .Normal visualized soft tissues. CT/CT head wo con* [id number] IMPRESSION: 1. No evidence of intracranial hemorrhage or mass effect. 2. Mild small vessel changes. Moderate parenchymal volume loss. 3. No acute intracranial findings.
--- NOTE | 2022-04-04 13:33 | ED_ITS ---
HPI - Fall General: Chief Complaint: Fall Stated Complaint: fall Time Seen by Provider: 04/04/22 13:11 Source: patient Mode of arrival: EMS History of Present Illness: 87-year-old female presents emergency room from local long term after a ground-level mechanical fall while in the shower. Patient states she did hit her head on the shower chair. She did not lose consciousness she was ambulatory afterwards she is able to demonstrate movement in the elbow she complains of pain in her head neck left elbow and left hip. She has a lidocaine patch on her left knee no abrasions no lacerations complaint: fall Onset (ago): hour(s) Fall from: standing Fall witnessed: no Place fall occurred: long term/SNF Loss of consciousness: None Prolonged down time: no Symptoms prior to fall: none Context: tripped/slipped Location of injury: head and neck Location of injury - extremities: Left: elbow and thigh (Left hip) Severity: mild Quality: aching Associated symptoms-after fall: Denies abdominal pain, chest pain, confusion, difficulty walking, headache(s), hematuria, lightheadedness, neck pain, numbness, short of breath, vertigo or weakness Review of Systems Const: Denies: fever(s), chills, body aches, change in appetite, fatigue or malaise ENMT: Denies: throat pain, ear or mastoid pain, nasal discharge or nasal congestion Card: Denies: chest pain or lightheadedness Resp: Denies: dyspnea, productive cough or non-productive cough GI: Denies: abdominal pain, nausea or vomiting : Denies: dysuria, urinary frequency, urinary urgency or hematuria Musc: Denies: neck pain Skin/Breast: Denies: rash or pruritus Neuro: Denies: headache(s), difficulty walking, vertigo or confusion PFSH ED PFSH: Medical History 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 Placed by Donita 02/2019 HTN (hypertension) Lumbar compression fracture Mobitz type 2 second degree atrioventricular block Osteoarthritis 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) Subcapital fracture of left hip Thoracic compression fracture 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 Surgical History History of bilateral cataract extraction History of colectomy History of hemiarthroplasty of left hip History of pacemaker S/P knee replacement righ Family History Daughter Pacemaker Father Tetanus from tetanus Denies family history of Anesthesia complication Bleeding disorder Social History Smoking and tobacco status: never smoked Alcohol intake: never Caregiver/support person: No Lives independently: Yes Housing: Apartment Physical Exam Const: GENERAL APPEARANCE: cooperative and comfortable ORIENTATION/CONSCIOUSNESS: Yes awake, Yes oriented to person, Yes oriented to place and Yes oriented to time HENMT: COMMON NORMALS: normocephalic, atraumatic, hearing grossly normal bilaterally, external ears normal, EAC's normal, TM's normal bilaterally, Normal nasal mucous membranes and turbinates present, moist oral mucous membranes and oropharynx normal HEAD & SCALP: normocephalic and atraumatic NOSE: Normal nasal mucous membranes and turbinates present EXTERNAL EAR: Yes external ears normal EXTERNAL AUDITORY CANAL: EAC's normal TYMPANIC MEMBRANE: TM's normal bilaterally Eye: COMMON NORMALS: Equal, round and reactive pupils present, EOMs intact bilaterally, conjunctivae normal and no scleral icterus CONJUNCTIVA: Yes conjunctivae normal PUPIL: Yes Equal, round and reactive pupils present Neck/C-Spine: COMMON NORMALS: full ROM, no lymphadenopathy, supple and no JVD Resp: COMMON NORMALS: normal respiratory effort, No retractions, No use of accessory muscles and clear to auscultation bilaterally AUSCULTATION: clear to auscultation bilaterally Cardio: COMMON NORMALS: no JVD, regular rate, regular rhythm and No murmurs present (Cardio) RATE: regular rate RHYTHM: regular rhythm GI: COMMON NORMALS: Soft to palpation and No hepatosplenomegaly present AUSCULTATION: Yes normoactive bowel sounds PALPATION: Yes Soft to palpation, No Tenderness to palpation present (GI), No Guarding due to palpation present (GI) and Yes No hepatosplenomegaly present Extremity: COMMON NORMALS: normal to inspection, capillary refill normal, no clubbing, cyanosis or edema, no calf tenderness and no pedal edema Neuro: SENSORIUM/ORIENTATION: Yes oriented to person, Yes oriented to place and Yes oriented to time Skin: COMMON NORMALS: no rashes or lesions noted GENERAL SKIN EXAM: no rashes or lesions noted Course Vital Signs: Vital signs: Vital Signs Temperature 98.2 F 04/04/22 13:14 Pulse Rate 115 H 04/04/22 13:14 Respiratory Rate 18 04/04/22 13:14 Blood Pressure 158/82 04/04/22 13:14 Pulse Oximetry 96 04/04/22 13:14 Oxygen Delivery Me thod 04/04/22 13:14 MDM - Fall Medical Decision Making No fracture on elbow or hip CT head and neck are negative we will discharge patient home to the long term continue routine cares. Medical Records I reviewed the patient's medical records. Lab Data I reviewed the patient's lab results. Radiology Impressions Elbow X-Ray 04/04/22 13:23 IMPRESSION: No fracture or dislocation is identified. No joint effusion is seen. Osteoarthritis in the elbow joint as above. Incidental focal lesion in the radius, most likely benign, either lipoma or enchondroma. If the patient has a history of previous malignancy this lesion would be of more concern. Hip/Pelvis X-Ray 04/04/22 13:23 IMPRESSION: Total left hip arthroplasty with no acute abnormality identified. Cervical Spine CT 04/04/22 13:31 IMPRESSION: No evidence of acute fracture or dislocation. Head CT 04/04/22 13:31 IMPRESSION: 1. No evidence of intracranial hemorrhage or mass effect. 2. Mild small vessel changes. Moderate parenchymal volume loss. 3. No acute intracranial findings. Discharge Plan Discharge Patient Disposition: Home Clinical Impression: Fall, History of hemiarthroplasty of left hip Condition: Stable Prescriptions: No Action calcium citrate-vitamin D3 [Calcium Citrate + D] 315-200 mg-unit tablet 1 tab PO DAILY vitamin B complex [B Complex-Vitamin B12] Tablet 1 tab PO DAILY cholecalciferol (vitamin D3) 2,000 unit tablet 2,000 unit PO DAILY acetaminophen [Tylenol Extra Strength] 500 mg tablet 500 mg PO Q4H PRN (Reason: Pain) tramadol 50 mg tablet 50 mg PO Q6H PRN (Reason: Pain) ondansetron HCl 4 mg tablet 4 mg PO TID PRN (Reason: Nausea And Vomiting) omeprazole 10 mg capsule,delayed release(DR/EC) 10 mg PO QAM Claritin 10 mg Tablet 10 mg PO DAILY magnesium oxide 400 mg magnesium Tablet 400 mg PO DAILY sucralfate 100 mg/mL Suspension 1 g PO AC&BEDTIME Qty: 100 0RF Stool Softener-Laxative 8.6-50 mg Tablet 1 tab PO BID Qty: 60 0RF amlodipine 10 mg Tablet 10 mg PO DAILY Qty: 30 0RF pantoprazole 40 mg Tablet,Delayed Release (Dr/Ec) 40 mg PO BID Qty: 60 0RF ferrous gluconate 324 mg (37.5 mg iron) Tablet 324 mg PO BIDWM Qty: 60 0RF Discharge Orders: Discharge ED (Routine); Ordered 04/04/22 Ordered By: Eugenio Ceja Referrals: Radha Lion FNP [Primary Care Provider] - Discharge Diet: Usual diet Discharge Activity: Resume usual activity Patient Instructions: Opioid Safety, Pain Management Activity Restrictions/Additional Instructions: Seen today for a fall. CT of the head exam of the neck elbow and hip were all negative for fracture. He may return to the long term with your regular medications. Coding Level of Care Code ED Spinneret Person for Derrick Fwdarren Exam Comprehensive
== END 2022-04-04 15:52 | disposition home or self-care (01) ==
PROVIDERS: Emergency Provider Family Medicine; PCP Registered Nurse
DX: S09.90XA Unspecified injury of head, initial encounter (principal); W19.XXXA Unspecified fall, initial encounter
CPT/HCPCS: 70450; 72125; 73080; 73502; 99284

== ENCOUNTER 2022-05-18 09:46 | Emergency (ER) | payer MEDICARE, MEDICAID, SELFPAY ==
[2022-05-18 09:48] VITALS: BP 116/84; PULSE 91; RESP 165; TEMP 36.4; O2SAT 95; BMI 25.9
--- NOTE | 2022-05-18 09:49 | CT_ITS ---
WS: [id number] CT HEAD TECHNIQUE: Noncontrast CT of the head obtained from the skullbase to the vertex. CLINICAL INFORMATION: AMS COMPARISON: None. DLP: 1044.[address] scans at [facility] use at least one of these dose optimization techniques: automated e xposure control; mA and/or kV adjustment per patient size (includes targeted exams where dose is matc hed to clinical indication); or iterative reconstruction. FINDINGS: No evidence of intracranial hemorrhage or mass effect. Ventricular system and basal cisterns are felton nt. Mild small vessel changes with moderate parenchymal volume loss. No extra-axial fluid collections . No evidence of mass or mass effect. Vascular calcification. Paranasal sinuses and mastoid air cells are well aerated. .Normal visualized soft tissues. CT/CT head wo con* [id number] IMPRESSION: 1. No evidence of intracranial hemorrhage or mass effect. 2. Mild small vessel changes. Moderate parenchymal volume loss. 3. Vascular calcification. 4. No acute intracranial findings.
--- NOTE | 2022-05-18 09:49 | ECG_ITS ---
[facility] Test Date: 2022-05-18 Pat Name: Colleen Benitez Department: Room: Gender: Female [employer]: : 1935 Requested By: Eugenio Broderick Order Number: [id number] Nona MD: Jonathan Toribio M.D. Measurements Intervals Reading Rate: 89 P: 57 AZ: 204 QRS: 258 QRSD: 177 T: 45 QT: 429 QTc: 522 Interpretive Statements ELECTRONIC VENTRICULAR PACEMAKER ABNORMAL RHYTHM ECG Compared to ECG 12/12/2021 06:04:07 No significant changes Electronically Signed On 05-18-2022 21:41:45 NEWS EDITOR by Jonathan Toribio M.D. [id number]
--- NOTE | 2022-05-18 09:50 | ED_ITS ---
HPI - General Adult General: Chief complaint: Chest Pain Stated complaint: AMS Time Seen by Provider: 05/18/22 09:49 Source: patient Mode of arrival: ambulatory History of Present Illness: 87 yo female presents to the ER from [facility] report of AMS. [facility] reports that she was transiently hypoxic with chest pain rating to her left side and then after that she had what they thought appeared to be a seizure she was staring off to the left and then was unresponsive for EMS reported she was doing some lipsmacking and very agitated. When she arrives here she is awake alert nearly at her baseline seems patient multiple times in the past. Onset (ago): minute(s) Location: right, upper extremity and lower extremity Severity: mild Quality: aching Pain Consistency: constant Relieving factors: none Exacerbating factors: none Associated symptoms: Reports confusion; Deny chest pain, cough, diaphoresis, decreased appetite, dyspnea, fevers/chills, headache(s), malaise, nausea, rash, palpitations, seizures, short of breath, syncope, vomiting or weakness Treatments prior to arrival: none Review of Systems General: Reports: Other (Limited review of systems) Const: Denies: malaise or diaphoresis Card: Denies: chest pain, palpitations or syncope Resp: Denies: dyspnea GI: Denies: abdominal pain, nausea or vomiting Musc: Denies: neck pain or back pain Skin/Breast: Denies: rash Neuro: Reports: confusion; Denies: headache(s) [facility] ED PFSH: Medical History 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 Placed by Donita 02/2019 HTN (hypertension) Lumbar compression fracture Mobitz type 2 second degree atrioventricular block Osteoarthritis 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) Subcapital fracture of left hip Thoracic compression fracture 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 Surgical History History of bilateral cataract extraction History of colectomy History of hemiarthroplasty of left hip History of pacemaker S/P knee replacement rig Family History Daughter Pacemaker Father Tetanus from tetanus Denies family history of Anesthesia complication Bleeding disorder Social History Smoking and tobacco status: never smoked Alcohol intake: never Caregiver/support person: No Lives independently: Yes Housing: Apartment Physical Exam Const: GENERAL APPEARANCE: cooperative and comfortable ORIENTATION/CONSCIOUSNESS: Yes awake, Yes oriented to person, Yes oriented to place and Yes oriented to time HENMT: COMMON NORMALS: normocephalic, atraumatic and hearing grossly normal bilaterally HEAD & SCALP: normocephalic and atraumatic Resp: COMMON NORMALS: normal respiratory effort, No retractions, No use of accessory muscles and clear to auscultation bilaterally AUSCULTATION: clear to auscultation bilaterally Cardio: COMMON NORMALS: regular rate, regular rhythm and No murmurs present (Cardio) RATE: regular rate RHYTHM: regular rhythm GI: COMMON NORMALS: Soft to palpation and No hepatosplenomegaly present AUSCULTATION: Yes normoactive bowel sounds PALPATION: Yes Soft to palpation, No Tenderness to palpation present (GI), No Guarding due to palpation present (GI) and Yes No hepatosplenomegaly present Extremity: COMMON NORMALS: normal to inspection, capillary refill normal, no clubbing, cyanosis or edema, no calf tenderness and no pedal edema OTHER: Point tenderness at the left greater trochanter Neuro: SENSORIUM/ORIENTATION: Yes oriented to person, Yes oriented to place and Yes oriented to time OTHER: No focal neurologic deficits are noted NIH is 0. Skin: COMMON NORMALS: no rashes or lesions noted GENERAL SKIN EXAM: no rashes or lesions noted Procedures Bursa Procedures Time Out Performed: Yes Side of body: left Site of Procedure: trochanteric bursa XRAY Obtained: normal (Hip arthroplasty) Antisepsis Used: Povidone-Iodine1% Local Anesthetic: bupivacaine 0.5% Amount of anesthesia used (mL): 3 Medication Injected: Triamcinolone Amount of medication used (mg): 40 Additional Comments: Patient previously had a hip arthroplasty she has pain over the greater trochanter and is requesting steroid injection. Injected with 3 mL bupivacaine and 40 mg triamcinolone. 1-1/2 mL at the most tender point by palpation the remainder distributed in a pinwheel like fashion around that point. Course Vital Signs: Vital signs: Vital Signs Temperature 97.6 F 05/18/22 09:48 Pulse Rate 88 01/11/23 14:26 Respiratory Rate 14 05/18/22 14:26 Blood Pressure 128/71 05/18/22 14:26 Pulse Oximetry 98 05/18/22 14:26 Oxygen Delivery Me thod 05/18/22 09:48 MDM - General Adult Medical Decision Making Initially no family at the bedside seen this patient several times. She did seem a little bit more sedate than her usual which may have been postictal. Wor k-up was unremarkable as homely completed she is completely back to her normal baseline. Family at the bedside concurs. They did not witness anything that sounded like a seizure and EMS had mention the potential of a seizure he is also concerned about a stroke. When she first arrived and throughout her stay there is been no sign of neurologic deficits suggestive of a stroke. I suspect she may have had a syncopal episode related to her blood pressure and she has by enlarge recovered from that now but that may have accounted for her sedation like appearance when she first arrived. Going to decrease her metoprolol to 12- 1/2 mg twice daily your blood pressure is running rather low. This may help avoid postural changes precipitating issues. At the patient the trochanteric bursa on the left hip was injected with bupivacaine and triamcinolone. Labs and imaging and EKG reviewed no acute changes Medical Records I reviewed the patient's medical records. Lab Data I reviewed the patient's lab results. 05/18/22 10:05 05/18/22 10:[address] 05/18/22 09:49 IMPRESSION: 1. No evidence of intracranial hemorrhage or mass effect. 2. Mild small vessel changes. Moderate parenchymal volume loss. 3. Vascular calcification. 4. No acute intracranial findings. Hip/Pelvis X-Ray 05/18/22 09:58 IMPRESSION: 1. Irregularity of the right inferior pubic rami and junction of the right superior pubic rami with acetabulum was present on prior exam and felt to represent sequela of remote trauma. 2. No acute osseous pathology. Humerus X-Ray 05/18/22 09:58 IMPRESSION: No acute osseous pathology. Shoulder X-Ray 05/18/22 09:58 IMPRESSION: Severe osteoarthritis involving the shoulder. Remodeling and extensive osteoar thritic changes. No fracture identified. Laboratory Results WBC 7.5 10^3/uL (4.0-10.0) 05/18/22 10:05 RBC 4.39 10^6/uL (4.1-5.3) 05/18/22 10:05 Hgb 12.0 g/dL (11.5-15.3) 05/18/22 10:05 Hct 39.5 % (37.0-47.0) 05/18/22 10:05 MCV 90.0 fl (81-99) 05/18/22 10:05 MCH 27.3 pg (28.0-34.0) L 05/18/22 10:05 MCHC 30.4 g/dL (30.0-36.0) 05/18/22 10:05 RDW 13.3 % (12.1-15.1) 05/18/22 10:05 Plt Count 270 10^3/cmm (130-400) 05/18/22 10:05 MPV 9.8 fL (7.4-10.4) 05/18/22 10:05 Neut % (Auto) 62.0 % 05/18/22 10:05 Lymph % (Auto) 30.1 % 05/18/22 10:05 [place] % (Auto) 6.2 % 05/18/22 10:05 Eos % (Auto) 0.9 % 05/18/22 10:05 Baso % (Auto) 0.5 % 05/18/22 10:05 Neut # (Auto) 4.66 10^3/uL (1.8-7.7) 05/18/22 10:05 Lymph # (Auto) 2.3 10^3/uL (0.8-4.8) 05/18/22 10:05 [place] # (Auto) 0.5 10^3/uL (0.2-0.9) 05/18/22 10:05 Eos # (Auto) 0.1 10^3/uL (0.0-0.8) 05/18/22 10:05 Baso # (Auto) 0.0 10^3/uL (0.0-0.1) 05/18/22 10:05 Nucleated RBC % (auto) 0 % 05/18/22 10:05 Nucleated RBCs # 0.0 /100WBC 05/18/22 10:05 Sodium 139 mmol/L (136-145) 05/18/22 10:05 Potassium 3.7 mmol/L (3.5-5.1) 05/18/22 10:05 Chloride 103 mmol/L (98-107) 05/18/22 10:05 Carbon Dioxide 26 mmol/L (22-29) 05/18/22 10:05 Anion Gap 13.7 (5-19) 05/18/22 10:05 BUN 15 mg/dL (8-23) 05/18/22 10:05 Creatinine 0.8 mg/dL (0.5-0.9) 05/18/22 10:05 GFR Calculation Not Reportable 05/18/22 10:05 Glucose 139 mg/dL (65-115) H 05/18/22 10:05 Calculated Osmolality 291 mOsm/kg (285-295) 05/18/22 10:05 Calcium 8.8 mg/dL (8.5-10.5) 05/18/22 10:05 Total Bilirubin 0.3 mg/dL (0.15-1.2) 05/18/22 10:05 AST 13 U/L (0-32) 05/18/22 10:05 ALT < 5 U/L (0-33) 05/18/22 10:05 Alkaline Phosphatase 74 U/L (35-105) 05/18/22 10:05 Creatine Kinase 94 U/L (26-192) 05/18/22 10:05 Troponin T Baseline 22 ng/L (0-10) H 05/18/22 10:05 Troponin T 120 Minute 22.36 ng/L (0-10) H 05/18/22 12:09 Delta Troponin T 0.36 ABS# (0-10) 05/18/22 12:09 Total Protein 7.0 g/dL (6.6-8.7) 05/18/22 10:05 Albumin 3.9 g/dL (3.5-5.2) 05/18/22 10:05 Globulin 3.1 g/dL (1.3-4.6) 05/18/22 10:05 Urine Color Yellow (Yellow) 05/18/22 12:14 Urine Appearance Cloudy (CLEAR) A 05/18/22 12:14 Urine pH 5 (5-7) 05/18/22 12:14 Ur Specific [place] 1.020 (1.005-1.030) 05/18/22 12:14 Urine Protein Neg (Negative) 05/18/22 12:14 Urine Glucose (UA) Norm (Normal) 05/18/22 12:14 Urine Ketones Negative (Negative) 05/18/22 12:14 Urine Blood 2+ (Negative) H 05/18/22 12:14 Urine Nitrate Negative (Negative) 05/18/22 12:14 Urine Bilirubin Neg (Negative) 05/18/22 12:14 Urine Urobilinogen Norm mg/dL (Negative) 05/18/22 12:14 Ur Leukocyte Esterase 2+ (Negative) H 05/18/22 12:14 Urine RBC 0-4 /hpf (0-2) H 05/18/22 12:14 Urine WBC Too numerous to cnt /hpf (0-5) H 05/18/22 12:14 Ur Squamous Epith Cells 0-4 /hpf (0-5) H 05/18/22 12:14 Amorphous Sediment Not Reportable 05/18/22 12:14 Urine Bacteria 4+ /hpf (NONE) H 05/18/22 12:14 Discharge Plan Discharge Patient Disposition: Home Clinical Impression: Orthostasis, Atypical chest pain, Greater trochanteric bursitis of left hip Condition: Stable Prescriptions: Changed metoprolol tartrate 25 mg Tablet 12.5 mg PO BID Qty: 15 0RF No Action tramadol 50 mg tablet 50 mg PO Q6H PRN (Reason: Pain) ondansetron HCl 4 mg tablet 4 mg PO TID PRN (Reason: Nausea And Vomiting) pantoprazole 40 mg Tablet,Delayed Release (Dr/Ec) 40 mg PO BID Qty: 60 0RF Aspercreme 10 % Cream 1 applic TOPICAL QID PRN (Reason: HANDS) acetaminophen 325 mg Tablet 650 mg PO Q6H PRN (Reason: Pain) Dulcolax (bisacodyl) 10 mg Suppository 10 mg TN DAILY PRN (Reason: Constipation) nystatin 100,000 unit/gram Cream 1 applic TOPICAL BID Osteo Bi-Flex 250-200 mg Tablet 1 tab PO BID Rx Instructions: give after food/meal Mucinex Cold,Flu,Sore Throat 10-20-650 mg/20 mL Liquid 20 ml PO Q4H PRN (Reason: Cough) Metamucil 0.4 gram Capsule 0.4 g PO DAILY Salonpas 3.1-10-6 % Adhesive Patch,Medicated 1 patch TOPICAL DAILY Rx Instructions: may leave on area for up to 8 hrs Discharge Orders: Discharge ED (Routine); Ordered 05/18/22 Ordered By: Eugenio Ceja Referrals: Radha Lion FNP [Primary Care Provider] - Patient Instructions: Opioid Safety, Pain Management Coding Level of Care Code ED Vp Sales for Chg Fwd Exam Detailed
--- NOTE | 2022-05-18 09:58 | XRR_ITS ---
PROCEDURE INFORMATION: Exam: XR Right Humerus Exam date and time: 05/18/2022 10:08 AM Age: 87 years old Clinical indication: Injury or trauma; Fall; Blunt trauma (contusions or hematomas); Arm, upper; Right; Injury details: AMS. [facility] reports that she was transiently hypoxic with chest pain rating to her left side and then after that she had what they thought appeared to be a seizure she was staring off to the left and then was unresponsive for EMS reported she was doing some lipsmacking and very agitated. TECHNIQUE: Imaging protocol: Radiologic exam of the Right humerus. Views: 2 or more views. Total images: [id number] COMPARISON: [place] [id number] 02/15/2022 3:33 AM FINDINGS: Bones/joints: Chronic right rotator cuff tear. Mild marginal osteophytes are noted. Moderate joint space narrowing, subchondral sclerosis, and osteophyte formation is noted to the AC joint. No acute fracture nor subluxation. No osseous erosion nor periosteal reaction. Heart/Mediastinum: Calcified node suspected in the right axillary region. Soft tissues: Normal. XR/[place] [id number] IMPRESSION: No acute osseous pathology.
--- NOTE | 2022-05-18 09:58 | XRR_ITS ---
PROCEDURE INFORMATION: Exam: XR Right Hip Exam date and time: 05/18/2022 10:08 AM Age: 87 years old Clinical indication: Injury or trauma; Fall; Blunt trauma (contusions or hematomas); Right; Hip; Injury details: AMS. senior living reports that she was transiently hypoxic with chest pain rating to her left side and then after that she had what they thought appeared to be a seizure she was staring off to the left and then was unresponsive for EMS reported she was doing some lipsmacking and very agitated. TECHNIQUE: Imaging protocol: Radiologic exam of the Right hip. Views: 1 view hip with pelvis when performed. Total images: 2 COMPARISON: CR XR hip RT 2-3V wo/w pel* [id number] 02/15/2022 3:43 AM FINDINGS: Bones/joints: Left hip arthroplasty is present. Diffuse osteopenia noted. Irregularity of the right inferior pubic rami and junction of the right superior pubic rami with acetabulum was present on prior exam and felt to represent sequela of remote trauma. No acute fracture nor subluxation. No osseous erosion nor periosteal reaction. Soft tissues: Unremarkable. Vasculature: Severe atherosclerotic disease is evident. Incidental phleboliths noted. XR/XR hip RT 2-3V wo/w pel* [id number] IMPRESSION: 1. Irregularity of the right inferior pubic rami and junction of the right superior pubic rami with acetabulum was present on prior exam and felt to represent sequela of remote trauma. 2. No acute osseous pathology.
--- NOTE | 2022-05-18 09:58 | XR_ITS ---
WS: [id number] RIGHT SHOULDER: 3 VIEW(S) TECHNIQUE: Internal and external rotation with Y view. HISTORY: pain COMPARISON: None available. Severe degenerative changes involving the shoulder joint. There is bone upon bone and high riding hum eral head. Sclerosis involving the humeral head with hypertrophic bone formation. Remodeling of the a cromion due to the high riding humeral head. Mild widening of the AC joint is probably due to resecti on of the distal clavicle. No acute fracture is identified. Severe narrowing of the glenohumeral joint. Visualized lung is clear. XR/XR shoulder RT min 2V* [id number] IMPRESSION: Severe osteoarthritis involving the shoulder. Remodeling and extensive osteoart hritic changes. No fracture identified.
[2022-05-18 10:25] LABS: Basophils % 0.5 %; Eosinophils # 0.1 10^3/uL (0.0-0.8); Eosinophils % 0.9 %; Hematocrit 39.5 % (37.0-47.0); Lymphocytes # 2.3 10^3/uL (0.8-4.8); Lymphocytes % 30.1 %; Mean Corpuscular HGB Conc 30.4 g/dL (30.0-36.0); Mean Corpuscular Hemoglobin 27.3 pg (28.0-34.0); Mean Platelet Volume 9.8 fL (7.4-10.4); Monocytes # 0.5 10^3/uL (0.2-0.9); Monocytes % 6.2 %; Neutrophils # 4.66 10^3/uL (1.8-7.7); Nucleated Red Blood Cells % 0 %; Platelet Count 270 10^3/cmm (130-400); Red Blood Count 4.39 10^6/uL (4.1-5.3); Red Cell Distribution Width 13.3 % (12.1-15.1); White Blood Count 7.5 10^3/uL (4.0-10.0)
[2022-05-18 10:47] LABS: Troponin(5th) Baseline 22 ng/L (0-10)
[2022-05-18 10:49] LABS: Alanine Aminotransferase < 5 U/L (0-33); Albumin Level 3.9 g/dL (3.5-5.2); Alkaline Phosphatase 74 U/L (35-105); Anion Gap 13.7 (5-19); Aspartate Amino Transferase 13 U/L (0-32); Blood Urea Nitrogen 15 mg/dL (8-23); Calcium 8.8 mg/dL (8.5-10.5); Carbon Dioxide 26 mmol/L (22-29); Chloride 103 mmol/L (98-107); Creatine Phosphokinase 94 U/L (26-192); Globulin 3.1 g/dL (1.3-4.6); Glucose 139 mg/dL (65-115); Osmolality Calculated 291 mOsm/kg (285-295); Potassium 3.7 mmol/L (3.5-5.1); Sodium 139 mmol/L (136-145); Total Bilirubin 0.3 mg/dL (0.15-1.2)
[2022-05-18 10:57] VITALS: BP 116/84; PULSE 70; RESP 21; O2SAT 92
[2022-05-18 12:36] LABS: Add Urine Microscopic? YES; Bilirubin Urine Neg (Negative); Blood Urine 2+ (Negative); Glucose Urine UA Norm (Normal); Ketones Urine Negative (Negative); Leukocyte Esterase Urine 2+ (Negative); Nitrate Urine Negative (Negative); Protein Urine Neg (Negative); Urine Appearance Cloudy (CLEAR); Urine Color Yellow (Yellow); Urobilinogen Urine Norm (Negative); pH Urine 5 (5-7)
[2022-05-18 12:37] LABS: Add Urine Culture? Yes; Bacteria Urine 4+ /hpf; RBC Urine 0-4 /hpf (0-2); Squamous Epithelial Cell Urine 0-4 /hpf (0-5); WBC Urine TOO NUMEROUS TO CNT /hpf (0-5)
--- NOTE | 2022-05-18 12:37 | ECG_ITS ---
[facility] Test Date: 2022-05-18 Pat Name: Colleen Benitez Department: Room: Gender: Female Care Information Associate: : 1935 Requested By: Eugenio Broderick Order Number: [id number] Nona MD: Jonathan Toribio M.D. Measurements Intervals [place] Rate: 68 P: 58 TX: 258 QRS: -72 QRSD: 161 T: 35 QT: 427 QTc: 454 Interpretive Statements SINUS RHYTHM WITH FIRST DEGREE AV BLOCK RIGHT BUNDLE BRANCH BLOCK [120+ ms QRS DURATION, UPRIGHT V1, 40+ ms S IN I/aVL/V4/V5/V6] LEFT ANTERIOR FASCICULAR BLOCK [QRS AXIS <= -45, QR IN I, RS IN II] MINIMAL VOLTAGE CRITERIA FOR LVH, CONSIDER NORMAL VARIANT [MEETS CRITERIA IN ONE OF: R(aVL), S(V1), R(V5), R(V5/V6)+S(V1)] POSSIBLE ANTERIOR MYOCARDIAL INFARCTION , OF INDETERMINATE AGE [30 ms Q WAVE IN V3/V4, OR R < 0.2 mV IN V4].MODERATE T-WAVE ABNORMALITY, CONSIDER LATERAL ISCHEMIA [-0.1+ mV T-WAVE IN I/aVL/V5/V6] Compared to ECG 05/18/2022 09:59:26 First degree AV block now present.Right bundle-branch block now present.Left anterior fascicular block now present.Myocardial infarct finding now present.T-wave abnormality now present.Possible ischemia now present.Ventricular-paced complex(es) or rhythm no longer present Electronically Signed On 05-18-2022 21:48:39 DIVISION ORDER TECHNICIAN by Jonathan Toribio M.D. [id number]
[2022-05-18 12:45] LABS: Troponin 5 2HR 22.36 ng/L (0-10)
[2022-05-18 12:55] LABS: Troponin 5 2HR Delta 0.36 ABS# (0-10)
[2022-05-18] MEDS: triamcinolone 40 mg/mL SDV INJECTION (13:50)
[2022-05-18 14:03] VITALS: BP 122/71; PULSE 75; RESP 16; O2SAT 96
[2022-05-18 14:26] VITALS: BP 128/71; PULSE 88; RESP 14; O2SAT 98
== END 2022-05-18 14:28 | disposition home or self-care (01) ==
PROVIDERS: Emergency Provider Family Medicine; PCP Registered Nurse
DX: I95.1 Orthostatic hypotension (principal); R07.89 Other chest pain; M70.62 Trochanteric bursitis, left hip; Z95.0 Presence of cardiac pacemaker; I10 Essential (primary) hypertension
CPT/HCPCS: 20610; 70450; 73030; 73060; 73502; 80053; 81001; 82550; 84484; 85025; 87077; 87086; 87186; 93005; 99285; J3301; J3490

== ENCOUNTER 2022-08-25 19:27 | Emergency (ER) | payer MEDICARE, MEDICAID, SELFPAY ==
--- NOTE | 2022-08-25 19:29 | XRR_ITS ---
PROCEDURE INFORMATION: Exam: XR Chest Exam date and time: 08/25/2022 7:41 PM Age: 87 years old Clinical indication: Pain; Chest pressure; Additional info: Cp TECHNIQUE: Imaging protocol: Radiologic exam of the chest. Views: 1 view. COMPARISON: [place] [id number] 12/10/2021 2:55 AM FINDINGS: Tubes, catheters and devices: The left-sided ICD leads terminate in the right atrium and right ventricle, stable in position compared to the prior. Lungs: Mild peribronchial cuffing. Borderline low lung volumes. Pleural spaces: Unremarkable. No pleural effusion. No pneumothorax. Heart/Mediastinum: The cardiomediastinal silhouette is stable in appearance. Vasculature: The thoracic aorta is tortuous and atherosclerotic. Bones/joints: There are advanced degenerative changes of the spine and shoulder joints. Partially imaged kyphoplasty changes in the thoracolumbar region . XR/XR chest 1V portable [id number] IMPRESSION: 1. Stable position of the ICD leads. 2. No pleural effusion or pneumothorax.
[2022-08-25 19:30] VITALS: BP 167/94; PULSE 79; RESP 16; TEMP 36.9; O2SAT 95; BMI 25.6
--- NOTE | 2022-08-25 19:47 | ECG_ITS ---
[facility] Test Date: 2022-08-25 Pat Name: Colleen Benitez Department: Room: Gender: Female Hall Director: : 1935 Requested By: Rubi Newman Order Number: [id number] Nona MD: Jonathan Toribio M.D. Measurements Intervals [place] Rate: 73 P: 34 RI: 184 QRS: 262 QRSD: 157 T: 70 QT: 415 QTc: 459 Interpretive Statements ELECTRONIC VENTRICULAR PACEMAKER ABNORMAL RHYTHM ECG Compared to ECG 05/18/2022 12:37:30 Sinus rhythm no longer present First degree AV block no longer present Right bundle-branch block no longer present Left anterior fascicular block no longer present Myocardial infarct finding no longer present T-wave abnormality no longer present Possible ischemia no longer present Electronically Signed On 08-26-2022 22:18:25 CDT by Jonathan Toribio M.D. [id number]
[2022-08-25 19:49] LABS: Basophils # 0.1 10^3/uL (0.0-0.1); Basophils % 0.4 %; Eosinophils # 0.2 10^3/uL (0.0-0.8); Eosinophils % 1.2 %; Hematocrit 39.1 % (37.0-47.0); Hemoglobin 12.1 g/dL (11.5-15.3); Lymphocytes # 2.8 10^3/uL (0.8-4.8); Lymphocytes % 21.2 %; Mean Corpuscular HGB Conc 30.9 g/dL (30.0-36.0); Mean Corpuscular Hemoglobin 27.7 pg (28.0-34.0); Mean Corpuscular Volume 89.5 fl (81-99); Mean Platelet Volume 9.6 fL (7.4-10.4); Monocytes % 7.6 %; Neutrophils # 9.01 10^3/uL (1.8-7.7); Neutrophils % 68.6 %; Nucleated Red Blood Cells % 0 %; Platelet Count 289 10^3/cmm (130-400); Red Blood Count 4.37 10^6/uL (4.1-5.3); Red Cell Distribution Width 14.2 % (12.1-15.1); White Blood Count 13.1 10^3/uL (4.0-10.0)
[2022-08-25 20:01] LABS: INR 0.89 (0.8-1.2)
--- NOTE | 2022-08-25 20:03 | CTR_ITS ---
PROCEDURE INFORMATION: Exam: CT Chest With Contrast; Diagnostic Exam date and time: 08/25/2022 9:13 PM Age: 87 years old Clinical indication: Injury or trauma; Fall; Blunt trauma (contusions or hematomas); Prior surgery; Surgery date: 6+ months; Surgery type: Pacemaker TECHNIQUE: Imaging protocol: Diagnostic computed tomography of the chest with contrast. Radiation optimization: All CT scans at this facility use at least one of these dose optimization techniques: automated exposure control; mA and/or kV adjustment per patient size (includes targeted exams where dose is matched to clinical indication); or iterative reconstruction. Contrast material: OMNI 350; Contrast volume: 100 ml; Contrast route: INTRAVENOUS (IV); REPORTING DATA: Count of CT and Cardiac NM exams in prior 12 months: This patient has received 11 known CTs and 0 known cardiac nuclear medicine studies in the 12 months prior to the current study. COMPARISON: [place] [id number] 12/10/2021 2:55 AM RADIATION DOSE METRICS: Total DLP (mGy-cm): 421 FINDINGS: Tubes, catheters and devices: The left-sided ICD is stable in position. Lungs: Bibasilar opacities, likely atelectasis. 3 mm subpleural nodule in the left upper lobe, (series 4, image 12), also seen on the prior. No lung mass. Pleural spaces: No pleural effusion or pneumothorax. Heart: There is left atrial enlargement. There is cardiomegaly. Coronary arteries: There are atherosclerotic calcifications of the coronary arteries. Lymph nodes: Unremarkable. No enlarged lymph nodes. Vasculature: There are calcifications of the aortic root. There are calcifications of the aortic arch and origin of the arch vessels. There are calcifications and tortuosity of the descending thoracic aorta. Atherosclerosis and tortuosity of the abdominal aorta and its branches. Diaphragm: There is a small hiatal hernia. Liver: Fatty changes of the liver and hepatomegaly. Gallbladder and bile ducts: Large lamellated gallbladder stone is again noted measuring approximally 1.8 x 1.7 cm, (series 4, image 63). Mild thickening of the gallbladder renae. Spleen: The spleen appears grossly normal. Adrenal glands: Small left adrenal nodule is again noted, measuring approximally 1.7 by 1.0 cm, (series 4, image 50). Bones/joints: Mild levoscoliosis of the thoracolumbar junction. Mild exaggeration of the thoracic kyphosis. Diffuse osteopenia. Mild multilevel degenerative disc and joint disease with marginal spurring and calcifications with in the disc space are again noted. Diffuse disc osteophyte complex at the level of T9-T10 results in moderate spinal canal stenosis and mild cord compression. Small disc osteophyte complexes/calcified disc protrusions are again noted at multiple levels without high-grade spinal canal stenosis. Multilevel facet arthropathy and associated neural foramina stenosis, worse in the lower thoracic spine. Redemonstration of superior endplate compression deformity of the T3 vertebral body. Redemonstration of chronic compression/burst type fracture of the T12 and L1 with kyphoplasty changes. Redemonstration of severe compression/burst type fracture of the L2 vertebral body, grossly similar to the prior. Soft tissues: Unremarkable. CT/CT chest w con* [id number] IMPRESSION: 1. No acute traumatic injuries in the chest. 2. Chronic findings as detailed above. 3. Hiatal hernia. 4. Cholelithiasis. 5. Cardiomegaly and coronary atherosclerosis. 6. Chronic thoracolumbar fracture deformities and kyphoplasty as outlined.
[2022-08-25 20:08] LABS: Alanine Aminotransferase 11 U/L (0-33); Albumin Level 3.9 g/dL (3.5-5.2); Alkaline Phosphatase 106 U/L (35-105); Anion Gap 14.4 (5-19); Aspartate Amino Transferase 16 U/L (0-32); Blood Urea Nitrogen 17 mg/dL (8-23); Calcium 8.6 mg/dL (8.5-10.5); Carbon Dioxide 27 mmol/L (22-29); Chloride 98 mmol/L (98-107); Globulin 3.1 g/dL (1.3-4.6); Glucose 96 mg/dL (65-115); Lipase 30 U/L (13-60); Osmolality Calculated 281 mOsm/kg (285-295); Potassium 4.4 mmol/L (3.5-5.1); Sodium 135 mmol/L (136-145); Total Bilirubin 0.2 mg/dL (0.15-1.2)
--- NOTE | 2022-08-25 20:17 | W.ED.FALL ---
HPI - Fall General: Chief Complaint: Fall Stated Complaint: CP Time Seen by Provider: 08/25/22 19:51 Source: patient and EMS Mode of arrival: EMS Limitations: no limitations History of Present Illness: 87-year-old female states that she had tripped and fell just prior to arrival. States she did hit her chest on her bed. States she has pain in the middle of her chest that radiates to her back. She denies any other injuries she denies any pain in her lower extremities she denies any her head denies any neck pain denies any loss consciousness this just happened prior arrival she rates her pain a 6 out of 10. Associated symptoms-after fall: Reports chest pain; Denies abdominal pain, headache(s) or neck pain Review of Systems Const: Denies: fever(s), chills, body aches or change in appetite Eyes: Denies: blurry vision or eye discomfort ENMT: Denies: throat pain or dental pain Card: Reports: chest pain Resp: Denies: dyspnea GI: Denies: abdominal pain, nausea, vomiting or diarrhea Musc: Denies: neck pain or back pain Skin/Breast: Denies: rash Neuro: Denies: headache(s) PFSH ED PFSH: Medical History 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 Placed by [place] 02/2019 HTN (hypertension) Lumbar compression fracture Mobitz type 2 second degree atrioventricular block Osteoarthritis 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) Subcapital fracture of left hip Thoracic compression fracture 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 Surgical History History of bilateral cataract extraction History of colectomy History of hemiarthroplasty of left hip History of pacemaker S/P knee replacement [facility] Family History Daughter Pacemaker Father Tetanus from tetanus Denies family history of Anesthesia complication Bleeding disorder Social History Smoking and tobacco status: never smoked Alcohol intake: never Substance/Drug Use: never Caregiver/support person: No Lives independently: Yes Housing: Apartment Physical Exam Const: COMMON NORMALS: no acute distress, patient oriented x3 and healthy appearing HENMT: COMMON NORMALS: normocephalic and atraumatic HEAD & SCALP: normocephalic and atraumatic Eye: COMMON NORMALS: conjunctivae normal CONJUNCTIVA: Yes conjunctivae normal Neck/C-Spine: COMMON NORMALS: full ROM and supple CERVICAL SPINE: Yes cervical ROM normal Chest: COMMONS NORMALS: normal inspection of the chest OTHER: Tenderness over anterior chest Resp: COMMON NORMALS: normal respiratory effort, No retractions, No use of accessory muscles and clear to auscultation bilaterally AUSCULTATION: clear to auscultation bilaterally Cardio: COMMON NORMALS: regular rate, regular rhythm and No murmurs present (Cardio) RATE: regular rate RHYTHM: regular rhythm GI: COMMON NORMALS: Normal to inspection, nondistended, normoactive bowel sounds present, Soft to palpation, non-tender and no masses PALPATION: Yes Soft to palpation Extremity: COMMON NORMALS: normal to inspection and full ROM Neuro: COMMON NORMALS: patient oriented x3, moves all extremities and no focal motor deficits Psych: COMMON NORMALS: mental status grossly normal, Normal thought process present and cooperative THOUGHT PROCESS: Normal thought process present Skin: COMMON NORMALS: no rashes or lesions noted and no wounds GENERAL SKIN EXAM: no rashes or lesions noted Course Vital Signs: Vital signs: Vital Signs Temperature 98.5 F 08/25/22 19:30 Pulse Rate 79 08/25/22 19:30 Respiratory Rate 16 08/25/22 19:30 Blood Pressure 167/94 08/25/22 19:30 Pulse Oximetry 95 08/25/22 19:30 Oxygen Delivery Me thod Room Air 08/25/22 19:30 MDM - Fall Medical Decision Making Patient presents here with chest wall pain from a fall CT shows no signs of injury likely just a contusion she had no other injuries no head injury she is stable for discharge she is to follow-up with PCP and return if worsening. Lab Data 08/25/22 19:40 08/25/22 19:40 Radiology Impressions Chest X-Ray 08/25/22 19:29 IMPRESSION: 1. Stable position of the ICD leads. 2. No pleural effusion or pneumothorax. Chest CT 08/25/22 20:03 IMPRESSION: 1. No acute traumatic injuries in the chest. 2. Chronic findings as detailed above. 3. Hiatal hernia. 4. Cholelithiasis. 5. Cardiomegaly and coronary atherosclerosis. 6. Chronic thoracolumbar fracture deformities and kyphoplasty as outlined. Laboratory Results WBC 13.1 10^3/uL (4.0-10.0) H 08/25/22 19:40 RBC 4.37 10^6/uL (4.1-5.3) 08/25/22 19:40 Hgb 12.1 g/dL (11.5-15.3) 08/25/22 19:40 Hct 39.1 % (37.0-47.0) 08/25/22 19:40 MCV 89.5 fl (81-99) 08/25/22 19:40 MCH 27.7 pg (28.0-34.0) L 08/25/22 19:40 MCHC 30.9 g/dL (30.0-36.0) 08/25/22 19:40 RDW 14.2 % (12.1-15.1) 08/25/22 19:40 Plt Count 289 10^3/cmm (130-400) 08/25/22 19:40 MPV 9.6 fL (7.4-10.4) 08/25/22 19:40 Neut % (Auto) 68.6 % 08/25/22 19:40 Lymph % (Auto) 21.2 % 08/25/22 19:40 Wetzel % (Auto) 7.6 % 08/25/22 19:40 Eos % (Auto) 1.2 % 08/25/22 19:40 Baso % (Auto) 0.4 % 08/25/22 19:40 Neut # (Auto) 9.01 10^3/uL (1.8-7.7) H 08/25/22 19:40 Lymph # (Auto) 2.8 10^3/uL (0.8-4.8) 08/25/22 19:40 Wetzel # (Auto) 1.0 10^3/uL (0.2-0.9) H 08/25/22 19:40 Eos # (Auto) 0.2 10^3/uL (0.0-0.8) 08/25/22 19:40 Baso # (Auto) 0.1 10^3/uL (0.0-0.1) 08/25/22 19:40 Nucleated RBC % (auto) 0 % 08/25/22 19:40 Nucleated RBCs # 0.0 /100WBC 08/25/22 19:40 PT 12.40 SECONDS (12.1-14.9) 08/25/22 19:40 INR 0.89 (0.8-1.2) 08/25/22 19:40 Sodium 135 mmol/L (136-145) L 08/25/22 19:40 Potassium 4.4 mmol/L (3.5-5.1) 08/25/22 19:40 Chloride 98 mmol/L (98-107) 08/25/22 19:40 Carbon Dioxide 27 mmol/L (22-29) 08/25/22 19:40 Anion Gap 14.4 (5-19) 08/25/22 19:40 BUN 17 mg/dL (8-23) 08/25/22 19:40 Creatinine 0.9 mg/dL (0.5-0.9) 08/25/22 19:40 GFR Calculation Not Reportable 08/25/22 19:40 Glucose 96 mg/dL (65-115) 08/25/22 19:40 Calculated Osmolality 281 mOsm/kg (285-295) L 08/25/22 19:40 Calcium 8.6 mg/dL (8.5-10.5) 08/25/22 19:40 Total Bilirubin 0.2 mg/dL (0.15-1.2) 08/25/22 19:40 AST 16 U/L (0-32) 08/25/22 19:40 ALT 11 U/L (0-33) 08/25/22 19:40 Alkaline Phosphatase 106 U/L (35-105) H 08/25/22 19:40 Troponin T Baseline Cancelled 08/25/22 19:40 Total Protein 7.0 g/dL (6.6-8.7) 08/25/22 19:40 Albumin 3.9 g/dL (3.5-5.2) 08/25/22 19:40 Globulin 3.1 g/dL (1.3-4.6) 08/25/22 19:40 Lipase 30 U/L (13-60) 08/25/22 19:40 EKG Data EKG 1: I personally reviewed and interpreted this EKG as follows: EKG interpretation date: 08/25/22 EKG interpretation time: 19:47 Interpretation: paced hr [address] or t wave abnormalities qrs 157 qtc 441 Discharge Plan Discharge Patient Disposition: Home Clinical Impression: Fall at home, Chest wall contusion Condition: Stable Prescriptions: No Action tramadol 50 mg tablet 50 mg PO Q6H PRN (Reason: Pain) ondansetron HCl 4 mg tablet 4 mg PO TID PRN (Reason: Nausea And Vomiting) pantoprazole 40 mg Tablet,Delayed Release (Dr/Ec) 40 mg PO BID Qty: 60 0RF Aspercreme 10 % Cream 1 applic TOPICAL QID PRN (Reason: HANDS) acetaminophen 325 mg Tablet 650 mg PO Q6H PRN (Reason: Pain) Dulcolax (bisacodyl) 10 mg Suppository 10 mg AL DAILY PRN (Reason: Constipation) nystatin 100,000 unit/gram Cream 1 applic TOPICAL BID Osteo Bi-Flex 250-200 mg Tablet 1 tab PO BID Rx Instructions: give after food/meal Mucinex Cold,Flu,Sore Throat 10-20-650 mg/20 mL Liquid 20 ml PO Q4H PRN (Reason: Cough) Metamucil 0.4 gram Capsule 0.4 g PO DAILY Salonpas 3.1-10-6 % Adhesive Patch,Medicated 1 patch TOPICAL DAILY Rx Instructions: may leave on area for up to 8 hrs metoprolol tartrate 25 mg Tablet 12.5 mg PO BID Qty: 15 0RF Discharge Orders: Discharge ED (Routine); Ordered 08/25/22 Ordered By: Rubi Newman Discharge Diet: Advance as tolerated Discharge Activity: Resume usual activity Patient Instructions: Contusion in Adults (ED), Chest Wall Pain (ED) Coding Level of Care Code ED Orientation & Mobility Specialist for Chg Ryan
[2022-08-25] MEDS: iohexol 350 mg/mL 500 mL Btl (per mL) IV (21:23)
[2022-08-25 23:04] VITALS: BP 168/94; PULSE 83; RESP 18
--- NOTE | 2022-08-30 14:37 | DCPLANNER ---
gaming manager called patient due to no primary care physician. gaming manager spoke with patients daughter, who stated that patient is at [facility]. Patient sees Dr. Zepeda for primary care.
== END 2022-08-25 23:53 | disposition home or self-care (01) ==
PROVIDERS: Emergency Provider Emergency Medicine
DX: S20.214A Contusion of middle front wall of thorax, initial encounter (principal); K80.20 Calculus of gallbladder without cholecystitis without obstruction; Z95.0 Presence of cardiac pacemaker; I10 Essential (primary) hypertension; W01.190A Fall on same level from slipping, tripping and stumbling with subsequent striking against furniture, initial encounter
CPT/HCPCS: 71045; 71260; 80053; 83690; 85025; 85610; 93005; 99285; Q9967

== ENCOUNTER → 2022-10-07 10:27 | Outpatient (BNVA) | payer MEDICARE, MEDICAID, SELFPAY | PROVIDERS: PCP Internal Medicine; Visit Provider Internal Medicine Cardiovascular Disease | DX: I11.0 Hypertensive heart disease with heart failure (principal); I50.9 Heart failure, unspecified; Z95.0 Presence of cardiac pacemaker | CPT/HCPCS: 99214 ==

== ENCOUNTER 2022-11-05 21:52 | Inpatient (IN) | payer MEDICARE, MEDICAID, SELFPAY ==
--- NOTE | 2022-11-05 21:59 | CTR_ITS ---
PROCEDURE INFORMATION: Exam: CT Head Without Contrast Exam date and time: 11/05/2022 9:50 PM Age: 87 years old Clinical indication: Stroke-like symptoms; Altered mental status/memory loss and visual disturbance; Additional info: Stroke alert TECHNIQUE: Imaging protocol: Computed tomography of the head without contrast. Radiation optimization: All CT scans at this facility use at least one of these dose optimization techniques: automated exposure control; mA and/or kV adjustment per patient size (includes targeted exams where dose is matched to clinical indication); or iterative reconstruction. Other technique: STROKE PROTOCOL was implemented. REPORTING DATA: Count of CT and Cardiac NM exams in prior 12 months: This patient has received 10 known CTs and 0 known cardiac nuclear medicine studies in the 12 months prior to the current study. COMPARISON: CT head wo con* [id number] 05/18/2022 11:03 AM RADIATION DOSE METRICS: Total DLP (mGy-cm): 1118.58 FINDINGS: Brain: No acute intracranial hemorrhage, abnormal extra-axial fluid collection, mass effect, or midline shift. Moderate periventricular and subcortical white matter hypodensities consistent with changes of moderate burden chronic small vessel disease. Similar appearing asymmetry of the amygdala (series 13, image 19). Cerebral ventricles: The ventricular system is within normal limits of variation for the patient's age. Paranasal sinuses: Visualized paranasal sinuses are grossly unremarkable. No fluid levels. Mastoid air cells: Visualized mastoid air cells are well aerated. Bones/joints: No acute fracture. Soft tissues: Grossly unremarkable. Vasculature: Atheromatous changes are seen within the bilateral carotid siphons and V4 segments of the bilateral vertebral arteries. CT/CT head thrombolytic [id number] IMPRESSION: 1. No acute intracranial findings in. 2. Other chronic/incidental findings as described above. ASSESSMENT: ASPECTS ([place] Stroke Program Early CT Score) is 10.
[2022-11-05 22:00] VITALS: PULSE 85; O2SAT 99
[2022-11-05 22:02] VITALS: BP 138/71; PULSE 84; RESP 22; TEMP 37.1; O2SAT 99; BMI 27.9
--- NOTE | 2022-11-05 22:05 | XRR_ITS ---
PROCEDURE INFORMATION: Exam: XR Chest Exam date and time: 11/05/2022 10:17 PM Age: 87 years old Clinical indication: Other: AMS TECHNIQUE: Imaging protocol: Radiologic exam of the chest. Views: 1 view. COMPARISON: CT chest w con* [id number] 08/25/2022 9:13 PM FINDINGS: Tubes, catheters and devices: Left chest dual lead pacing device/AICD remains in place in leads appears similar in position and alignment. Lungs: No consolidation. Pleural spaces: No pleural effusion. No pneumothorax. Heart/Mediastinum: Heart size is at the upper limits of normal. Bones/joints: Moderate degenerative changes of the shoulders. Moderate to severe degenerative changes of the partially imaged spine with high attenuating material compatible with vertebroplasty cement at T12 and L1. XR/XR chest 1V portable [id number] IMPRESSION: No acute cardiopulmonary findings.
--- NOTE | 2022-11-05 22:09 | ED_ITS ---
HPI - Neuro Symptoms/Deficit General: Chief Complaint: Neuro Symptoms/Deficit Stated Complaint: AMS/seizure Time Seen by Provider: 11/05/22 22:05 Source: EMS and other History of Present Illness: 87-year-old female who by jail report was in her normal state of health around 8 PM. Sometime around 850, she became unresponsive. She was breathing and had a pulse. On EMS arrival, she continued to not be responsive although her eyes were open. She appeared to have a gaze preference and was not moving any of her extremities. In route to the hospital, she began to seize, with tonic-clonic movements to her right upper and lower extremity. She arrives seizing. She is nonverbal. Her eyes are open. She was given 2 mg of IV Versed in route to CT upon arrival. At this point, she was not responsive to even noxious stimuli. On her way back from CT, she began to be arousable to noxious stimuli. 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 Placed by Donita 02/2019 HTN (hypertension) Lumbar compression fracture Mobitz type 2 second degree atrioventricular block Osteoarthritis 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) Subcapital fracture of left hip Thoracic compression fracture 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 Surgical History History of bilateral cataract extraction History of colectomy History of hemiarthroplasty of left hip History of pacemaker S/P knee replacement rig Family History Daughter Pacemaker Father Tetanus from tetanus Denies family history of Anesthesia complication Bleeding disorder Social History Smoking and tobacco status: never smoked Alcohol intake: never Substance/Drug Use: never Caregiver/support person: No Lives independently: Yes Housing: Apartment NIH stroke score NIHSS: Level Of Consciousness - 1a: 3 Level Of Consciousness Questions - 1b: Neither Correct Level Of Consciousness Commands - 1c: Neither Correct Best Gaze - 2: Forced Deviation Visual Romero - 3: No Visual Loss Facial Palsy - 4: Partial Paralysis Motor Arm Right - 5: No Effort Against [place]stock Motor Arm Left - 5: Effort Against Comstock Motor Leg Right - 6: No Effort Against Comstock Motor Leg Left - 6: Effort Against [place] Limb Ataxia - 7: Present In Two Limbs Sensory - 8: Severe To Total Loss Best Language - 9: Mute; Global Aphasia Dysarthia - 10: Severe Dysarthia If Intubated/Physcial Barrier - Explain: Patient is nonverbal Extinction And Inattention - 11: 2 Score: Total Score: 32 Physical Exam Const: GENERAL APPEARANCE: well kempt, ill appearing and frail appearing HENMT: COMMON NORMALS: normocephalic, atraumatic and Normal external nose present HEAD & SCALP: normocephalic and atraumatic NOSE: Normal external nose present Eye: VISUAL ACUITY: Yes other (Unable to determine) VISUAL ROMERO: Yes other (Unable to determine) CONJUNCTIVA: Yes conjunctival abnormal (Bilateral injection right worse than left) Neck/C-Spine: GENERAL: Yes trachea midline Chest: CHEST: Yes Symmetrical chest wall rise Resp: COMMON NORMALS: clear to auscultation bilaterally EFFORT & INSPECTION: Yes labored AUSCULTATION: clear to auscultation bilaterally Cardio: COMMON NORMALS: regular rate and regular rhythm RATE: regular rate RHYTHM: regular rhythm GI: COMMON NORMALS: Soft to palpation PALPATION: Yes Soft to palpation Extremity: COMMON NORMALS: no pedal edema Neuro: LONA COMA SCALE: document GCS findings Lona coma scale eye opening: Spontaneous Lona coma scale verbal response: Sounds Lona coma scale motor response: Normal flexion [place] coma scale total score: 10 Psych: APPEARANCE: Yes well kempt Course Consultations: Consultation #1: Dr. Crawley, [facility] Neurology Time: 22:25 Vital Signs: Vital signs: Vital Signs Temperature 98.3 F 11/06/22 00:49 Pulse Rate 93 11/06/22 00:49 Respiratory Rate 16 11/06/22 00:49 Blood Pressure 132/83 11/06/22 00:49 Pulse Oximetry 98 11/06/22 00:37 Oxygen Delivery Me thod Nasal Cannula 11/06/22 00:37 Oxygen Flow Rate 5 11/06/22 00:37 MDM - Neuro Symptoms/Deficit Medical Decision Making This patient was seizing on arrival. She received 2 mg of IV Versed to break th e tonic-clonic movements on her right side. She has a forced right deviated gaze. She was not moving her right side at all following seizure. She did withdraw to noxious stimuli on the left side with some effort against gravity both to upper and lower extremity on the left. She has what appears to be a right-sided facial droop as well. She has a very high NIH score. I spoke with neurology at [facility]. Because of the seizure onset, and difficulty obtaining a history from this nonverbal patient currently, we have elected to treat the seizure first by loading her up with Keppra 1 g. We will send her for CTA of the head and neck to rule out large vessel occlusion as a cause, and if no significant improvement in her stroke symptoms or responsiveness in 1/2-hour, we will infuse tPA. Patient's family is on their way to further clarify resuscitation status, and if they wish aggressive treatment such as above. Although the patient began to move her neck, and actually began to move her right upper and lower extremity to some degree prior to tPA administration, she was still nonverbal, had a gaze preference, facial droop, and was not moving the right extremities much. We elected to go ahead and bolus tPA. I spoke with neurology for a second time after the bolus had been started. He agreed with this course of action her vitals have been good. She will go to the ICU. I had a chance to speak with the patient's son, who was in agreement with treatment as well. She will remain a DO NOT INTUBATE/DO NOT RESUSCITATE patient. Hospitalist has seen the patient in the ER Lab Data 11/05/22 22:00 11/05/22 22:[address] 11/05/22 21:59 IMPRESSION: 1. No acute intracranial findings in. 2. Other chronic/incidental findings as described above. ASSESSMENT: ASPECTS ([place] Stroke Program Early CT Score) is 10. Chest X-Ray 11/05/22 22:05 IMPRESSION: No acute cardiopulmonary findings. Head/Neck CTA 11/05/22 22:30 IMPRESSION: 1. No large vessel stenosis, dissection, or occlusion. 2. Chronic/incidental findings as described above. IMPRESSION: No stenosis, dissection, or occlusion. REFERENCES: NASCET CRITERIA. The degree of stenosis in the cervical segment of the internal carotid artery is based on NASCET criteria. Normal is no stenosis. Mild is less than 50% stenosis. Moderate is 50-69% stenosis. Severe is 70% to 99% stenosis. Total occlusion is no detectable patent lumen. Laboratory Results WBC 13.1 10^3/uL (4.0-10.0) H 11/05/22 22:00 RBC 4.52 10^6/uL (4.1-5.3) 11/05/22 22:00 Hgb 12.2 g/dL (11.5-15.3) 11/05/22 22:00 Hct 40.3 % (37.0-47.0) 11/05/22 22:00 MCV 89.2 fl (81-99) 11/05/22 22:00 MCH 27.0 pg (28.0-34.0) L 11/05/22 22:00 MCHC 30.3 g/dL (30.0-36.0) 11/05/22 22:00 RDW 13.7 % (12.1-15.1) 11/05/22 22:00 Plt Count 284 10^3/cmm (130-400) 11/05/22 22:00 MPV 9.7 fL (7.4-10.4) 11/05/22 22:00 Neut % (Auto) 39.2 % 11/05/22 22:00 Lymph % (Auto) 51.4 % 11/05/22 22:00 [place] % (Auto) 7.0 % 11/05/22 22:00 Eos % (Auto) 1.6 % 11/05/22 22:00 Baso % (Auto) 0.5 % 11/05/22 22:00 Neut # (Auto) 5.15 10^3/uL (1.8-7.7) 11/05/22 22:00 Lymph # (Auto) 6.7 10^3/uL (0.8-4.8) H 11/05/22 22:00 [place] # (Auto) 0.9 10^3/uL (0.2-0.9) 11/05/22 22:00 Eos # (Auto) 0.2 10^3/uL (0.0-0.8) 11/05/22 22:00 Baso # (Auto) 0.1 10^3/uL (0.0-0.1) 11/05/22 22:00 Nucleated RBC % (auto) 0 % 11/05/22 22:00 Nucleated RBCs # 0.0 /100WBC 11/05/22 22:00 PT 13.30 SECONDS (12.1-14.9) 11/05/22 22:00 INR 0.98 (0.8-1.2) 11/05/22 22:00 APTT 26.6 SECONDS (23.9-36.7) 11/05/22 22:00 Sodium 132 mmol/L (136-145) L 11/05/22 22:00 Potassium 3.7 mmol/L (3.5-5.1) 11/05/22 22:00 Chloride 98 mmol/L (98-107) 11/05/22 22:00 Carbon Dioxide 20 mmol/L (22-29) L 11/05/22 22:00 Anion Gap 17.7 (5-19) 11/05/22 22:00 BUN 17 mg/dL (8-23) 11/05/22 22:00 Creatinine 1.0 mg/dL (0.5-0.9) H 11/05/22 22:00 GFR Calculation Not Reportable 11/05/22 22:00 Glucose 105 mg/dL (65-115) 11/05/22 22:00 POC Glucose 99 mg/dL (70-110) 11/05/22 22:07 Calculated Osmolality 276 mOsm/kg (285-295) L 11/05/22 22:00 Lactic Acid 6.4 mmol/L (0.5-2.2) H* 11/05/22 22:00 Lactic Acid (Sepsis) 1.8 mmol/L (0.5-2.2) 11/06/22 00:20 Calcium 8.7 mg/dL (8.5-10.5) 11/05/22 22:00 Total Bilirubin 0.2 mg/dL (0.15-1.2) 11/05/22 22:00 AST 16 U/L (0-32) 11/05/22 22:00 ALT 10 U/L (0-33) 11/05/22 22:00 Alkaline Phosphatase 102 U/L (35-105) 11/05/22 22:00 Total Protein 7.2 g/dL (6.6-8.7) 11/05/22 22:00 Albumin 4.1 g/dL (3.5-5.2) 11/05/22 22:00 Globulin 3.1 g/dL (1.3-4.6) 11/05/22 22:00 Urine Color Yellow (Yellow) 11/05/22 23:15 Urine Appearance Hazy (CLEAR) A 11/05/22 23:15 Urine pH 5 (5-7) 11/05/22 23:15 Ur Specific Comstock 1.010 (1.005-1.030) 11/05/22 23:15 Urine Protein Trace (Negative) 11/05/22 23:15 Urine Glucose (UA) Norm (Normal) 11/05/22 23:15 Urine Ketones Negative (Negative) 11/05/22 23:15 Urine Blood Neg (Negative) 11/05/22 23:15 Urine Nitrate Negative (Negative) 11/05/22 23:15 Urine Bilirubin Neg (Negative) 11/05/22 23:15 Urine Urobilinogen Norm mg/dL (Negative) 11/05/22 23:15 Ur Leukocyte Esterase Trace (Negative) H 11/05/22 23:15 Urine RBC 0-4 /hpf (0-2) H 11/05/22 23:15 Urine WBC 10-15 /hpf (0-5) H 11/05/22 23:15 Ur Squamous Epith Cells 0-4 /hpf (0-5) H 11/05/22 23:15 Amorphous Sediment Not Reportable 11/05/22 23:15 Urine Bacteria 1+ /hpf (NONE) H 11/05/22 23:15 Urine Opiates Screen Negative ng/mL (Negative) 11/05/22 23:15 Ur Barbiturates Screen Negative ng/mL (Negative) 11/05/22 23:15 Ur Phencyclidine Scrn Negative ng/mL (Negative) 11/05/22 23:15 Ur Amphetamines Screen Negative ng/mL (Negative) 11/05/22 23:15 U Benzodiazepines Scrn Negative ng/mL (Negative) 11/05/22 23:15 Urine Cocaine Screen Negative ng/mL (Negative) 11/05/22 23:15 U Marijuana (THC) Screen Negative ng/mL (Negative) 11/05/22 23:15 Critical Care Time Critical Care Time: Critical Care Time: Yes Total Critical Care Time: 45 Attestation: This case had a high probability of a clinically significant, sudden, or life threatening deterioration of this patient's condition which required my full and direct attention, intervention and personal management. Time is independent of any procedures performed. Discharge Plan Discharge Patient Disposition: Admitted As Inpatient Admit Provider: Bj Vidales Clinical Impression: Seizure, Suspected stroke patient last known to be well 2 to 3 hours ago Condition: Serious Coding Level of Care Code ED Sales Assistant Institutional Sales for Derrick Davis
[2022-11-05 22:10] LABS: Glucose Point of Care 99 mg/dL (70-110)
[2022-11-05 22:11] LABS: Basophils # 0.1 10^3/uL (0.0-0.1); Basophils % 0.5 %; Eosinophils # 0.2 10^3/uL (0.0-0.8); Eosinophils % 1.6 %; Hematocrit 40.3 % (37.0-47.0); Hemoglobin 12.2 g/dL (11.5-15.3); Lymphocytes # 6.7 10^3/uL (0.8-4.8); Lymphocytes % 51.4 %; Mean Corpuscular HGB Conc 30.3 g/dL (30.0-36.0); Mean Corpuscular Volume 89.2 fl (81-99); Mean Platelet Volume 9.7 fL (7.4-10.4); Monocytes # 0.9 10^3/uL (0.2-0.9); Neutrophils # 5.15 10^3/uL (1.8-7.7); Neutrophils % 39.2 %; Nucleated Red Blood Cells % 0 %; Platelet Count 284 10^3/cmm (130-400); Red Blood Count 4.52 10^6/uL (4.1-5.3); Red Cell Distribution Width 13.7 % (12.1-15.1); White Blood Count 13.1 10^3/uL (4.0-10.0)
[2022-11-05 22:20] LABS: INR 0.98 (0.8-1.2)
[2022-11-05 22:21] LABS: Partial Thromboplastin Time 26.6 SECONDS (23.9-36.7)
--- NOTE | 2022-11-05 22:30 | CTR_ITS ---
PROCEDURE INFORMATION: Exam: CTA Head With Contrast, Arteriography Exam date and time: 11/05/2022 10:46 PM Age: 87 years old Clinical indication: Stroke-like symptoms; Altered mental status/memory loss and visual disturbance; RT upper extremity weakness; Additional info: Seizure and stroke symptoms TECHNIQUE: Imaging protocol: Computed tomographic angiography of the head with contrast. Exam focused on the arteries. 3D rendering (Not supervised by radiologist): MIP and/or 3D reconstructed images were created by the technologist. Radiation optimization: All CT scans at this facility use at least one of these dose optimization techniques: automated exposure control; mA and/or kV adjustment per patient size (includes targeted exams where dose is matched to clinical indication); or iterative reconstruction. Contrast material: OMNI 350; Contrast volume: 91 ml; Contrast route: INTRAVENOUS (IV); REPORTING DATA: Count of CT and Cardiac NM exams in prior 12 months: This patient has received 10 known CTs and 0 known cardiac nuclear medicine studies in the 12 months prior to the current study. COMPARISON: CT head thrombolytic [id number] 11/05/2022 9:50 PM RADIATION DOSE METRICS: Total DLP (mGy-cm): 413.97 FINDINGS: ANTERIOR CIRCULATION: Right internal carotid artery: Intracranial segment is patent with no significant stenosis. No aneurysm. Right middle cerebral artery: No occlusion or significant stenosis. No aneurysm. Right anterior cerebral artery: No occlusion or significant stenosis. No aneurysm. Left internal carotid artery: Intracranial segment is patent with no significant stenosis. No aneurysm. Left middle cerebral artery: No occlusion or significant stenosis. No aneurysm. Left anterior cerebral artery: No occlusion or significant stenosis. No aneurysm. POSTERIOR CIRCULATION: Right vertebral artery: No occlusion or significant stenosis. No aneurysm. Left vertebral artery: No occlusion or significant stenosis. No aneurysm. Basilar artery: No occlusion or significant stenosis. No aneurysm. Right posterior cerebral artery: No occlusion or significant stenosis. No aneurysm. Left posterior cerebral artery: No occlusion or significant stenosis. No aneurysm. Brain: No acute intracranial hemorrhage, abnormal extra-axial fluid collection, mass effect, or midline shift. Moderate periventricular and subcortical white matter hypodensities compatible with changes of moderate burden chronic small-vessel disease. Cerebral ventricles: No ventriculomegaly. Bones/joints: Hyperostosis frontals interna. No acute fracture. Soft tissues: Unremarkable. PROCEDURE INFORMATION: Exam: CTA Neck With Contrast Exam date and time: 11/05/2022 10:46 PM Age: 87 years old Clinical indication: Stroke-like symptoms; Altered mental status/memory loss and visual disturbance; RT upper extremity weakness; Additional info: Seizure and stroke symptoms TECHNIQUE: Imaging protocol: Computed tomographic angiography of the neck with contrast. 3D rendering (Not supervised by radiologist): MIP and/or 3D reconstructed images were created by the technologist. Radiation optimization: All CT scans at this facility use at least one of these dose optimization techniques: automated exposure control; mA and/or kV adjustment per patient size (includes targeted exams where dose is matched to clinical indication); or iterative reconstruction. Contrast material: OMNI 350; Contrast volume: 91 ml; Contrast route: INTRAVENOUS (IV); REPORTING DATA: Count of CT and Cardiac NM exams in prior 12 months: This patient has received 10 known CTs and 0 known cardiac nuclear medicine studies in the 12 months prior to the current study. COMPARISON: CT head thrombolytic [id number] 11/05/2022 9:50 PM RADIATION DOSE METRICS: Total DLP (mGy-cm): 413.97 FINDINGS: Right common carotid artery: No stenosis. No dissection or occlusion. Right internal carotid artery: No stenosis of the extracranial segment. No dissection or occlusion. Right external carotid artery: No occlusion or stenosis of the origin. Left common carotid artery: No stenosis. No dissection or occlusion. Left internal carotid artery: No stenosis of the extracranial segment. No dissection or occlusion. Left external carotid artery: No occlusion or stenosis of the origin. Right vertebral artery: No stenosis. No dissection or occlusion. Left vertebral artery: No stenosis. No dissection or occlusion. Soft tissues: No significant soft tissue swelling. Bones/joints: No acute fracture. CT/CT angio headneck* [id number] IMPRESSION: 1. No large vessel stenosis, dissection, or occlusion. 2. Chronic/incidental findings as described above. IMPRESSION: No stenosis, dissection, or occlusion. REFERENCES: NASCET CRITERIA. The degree of stenosis in the cervical segment of the internal carotid artery is based on NASCET criteria. Normal is no stenosis. Mild is less than 50% stenosis. Moderate is 50-69% stenosis. Severe is 70% to 99% stenosis. Total occlusion is no detectable patent lumen.
[2022-11-05 22:36] LABS: Alanine Aminotransferase 10 U/L (0-33); Albumin Level 4.1 g/dL (3.5-5.2); Alkaline Phosphatase 102 U/L (35-105); Anion Gap 17.7 (5-19); Aspartate Amino Transferase 16 U/L (0-32); Blood Urea Nitrogen 17 mg/dL (8-23); Calcium 8.7 mg/dL (8.5-10.5); Carbon Dioxide 20 mmol/L (22-29); Chloride 98 mmol/L (98-107); Globulin 3.1 g/dL (1.3-4.6); Glucose 105 mg/dL (65-115); Osmolality Calculated 276 mOsm/kg (285-295); Potassium 3.7 mmol/L (3.5-5.1); Sodium 132 mmol/L (136-145); Total Bilirubin 0.2 mg/dL (0.15-1.2); Total Protein 7.2 g/dL (6.6-8.7)
[2022-11-05 22:44] LABS: Lactic Sepsis W/Reflex 6.4 mmol/L (0.5-2.2)
[2022-11-05 22:55] VITALS: BP 134/62; PULSE 98; RESP 16; O2SAT 94
[2022-11-05] MEDS: iohexol 350 mg/mL 500 mL Btl (per mL) IV (23:03)
[2022-11-05 23:25] VITALS: BP 149/77; PULSE 99; RESP 22; O2SAT 97
[2022-11-05 23:37] VITALS: BP 149/77; PULSE 100; RESP 22; TEMP 36.3; O2SAT 99
[2022-11-05 23:51] LABS: Add Urine Microscopic? YES; Bilirubin Urine Neg (Negative); Blood Urine Neg (Negative); Glucose Urine UA Norm (Normal); Ketones Urine Negative (Negative); Leukocyte Esterase Urine Trace (Negative); Nitrate Urine Negative (Negative); Protein Urine Trace (Negative); Urine Appearance Hazy (CLEAR); Urine Color Yellow (Yellow); Urobilinogen Urine Norm (Negative); pH Urine 5 (5-7)
[2022-11-05 23:52] VITALS: BP 136/75; PULSE 96; RESP 16; O2SAT 98
[2022-11-05 23:55] LABS: Bacteria Urine 1+ /hpf; RBC Urine 0-4 /hpf (0-2); Squamous Epithelial Cell Urine 0-4 /hpf (0-5)
[2022-11-05 23:59] LABS: Amphetamines Screen Urine Negative (Negative); Barbiturates Screen Urine Negative (Negative); Benzodiazepines Screen Urine Negative (Negative); Cocaine Screen Urine Negative (Negative); Opiate Screen Urine Negative (Negative); PCP Screen Urine Negative (Negative); THC Screen Urine Negative (Negative)
[2022-11-06] VITALS (28 sets, daily range): BP systolic 131–163; BP diastolic 74–91; PULSE 80–100; RESP 13–28; TEMP 36–37.1; O2SAT 89–99
--- NOTE | 2022-11-06 00:04 | PC.NURSE ---
TPA started at 2337. Kecia RN at bedside doing Q15M vitals and neurochecks. At 0001, right wire products inspector regained by patient. Patient son is at bedside. Dr. Valle notified. TPA continued.
[2022-11-06 00:07] LABS: Reflex Lactate Order REFLEX LACTIC ORDERD
--- NOTE | 2022-11-06 00:15 | PC.NURSE ---
Placed pt on continuous bedside cardiac monitoring.
[2022-11-06] MEDS: sodium chloride 0.9% 50 ML 200 ML IV (00:29)
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
[2022-11-06 00:51] LABS: Lactic Acid level (Lactate) 1.8 mmol/L (0.5-2.2)
[2022-11-06 01:48] LABS: Glucose Point of Care 81 mg/dL (70-110)
[2022-11-06] MEDS: morphine 4 mg/mL SDV 1 mL IVP ×2 (04:09→21:50)
[2022-11-06] MEDS: LORazepam 2 mg/mL INJ 1 mL IVP (06:23)
--- NOTE | 2022-11-06 07:29 | PC.PHAR ---
Addendum entered by Lori Hastings 11/06/22 08:56: medications entered are from the pts mar from [facility] Original Note: pt is from [facility] [phone]-called to get mar and tar no answer-will continue to call till mar and tar are faxed
--- NOTE | 2022-11-06 09:03 | PC.OT ---
HOLD EVAL UNTIL 11/07/22 PER NURSE REQUEST. PT DROWSY AND NEEDS SLEEP. WILL ATTEMPT AGAIN TOMORROW.
[2022-11-06 10:34] LABS: ABG PCO2 45.3 mmHg (35-45); ABG PH Result 7.27 (7.35-7.45); Arterial Blood Gas Hematocrit 37.7 % (37-47); Base Excess ABG -5.8 mmol/L (-2.0-2.0); Blood Gas Allen Test Pos; Blood Gas Sample Site Radial, right; Blood Gas Sample Type Arterial; Oxygen Device NC
--- NOTE | 2022-11-06 14:10 | PM.MISC ---
Miscellaneous Note Purpose of Documentation: Patient is not able to follow commands Moaning in pain Speech therapist to see her today She seems to have UTI as well on UA, hyponatremia, hypokalemia Assessment plan MRI head without contrast tomorrow morning I will keep her labetalol IV push on as-needed basis if blood pressure is greater than 180/105 mmHg I will add ceftriaxone for UTI Request urine culture Continue her metoprolol I will give her aspirin 24 hours after tPA which will be tomorrow PT OT ST Patient is DNR/DNI Will request prolactin level I will keep BiPAP on standby in case she requires overnight for increased work of breathing Lactic acidemia could be related to seizure She is not signs of sepsis or septic shock
[2022-11-06 14:25] LABS: Basophils # 0.1 10^3/uL (0.0-0.1); Basophils % 0.7 %; Eosinophils # 0.2 10^3/uL (0.0-0.8); Eosinophils % 2.1 %; Hematocrit 40.2 % (37.0-47.0); Hemoglobin 12.3 g/dL (11.5-15.3); Lymphocytes % 30.4 %; Mean Corpuscular HGB Conc 30.6 g/dL (30.0-36.0); Mean Corpuscular Hemoglobin 27.1 pg (28.0-34.0); Mean Corpuscular Volume 88.5 fl (81-99); Mean Platelet Volume 10.2 fL (7.4-10.4); Monocytes % 10.1 %; Neutrophils # 5.47 10^3/uL (1.8-7.7); Neutrophils % 56.1 %; Nucleated Red Blood Cells % 0 %; Platelet Count 270 10^3/cmm (130-400); Red Blood Count 4.54 10^6/uL (4.1-5.3); Red Cell Distribution Width 13.9 % (12.1-15.1); White Blood Count 9.7 10^3/uL (4.0-10.0)
[2022-11-06 14:56] LABS: Blood Urea Nitrogen 15 mg/dL (8-23); Calcium 8.9 mg/dL (8.5-10.5); Carbon Dioxide 24 mmol/L (22-29); Chloride 103 mmol/L (98-107); Glucose 76 mg/dL (65-115); Osmolality Calculated 288 mOsm/kg (285-295); Sodium 139 mmol/L (136-145)
[2022-11-06] MEDS: lidocaine 1% 5 ML in potassium chloride premix 100 ML 26.25 ML IV (15:01)
[2022-11-06] MEDS: sodium chloride 0.9% 1,000 ML 75 ML IV (15:02)
[2022-11-06 15:18] LABS: Anion Gap 16.5 (5-19); Potassium 4.5 mmol/L (3.5-5.1)
[2022-11-06 15:19] LABS: Prolactin 14.22 ng/mL (4.8-23.3)
[2022-11-06] MEDS: metoprolol tartrate 25 mg Tablet 12.5 MG PO (17:27)
[2022-11-06] MEDS: quetiapine 25 mg Tablet PO (22:17)
[2022-11-07] VITALS (19 sets, daily range): BP systolic 126–159; BP diastolic 73–103; PULSE 67–121; RESP 16–26; TEMP 36.6–37.1; O2SAT 91–96
[2022-11-07] MEDS: LORazepam 2 mg/mL INJ 1 mL IVP (00:34)
[2022-11-07] MEDS: sodium chloride 0.9% 1,000 ML 75 ML IV (03:05)
[2022-11-07 04:18] LABS: Chol HDL Ratio 3.37 mg/dL (0.0-4.40); Cholesterol 155 mg/dL (0-200); HDL Cholesterol 46 mg/dL (60-100); LDL Cholesterol Calculated 84 mg/dL (50-129); LDL HDL Ratio 1.83 RATIO (0.00-3.22); Triglycerides 124 mg/dL (0-150)
[2022-11-07 04:19] LABS: Anion Gap 15.2 (5-19); Blood Urea Nitrogen 12 mg/dL (8-23); Calcium 8.8 mg/dL (8.5-10.5); Carbon Dioxide 26 mmol/L (22-29); Chloride 104 mmol/L (98-107); Glucose 87 mg/dL (65-115); Osmolality Calculated 291 mOsm/kg (285-295); Potassium 4.2 mmol/L (3.5-5.1); Sodium 141 mmol/L (136-145)
[2022-11-07 04:23] LABS: Estmated Average Glucose 111; Hemoglobin A1C 5.5 % (4.0-6.0)
--- NOTE | 2022-11-07 08:59 | PC.OT ---
HOLD THIS MORNING PER NURSING DUE TO AGITATION. WILL ATTEMPT IN P.M.
[2022-11-07] MEDS: cefTRIAXone 1,000 MG in sodium chloride 0.9% (plus) 50 ML 100 MG IV (09:27)
--- NOTE | 2022-11-07 10:53 | P.PN_ITS ---
Subjective Subjective: Patient is confused Not allowing us to give her medications She has been to get out of the room as well I was not able to understand her conversation Patient is hypertensive, will receive a dose of labetalol Vitals/I&O/Wt Last Vital Signs Temp 98.5 F 11/07/22 00:00 Pulse 100 11/07/22 10:00 Resp 17 11/07/22 10:00 BP 159/103 11/07/22 10:00 Pulse Ox 91 11/07/22 07:00 O2 Del Method Room Air 11/07/22 05:00 O2 Flow Rate 2 11/06/22 10:24 11/06/22 11/07/22 11/07/22 22:59 06:59 14:59 Intake Total 455 / 455 903.75 / 1358.75 50 / 50 Output Total 1950 / 1950 750 / 2700 Balance -1495 / -1495 153.75 / -1341.25 50 / 50 Weight last 48 hrs Weight 83.461 kg Physical Exam Narrative: He is oriented to herself Able to move upper extremities She was able to roping tender my fingers with her both hands Speech is not clear, dysarthria Euvolemic Abdomen soft Doing well on room air Lower extremity nonpitting edema S1, S2 Hypertensive Urinary Catheter Management: Omer: Cath Placed During This Visit: yes Reason for Continuing Indwelling Catheter: Accurate Measurement of Urinary Output in Critically Ill Patients Urinary Catheter Date of Insertion: 11/05/22 Data 11/06/22 14:05 11/07/22 03:42 Micro: Microbiology 11/06/22 17:25 Urine Culture - Preliminary Urine Catheterized Gram Negative Rods A&P Assessment and plan (1) DNR (do not resuscitate): (2) [facility] resident: (3) Small vessel disease, cerebrovascular: (4) tPA adm status 24 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: (5) Seizure: (6) Acute UTI: (7) Chronic SI joint pain: Plan Seizure with postictal confusion like related to stroke MRI head was requested No breakthrough seizure noticed in the hospital UTI: Metabolic encephalopathy Continue ceftriaxone Requested urine cultures Afebrile CVA status post tPA Hypertension and hypertensive Will receive a beta-naresh today Gradually optimize antihypertensive regimen Add aspirin and atorvastatin Patient is a assisted resident DNR/DNI Currently on dysphagia diet Monitor mentation improved we will be able to send her back to the facility Start prior Auth She can transfer out of ICU to [facility] For confusion and agitation I would give her Seroquel for tonight PT OT ST Family updated yesterday Attestations Medical Necessity Statement*: Out of ICU today Diagnoses DNR (do not resuscitate) Z66 [facility] resident Z59.3 Small vessel disease, cerebrovascular I67.9 tPA adm status 24 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
--- NOTE | 2022-11-07 10:53 | PC.OT ---
patient at baseline with cognition and direction following. no further skilled OT required at this time.
[2022-11-07] MEDS: lisinopril 10 mg Tablet PO (11:15)
--- NOTE | 2022-11-07 13:53 | PC.NURSE ---
Report called to Evelyn KOCH. Pt transferred to 268 with all belonging. Evelyn removed restraints. Pt transferred in to Med/surg bed.
[2022-11-07] MEDS: metoprolol tartrate 25 mg Tablet 12.5 MG PO (18:29)
[2022-11-07] MEDS: quetiapine 25 mg Tablet PO (22:22)
[2022-11-07] MEDS: atorvastatin 40 mg Tablet 20 MG PO (22:23)
[2022-11-08] VITALS (10 sets, daily range): BP systolic 94–143; BP diastolic 59–75; PULSE 71–112; RESP 15–17; TEMP 36.6–37; O2SAT 89–95
--- NOTE | 2022-11-08 08:50 | ECG_ITS ---
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 Measurements Intervals Kerrick Rate: 114 P: -56 SD: 238 QRS: 265 QRSD: 164 T: 77 QT: 400 QTc: 551 Interpretive Statements ELECTRONIC VENTRICULAR PACEMAKER Compared to ECG 08/25/2022 19:47:19 No significant changes Electronically Signed On 11-08-2022 11:48:38 CDT by Brayan Velasco M.D. [email or web address]
--- NOTE | 2022-11-08 10:26 | PC.SLP ---
Attempts to waken patient were unsuccessful. Will continue to monitor patient and address swallowing and communication deficits as appropriate.
[2022-11-08] MEDS: cefTRIAXone 1,000 MG in sodium chloride 0.9% (plus) 50 ML 100 MG IV (10:34)
--- NOTE | 2022-11-08 10:36 | P.PN_ITS ---
Subjective Subjective: Able to answer simple questions Opens eyes to verbal commands Not endorsing new complaints Vitals/I&O/Wt Last Vital Signs Temp 97.8 F 11/08/22 07:20 Pulse 112 H 11/08/22 07:20 Resp 17 11/08/22 07:20 BP 125/73 11/08/22 07:20 Pulse Ox 95 11/08/22 07:20 O2 Del Method Room Air 11/08/22 07:20 O2 Flow Rate 2 11/06/22 10:24 11/07/22 11/08/22 11/08/22 22:59 06:59 14:59 Intake Total 1240 / 1320 240 / 240 Output Total 1950 / 1950 Balance 1240 / 1320 -1950 / -630 240 / 240 Physical Exam Narrative: Patient is able to open eyes to verbal commands Her speech is hard to understand She does know that she is in the hospital and does know the president as well S1, S2 Euvolemic Omer catheter in place Abdomen soft Urinary Catheter Management: Omer: Cath Placed During This Visit: yes Reason for Continuing Indwelling Catheter: Other Urinary Catheter Date of Insertion: 11/05/22 Data 11/06/22 14:05 11/07/22 03:42 Micro: Microbiology 11/06/22 17:25 Urine Culture - Preliminary Urine Catheterized Gram Negative Rods A&P Assessment and plan (1) DNR (do not resuscitate): (2) care home resident: (3) Small vessel disease, cerebrovascular: (4) tPA adm status 24 hr DIRECTOR FRAUD: (5) Suspected stroke patient last known to be well 2 to 3 hours ago: (6) Seizure: (7) Anemia: (8) Acute metabolic encephalopathy: (9) Acute UTI: Plan Paced rhythm Status post tPA: Not a candidate for MRI because of pacemaker UTI: Continue antibiotics Metabolic encephalopathy: Improving Plan to discharge her back to nursing facility in next 24 hours Remove Omer catheter before discharge Seizure related activity no recurrence of breakthrough seizure noted in the hospital : Delirium related to UTI: Improving Seroquel on board as well Hypertension: Blood pressure improved today as compared to yesterday DNR/DNI Currently on dysphagia diet Continue PT OT ST Attestations Medical Necessity Statement*: Discharge tomorrow Diagnoses DNR (do not resuscitate) Z66 care home resident Z59.3 Small vessel disease, cerebrovascular I67.9 tPA adm status 24 hr DIRECTOR FRAUD Z92.82 Suspected stroke patient last known to be well 2 to 3 hours ago R09.89 Seizure R56.9 Anemia D64.9 Acute metabolic encephalopathy G93.41 Acute UTI N39.0
[2022-11-08] MEDS: aspirin 81 mg EC Tablet PO (11:24)
[2022-11-08] MEDS: metoprolol tartrate 25 mg Tablet 12.5 MG PO ×2 (11:25→17:30)
[2022-11-08] MEDS: lisinopril 10 mg Tablet PO (11:25)
[2022-11-08] MEDS: levETIRAcetam 500 mg Tablet PO (17:30)
[2022-11-08] MEDS: atorvastatin 40 mg Tablet 20 MG PO (20:36)
[2022-11-08] MEDS: quetiapine 25 mg Tablet PO (20:36)
[2022-11-09] VITALS: BP 105/65; PULSE 112; RESP 16; TEMP 37.1; O2SAT 92
[2022-11-09 04:00] VITALS: BP 112/62; PULSE 111; RESP 18; TEMP 37.3; O2SAT 89
[2022-11-09 05:52] LABS: Basophils % 0.2 %; Eosinophils % 0.2 %; Hematocrit 41.6 % (37.0-47.0); Hemoglobin 12.6 g/dL (11.5-15.3); Lymphocytes # 2.8 10^3/uL (0.8-4.8); Lymphocytes % 21.1 %; Mean Corpuscular HGB Conc 30.3 g/dL (30.0-36.0); Mean Corpuscular Hemoglobin 26.6 pg (28.0-34.0); Mean Corpuscular Volume 87.9 fl (81-99); Mean Platelet Volume 9.8 fL (7.4-10.4); Monocytes # 1.3 10^3/uL (0.2-0.9); Neutrophils # 8.96 10^3/uL (1.8-7.7); Neutrophils % 68.1 %; Nucleated Red Blood Cells % 0 %; Platelet Count 261 10^3/cmm (130-400); Red Blood Count 4.73 10^6/uL (4.1-5.3); White Blood Count 13.2 10^3/uL (4.0-10.0)
[2022-11-09 06:20] LABS: Blood Urea Nitrogen 22 mg/dL (8-23); Calcium 8.9 mg/dL (8.5-10.5); Carbon Dioxide 23 mmol/L (22-29); Chloride 103 mmol/L (98-107); Glucose 107 mg/dL (65-115); Osmolality Calculated 292 mOsm/kg (285-295); Sodium 139 mmol/L (136-145)
[2022-11-09 06:48] LABS: Anion Gap 16.8 (5-19); Potassium 3.8 mmol/L (3.5-5.1)
[2022-11-09 07:32] VITALS: BP 114/69; PULSE 110; RESP 19; TEMP 36.9; O2SAT 93
[2022-11-09] MEDS: levETIRAcetam 500 mg Tablet PO (08:53)
[2022-11-09] MEDS: cefTRIAXone 1,000 MG in sodium chloride 0.9% (plus) 50 ML 100 MG IV (08:53)
[2022-11-09] MEDS: metoprolol tartrate 25 mg Tablet 12.5 MG PO (08:53)
[2022-11-09] MEDS: lisinopril 10 mg Tablet PO (08:53)
[2022-11-09] MEDS: aspirin 81 mg EC Tablet PO (08:53)
--- NOTE | 2022-11-09 10:32 | P.DS_ITS ---
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: Status: Acute (5) Suspected stroke patient last known to be well 2 to 3 hours ago: Status: Acute (6) Seizure: Status: Acute (7) Anemia: Status: Acute (8) Acute metabolic encephalopathy: Status: Acute (9) Acute UTI: Status: Acute Reason for Visit Reason for Visit: AMS/seizure Hospital Course Hospital Course 87-year-old female who is a halfway resident, history of diastolic CHF, presented to the hospital with chief complaint of seizure related activity, patient received tPA for code stroke post tPA patient remained confused for about 48 hours, she was monitored in ICU, repeat CT scan head without contrast before discharge,Patient has a pacemaker, she did well on room air, remained hypertensive and required multiple doses of labetalol at discharge blood pressure 114/69 mmHg, patient remains oriented to herself, able to answer simple questions, she is stating that she is hurting all over, no seizure related activity noticed during her hospitalization, she does have right-sided weakness, she is on level 5 dysphagia diet with minced and moist food textureWith thin liquid consistency. Urine culture showed E. coli which is ESBL she seems to be colonized with this bacteria urine culture from 12/10/2021 also showed similar bacterial growth she remained afebrile, no leukocytosis I would avoid giving her IV antibiotic regimen at this point we will discharge her on Augmentin 10-day course Physical Exam Narrative: Right-sided weakness Right-sided facial droop Oriented to herself Lower extremity weakness bilaterally Pupils are symmetrical Able to answer simple questions Normotensive Currently on room air Urinary Catheter Management: Omer: Cath Placed During This Visit: yes Reason for Continuing Indwelling Catheter: Acute Urinary Retention or Obstruction Urinary Catheter Date of Insertion: 11/05/22 Discharge Data Studies Completed and Pending Completed Studies During Hospitalization Category Date Time Status CT head thrombolytic [id number] Stat Cat Scan 11/05/22 21:59 Completed CTA head neck [CT angio headneck* [id number]] Stat Cat Scan 11/05/22 22:30 Completed XR chest 1V portable [id number] Stat Exams 11/05/22 22:05 Completed Pending at discharge Category Date Time Status SARS Covid-2 Antigen Routine Lab 11/09/22 10:19 Uncollected Radiology Impressions Head CT 11/05/22 21:59 IMPRESSION: 1. No acute intracranial findings in. 2. Other chronic/incidental findings as described above. ASSESSMENT: ASPECTS ([place] Stroke Program Early CT Score) is 10. Chest X-Ray 11/05/22 22:05 IMPRESSION: No acute cardiopulmonary findings. Head/Neck CTA 11/05/22 22:30 IMPRESSION: 1. No large vessel stenosis, dissection, or occlusion. 2. Chronic/incidental findings as described above. IMPRESSION: No stenosis, dissection, or occlusion. REFERENCES: NASCET CRITERIA. The degree of stenosis in the cervical segment of the internal carotid artery is based on NASCET criteria. Normal is no stenosis. Mild is less than 50% stenosis. Moderate is 50-69% stenosis. Severe is 70% to 99% stenosis. Total occlusion is no detectable patent lumen. Laboratory Results WBC 13.2 10^3/uL (4.0-10.0) H 11/09/22 05:46 RBC 4.73 10^6/uL (4.1-5.3) 11/09/22 05:46 Hgb 12.6 g/dL (11.5-15.3) 11/09/22 05:46 Hct 41.6 % (37.0-47.0) 11/09/22 05:46 MCV 87.9 fl (81-99) 11/09/22 05:46 MCH 26.6 pg (28.0-34.0) L 11/09/22 05:46 MCHC 30.3 g/dL (30.0-36.0) 11/09/22 05:46 RDW 14.0 % (12.1-15.1) 11/09/22 05:46 Plt Count 261 10^3/cmm (130-400) 11/09/22 05:46 MPV 9.8 fL (7.4-10.4) 11/09/22 05:46 Neut % (Auto) 68.1 % 11/09/22 05:46 Lymph % (Auto) 21.1 % 11/09/22 05:46 [place] % (Auto) 10.0 % 11/09/22 05:46 Eos % (Auto) 0.2 % 11/09/22 05:46 Baso % (Auto) 0.2 % 11/09/22 05:46 Neut # (Auto) 8.96 10^3/uL (1.8-7.7) H 11/09/22 05:46 Lymph # (Auto) 2.8 10^3/uL (0.8-4.8) 11/09/22 05:46 [place] # (Auto) 1.3 10^3/uL (0.2-0.9) H 11/09/22 05:46 Eos # (Auto) 0.0 10^3/uL (0.0-0.8) 11/09/22 05:46 Baso # (Auto) 0.0 10^3/uL (0.0-0.1) 11/09/22 05:46 Nucleated RBC % (auto) 0 % 11/09/22 05:46 Nucleated RBCs # 0.0 /100WBC 11/09/22 05:46 PT 13.30 SECONDS (12.1-14.9) 11/05/22 22:00 INR 0.98 (0.8-1.2) 11/05/22 22:00 APTT 26.6 SECONDS (23.9-36.7) 11/05/22 22:00 Specimen Type Arterial 11/05/22 22:05 Sample Site Radial, right 11/05/22 22:05 ABG pH 7.27 (7.35-7.45) L 11/05/22 22:05 ABG pCO2 45.3 mmHg (35-45) H 11/05/22 22:05 ABG pO2 115.0 mmHg (80.0-100.0) H 11/05/22 22:05 ABG HCO3 21.0 mmol/L (22-26) L 11/05/22 22:05 ABG Base Excess -5.8 mmol/L (-2.0-2.0) L 11/05/22 22:05 Werner Test Pos 11/05/22 22:05 Hematocrit 37.7 % (37-47) 11/05/22 22:05 O2 Delivery Device Nc 11/05/22 22:05 O2 Liters/Min 5.0 % 11/05/22 22:05 Software Product Specialist ID [email or web address] 11/05/22 22:05 Sodium 139 mmol/L (136-145) 11/09/22 05:46 Potassium 3.8 mmol/L (3.5-5.1) 11/09/22 05:46 Chloride 103 mmol/L (98-107) 11/09/22 05:46 Carbon Dioxide 23 mmol/L (22-29) 11/09/22 05:46 Anion Gap 16.8 (5-19) 11/09/22 05:46 BUN 22 mg/dL (8-23) 11/09/22 05:46 Creatinine 1.0 mg/dL (0.5-0.9) H 11/09/22 05:46 GFR Calculation Not Reportable 11/09/22 05:46 Glucose 107 mg/dL (65-115) 11/09/22 05:46 POC Glucose 81 mg/dL (70-110) 11/06/22 01:22 Estimat Average Glucose 111 11/07/22 03:42 Hemoglobin A1c 5.5 % (4.0-6.0) 11/07/22 03:42 Calculated Osmolality 292 mOsm/kg (285-295) 11/09/22 05:46 Lactic Acid 6.4 mmol/L (0.5-2.2) H* 11/05/22 22:00 Lactic Acid (Sepsis) 1.8 mmol/L (0.5-2.2) 11/06/22 00:20 Calcium 8.9 mg/dL (8.5-10.5) 11/09/22 05:46 Total Bilirubin 0.2 mg/dL (0.15-1.2) 11/05/22 22:00 AST 16 U/L (0-32) 11/05/22 22:00 ALT 10 U/L (0-33) 11/05/22 22:00 Alkaline Phosphatase 102 U/L (35-105) 11/05/22 22:00 Total Protein 7.2 g/dL (6.6-8.7) 11/05/22 22:00 Albumin 4.1 g/dL (3.5-5.2) 11/05/22 22:00 Globulin 3.1 g/dL (1.3-4.6) 11/05/22 22:00 Triglycerides 124 mg/dL (0-150) 11/07/22 03:42 Cholesterol 155 mg/dL (0-200) 11/07/22 03:42 LDL Cholesterol, Calc 84 mg/dL (50-129) 11/07/22 03:42 HDL Cholesterol 46 mg/dL (60-100) L 11/07/22 03:42 LDL/HDL Ratio 1.83 RATIO (0.00-3.22) 11/07/22 03:42 Cholesterol/HDL Ratio 3.37 mg/dL (0.0-4.40) 11/07/22 03:42 Prolactin 14.22 ng/mL (4.8-23.3) 11/06/22 14:05 Urine Color Yellow (Yellow) 11/05/22 23:15 Urine Appearance Hazy (CLEAR) A 11/05/22 23:15 Urine pH 5 (5-7) 11/05/22 23:15 Ur Specific [place] 1.010 (1.005-1.030) 11/05/22 23:15 Urine Protein Trace (Negative) 11/05/22 23:15 Urine Glucose (UA) Norm (Normal) 11/05/22 23:15 Urine Ketones Negative (Negative) 11/05/22 23:15 Urine Blood Neg (Negative) 11/05/22 23:15 Urine Nitrate Negative (Negative) 11/05/22 23:15 Urine Bilirubin Neg (Negative) 11/05/22 23:15 Urine Urobilinogen Norm mg/dL (Negative) 11/05/22 23:15 Ur Leukocyte Esterase Trace (Negative) H 11/05/22 23:15 Urine RBC 0-4 /hpf (0-2) H 11/05/22 23:15 Urine WBC 10-15 /hpf (0-5) H 11/05/22 23:15 Ur Squamous Epith Cells 0-4 /hpf (0-5) H 11/05/22 23:15 Amorphous Sediment Not Reportable 11/05/22 23:15 Urine Bacteria 1+ /hpf (NONE) H 11/05/22 23:15 Urine Opiates Screen Negative ng/mL (Negative) 11/05/22 23:15 Ur Barbiturates Screen Negative ng/mL (Negative) 11/05/22 23:15 Ur Phencyclidine Scrn Negative ng/mL (Negative) 11/05/22 23:15 Ur Amphetamines Screen Negative ng/mL (Negative) 11/05/22 23:15 U Benzodiazepines Scrn Negative ng/mL (Negative) 11/05/22 23:15 Urine Cocaine Screen Negative ng/mL (Negative) 11/05/22 23:15 U Marijuana (THC) Screen Negative ng/mL (Negative) 11/05/22 23:15 Vitals Last Vital Signs Temp 98.4 F 11/09/22 07:32 Pulse 110 H 11/09/22 07:32 Resp 19 H 11/09/22 07:32 BP 114/69 11/09/22 07:32 Pulse Ox 93 11/09/22 07:32 O2 Del Method Room Air 11/09/22 07:32 O2 Flow Rate 2 11/06/22 10:24 Discharge Plan Discharge Patient Disposition: Xfer [facility] Condition: Serious Prescriptions: New aspirin 81 mg Tablet,Delayed Release (Dr/Ec) 81 mg PO DAILY Qty: 60 4RF lisinopril 10 mg Tablet 5 mg PO DAILY PRN (Reason: Blood pressure greater than 135/90) Qty: 30 0RF quetiapine 25 mg Tablet 25 mg PO BEDTIME Qty: 30 0RF amoxicillin-pot clavulanate 875-125 mg tablet 1 tab PO BID Qty: 20 0RF atorvastatin 40 mg Tablet 40 mg PO BEDTIME Qty: 60 0RF Continued cetirizine [Zyrtec] 10 mg tablet 5 mg PO DAILY PRN (Reason: Allergy Symptoms) tramadol 50 mg tablet 50 mg PO Q6H PRN (Reason: Pain) Debrox 6.5 % Drops 5 drp otic (ear) BEDTIME Mucinex Cold,Flu,Sore Throat 10-20-650 mg/20 mL Liquid 20 ml PO Q4H PRN (Reason: Cough) Lidocaine Pain Relief 4 % adhesive patch,medicated See Rx Instructions .ROUTE .COMPLEX Rx Instructions: 3 patch topically once a day on every pm for 12 hours and off every am to bilate knees/shoulders ondansetron HCl 4 mg tablet 4 mg PO TID PRN (Reason: Nausea And Vomiting) pantoprazole 40 mg Tablet,Delayed Release (Dr/Ec) 40 mg PO BID Qty: 60 0RF trolamine salicylate [Aspercreme] 10 % Cream 1 applic TOPICAL DAILY Rx Instructions: apply to hands acetaminophen 325 mg Tablet 650 mg PO Q6H PRN (Reason: Pain) bisacodyl [Dulcolax (bisacodyl)] 10 mg Suppository 10 mg [place] DAILY PRN (Reason: Constipation) nystatin 100,000 unit/gram Cream 1 applic TOPICAL BID glucosamine-chondroitin [Osteo Bi-Flex] 250-200 mg Tablet 1 tab PO BID Rx Instructions: give after food/meal psyllium husk [Metamucil] 0.4 gram Capsule 0.4 g PO DAILY metoprolol tartrate 25 mg Tablet 12.5 mg PO BID Qty: 15 0RF Held potassium chloride 10 mEq Tablet Extended Release 10 meq PO DAILY PRN (Reason: with lasix) Hold Instructions: Resume on 11/13/22. Lasix 20 mg Tablet 20 mg PO DAILY PRN (Reason: Edema) Hold Instructions: Resume on 11/13/22. Discontinued celecoxib [Celebrex] 100 mg capsule 100 mg PO BID Discharge Orders: Discharge Order (Routine); Ordered 11/09/22 Ordered By: Jeannette Rodrigues Referrals: [facility] [Outside] Marcial Zepeda DO [Primary Care Provider] - Discharge Diet: As Directed Discharge Activity: As per PT/OT instructions Patient Instructions: Ischemic Stroke (DC), Opioid Safety Activity Restrictions/Additional Instructions: Level 5 dysphagia diet which is moist and minced solids with thin liquid consistency Patient remains oriented to herself, She also has UTI for which she will require 10 days of Augmentin Discharge Attestations Time Spent in Discharge Care*: greater than 30 min Status at Discharge: Cognitive status at discharge: cognitively intact , Behavioral status at discharge: cooperative , Quality Metrics Clinical Quality Measures [ No reported AMI, CVA or VTE this stay] Coding Level of Care Code Acute Code for Chg Fwd Diagnoses DNR (do not resuscitate) Z66 [facility] resident Z59.3 Small vessel disease, cerebrovascular I67.9 tPA adm status 24 hr CROSSING TENDER Z92.82 Suspected stroke patient last known to be well 2 to 3 hours ago R09.89 Seizure R56.9 Anemia D64.9 Acute metabolic encephalopathy G93.41 Acute UTI N39.0
--- NOTE | 2022-11-09 10:33 | CT_ITS ---
WS: [id number] CT HEAD TECHNIQUE: Noncontrast CT of the head obtained from the skullbase to the vertex. CLINICAL INFORMATION: post tpa COMPARISON: CT November 05, 2022 DLP: 1803.[address] scans at [facility] use at least one of these dose optimization techniques: automated e xposure control; mA and/or kV adjustment per patient size (includes targeted exams where dose is matc hed to clinical indication); or iterative reconstruction. FINDINGS: No evidence of intracranial hemorrhage or mass effect. Ventricular system and basal cisterns are felton nt. Mild small vessel changes with moderate parenchymal volume loss. Intracranial vascular calcificat ions. No extra-axial fluid collections. Paranasal sinuses and mastoid air cells are well aerated. .Normal visualized soft tissues. CT/CT head wo con* [id number] IMPRESSION: 1. No evidence of intracranial hemorrhage or mass effect. 2. Mild small vessel changes. Moderate parenchymal volume loss. 3. Intracranial vascular calcification. 4. No acute intracranial findings.
--- NOTE | 2022-11-09 10:37 | CT_ITS ---
WS: [id number] CT ABDOMEN PELVIS TECHNIQUE: Noncontrast CT of the abdomen and pelvis with coronal and sagittal reformatted images. CLINICAL INFORMATION: Vomiting COMPARISON: CT 12/10/21 DLP: All CT scans at [facility] use at least one of these dose optimization techniques: automated e xposure control; mA and/or kV adjustment per patient size (includes targeted exams where dose is matc hed to clinical indication); or iterative reconstruction. FINDINGS: Subsegmental atelectasis both lower lobes. Noncontrast liver is normal. Large gallstone in the gallbladder. No gallbladder wall thickening or pericholecystic fluid. Gallbladder calculus measur es 17 mm. Normal GE junction. Bilateral inguinal hernias containing loops of small bowel. This appear s slightly increased compared to the prior examination December 2021. Slight induration about the LEFT inguinal hernia small bowel loops although no evidence of high-grade obstruction or free air. Recomme nd correlation for LEFT inguinal pain. Adrenal glands are normal. Tortuous abdominal aorta with dense calcification. Noncontrast kidneys harsh ear normal. No hydronephrosis. Images in the pelvis are degraded due to AUDRA. Cecal and RIGHT colon constipation. Evidence of prior LEFT colectomy. Tiny fat-containing umbilical h ernia.Cardiac pacer. LEFT AUDRA. Vertebroplasty changes T12 and L1. 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 Slight anterolisthesis L3 on L4 and L4 on L5. Osteopenia. CT/CT abdomen pelvis wo con [id number] IMPRESSION: 1. No evidence of high-grade small or large bowel obstruction. 2. Evidence of prior LEFT colectomy with anastomosis. 3. Moderate constipation involving the RIGHT colon and cecum. 4. Bilateral inguinal hernias containing loops of nonobstructed small bowel we re present previously and appears slightly progressed. Slight induration about the LEFT inguinal hernia small bowel loops although no high-grade obstruction o r free air. Recommend correlation for LEFT inguinal pain. 5. Prominent gallstone measuring 17 mm unchanged. No pericholecystic fluid. 6. No other acute findings. Notified Jeannette Rodrigues MD at 11/09/2022 11:39 AM.
[2022-11-09] MEDS: ondansetron 2 mg/ML SDV 2 mL 4 MG IVP (11:12)
[2022-11-09 11:25] LABS: SARS Covid-2 Antigen negative (Negative)
[2022-11-09 11:31] VITALS: BP 122/68; PULSE 96; RESP 18; TEMP 36.7; O2SAT 93
[2022-11-09 14:17] VITALS: BP 122/68; PULSE 96; RESP 18; TEMP 36.7; O2SAT 93
--- NOTE | 2022-11-09 17:37 | PM.CONSULT ---
Providers/Reason For Consult Consulting Physician/Specialty*: Dilip Ramirez MD general surgery Reason for Consult*: Bilateral inguinal hernias seen on CT scan Requesting Physician: see below Attending Physician: Jeannette Rodrigues MD Primary Care Provider: Marcial Zepeda DO History of Present Illness History of Present Illness Colleen Benitez is a 87 year old female who is to be transferred to [facility] when developed N/V and CT showing bilateral inguinal hernia with small bowel in sac but no obstruction seen. Patient admitted with seizure/stroke. She answers questions but it is unclear if she has normal mentation. She denies any further N/V or abdominal pain or groin pain. Review of Systems General: Reports: ROS unobtainable due to medical condition and ROS unobtainable due to mental status Medications/Allergies Home Medications Medication Instructions Recorded Confirmed Last Taken Type tramadol 50 mg tablet 50 mg PO Q6H PRN Pain 03/11/21 11/06/22 05/18/22 History ondansetron HCl 4 mg tablet 4 mg PO TID PRN Nausea And Vomiting 12/10/21 11/06/22 Unknown History pantoprazole 40 mg tablet,delayed 40 mg PO BID #60 tabs 12/16/21 11/06/22 05/18/22 Rx release acetaminophen 325 mg tablet 650 mg PO Q6H PRN Pain 05/18/22 11/06/22 Unknown History bisacodyl 10 mg rectal suppository 10 mg MD DAILY PRN Constipation 05/18/22 11/06/22 Unknown History (Dulcolax (bisacodyl)) glucosamine-chondroitin 250 mg-200 1 tab PO BID 05/18/22 11/06/22 05/18/22 History mg tablet (Osteo Bi-Flex) metoprolol tartrate 25 mg tablet 12.5 mg PO BID #15 tabs 05/18/22 11/06/22 05/18/22 Rx nystatin 100,000 unit/gram topical 1 applic topical BID 05/18/22 11/06/22 05/18/22 History cream psyllium husk 0.4 gram capsule 0.4 g PO DAILY 05/18/22 11/06/22 05/18/22 History (Metamucil) trolamine salicylate 10 % topical 1 applic topical DAILY 05/18/22 11/06/22 05/17/22 History cream (Aspercreme) cetirizine 10 mg tablet (Zyrtec) 5 mg PO DAILY PRN Allergy Symptoms 10/07/22 11/06/22 Unknown History carbamide peroxide 6.5 % ear drops 5 drp otic (ear) BEDTIME 11/06/22 11/06/22 Unknown History (Debrox) furosemide 20 mg tablet (Lasix) 20 mg PO DAILY PRN Edema 11/06/22 11/06/22 Unknown History lidocaine 4 % topical patch See Rx Instructions .Route .COMPLEX 11/06/22 11/06/22 Unknown History (Lidocaine Pain Relief) zmwdwfhyuydyf-IP-kateupfdetvsn-guaif 20 ml PO Q4H PRN Cough 11/06/22 11/06/22 Unknown History 10 mg-20 mg-650 mg/20 mL oral liq (Mucinex Cold,Flu and Sore Throat) potassium chloride 10 mEq 10 meq PO DAILY PRN with lasix 11/06/22 11/06/22 Unknown History tablet,extended release amoxicillin 875 mg-potassium 1 tab PO BID #20 tabs 11/09/22 Unknown Rx clavulanate 125 mg tablet aspirin 81 mg tablet,delayed 81 mg PO DAILY #60 tabs 11/09/22 Unknown Rx release atorvastatin 40 mg tablet 40 mg PO BEDTIME #60 tabs 11/09/22 Unknown Rx lisinopril 10 mg tablet 5 mg PO DAILY PRN Blood pressure 11/09/22 Unknown Rx greater than 135/90 #30 tabs quetiapine 25 mg tablet 25 mg PO BEDTIME #30 tabs 11/09/22 Unknown Rx Allergies Allergy/AdvReac Type Severity Reaction Status Date / Time meloxicam Allergy Unknown Unknown Verified 11/06/22 08:44 prednisone Allergy Unknown Unknown Verified 11/06/22 08:44 triamcinolone [From Kenalog] Allergy Unknown Unknown Verified 11/06/22 08:44 PFSH Acute PFSH: Medical History 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 Placed by Donita 02/2019 HTN (hypertension) Lumbar compression fracture Mobitz type 2 second degree atrioventricular block Osteoarthritis 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1 F 11/09/22 14:17 Pulse 96 11/09/22 14:17 Resp 18 11/09/22 14:17 BP 122/68 11/09/22 14:17 Pulse Ox 93 11/09/22 14:17 O2 Del Method Room Air 11/09/22 11:31 O2 Flow Rate 2 11/06/22 10:24 11/09/22 11/09/22 11/09/22 06:59 14:59 22:59 Intake Total 650 / 650 Output Total 400 / 850 Balance -400 / -80 650 / 650 Physical Exam Narrative: Patient is a well developed well nourished and in NAD and is afebrile with vitals stable and is answering questions appropriately with a normal affect and is alert and oriented x3 HEENT: normocephalic with normal external ears and nonicteric, oral mucosa moist and dentition normal for age, trachea midline with no large masses visualized Heart: RRR, no gallops murmurs or rubs, normal PMI with no thrills Lungs: normal excursions, no loud audible wheezing, no subcutaneous emphysema Abdomen: nondistended, no gross hepatosplenomegaly, no masses, no rigidity or rebound, no loud borborygmi Neuro: nonfocal, LIZAMA, grossly normal sensation Musculoskeletal: good muscle tone, no fasciculations, normal gait Skin: pink warm and dry with no rashes or ecchymosis Vascular: good radial pulses, no ulceration, less than 2 second capillary refill in hand : deferred Groins: reducible nontender bilateral inguinal hernias with normal overlying skin Urinary Catheter Management: Omer: Cath Placed During This Visit: yes Reason for Continuing Indwelling Catheter: Acute Urinary Retention or Obstruction Urinary Catheter Date of Insertion: 11/05/22 Data 11/09/22 05:46 11/09/22 05:46 Micro: Microbiology 11/08/22 18:00 C.difficile Toxin B Gene (PCR) - Final Stool Routine Collection 11/06/22 17:25 Urine Culture - Final Urine Catheterized Escherichia coli esbl A&P Assessment and plan (1) Inguinal hernia bilateral, non-recurrent: Patient with clinically nonsignificant bilateral inguinal hernias small and reducible. I reduced them and currently they did not recur. Likely she has longstanding hernias that is not bothering her and do not appear to be obstructing her GI tract. These hernias can be repaired as outpatient but because of her age and medical condition, it might be prudent to avoid surgery at this time. Coding Level of Care Code 37230 Diagnoses Inguinal hernia bilateral, non-recurrent K40.20
== END 2022-11-09 14:25 | disposition skilled nursing facility (03) | DRG 61 ==
LOC: ER 23:05 → ICU 11-06 00:45 → MEDSURG 11-07 13:41
PROVIDERS: Admitting Provider Internal Medicine; Emergency Provider Emergency Medicine; PCP Internal Medicine; Visit Provider Internal Medicine
DX: I63.81 Other cerebral infarction due to occlusion or stenosis of small artery (principal); G93.41 Metabolic encephalopathy; F05 Delirium due to known physiological condition; G81.91 Hemiplegia, unspecified affecting right dominant side; I50.22 Chronic systolic (congestive) heart failure; N39.0 Urinary tract infection, site not specified; R29.810 Facial weakness; R47.01 Aphasia; R13.10 Dysphagia, unspecified; R29.719 NIHSS score 19; K40.20 Bilateral inguinal hernia, without obstruction or gangrene, not specified as recurrent; Z95.0 Presence of cardiac pacemaker; I44.1 Atrioventricular block, second degree; I11.0 Hypertensive heart disease with heart failure; Z90.49 Acquired absence of other specified parts of digestive tract; Z96.642 Presence of left artificial hip joint; Z96.651 Presence of right artificial knee joint; E66.9 Obesity, unspecified; Z68.28 Body mass index [BMI] 28.0-28.9, adult; R56.9 Unspecified convulsions; Z66 Do not resuscitate; G89.29 Other chronic pain; M53.3 Sacrococcygeal disorders, not elsewhere classified; Z79.891 Long term (current) use of opiate analgesic; B96.20 Unspecified Escherichia coli [E. coli] as the cause of diseases classified elsewhere
CPT/HCPCS: 36415; 36416; 36600; 51702; 70450; 70496; 70498; 71045; 74176; 80048; 80053; 80061; 80306; 81001; 82803; 82962; 83036; 83605; 84146; 85025; 85610; 85730; 87077; 87086; 87186; 87426; 87493; 92507; 92523; 92526; 92610; 93005; 96365; 96375; 96376; 97110; 97116; 97163; 97530; 99291; 99292; A4570; J0696; J1953; J2060; J2270; J2405; J2997; J3480; J7030; Q9967

== ENCOUNTER 2023-09-25 21:51 | Emergency (ER) | payer MEDICARE, MEDICAID, SELFPAY ==
[2023-09-25 21:53] VITALS: BP 128/69; PULSE 68; RESP 16; TEMP 36.6; BMI 22.8
--- NOTE | 2023-09-25 21:55 | XRR_ITS ---
PROCEDURE INFORMATION: Exam: XR Chest Exam date and time: 09/25/2023 10:07 PM Age: 88 years old Clinical indication: Device placement; Ett placement (vent status); Patient HX: Ett placement og tube placement; Additional info: Intubated TECHNIQUE: Imaging protocol: Radiologic exam of the chest. Views: 1 view. COMPARISON: CR XR chest 1V portable [id number] 11/05/2022 10:17 PM FINDINGS: Tubes, catheters and devices: Left subclavian transvenous atrioventricular pacemaker is in expected position. Endotracheal tube is in satisfactory position. Enteral tube terminates in the distal esophagus with sump port at the level of the AP window. Lungs: Clear, symmetrically inflated lungs. Pleural spaces: No pleural effusion. No pneumothorax. Heart/Mediastinum: Cardiac silhouette is normal in size for technique. Bones/joints: Demineralized bony structures. Thoracolumbar junction vertebroplasty cement. No acute displaced fractures are evident. Gastrointestinal tract: Stomach is moderately gas distended. XR/XR chest 1V portable [id number] IMPRESSION: 1. Endotracheal tube is in satisfactory position. 2. Enteral tube terminates in the distal esophagus and should be advanced approximately 16 cm to situated the sump port in the gastric lumen.
--- NOTE | 2023-09-25 21:55 | ECG_ITS ---
[facility] Test Date: 2023-09-25 Pat Name: Colleen Benitez Department: Room: Gender: Female Protein Chemist: : [id number] Requested By: Yoel Mac Order Number: [id number] Nona MD: Jonathan Toribio M.D. Measurements Intervals [place] Rate: 78 P: 158 MS: 130 QRS: -41 QRSD: 196 T: 124 QT: 446 QTc: 509 Interpretive Statements ELECTRONIC ATRIAL PACEMAKER ELECTRONIC VENTRICULAR PACEMAKER 100% AV paced rhythm MARKED ST ELEVATION, CONSIDER LATERAL INJURY [MARKED ST ELEVATION W/O NORMALLY INFLECTED T-WAVE IN I/aVL/V5/V6] ACUTE ND Compared to ECG 11/08/2022 09:37:23 ST (T wave) deviation now present Myocardial infarct finding now present Electronically Signed On 09-27-2023 0:18:12 CDT by Jonathan Toribio M.D. [id number]
[2023-09-25 21:59] VITALS: BP 128/89; PULSE 67; RESP 22; O2SAT 90
[2023-09-25 22:01] VITALS: RESP 16
--- NOTE | 2023-09-25 22:01 | ED_ITS ---
HPI - General Adult 2 General: Chief complaint: Shortness of Breath/Dyspnea Stated complaint: resp failure Time Seen by Provider: 09/25/23 22:00 Limitations: physical limitation History of Present Illness: Patient presented by EMS unresponsive and intubated. They was called out for unresponsive patient. Patient's last known well was 1929. When I got there patient was unresponsive with gurgling respirations. They immediately intubated the patient I did give her 30 of etomidate and 100 a rock, patient is DNR/DNI. 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 Suspected stroke patient last known to be well 2 to 3 hours ago Seizure Systolic heart failure Anemia Acute metabolic encephalopathy Acute UTI 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 Lumbar compression fracture Thoracic compression fracture 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) Subcapital fracture of left hip 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 Placed by Donita 02/2019 HTN (hypertension) Osteoarthritis Mobitz type 2 second degree atrioventricular block Surgical History History of colectomy History of pacemaker History of hemiarthroplasty of left hip History of bilateral cataract extraction S/P knee replacement [facility] Family History Daughter Postsurgical cardiac pacemaker in situ Father Tetanus from tetanus Denies family history of Anesthesia complication Bleeding disorder Social History Smoking and tobacco/nicotine status: never used tobacco/nicotine Alcohol intake: never Substance/Drug Use: never Caregiver/support person: No Lives independently: Yes Housing: Apartment Physical Exam 2 HENMT: COMMON NORMALS: normocephalic, atraumatic and Normal external nose present HEAD & SCALP: normocephalic and atraumatic NOSE: Normal external nose present OTHER: ET tube in place Eye: OTHER: Pupils small unreactive to light Neck/C-Spine: COMMON NORMALS: no JVD Resp: COMMON NORMALS: clear to auscultation bilaterally AUSCULTATION: clear to auscultation bilaterally Cardio: COMMON NORMALS: no JVD, regular rate, regular rhythm, S1 normal heart sound present, S2 normal heart sound present and No gallops present (Cardio) RATE: regular rate RHYTHM: regular rhythm HEART SOUNDS: S1 normal heart sound present and S2 normal heart sound present Neuro: OTHER: Unresponsive to painful stimuli Course 2 Vital Signs: Vital signs: Vital Signs Temperature 97.9 F 09/25/23 21:53 Pulse Rate 68 09/25/23 21:53 Respiratory Rate 16 09/25/23 22:01 Blood Pressure 128/69 09/25/23 21:53 Fraction of Inspir ed Oxygen 100 09/25/23 22:01 MDM - General Adult Medical Decision Making EKG faxed to Dr. Schmid, family called and notified of situation, they said she should not have been intubated in the first place they do not want her taken to the Drafting Clerk they want her extubated and comfort measures only. Discussed the case with patient's son Efrain Benitez who further corroborated that the patient is a DNR/DNI and does not want her taken to the Drafting Clerk if needed and wants her to be extubated and comfort care. This was discussed in librado detail that she has no respiratory drive and she would become hypoxic her organs would start failing and she would pass away. He understood this and is okay with this because this is her decision that she does not want to be intubated. Patient will be given medicines for comfort and extubated. After patient was extubated patient had no respiratory drive, her oxygen saturation decreased, her pulse rate decreased, she is unresponsive on breathing and eventually went pulseless. Time of was called at 2350 Lab Data 09/25/23 22:00 09/25/23 22:00 Radiology Impressions Chest X-Ray 09/25/23 21:55 IMPRESSION: 1. Endotracheal tube is in satisfactory position. 2. Enteral tube terminates in the distal esophagus and should be advanced approximately 16 cm to situated the sump port in the gastric lumen. Laboratory Results WBC 9.58 10^3/uL (3.29-11.43) 09/25/23 22:00 RBC 5.47 10^6/uL (3.85-5.65) 09/25/23 22:00 Hgb 15.10 g/dL (11.27-16.99) 09/25/23 22:00 Hct 49.7 % (36-47) H 09/25/23 22:00 MCV 90.9 fl (85-98) 09/25/23 22:00 MCH 27.6 pg (27-33) 09/25/23 22:00 MCHC 30.4 g/dL (30-55) 09/25/23 22:00 RDW 14.6 % (12.1-15.1) 09/25/23 22:00 Plt Count 275 10^3/cmm (157-399) 09/25/23 22:00 MPV 9.9 fL (7.4-10.4) 09/25/23 22:00 Neut % (Auto) 32.9 % 09/25/23 22:00 Lymph % (Auto) 56.1 % 09/25/23 22:00 Adams % (Auto) 8.6 % 09/25/23 22:00 Eos % (Auto) 0.5 % 09/25/23 22:00 Baso % (Auto) 1.7 % 09/25/23 22:00 Neut # (Auto) 3.16 10^3/uL (1.8-7.7) 09/25/23 22:00 Lymph # (Auto) 5.4 10^3/uL (0.8-4.8) H 09/25/23 22:00 Adams # (Auto) 0.8 10^3/uL (0.2-0.9) 09/25/23 22:00 Eos # (Auto) 0.1 10^3/uL (0.0-0.8) 09/25/23 22:00 Baso # (Auto) 0.2 10^3/uL (0.0-0.1) H 09/25/23 22:00 Nucleated RBC % (auto) 0 % 09/25/23 22:00 Nucleated RBCs # 0.0 /100WBC 09/25/23 22:00 Specimen Type Arterial 09/25/23 21:53 Sample Site Brachial, left 09/25/23 21:53 ABG pH 7.18 (7.35-7.45) L* 09/25/23 21:53 ABG pCO2 36.3 mmHg (35-45) 09/25/23 21:53 ABG pO2 325.0 mmHg (80.0-100.0) H 09/25/23 21:53 ABG PO2/FiO2 Ratio 0 09/25/23 21:53 ABG HCO3 13.5 mmol/L (22-26) L 09/25/23 21:53 ABG O2 Saturation > 100.0 09/25/23 21:53 ABG Base Excess -14.1 mmol/L (-2.0-2.0) L 09/25/23 21:53 Werner Test N/a 09/25/23 21:53 A-a O2 Gradient 43.0 mmHg (5-10) H 09/25/23 21:53 Hematocrit 48.3 % (37-47) H 09/25/23 21:53 Hgb O2 Saturation 98.6 % (95-100) 09/25/23 21:53 Carboxyhemoglobin 0.8 %THgb (0.4-20.1) 09/25/23 21:53 Methemoglobin 0.7 % (0.4-1.5) 09/25/23 21:53 Total Hemoglobin 15.8 g/dL (12-16) 09/25/23 21:53 Sodium 135.0 mmol/L (131-143) 09/25/23 21:53 Potassium 3.7 mmol/L (3.5-5.0) 09/25/23 21:53 Glucose 215.0 mg/dL (70-115) H 09/25/23 21:53 Ionized Calcium 1.3 mmol/L (1.1-1.4) 09/25/23 21:53 O2 Delivery Device Vent 09/25/23 21:53 FiO2 100.0 % 09/25/23 21:53 Tidal Volume 0.35 09/25/23 21:53 PEEP 8.0 cmH20 09/25/23 21:53 Voice Writing Reporter ID [email or web address] 09/25/23 21:53 Sodium 135 mmol/L (136-145) L 09/25/23 22:00 Potassium 3.9 mmol/L (3.5-5.1) 09/25/23 22:00 Chloride 97 mmol/L (98-107) L 09/25/23 22:00 Carbon Dioxide 15 mmol/L (22-29) L 09/25/23 22:00 Anion Gap 26.9 (5-19) H 09/25/23 22:00 BUN 21 mg/dL (8-23) 09/25/23 22:00 Creatinine 1.6 mg/dL (0.5-0.9) H 09/25/23 22:00 GFR Calculation Not Reportable 09/25/23 22:00 Glucose 192 mg/dL (65-115) H 09/25/23 22:00 POC Glucose 186 mg/dL (70-110) H 09/25/23 22:00 Calculated Osmolality 288 mOsm/kg (285-295) 09/25/23 22:00 Lactic Acid 8.8 mmol/L (0.5-2.2) H* 09/25/23 22:00 Calcium 9.5 mg/dL (8.5-10.5) 09/25/23 22:00 Total Bilirubin 0.6 mg/dL (0.15-1.2) 09/25/23 22:00 AST 29 U/L (0-32) 09/25/23 22:00 ALT 22 U/L (0-33) 09/25/23 22:00 Alkaline Phosphatase 66 U/L (35-105) 09/25/23 22:00 C-Reactive Protein 4.5 mg/L (0.0-4.9) 09/25/23 22:00 Total Protein 7.7 g/dL (6.6-8.7) 09/25/23 22:00 Albumin 4.3 g/dL (3.5-5.2) 09/25/23 22:00 Globulin 3.4 g/dL (1.3-4.6) 09/25/23 22:00 All radiology interpretation(s) finalized by discharge Discharge Plan Discharge Patient Disposition: Clinical Impression: Cardiorespiratory failure Condition: Stable Prescriptions: No Action cetirizine [Zyrtec] 10 mg tablet 5 mg PO DAILY PRN (Reason: Allergy Symptoms) tramadol 50 mg tablet 50 mg PO Q6H PRN (Reason: Pain) potassium chloride 10 mEq Tablet Extended Release 10 meq PO DAILY PRN (Reason: with lasix) Hold Instructions: Resume on 11/13/22. Debrox 6.5 % Drops 5 drp otic (ear) BEDTIME Lasix 20 mg Tablet 20 mg PO DAILY PRN (Reason: Edema) Hold Instructions: Resume on 11/13/22. Mucinex Cold,Flu,Sore Throat 10-20-650 mg/20 mL Liquid 20 ml PO Q4H PRN (Reason: Cough) Lidocaine Pain Relief 4 % adhesive patch,medicated See Rx Instructions .ROUTE .COMPLEX Rx Instructions: 3 patch topically once a day on every pm for 12 hours and off every am to bilate knees/shoulders quetiapine 25 mg Tablet 25 mg PO BEDTIME Qty: 30 0RF atorvastatin 40 mg Tablet 40 mg PO BEDTIME Qty: 60 0RF aspirin 81 mg Tablet,Delayed Release (Dr/Ec) 81 mg PO DAILY Qty: 60 4RF lisinopril 10 mg Tablet 5 mg PO DAILY PRN (Reason: Blood pressure greater than 135/90) Qty: 30 0RF amoxicillin-pot clavulanate 875-125 mg tablet 1 tab PO BID Qty: 20 0RF ondansetron HCl 4 mg tablet 4 mg PO TID PRN (Reason: Nausea And Vomiting) pantoprazole 40 mg Tablet,Delayed Release (Dr/Ec) 40 mg PO BID Qty: 60 0RF trolamine salicylate [Aspercreme] 10 % Cream 1 applic TOPICAL DAILY Rx Instructions: apply to hands acetaminophen 325 mg Tablet 650 mg PO Q6H PRN (Reason: Pain) bisacodyl [Dulcolax (bisacodyl)] 10 mg Suppository 10 mg FL DAILY PRN (Reason: Constipation) nystatin 100,000 unit/gram Cream 1 applic TOPICAL BID glucosamine-chondroitin [Osteo Bi-Flex] 250-200 mg Tablet 1 tab PO BID Rx Instructions: give after food/meal psyllium husk [Metamucil] 0.4 gram Capsule 0.4 g PO DAILY metoprolol tartrate 25 mg Tablet 12.5 mg PO BID Qty: 15 0RF Referrals: Marcial Zepeda DO [Primary Care Provider] - Coding Level of Care Code ED Csr Retail for Derrick Davis
[2023-09-25 22:04] LABS: ABG PCO2 36.3 mmHg (35-45); ABG PH Result 7.18 (7.35-7.45); Arterial Blood Gas Hematocrit 48.3 % (37-47); Base Excess ABG -14.1 mmol/L (-2.0-2.0); Blood Gas Sample Site Brachial, left; Blood Gas Sample Type Arterial; Blood Gas Tidal Volume 0.35; Carboxyhemoglobin 0.8 %THgb (0.4-20.1); HCO3 ABG 13.5 mmol/L (22-26); HGB O2 Sat 98.6 % (95-100); Ionized Calcium Level - ABG 1.3 mmol/L (1.1-1.4); Methemoglobin 0.7 % (0.4-1.5); Oxygen Device VENT; Oxygen Saturation ABG > 100.0; PO2 FiO2 Ratio Arterial Blood 0; Potassium Level - ABG 3.7 mmol/L (3.5-5.0); Total Hemoglobin 15.8 g/dL (12-16)
[2023-09-25 22:06] LABS: Basophils # 0.2 10^3/uL (0.0-0.1); Basophils % 1.7 %; Eosinophils # 0.1 10^3/uL (0.0-0.8); Eosinophils % 0.5 %; Hematocrit 49.7 % (36-47); Lymphocytes # 5.4 10^3/uL (0.8-4.8); Lymphocytes % 56.1 %; Mean Corpuscular HGB Conc 30.4 g/dL (30-55); Mean Corpuscular Hemoglobin 27.6 pg (27-33); Mean Corpuscular Volume 90.9 fl (85-98); Mean Platelet Volume 9.9 fL (7.4-10.4); Monocytes # 0.8 10^3/uL (0.2-0.9); Monocytes % 8.6 %; Neutrophils # 3.16 10^3/uL (1.8-7.7); Neutrophils % 32.9 %; Nucleated Red Blood Cells % 0 %; Platelet Count 275 10^3/cmm (157-399); Red Blood Count 5.47 10^6/uL (3.85-5.65); Red Cell Distribution Width 14.6 % (12.1-15.1); White Blood Count 9.58 10^3/uL (3.29-11.43)
[2023-09-25 22:13] VITALS: BP 120/96; PULSE 67; RESP 21; O2SAT 97
[2023-09-25 22:16] LABS: Glucose Point of Care 186 mg/dL (70-110)
[2023-09-25 22:25] LABS: Alanine Aminotransferase 22 U/L (0-33); Albumin Level 4.3 g/dL (3.5-5.2); Blood Urea Nitrogen 21 mg/dL (8-23); C Reactive Protein 4.5 mg/L (0.0-4.9); Calcium 9.5 mg/dL (8.5-10.5); Carbon Dioxide 15 mmol/L (22-29); Chloride 97 mmol/L (98-107); Creatinine Clr Calc Pharmacy 25.6361; Globulin 3.4 g/dL (1.3-4.6); Glucose 192 mg/dL (65-115); Lactic Sepsis W/Reflex 8.8 mmol/L (0.5-2.2); Osmolality Calculated 288 mOsm/kg (285-295); Sodium 135 mmol/L (136-145); Total Bilirubin 0.6 mg/dL (0.15-1.2); Total Protein 7.7 g/dL (6.6-8.7)
[2023-09-25 22:28] LABS: Anion Gap 26.9 (5-19); Aspartate Amino Transferase 29 U/L (0-32); Potassium 3.9 mmol/L (3.5-5.1)
[2023-09-25 22:35] VITALS: BP 153/75; PULSE 66; O2SAT 97
[2023-09-25 22:39] LABS: Alkaline Phosphatase 66 U/L (35-105)
[2023-09-25] MEDS: morphine 4 mg/mL SDV 1 mL IVP (22:57)
[2023-09-25] MEDS: LORazepam 2 mg/mL INJ 10 mL MDV IVP (23:00)
[2023-09-25 23:16] VITALS: BP 76/49; PULSE 73; RESP 16; O2SAT 96
--- NOTE | 2023-09-25 23:25 | PC.NURSE ---
Per Dr Mac- Verbal confirmation to uphold patients DNR wishes given by EH Benitez @ [phone]. RT in room and extubated pt @ 2261.
[2023-09-25 23:51] LABS: Reflex Lactate Order REFLEX LACTIC ORDERD
--- NOTE | 2023-09-26 00:42 | PC.NURSE ---
Sumi HERBERT contacted [employer] for release and given consent to go ahead with process. [facility] called. Spoke with Ngozi @ 0027 and she has informed me that d/t age the patient is not eligible and is okay to release the body. REF# [id number].
[2023-09-26 01:59] VITALS: BP 167/88; PULSE 71; O2SAT 98
== END 2023-09-26 02:00 | disposition expired ==
PROVIDERS: Emergency Medicine; Emergency Provider Emergency Medicine; PCP Internal Medicine
DX: R09.2 Respiratory arrest (principal); Z79.82 Long term (current) use of aspirin; Z95.0 Presence of cardiac pacemaker; I11.0 Hypertensive heart disease with heart failure; I50.20 Unspecified systolic (congestive) heart failure
CPT/HCPCS: 36416; 36600; 71045; 80051; 80053; 82330; 82805; 82962; 83605; 85025; 86140; 93005; 94002; 96374; 96375; 99285; J2060; J2270